=== PATIENT | female | born 1950 | race Caucasian/White ===

== ENCOUNTER → 2016-05-18 | Outpatient (CLI) | payer OTHER ==
--- NOTE | 2016-05-18 19:24 | MR ---
EXAMINATION TYPE: MR lumbar spine wo con DATE OF EXAM: 05/18/2016 6:53 PM COMPARISON: NONE HISTORY: Patient states having lower back "go out on her". Sciatica pain past four months TECHNIQUE: Multiplanar, multisequence images of the lumbar spine were acquired. L1-L2: Normal disc appearance without desiccation. No herniation, protrusion or disc bulging. No ca nal stenosis is present. Foramina are patent bilaterally. L2-L3: There is evidence of mild disc desiccation. Mild posterior disc bulge. No evidence for disc he rniation or protrusion. No evidence for central stenosis or foraminal encroachment. L3-L4: Mild disc desiccation noted. Far lateral and to the left disc bulge with annular tear. Mild ef facement of the ventral thecal sac. Mild left foraminal encroachment. No evidence for central stenosi s. L4-L5: Moderate disc desiccation noted. Broad-based posterior disc bulge noted. Herniation difficult to exclude. Effacement of the ventral thecal sac with constriction of the thecal sac however no defin ite central stenosis at this time. Bilateral foraminal encroachment. Facet joint arthropathy seen. L5-S1: There is evidence of mild disc desiccation. Mild posterior disc bulge. No evidence for disc he rniation or protrusion. No evidence for central stenosis or foraminal encroachment. Lumbar segments are intact. No paraspinal masses are identified. Conus medullaris has a normal appe arance. IMPRESSION: 1. Multilevel degenerative disc disease. 2. Far lateral and to the left disc bulge with annular tear at L3-4. 3. Moderate broad-based disc bulge with herniation difficult to exclude at L4-5.
== END | disposition home or self-care (01) ==
LOC: RADMRIMAIN 18:10
PROVIDERS: ATTEND Physical Medicine & Rehabilitation
DX: M51.26 Other intervertebral disc displacement, lumbar region (principal); M51.36 Other intervertebral disc degeneration, lumbar region
CPT/HCPCS: 72148

== ENCOUNTER → 2019-08-22 | Outpatient (CLI) | payer MEDICARE, OTHER ==
[~2019-08-22] MED LIST: IODINE/POTASS IOD (LUGOLS) BOTTLE TOPICAL ONE
--- NOTE | 2019-08-22 16:16 | NM ---
EXAMINATION TYPE: NM DatScan Brain SPECT DATE OF EXAM: 08/22/2019 COMPARISON: NONE HISTORY: Essential tremor TECHNIQUE: 10 drops of Lugol's solution was administered 1 hour prior to injection as a thyroid bloc miley agent. After the administration of 4.34 mCi I-123 Ioflupane DaTscan. Images obtained 3 hours p ost injection. SPECT images of the brain were acquired with axial and coronal reconstructions. FINDINGS: There is lack of the normal expected uptake along the striata bilaterally. Normal comma shaped uptake is not present. IMPRESSION: Abnormal REHANA scan
== END | disposition home or self-care (01) ==
LOC: RADNMMAIN 11:00
PROVIDERS: ATTEND Physician Assistant
DX: R93.0 Abnormal findings on diagnostic imaging of skull and head, not elsewhere classified (principal)
CPT/HCPCS: 78803; A9584

== ENCOUNTER → 2020-02-07 | Outpatient (CLI) | payer MEDICARE, OTHER ==
[2020-02-07 08:26] VITALS: BP 143/81; PULSE 77; RESP 18; TEMP 97.6
--- NOTE | 2020-02-07 09:00 | P.PAINCN ---
History of Present Illness - Reason for Consult Consult date: 02/07/20 - History of Present Illness This is 69 years old female with a chronic history of severe low back pain, and left knee pain, vision diagnosed with lumbar degenerative disc disease, lumbar spondylosis with lumbar facet arthropathy , lumbar spinal stenosis, and she had chronic left knee pain persistent after left knee arthroplasty, she was treated at orthopedic [facility], pain clinic by Dr. Osborne, and he did RFA of the medial branch lumbar area, and he did RFA of the left genicular nerves , the last RFA of the medial branch was done more than 6 months ago, currently she is complaining of severe low back pain which is increased with any activity, interfere with her quality of life she denies any fever or night sweats, denies any motor or sensory deficit, no change in the bowel movement or urination Past Medical History Past Medical History: CVA/TIA, Diabetes Mellitus, Memory Impairment, Osteoarthritis (OA), Thyroid Disorder Additional Past Medical History / Comment(s): ?TIA (OVER 10 YRS AGO), USP MEMORY LOSS, BENIGN FAMILIAL TREMORS/PARKINSONS, SEASONAL ALLERGIES, OSTEOPENIA, INTERSTITIAL CYSTITIS, DRY EYES, BEGINNING OF MACULAR DEGENERATION. History of Any Multi-Drug Resistant Organisms: None Reported Past Surgical History: Adenoidectomy, Bladder Surgery, Cholecystectomy, Heart Ca theterization, Hysterectomy, Orthopedic Surgery, Tonsillectomy, Tubal Ligation Additional Past Surgical History / Comment(s): LEFT ROTATOR CUFF, RIGHT FROZEN SHOULDER, JEFF KNEES-TOTAL AND PARTIAL, OOPHERECTOMY, CYSTOSCOPIES, BLADDER SUSPENSION, INTERSTITIAL CYSTITIS, JEFF CARPAL TUNNEL, PAIN CLINIC PROCEDURES , EYE SURGER (CHILD), EYELID RESECTION & EYEBROW LIFT. Past Anesthesia/Blood Transfusion Reactions: Previous Problems w/ Anesthesia Additional Past Anesthesia/Blood Transfusion Reaction / Comm: STATES MEDICATION "CURRARRE" USED OVER 25 YEARS AGO, SHE FELT PARALYZED AND COULD NOT MOVE OR BREATHE. Past Psychological History: No Psychological Hx Reported Smoking Status: Never smoker Past Alcohol Use History: Occasional Past Drug Use History: None Reported - Past Family History Mother Family Medical History: Cancer Additional Family Medical History / Comment(s): BASAL CELL Medications and Allergies Home Medications Medication Instructions Recorded Confirmed Type Aspirin [Adult Low Dose Aspirin EC] 81 mg PO HS 02/05/20 02/05/20 History Vamouvr313/Vit D 1800 1 cap PO DAILY 02/05/20 History Cetirizine HCl [Zyrtec] 10 mg PO DAILY 02/05/20 02/05/20 History Fenofibrate [Lofibra] 160 mg PO DAILY 02/05/20 02/05/20 History Hylands Leg Cramp Supplement 4 tab SL DIRECTED PRN 02/05/20 History Krill/[place]-3/Dha/Epa/Lipids 1 each PO DAILY 02/05/20 02/05/20 History [Krill Oil 350 mg Softgel] Levothyroxine Sodium [Synthroid] 50 mcg PO DAILY 02/05/20 02/05/20 History Lisinopril-Hctz 20-25 mg 1 tab PO DAILY 02/05/20 02/05/20 History [Zestoretic -25] Loratadine [Claritin] 10 mg PO DAILY 02/05/20 02/05/20 History Magnesium 400 mg PO BID 02/05/20 02/05/20 History Melatonin 10 mg PO HS PRN 02/05/20 02/05/20 History Menthol [Biofreeze] 1 applic TOPICAL DIRECTED PRN 02/05/20 02/05/20 History [place] 3 Supplement For Eyes 1 dose PO DAILY 02/05/20 History Pioglitazone [Actos] 15 mg PO HS 02/05/20 02/05/20 History Retinavites Supplement Dry Eye 1 dose PO DAILY 02/05/20 History Rosuvastatin [Crestor] 20 mg PO HS 02/05/20 02/05/20 History Thera Works Cream 1 applicate TOPICAL DIRECTED PRN 02/05/20 History metFORMIN HCL [Glucophage] 1,000 mg PO BID 02/05/20 02/05/20 History rOPINIRole HCL [Requip XL] 8 mg PO HS 02/05/20 02/05/20 History rOPINIRole HCL [Requip] 2 - 4 mg PO BID PRN 02/05/20 02/05/20 History Allergies Allergy/AdvReac Type Severity Reaction Status Date / Time acetaminophen [From Vicodin] Allergy Unknown Itching, Verified 02/05/20 14:33 rash, head like basketball, lips swollen, tingling codeine Allergy Unknown Rash, Verified 02/05/20 14:34 [From Tylenol-Codeine #3] itching,tingling,lips swollen,head like basketball erythromycin base Allergy Unknown Rash, Verified 02/05/20 14:34 itching, lips swollen, tingling, head like basketball hydrocodone [From Vicodin] Allergy Unknown rash , Verified 02/05/20 13:59 itching, head feels like basketball, lips swelling, oxycodone Allergy Unknown vomit bile Verified 02/05/20 13:59 Penicillins Allergy Unknown Rash, Verified 02/05/20 14:35 itching, lips swollen,tingling, head like basketball sulfamethoxazole Allergy Unknown rash, Verified 02/05/20 13:59 [From Bactrim] itching tolterodine [From Detrol] Allergy Unknown itching/nelly Verified 02/05/20 13:59 h tramadol [From Ultram] Allergy Unknown Rash, Verified 02/05/20 14:35 itching, lips swollen, tingling, head like basketball trimethoprim [From Bactrim] Allergy Unknown rash, Verified 02/05/20 13:59 itching hydromorphone [From Dilaudid] AdvReac Unknown reaction Verified 02/05/20 14:37 in higher doses gel adhesive pad Allergy Unknown ekg pads Uncoded 02/05/20 13:59 and adhesive- chemical burn, itching rash Physical Exam Vitals: Vital Signs Temp Pulse Resp BP Pulse Ox 02/07/20 08:20 97.6 F 77 18 143/81 97 Physical Examinations : -Constitutiona : Cooperative , not in acute distress . -HEENT : nech : supple , no Lymphadenopathy , normal thyroid size . : eyes : no ptosis , no icterus, no photophobia . - neurologic : Cranial nerve II to XII intact , no focal neurological deffecit . -psychatric : alert , oriented X 3 , appropriate affect , intact judgment and insight . -Lymphatic : no Lymphadenopathy . - musculoskeltal : Lumber spine moter stegnth lower extremities ,thigh and legs 5/5 Right side , 5/5 Left side deep tendon reflexes : normal Knee Jerk , normal ankle Jerk lumber facet Loading Test =positive Right , positive Left Range of motion of the lumbar spine Flexion 30 degrees, extension 10 degrees strait leg raising test = positive at 30 degree Fabere test= positive Right , and positive LT . Sever tenderness over the Sacroiliac joint on the Left sides Results Comments: MRI of the lumbar spine done December 2018= L2-3 facet disease and disc bulging, L3 4 facet disc disease and disc bulging at L4 5 disc herniation and foraminal stenosis and spinal stenosis L5-S1 disc bulging Assessment and Plan Plan: Assessment and plan=1-lumbar spondylosis with lumbar facet arthropathy without myelopathy. 2-lumbar degenerative disc disease. 3-lumbar spinal stenosis. 4-left knee arthralgia. Currently most of the pain is coming from the facet-related component, patient could benefit from repeat RFA medial branch Patient will be good candidate to have RFA of the medial branch bilateral L3, L4, L5 to target the facet joint at L4 5 and L5- S1 Time with Patient: Greater than 30 PQRS Measure Charge Sheet Measure #130: Documentation of Current Meds in Medical Chart: Patient's medications documented in chart Measure #226: Tobacco Use: Screen & Cessation Intervention: Pt not a tobacco user Measure #111: Pneumonia Vaccination: Pneumococcal vaccine administered or previously received Measure #47: Advance Care Plan: Advance care planning discussed & documented, pt chose/unable to give Measure #412: Opioid Treatment Agreement: No documentation of signed opioid treatment agreement Measure #408: Opioid Therapy Follow-up Evaluation: Patient had NO f/u eval minimum every 3 months during opioid therapy Measure #317: Preventitive Care & Scrn High Bld Press & F/U: Pre-hypertensive or hypertensive BP documented, pt will f/u with PCP Measure #128: Body Mass Index (BMI) Screening & Follow-up: BMI documented ABOVE normal parameters - f/u documented Measure #131: Pain Assessment & Follow-up: Pain positive & plan documented, Follow-up scheduled Measure #431: Unhealthy Alcohol Use Preventative Care & Scrn: Patient not identified as an unhealthy alcohol user PQRS Narrative: Blood Pressure 143/81 Pain Intensity [Left Knee] 10 Pain Intensity [Lower Back] 3 Scale Used Numeric (1 - 10) Hx Alcohol Use (MH) Yes: Social Home Medications: Ambulatory Orders Aspirin [Adult Low Dose Aspirin EC] 81 mg PO HS 02/05/20 Sxtovhm488/Vit D 1800 1 cap PO DAILY 02/05/20 Cetirizine HCl [Zyrtec] 10 mg PO DAILY 02/05/20 Fenofibrate [Lofibra] 160 mg PO DAILY 02/05/20 Hylands Leg Cramp Supplement 4 tab SL DIRECTED PRN 02/05/20 Krill/[place]-3/Dha/Epa/Lipids [Krill Oil 350 mg Softgel] 1 each PO DAILY 02/05/20 Levothyroxine Sodium [Synthroid] 50 mcg PO DAILY 02/05/20 Lisinopril-Hctz 20-25 mg [Zestoretic 20-25] 1 tab PO DAILY 02/05/20 Loratadine [Claritin] 10 mg PO DAILY 02/05/20 Magnesium 400 mg PO BID 02/05/20 Melatonin 10 mg PO HS PRN 02/05/20 Menthol [Biofreeze] 1 applic TOPICAL DIRECTED PRN 02/05/20 [place] 3 Supplement For Eyes 1 dose PO DAILY 02/05/20 Pioglitazone [Actos] 15 mg PO HS 02/05/20 Retinavites Supplement Dry Eye 1 dose PO DAILY 02/05/20 Rosuvastatin [Crestor] 20 mg PO HS 02/05/20 Thera Works Cream 1 applicate TOPICAL DIRECTED PRN 02/05/20 metFORMIN HCL [Glucophage] 1,000 mg PO BID 02/05/20 rOPINIRole HCL [Requip XL] 8 mg PO HS 02/05/20 rOPINIRole HCL [Requip] 2 - 4 mg PO BID PRN 02/05/20
== END | disposition home or self-care (01) ==
LOC: PNWHC3 08:07
PROVIDERS: ATTEND Specialist
DX: M48.061 Spinal stenosis, lumbar region without neurogenic claudication (principal); M51.36 Other intervertebral disc degeneration, lumbar region; M25.562 Pain in left knee; M47.816 Spondylosis without myelopathy or radiculopathy, lumbar region; E11.9 Type 2 diabetes mellitus without complications; E07.9 Disorder of thyroid, unspecified; H04.129 Dry eye syndrome of unspecified lacrimal gland; H35.30 Unspecified macular degeneration; Z79.82 Long term (current) use of aspirin; Z79.899 Other long term (current) drug therapy; Z79.84 Long term (current) use of oral hypoglycemic drugs; Z79.890 Hormone replacement therapy; Z88.0 Allergy status to penicillin; Z88.5 Allergy status to narcotic agent
CPT/HCPCS: 99211

== ENCOUNTER 2020-04-02 07:02 | Day surgery (SDC) | payer MEDICARE, OTHER ==
[2020-03-29 10:22] VITALS: BMI 33.3
[2020-04-02] MEDS ORDERED: LACTATED RINGERS 1,000 ML IV ONE (07:25)
[2020-04-02 07:46] LABS: Glucose,Whole Blood 103 mg/dL (75-99)
[2020-04-02 07:49] VITALS: RESP 16; TEMP 96.8
[2020-04-02] MEDS ORDERED: ONDANSETRON 4 MG/2 ML VIAL ONE (07:50)
[2020-04-02] MEDS ORDERED: ONDANSETRON 4 MG/2 ML VIAL IVP ONE (07:52)
[2020-04-02] MEDS ORDERED: MIDAZOLAM 2 MG/2 ML VIAL ONE (07:54)
[2020-04-02] MEDS ORDERED: LIDOCAINE 1% INJ 10MG/ML (20 ML MDV) ONE (07:54)
[2020-04-02] MEDS ORDERED: ROPIVACAINE 5MG/ML 20ML VIAL ONE (07:54)
[2020-04-02] MEDS ORDERED: fentaNYL (PF) 50 MCG/ML 2 ML AMP ONE (07:54)
--- NOTE | 2020-04-02 08:34 | P.PCN ---
Date of Procedure: 04/02/20 Description of Procedure: PREOPERATIVE DIAGNOSIS: Lumbar Spondylosis POSTOPERATIVE DIAGNOSIS: Same PROCEDURES: Radiofrequency ablation of the L3, L4, L5 medial branches with fluoroscopic guidance bilaterally SURGEON: Jaison Hughes MD. ANESTHESIA: Lidocaine 1% 5 mL, Moderate sedation with intravenous Versed and fentanyl, sedation time 35 min EBL: Minimal Fluoroscopy was used for the procedure and images were saved in the radiology portion of the chart. PROCEDURE INDICATION: The patient with low back pain secondary to lumbar facet arthropathy who had more than 50% relief of pain with previous diagnostic lumbar medial branch block X2. PROCEDURE DESCRIPTION / TECHNIQUE: The patient was seen and identified in the preoperative area. Risks, benefits, complications, including but not limited to risk of infection ,bleeding , allergic reactions to the medications and incomplete pain relief , and alternatives were discussed with the patient, the patient agreed to proceed with the procedure and signed the consent. IV was started. The operative site was marked. Patient was taken to the OR and time out was completed. The patient was placed in the prone position on the procedure table. The lumbar area was prepped and draped in the usual sterile fashion. . Vital signs were closely monitored during the procedure .IV sedation was used during the procedure to decrease patients anxiety. Using AP and then oblique fluoroscopy, the "eye of the Hunter dog" corresponding to the connection between the superior and transverse articular processes of the L4 and L5 as well as the sacral ala were identified, marked, and localized with 1% lidocaine. Subsequently, an 18 guage[100/150-mm] radiofrequency cannula with a 10-mm active tip was advanced guided by fluoroscopy to the identified target at each site. Needle positioning was confirmed on AP, oblique and late ral fluoroscopy. Motor testing at 2.5 Hz was done with paraspinal muscle stimulation only, and no radicular symptoms down the legs. Then 1 mL of 0.5% bupivacaine was injected in each site. Radiofrequency thermocoagulation at 80 degrees celsius for 90 seconds was then performed. [place] were removed. Sterile dressings were applied. COMPLICATIONS: No acute complications. DISPOSITION / PLANS: The patient was placed in a supine position and transferred to the recovery area in a stable condition for observation and was discharged from the recovery room after meeting discharge criteria. Home discharge instructions given to the patient by the staff. The patient will follow up in clinic in 8 weeks.
[2020-04-02 08:58] VITALS: BP 155/67; PULSE 60
[2020-04-02] MEDS ORDERED: IV FLUID CONTINUATION 1,000 ML IV ONE (08:59)
--- NOTE | 2020-04-02 09:06 | FL ---
EXAMINATION TYPE: FL guided pain mgmt statistic DATE OF EXAM: 04/02/2020 HISTORY: Fluoroscopy time 20 seconds of fluoroscopy provided. IMPRESSION: 1. Fluoroscopy time.
== END 2020-04-02 09:13 | disposition home or self-care (01) ==
LOC: ORPAIN 07:02
PROVIDERS: ATTEND Anesthesiology
DX: M47.816 Spondylosis without myelopathy or radiculopathy, lumbar region (principal); E11.9 Type 2 diabetes mellitus without complications; Z98.890 Other specified postprocedural states; Z79.82 Long term (current) use of aspirin
CPT/HCPCS: 64635; 64636; J2250; J2405; J2001; J3010; J2795; 99152; 99153

== ENCOUNTER → 2020-05-27 | Outpatient (CLI) | payer MEDICARE, OTHER ==
[2020-05-27 12:36] VITALS: BP 139/73; PULSE 88; RESP 18; TEMP 97.7
--- NOTE | 2020-05-27 12:48 | P.PAINPG ---
Subjective Progress Note Date: 05/27/20 Principal diagnosis: Lumbar back pain, hip pain, and knee pain Mrs. Gonzalez is a 70-year-old pleasant female came to the [facility] pain management clinic for follow-up visit after bilateral lumbar radiofrequency ablation. Patient had complete pain relief after the intervention procedure area but she is complaining her pain in her left hip area secondary to her bursitis. And she had bilateral knee genicular nerve radiofrequency ablation done with the previous pain clinic. Lately she is getting more worse pain in her left hip area secondary to bursitis. She has a difficult time sleeping, and walking on her left side secondary to pain. She rated her pain is 8 out of 10 in severity. Activities making her pain worse. She described her pain is aching, throbbing, constant irritating pain. Interventional procedures, and medications helping to some extent in relieving her pain. Activities are improved after the lumbar radiofrequency ablation but lately secondary to hip pain and, and knee pain making her activities sometimes difficulty. She denied any red flag symptoms related to pain. 13 point review of systems negative except as mentioned in history of present illness. Objective - Vital Signs Vital signs: Vital Signs Temp 97.7 F 05/27/20 12:35 Pulse 88 05/27/20 12:35 Resp 18 05/27/20 12:35 BP 139/73 05/27/20 12:35 Pulse Ox 98 05/27/20 12:35 - Exam General: well-developed, well-nourished, no acute distress. HEENT: Normocephalic, atraumatic. Neck: supple, trachea midline CVS: Regular rate and rhythm Pulmonary : Not in labored breathing. Neurologic: No noticeable focal neurological deficits. Psychiatric: Appropriate mood and affect. Musculoskeletal: Upper extremity : Normal strength and range of motion, and sensation grossly intact.. Lower extremity: Normal strength and decreased range of motion secondary to pain. Sensation grossly intact Lumbar spine range of motion: Decreased in flexion, extension, and lateral bending secondary to pain Lumbar paraspinal muscle tenderness: Positive Lumbar facet loading test: Positive Sacroiliac joint tenderness: Positive for left-sided Sacroiliac joint compression test: Positive for left-sided Thigh thrust test: Positive on left side Fabere's test/Rojas test: Positive on left side Left hip tenderness over greater trochanteric bursae area. Lumbar spine trigger points : Positive. Assessment and Plan Assessment: #1 lumbar spondylosis without myelopathy #2 myofascial pain syndrome #3 sacroiliac joint dysfunction #4 left hip greater trochanteric bursitis #5 chronic knee pain status post knee arthroplasty Plan: 1. Diagnoses, prognoses, and multiple treatment options including but not limited to physical therapy, interventional therapies, adjunct medical therapies, and surgical options were discussed with the patient and all questions were answered to the patients satisfaction. 2. Treatment plan agreement: Patient was discussed regarding the medication side effects, and complications associated medications. 3. The patient was counseled on importance of regular exercise in controlling chronic pain as well as in terms of overall well-being. Patient counseled regarding the importance of regular exercise, and minimizing the intake of carbohydrates, and process foods which may help in decreasing the inflammation, and helps overall well-being. 4. Consultations: Continue physical therapy exercises at home 5. Investigations: MAPS- appropriate , and urine drug test- not done. 6. Diagnostic studies: None. 7. Interventional procedures: Left hip greater trochanteric bursae injection #1 8. Medications: None from the pain clinic 9. Morphine milligram equivalent (MME) doses: 0 from the pain clinic. 10. Disposition: Scheduled for follow-up in 4 weeks duration. I have spent 20 minutes with this patient. Including but not limited to: [id number] time, on physical examination, electronic medical record review, counseling, and documentation Time with Patient: Less than 30 PQRS Measure Charge Sheet PQRS Narrative: Blood Pressure 139/73 Pain Intensity [Left Knee] 0 Pain Intensity [Lower Back] 2 Scale Used Numeric (1 - 10) Hx Alcohol Use (MH) Yes: Social Home Medications: Ambulatory Orders Aspirin [Adult Low Dose Aspirin EC] 81 mg PO HS 02/05/20 Oaitbfu211/Vit D 1800 1 cap PO BID 02/05/20 Cetirizine HCl [Zyrtec] 10 mg PO DAILY PRN 02/05/20 Fenofibrate [Lofibra] 160 mg PO DAILY 02/05/20 Hylands Leg Cramp Supplement 4 tab SL DIRECTED PRN 02/05/20 Krill/[place]-3/Dha/Epa/Lipids [Krill Oil 350 mg Softgel] 1 each PO DAILY 02/05/20 Levothyroxine Sodium [Synthroid] 50 mcg PO DAILY 02/05/20 Lisinopril-Hctz 20-25 mg [Zestoretic 20-25] 1 tab PO DAILY 02/05/20 Loratadine [Claritin] 10 mg PO DAILY PRN 02/05/20 Magnesium 400 mg PO BID 02/05/20 Melatonin 10 mg PO HS PRN 02/05/20 Menthol [Biofreeze] 1 applic TOPICAL DIRECTED PRN 02/05/20 [place] 3 Supplement For Eyes 1 dose PO BID 02/05/20 Pioglitazone [Actos] 15 mg PO HS 02/05/20 Retinavites Supplement Dry Eye 2 dose PO DAILY 02/05/20 Rosuvastatin [Crestor] 20 mg PO HS 02/05/20 Thera Works Cream 1 applicate TOPICAL DIRECTED PRN 02/05/20 metFORMIN HCL [Glucophage] 1,000 mg PO BID 02/05/20 Controlled Substance Measures - Controlled Substance Measures Is patient prescribed a controlled substance at discharge?: No
== END ==
LOC: PNWHC3 12:23
DX: M47.816 Spondylosis without myelopathy or radiculopathy, lumbar region (principal); M79.18 Myalgia, other site; M70.62 Trochanteric bursitis, left hip; M53.3 Sacrococcygeal disorders, not elsewhere classified; M25.569 Pain in unspecified knee; G89.29 Other chronic pain; Z96.659 Presence of unspecified artificial knee joint
CPT/HCPCS: 99211

== ENCOUNTER 2020-06-04 10:05 | Day surgery (SDC) | payer MEDICARE, OTHER ==
[2020-06-04 10:37] LABS: Glucose,Whole Blood 97 mg/dL (75-99)
[2020-06-04] MEDS ORDERED: ROPIVACAINE 5MG/ML 20ML VIAL ONE (10:38)
[2020-06-04] MEDS ORDERED: methylPREDNISolone ACETATE 40 MG/ML 1 ML VIAL ONE (10:38)
[2020-06-04 10:41] VITALS: RESP 16; TEMP 97
--- NOTE | 2020-06-04 10:50 | P.PCN ---
Date of Procedure: 06/04/20 Procedure(s) Performed: Pre OP diagnoses= Left trochanteric bursitis . Postoperative diagnosis= Left trochanteric bursitis. Operation= Left trochanteric bursa steroid injection under fluoroscopy guidance.(The fluoroscopy images on file in Radiology department ) Anesthesia= local infiltration with Ropivacaine 1% 2 mL only . Complications= none . Description of the procedure= patient had history of severe low back pain and hip pain secondary to left trochanteric bursitis for this reason patient was a good candidate to have Left trochanteric bursa steroid injection which hopefully it will help his pain, risks and benefits of the procedure including but not limited to risk of infection and bleeding and not complete pain relief and ALLERGIC reaction to medication discussed with the patient and the alternative also discussed with the patient and he agreed with the preceding ,patients taken to the operating room placed in prone position or standard monitors applied patient ,the back and the hip area prepped with chlorhexidine 3 times, and under sterile technique using 25-gauge needle for skin and subcutaneous tissue infiltration was first admitted the right trochanteric bursa injection at 25-gauge Quincke-type spinal needle advanced slowly under fluoroscopy and placed in the Left trochanteric bursa needle placement confirmed with AP and lateral view and after appropriate needle placement confirmed under fluoroscopy 5 ML of Ropivacaine 0.5% mixed with 40 mg of Kenalog injected after negative aspiration for heme and there was no CSF and there was no paresthesia during the injection and needle removed and a dressing applied
--- NOTE | 2020-06-04 10:53 | P.PN ---
Progress Note - Text Progress Note Date: 06/04/20 This is an addendum to the dictated earlier= the procedure today I used 40 mg of Depo-Medrol,( I did not use Kenalog ),
[2020-06-04 10:56] VITALS: BP 156/80; PULSE 68
--- NOTE | 2020-06-04 12:55 | FL ---
EXAMINATION TYPE: FL guided pain mgmt statistic DATE OF EXAM: 06/04/2020 HISTORY: Fluoroscopy time 1 seconds of fluoroscopy provided. IMPRESSION: 1. Fluoroscopy time.
== END 2020-06-04 11:09 | disposition home or self-care (01) ==
LOC: ORPAIN 10:05
PROVIDERS: ATTEND Specialist
DX: M70.62 Trochanteric bursitis, left hip (principal); M47.896 Other spondylosis, lumbar region; E11.9 Type 2 diabetes mellitus without complications; Z79.82 Long term (current) use of aspirin; Y93.9 Activity, unspecified
CPT/HCPCS: 77002; 20610; J1030; J2795

== ENCOUNTER 2020-07-20 10:17 | Inpatient (IN) | payer MEDICARE, OTHER ==
[2020-07-20] MEDS ORDERED: MORPHINE SULFATE 4 MG/ML SYRINGE IVP STA ×2 (10:52→11:46)
[2020-07-20] MEDS ORDERED: ONDANSETRON 4 MG/2 ML VIAL IVP STA (10:52)
[2020-07-20] MEDS ORDERED: KETOROLAC 15 MG/ML 1 ML VIAL IVP STA (10:52)
--- NOTE | 2020-07-20 11:55 | XR ---
EXAMINATION TYPE: XR lumbar spine 2 or 3V DATE OF EXAM: 07/20/2020 COMPARISON: None HISTORY: Pain low back TECHNIQUE: Three-view lumbar spine FINDINGS: There are 5 lumbar-type vertebral bodies. Pedicles are intact. Rotoscoliosis is present. De generative disc changes present L4-5. Vertebral body heights are preserved. T12 ribs appear rudimenta ry. IMPRESSION: 1. Scoliosis. 2. Degenerative disc change L4-5.
--- NOTE | 2020-07-20 12:12 | ED ---
Back Pain HPI - General Chief Complaint: Back Pain/Injury Stated Complaint: Lower Back Injury Time Seen by Provider: 07/20/20 10:44 Source: patient, RN notes reviewed Limitations: no limitations - History of Present Illness Initial Comments: 70-year-old female presents emergency Department with chief complaint of low back pain. Patient has chronic low back issues states that she used to see Dr. Osborne. Patient states that she is now seen Dr. Collins and which she has received some injections. Patient states that she had a recent procedure 2 months ago in which she normally states it lasts for 5 months but states that she's had excruciating pain. She did follow-up with neurology who ordered further imaging including x-rays, EMG, MRI. Patient denies any bowel bladder incontinence or retention. Patient states that she doesn't want to her chiropractor which helped for a couple hours but states that she sits severe pain low back radiates into her legs. She states that she has to stay bent over because of the pain. She states she cannot stand straight up. - Related Data Home Medications Medication Instructions Recorded Confirmed Aspirin [Adult Low Dose Aspirin EC] 81 mg PO HS 02/05/20 06/27/20 [id number]/Vit D 1800 1 cap PO BID 02/05/20 06/27/20 Cetirizine HCl [Zyrtec] 10 mg PO DAILY PRN 02/05/20 06/27/20 Fenofibrate [Lofibra] 160 mg PO DAILY 02/05/20 06/27/20 Hylands Leg Cramp Supplement 4 tab SL DIRECTED PRN 02/05/20 06/27/20 Krill/[place]-3/Dha/Epa/Lipids 1 each PO DAILY 02/05/20 06/27/20 [Krill Oil 350 mg Softgel] Levothyroxine Sodium [Synthroid] 50 mcg PO DAILY 02/05/20 06/27/20 Lisinopril-Hctz 20-25 mg 1 tab PO DAILY 02/05/20 06/27/20 [Zestoretic 20-25] Loratadine [Claritin] 10 mg PO DAILY PRN 02/05/20 06/27/20 Magnesium 400 mg PO BID 02/05/20 06/27/20 Melatonin 10 mg PO HS PRN 02/05/20 06/27/20 Menthol [Biofreeze] 1 applic TOPICAL DIRECTED PRN 02/05/20 06/27/20 [place] 3 Supplement For Eyes 1 dose PO BID 02/05/20 06/27/20 Pioglitazone [Actos] 15 mg PO HS 02/05/20 06/27/20 Retinavites Supplement Dry Eye 2 dose PO DAILY 02/05/20 06/27/20 Rosuvastatin [Crestor] 20 mg PO HS 02/05/20 06/27/20 Thera Works Cream 1 applicate TOPICAL DIRECTED PRN 02/05/20 06/27/20 metFORMIN HCL [Glucophage] 1,000 mg PO BID 02/05/20 06/27/20 Allergies Allergy/AdvReac Type Severity Reaction Status Date / Time erythromycin base Allergy Unknown Rash, Verified 06/27/20 09:48 itching, lips swollen, tingling, head like basketball hydrocodone [From Vicodin] Allergy Unknown rash , Verified 06/27/20 09:48 itching, head feels like basketball, lips swelling, oxycodone Allergy Unknown vomit bile Verified 06/27/20 09:48 Penicillins Allergy Unknown Rash, Verified 06/27/20 09:48 itching, sulfamethoxazole Allergy Unknown rash, Verified 06/27/20 09:48 [From Bactrim] itching tolterodine [From Detrol] Allergy Unknown itching/nelly Verified 06/27/20 09:48 h tramadol [From Ultram] Allergy Unknown Rash, Verified 06/27/20 09:48 itching, lips swollen, tingling, head like basketball trimethoprim [From Bactrim] Allergy Unknown rash, Verified 06/27/20 09:48 itching nickel Allergy Rash/Hives Verified 06/27/20 09:48 hydromorphone [From Dilaudid] AdvReac Unknown reaction Verified 06/27/20 09:48 in higher doses gel adhesive pad Allergy Unknown ekg pads Uncoded 06/27/20 09:48 and adhesive- chemical burn, itching rash Review of Systems ROS Statement: Those systems with pertinent positive or pertinent negative responses have been documented in the HPI. ROS Other: All systems not noted in ROS Statement are negative. Past Medical History Past Medical History: CVA/TIA, Diabetes Mellitus, Memory Impairment, Osteoarthritis (OA), Thyroid Disorder Additional Past Medical History / Comment(s): ?TIA (OVER 10 YRS AGO), RETIREMENT MEMORY LOSS, BENIGN FAMILIAL TREMORS/PARKINSONS, SEASONAL ALLERGIES, OSTEOPENIA, INTERSTITIAL CYSTITIS, DRY EYES, BEGINNING OF MACULAR DEGENERATION. History of Any Multi-Drug Resistant Organisms: None Reported Past Surgical History: Adenoidectomy, Bladder Surgery, Cholecystectomy, Heart Catheterization, Hysterectomy, Orthopedic Surgery, Tonsillectomy, Tubal Ligation Additional Past Surgical History / Comment(s): LEFT ROTATOR CUFF, RIGHT FROZEN SHOULDER, JEFF KNEES-TOTAL AND PARTIAL, OOPHERECTOMY, CYSTOSCOPIES, BLADDER SUSPENSION, INTERSTITIAL CYSTITIS, JEFF CARPAL TUNNEL, PAIN CLINIC PROCEDURES , EYE SURGER (CHILD), EYELID RESECTION & EYEBROW LIFT. Past Anesthesia/Blood Transfusion Reactions: Previous Problems w/ Anesthesia Additional Past Anesthesia/Blood Transfusion Reaction / Comment(s): STATES MEDICATION "CURRARRE" USED OVER 25 YEARS AGO, SHE FELT PARALYZED AND COULD NOT MOVE OR BREATHE. Past Psychological History: No Psychological Hx Reported Smoking Status: Never smoker - Past Family History Mother Family Medical History: Cancer Additional Family Medical History / Comment(s): BASAL CELL General Exam Limitations: no limitations General appearance: alert, in no apparent distress Head exam: Present: atraumatic, normocephalic, normal inspection Eye exam: Present: normal appearance, PERRL, EOMI. Absent: scleral icterus, conjunctival injection, periorbital swelling ENT exam: Present: normal exam, normal oropharynx, mucous membranes moist Neck exam: Present: normal inspection, full ROM. Absent: tenderness, meningismus, lymphadenopathy Respiratory exam: Present: normal lung sounds bilaterally. Absent: respiratory distress, wheezes, rales, rhonchi, stridor Cardiovascular Exam: Present: regular rate, normal rhythm, normal heart sounds. Absent: systolic murmur, diastolic murmur, rubs, gallop, clicks Extremities exam: Present: other (Lower extremity pulses equal bilaterally neurovascular intact, equal color equal warmth) Back exam: Present: tenderness, paraspinal tenderness, vertebral tenderness. Absent: full ROM, CVA tenderness (R), CVA tenderness (L) Neurological exam: Present: alert, oriented X3, CN II-XII intact, reflexes normal. Absent: motor sensory deficit Skin exam: Present: warm, dry, intact, normal color. Absent: rash Course Vital Signs 07/20/20 10:18 Temperature 97.6 F Pulse Rate 80 Respiratory 18 Rate Blood Pressure 158/70 O2 Sat by Pulse 99 Oximetry Medical Decision Making - Medical Decision Making 8-year-old presented for back pain. Patient had intractable back pain. Patient has prior MRI showing severe changes. She has no red flag symptoms but multiple rounds of pain medication, muscle relaxers and anti-inflammatory she's had minimal improvement. Case discussed with Dr. Mccormick who accepts admission with consult to pain management and orthospine Disposition Clinical Impression: Lumbar radiculopathy, Lumbar disc herniation, Intractable low back pain Disposition: ADMITTED IP TO THIS HOSP Condition: Fair Referrals: Cami Oreilly MD [Primary Care Provider] - 1-2 days
[2020-07-20] MEDS ORDERED: DIAZEPAM 5 MG/ML 2 ML INJ IVP STA (12:25)
[2020-07-20] MEDS ORDERED: NALOXONE 0.4 MG/ML 1 ML VIAL IV PRN (13:16)
[2020-07-20] MEDS ORDERED: methylPREDNISolone SOD SUCCI 125 MG/2 ML VIAL IV STA (13:17)
[2020-07-20] MEDS: MORPHINE SULFATE 4 MG/ML SYRINGE IVP PRN ×3 (15:16→21:35)
[2020-07-20 17:07] LABS: Glucose,Whole Blood 117 mg/dL (75-99)
[2020-07-20 17:21] LABS: Basophils % (A) 0 %; Eosinophils # (A) 0.1 k/uL (0-0.7); Eosinophils % (A) 1 %; HCT 37.1 % (34.0-46.0); HGB 12.2 gm/dL (11.4-16.0); Lymphocytes # (A) 0.9 k/uL (1.0-4.8); Lymphocytes % (A) 8 %; MCH 26.9 pg (25.0-35.0); MCHC 32.9 g/dL (31.0-37.0); MCV 81.7 fL (80.0-100.0); Mean Platelet Volume 7.4; Monocytes # (A) 0.2 k/uL (0-1.0); Monocytes % (A) 2 %; Neutrophils # (A) 9.9 k/uL (1.3-7.7); Neutrophils % (A) 90 %; Platelet Count 328 k/uL (150-450); RBC 4.54 m/uL (3.80-5.40); RDW 14.1 % (11.5-15.5); WBC 11.1 k/uL (3.8-10.6)
[2020-07-20 17:41] LABS: ALT 12 U/L (4-34); AST 23 U/L (14-36); African American GFR (CKD) 64 (>60 ml/min/1.73 sqM); Albumin 4.5 g/dL (3.5-5.0); Albumin/Globulin Ratio 1.8; Alkaline Phosphatase 67 U/L (38-126); Anion Gap 8 mmol/L; Blood Urea Nitrogen 36 mg/dL (7-17); Calcium 10.1 mg/dL (8.4-10.2); Carbon Dioxide 26 mmol/L (22-30); Chloride 103 mmol/L (98-107); Globulin 2.5 g/dL; Glucose 125 mg/dL (74-99); Non-African American GFR(CKD) 56 (>60 ml/min/1.73 sqM); Potassium 4.8 mmol/L (3.5-5.1); Sodium 137 mmol/L (137-145); Total Bilirubin 0.4 mg/dL (0.2-1.3)
[2020-07-20 20:09] LABS: Glucose,Whole Blood 241 mg/dL (75-99)
[2020-07-20] MEDS: CALCIUM CARB-VIT D 500 MG-5 MCG TAB PO SCH (21:40)
[2020-07-20] MEDS: ATORVASTATIN 40 MG TAB PO SCH (21:40)
[2020-07-20] MEDS: metFORMIN 500 MG TAB PO SCH (21:42)
[2020-07-20] MEDS: PIOGLITAZONE 15 MG TAB PO SCH (21:53)
[2020-07-20] MEDS: CYCLOBENZAPRINE 10 MG TAB PO SCH (22:08)
--- NOTE | 2020-07-20 22:28 | P.HPIM ---
History of Present Illness H&P Date: 07/20/20 Chief Complaint: Back pain Patient is a 70-year-old female with a known history of hypertension, diabetes type 2, hyperlipidemia, memory impairment, osteoarthritis, hypothyroidism and history of L3-L5 disc herniation and spinal stenosis presents to ER due to intractable lower back pain. Patient usually follows with Dr. Osborne for her back pain management and is currently on follow-up with Dr. Collins. Patient also has history of epidural injections and radiofrequency ablations last time on April 02. Patient states that last about 2 months. Patient had last MRI done in 2018. She has been having shooting down pain from the lower back to the legs. Denied any bowel or bladder incontinence. Patient states that since last pain has been getting worse and sh slumped onto walker. Patient states that she made an appointment with the [facility] [place] and is scheduled for MRI of the lumbar spine, EEG and nerve conduction studies on next . Patient was seen by her chiropractic coverage back and also taking pain medications and also started on Flexeril at bedtime 10 mg. Since the pain is not improving and patient is unable to get up from sitting position and having difficulty ambulation. Patient came to ER for evaluation. Denies any complaints of chest pain or shortness of the. No nausea vomiting abdominal pain or diarrhea. No dysuria or hematuria. No fever no chills. X-ray of the lumbar spine showed scoliosis. Degenerative disc disease L4-L5 Laboratory data showed WBC 11.1 hemoglobin 12.2 platelets 328 Sodium 137 potassium 4.8 chloride 103 BUN 36 and creatinine 1.04 calcium 10.1 liver enzymes are not elevated and coronavirus PCR not detected Review of Systems Constitutional: Patient denies any fever or chills . No generalized weakness or weight loss. Abdomen: Patient denied nausea vomiting and diarrhea and abdominal pain. Cardiovascular: Patient denies any chest pain or short of breath no palpitations. Respiratory: patient denied any cough or sputum production. No shortness of breath Neurologic: Patient denied any numbness or tingling headache. Musculoskeletal: Patient denies any complaints of joint swelling or deformity.back pain Skin: Negative Psychiatric: Negative Endocrine: No heat or cold intolerance. No recent weight gain. Genitourinary: No dysuria or hematuria. All other 14 point ROS negative except the above Past Medical History Past Medical History: CVA/TIA, Diabetes Mellitus, Memory Impairment, Osteoarth ritis (OA), Thyroid Disorder Additional Past Medical History / Comment(s): ?TIA (OVER 10 YRS AGO), FPC MEMORY LOSS, BENIGN FAMILIAL TREMORS/PARKINSONS, SEASONAL ALLERGIES, OSTEOPENIA, INTERSTITIAL CYSTITIS, DRY EYES, BEGINNING OF MACULAR DEGENERATION. History of Any Multi-Drug Resistant Organisms: None Reported Past Surgical History: Adenoidectomy, Bladder Surgery, Cholecystectomy, Heart Catheterization, Hysterectomy, Orthopedic Surgery, Tonsillectomy, Tubal Ligation Additional Past Surgical History / Comment(s): LEFT ROTATOR CUFF, RIGHT FROZEN SHOULDER, JEFF KNEES-TOTAL AND PARTIAL, OOPHERECTOMY, CYSTOSCOPIES, BLADDER SUSPENSION, INTERSTITIAL CYSTITIS, JEFF CARPAL TUNNEL, PAIN CLINIC PROCEDURES , EYE SURGER (CHILD), EYELID RESECTION & EYEBROW LIFT. Past Anesthesia/Blood Transfusion Reactions: Previous Problems w/ Anesthesia Additional Past Anesthesia/Blood Transfusion Reaction / Comment(s): STATES MEDICATION "CURRARRE" USED OVER 25 YEARS AGO, SHE FELT PARALYZED AND COULD NOT MOVE OR BREATHE. Past Psychological History: No Psychological Hx Reported Smoking Status: Never smoker Past Alcohol Use History: Occasional Past Drug Use History: None Reported - Past Family History Mother Family Medical History: Cancer Additional Family Medical History / Comment(s): BASAL CELL Medications and Allergies Home Medications Medication Instructions Recorded Confirmed Type Aspirin [Adult Low Dose Aspirin EC] 81 mg PO HS 02/05/20 07/20/20 History Fenofibrate [Lofibra] 160 mg PO DAILY 02/05/20 07/20/20 History Levothyroxine Sodium [Synthroid] 50 mcg PO DAILY 02/05/20 07/20/20 History Lisinopril-Hctz 20-25 mg 1 tab PO DAILY 02/05/20 07/20/20 History [Zestoretic 20-25] Loratadine [Claritin] 10 mg PO DAILY PRN 02/05/20 07/20/20 History Pioglitazone [Actos] 15 mg PO HS 02/05/20 07/20/20 History Rosuvastatin [Crestor] 20 mg PO HS 02/05/20 07/20/20 History metFORMIN HCL [Glucophage] 1,000 mg PO BID 02/05/20 07/20/20 History Calcium Carbonate/Vitamin D3 1 tab PO BID 07/20/20 07/20/20 History [Calcium 600-D3 20 mcg (800 Unit)] Cyclobenzaprine [Flexeril] 10 mg PO DAILY 07/20/20 07/20/20 History Krill/Om-3/Dha/Epa/Phospho/Ast 1 cap PO DAILY 07/20/20 07/20/20 History [[place]-3 Krill Oil 300 mg Sfgl] Magnesium Oxide 800 mg PO BID 07/20/20 07/20/20 History Vits A,C,E/Lutein/Minerals 1 tab PO BID 07/20/20 07/20/20 History [Ocuvite with Lutein Tablet] Allergies Allergy/AdvReac Type Severity Reaction Status Date / Time erythromycin base Allergy Unknown Rash, Verified 07/20/20 13:50 itching, lips swollen, tingling, head like basketball hydrocodone [From Vicodin] Allergy Unknown rash , Verified 07/20/20 13:50 itching, head feels like basketball, lips swelling, oxycodone Allergy Unknown vomit bile Verified 07/20/20 13:50 Penicillins Allergy Unknown Rash, Verified 07/20/20 13:50 itching, sulfamethoxazole Allergy Unknown rash, Verified 07/20/20 13:50 [From Bactrim] itching tolterodine [From Detrol] Allergy Unknown itching/nelly Verified 07/20/20 13:50 h tramadol [From Ultram] Allergy Unknown Rash, Verified 07/20/20 13:50 itching, lips swollen, tingling, head like basketball trimethoprim [From Bactrim] Allergy Unknown rash, Verified 07/20/20 13:50 itching nickel Allergy Rash/Hives Verified 07/20/20 13:50 hydromorphone [From Dilaudid] AdvReac Unknown reaction Verified 07/20/20 13:50 in higher doses gel adhesive pad Allergy Unknown ekg pads Uncoded 06/27/20 09:48 and adhesive- chemical burn, itching rash Physical Exam Vitals: Vital Signs Temp Pulse Pulse Resp BP BP Pulse Ox 07/20/20 16:01 66 16 07/20/20 15:06 97.8 F 66 16 132/78 99 07/20/20 13:27 86 16 146/79 99 07/20/20 10:18 97.6 F 80 18 158/70 99 Intake and Output 07/20/20 07/20/2021 06:59 14:59 22:59 Other: Weight 90.718 kg PHYSICAL EXAMINATION: Patient is lying in the bed comfortably, no acute distress, awake alert and oriented.. HEENT: Normocephalic. Neck is supple. Pupils reactive. Nostrils clear. Oral cavi ty is moist. Ears reveal no drainage. Neck reveals no JVD, carotid bruits, or thyromegaly. CHEST EXAMINATION: Trachea is central. Symmetrical expansion. Lung rangel clear to auscultation and percussion. CARDIAC: Normal S1, S2 with no gallops. No murmurs ABDOMEN: Soft. Bowel sounds normal. No organomegaly. No abdominal bruits. Extremities: reveal no edema. No clubbing or cyanosis Neurologically awake, alert, oriented x3 with well-coordinated movements.Memory impairment. No focal deficits noted Skin: No rash or skin lesions. Psychiatric: Coperative. Nonsuicidal Musculoskeletal: No joint swelling or deformity. Results CBC & Chem 7: 07/20/20 16:51 07/20/20 16:51 Thrombosis Risk Factor Assmnt - DVT/VTE Prophylaxis DVT/VTE Prophylaxis: Pharmacologic Prophylaxis ordered - Choose All That Apply Each Risk Factor Represents 2 Points: Age 61-74 years Thrombosis Risk Factor Assessment Total Risk Factor Score: 2 Thrombosis Risk Factor Assessment Level: Low Risk Assessment and Plan Assessment: Intractable lower back pain History of L3-L5 disc herniation and spinal stenosis Chronic pain and follow-up with pain clinic, epidural injections and history of radiofrequency ablation x2 Diabetes type 2 [id number] History of CVA/TIA Long-term memory loss Osteoarthritis Hypothyroidism Obesity with BMI 35.4 DVT prophylaxis with heparin subcu Plan: Patient will be continued pain management. She was given Toradol, methylprednisolone and morphine IV in the ER. Currently able to sit in a safe but still complaining of pain. Continue with Flexeril and morphine IV and Toradol as needed. Orthopedic surgery was consulted. Continue with blood pressure medications and diabetic medications and along with insulin sliding scale. Monitor closely. PT OT will be consulted and further recommendations based on the clinical course. Time with Patient: Greater than 30
[2020-07-21] MEDS: MORPHINE SULFATE 4 MG/ML SYRINGE IVP PRN ×6 (00:46→18:09)
[2020-07-21] MEDS: HEPARIN SODIUM,PORCINE/PF 5,000 UNIT/0.5 ML SYRINGE SQ SCH ×3 (00:47→15:07)
[2020-07-21] MEDS: LEVOTHYROXINE 50 MCG TAB PO SCH (06:04)
[2020-07-21 07:26] LABS: Glucose,Whole Blood 115 mg/dL (75-99)
[2020-07-21] MEDS ORDERED: CYCLOBENZAPRINE 10 MG TAB PO SCH (09:00)
[2020-07-21] MEDS: FENOFIBRATE 160 MG TAB PO SCH (09:43)
[2020-07-21] MEDS: CALCIUM CARB-VIT D 500 MG-5 MCG TAB PO SCH ×2 (09:43→20:32)
[2020-07-21] MEDS: LISINOPRIL-HCTZ 20-25 MG 1 EACH TAB PO SCH (09:43)
[2020-07-21] MEDS: metFORMIN 500 MG TAB PO SCH ×2 (09:44→20:32)
[2020-07-21] MEDS: IBUPROFEN 400 MG TAB PO PRN (10:04)
[2020-07-21 11:29] LABS: Glucose,Whole Blood 153 mg/dL (75-99)
--- NOTE | 2020-07-21 13:50 | P.CNOR ---
<Fernie Bruce - Last Filed: 07/21/20 13:49> History of Present Illness - [facility] Consult date: 07/21/20 Requesting physician: Devonte Cullen Consult reason: other (lumbar disc herniation) History of present illness: 70-year-old patient presented yesterday, 07/20/2020 to the emergency department with low back pain. Today, patient says she has had ongoing low back pain for a long time. patient denies any trauma to the area. She says she [facility] to [facility] left last fall. Since then, she says she has been seeing Dr. Collins where she had been given multiple injections into her lumbar spine. Usually she said they would last 5-6 months. But the last one she received only lasted a couple months. she says last week she also went to the chiropractor multiple times with relief for only several hours before getting back pain again in the lower back. she says the worst pain is in her left lower back region. She says this pain does radiate down her left leg. She says she is only able to get around with a walker and is bent over. When she tries to stand up straight she said her pain gets much much worse and she is not able to this.she says she is not able to receive many pain medications because she has reactions to several different pain medications. patient denies any fever, chest pain, shortness of breath, vision changes, falls. patient denies any loss of bladder or bowel control. patient does have a history of bilateral knee replacements and bilateral carpal tunnel. Patient denies any previous spine surgery. 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 History of Any Multi-Drug Resistant Organisms: None Reported Past Surgical History: Adenoidectomy, Bladder Surgery, Cholecystectomy, Heart Catheterization, Hysterectomy, Orthopedic Surgery, Tonsillectomy, Tubal Ligation Additional Past Surgical History / Comment(s): LEFT ROTATOR CUFF, RIGHT FROZEN SHOULDER, JEFF KNEES-TOTAL AND PARTIAL, OOPHERECTOMY, CYSTOSCOPIES, BLADDER SUSPENSION, INTERSTITIAL CYSTITIS, JEFF CARPAL TUNNEL, PAIN CLINIC PROCEDURES , EYE SURGER (CHILD), EYELID RESECTION & EYEBROW LIFT. Past Anesthesia/Blood Transfusion Reactions: Previous Problems w/ Anesthesia Additional Past Anesthesia/Blood Transfusion Reaction / Comm: STATES MEDICATION "CURRARRE" USED OVER 25 YEARS AGO, SHE FELT PARALYZED AND COULD NOT MOVE OR BREATHE. Past Psychological History: No Psychological Hx Reported Smoking Status: Never smoker Past Alcohol Use History: Occasional Past Drug Use History: None Reported - Past Family History Mother Family Medical History: Cancer Additional Family Medical History / Comment(s): BASAL CELL Medications and Allergies Home Medications Medication Instructions Recorded Confirmed Type Aspirin [Adult Low Dose Aspirin EC] 81 mg PO HS 02/05/20 07/20/20 History Fenofibrate [Lofibra] 160 mg PO DAILY 02/05/20 07/20/20 History Levothyroxine Sodium [Synthroid] 50 mcg PO DAILY 02/05/20 07/20/20 History Lisinopril-Hctz 20-25 mg 1 tab PO DAILY 02/05/20 07/20/20 History [Zestoretic 20-25] Loratadine [Claritin] 10 mg PO DAILY PRN 02/05/20 07/20/20 History Pioglitazone [Actos] 15 mg PO HS 02/05/20 07/20/20 History Rosuvastatin [Crestor] 20 mg PO HS 02/05/20 07/20/20 History metFORMIN HCL [Glucophage] 1,000 mg PO BID-W/MEALS 02/05/20 07/22/20 History Calcium Carbonate/Vitamin D3 1 tab PO BID 07/20/20 07/20/20 History [Calcium 600-D3 20 mcg (800 Unit)] Cyclobenzaprine [Flexeril] 10 mg PO DAILY 07/20/20 07/20/20 History Krill/Om-3/Dha/Epa/Phospho/Ast 1 cap PO DAILY 07/20/20 07/20/20 History [[place]-3 Krill Oil 300 mg Sfgl] Magnesium Oxide 800 mg PO BID 07/20/20 07/20/20 History Vits A,C,E/Lutein/Minerals 1 tab PO BID 07/20/20 07/20/20 History [Ocuvite with Lutein Tablet] Allergies Allergy/AdvReac Type Severity Reaction Status Date / Time erythromycin base Allergy Unknown Rash, Verified 07/20/20 13:50 itching, lips swollen, tingling, head like basketball hydrocodone [From Vicodin] Allergy Unknown rash , Verified 07/20/20 13:50 itching, head feels like basketball, lips swelling, oxycodone Allergy Unknown vomit bile Verified 07/20/20 13:50 Penicillins Allergy Unknown Rash, Verified 07/20/20 13:50 itching, sulfamethoxazole Allergy Unknown rash, Verified 07/20/20 13:50 [From Bactrim] itching tolterodine [From Detrol] Allergy Unknown itching/nelly Verified 07/20/20 13:50 h tramadol [From Ultram] Allergy Unknown Rash, Verified 07/20/20 13:50 itching, lips swollen, tingling, head like basketball trimethoprim [From Bactrim] Allergy Unknown rash, Verified 07/20/20 13:50 itching nickel Allergy Rash/Hives Verified 07/20/20 13:50 hydromorphone [From Dilaudid] AdvReac Unknown reaction Verified 07/20/20 13:50 in higher doses gel adhesive pad Allergy Unknown ekg pads Uncoded 06/27/20 09:48 and adhesive- chemical burn, itching rash Physical Examination skin inspection: Positive for incision site scars bilaterally and knees. Positive for incisions on wrists bilaterally. negative for any erythema, ecchymosis, ulcers, lesions along spine. palpation: lumbar spine tender to palpation. left SI joint tender to pa lpation. cervical and thoracic spines are nontender to palpation. negative Homans bilaterally; radial pulses present bilaterally 2+. Dorsalis pedis pulse present 2+ bilaterally Reflexes: negative Richard's bilaterally; negative clonus upon dorsiflexing feet bilaterally; patellar reflexes normal. sensation: Sensation intact throughout upper and lower extremities. sensation intact throughout spine motor: during exam patient sitting in chair. upon passive range of motion of right leg patient is able to forward elevate leg without pain. I am able to actively elevate leg further. upon passive range of motion of left leg patient is not able to elevate leg very far. She says she gets severe pain along her left glute during this motion. strength: 5/5 right lower extremity. 3/5 left lower extremity. 5/5 bilateral upper extremities Results - Labs Labs: Abnormal Lab Results - Last 24 Hours (Table) 07/20/20 07/20/20 07/20/20 Range/Units 16:51 16:51 17:01 WBC 11.1 H (3.8-10.6) k/uL Neutrophils # 9.9 H (1.3-7.7) k/uL Lymphocytes # 0.9 L (1.0-4.8) k/uL BUN 36 H (7-17) mg/dL Glucose 125 H (74-99) mg/dL POC Glucose (mg/dL) 117 H (75-99) mg/dL 07/20/20 07/21/20 07/21/20 Range/Units 20:07 07:15 11:12 WBC (3.8-10.6) k/uL Neutrophils # (1.3-7.7) k/uL Lymphocytes # (1.0-4.8) k/uL BUN (7-17) mg/dL Glucose (74-99) mg/dL POC Glucose (mg/dL) 241 H 115 H 153 H (75-99) mg/dL H & H 07/20/20 Range/Units 16:51 Hgb 12.2 (11.4-16.0) gm/dL Hct 37.1 (34.0-46.0) % Result Diagrams: 07/20/20 16:51 07/20/20 16:51 Assessment and Plan Assessment: 1. low back pain 2. herniated disc L4 to L5; degenerative disc disease 3. scoliosis Plan: 1. low back pain; L4-L5 herniated disc; scoliosis - MRI without contrast of lumbar spine ordered to evaluate for changes in the lumbar spine. we will continue to follow 2. appreciate medical management 3. pain management - stable at this time Time with Patient: Greater than 30 <Matthew Pittman - Last Filed: 07/22/20 08:51> Physical Examination Osteopathic Statement: *. No significant issues noted on an osteopathic structural exam other than those noted in the History and Physical/Consult. Results - Labs Labs: Abnormal Lab Results - Last 24 Hours (Table) 07/21/20 07/21/20 07/21/20 Range/Units 11:12 17:23 21:14 POC Glucose (mg/dL) 153 H 108 H 173 H (75-99) mg/dL H & H 07/20/20 Range/Units 16:51 Hgb 12.2 (11.4-16.0) gm/dL Hct 37.1 (34.0-46.0) % Result Diagrams: 07/20/20 16:51 07/20/20 16:51
[2020-07-21] MEDS: ACETAMINOPHEN TAB 325 MG TAB PO PRN (15:42)
[2020-07-21 17:27] LABS: Glucose,Whole Blood 108 mg/dL (75-99)
[2020-07-21] MEDS: PIOGLITAZONE 15 MG TAB PO SCH (20:32)
[2020-07-21] MEDS: CYCLOBENZAPRINE 10 MG TAB PO SCH (20:33)
[2020-07-21] MEDS: ATORVASTATIN 40 MG TAB PO SCH (20:33)
[2020-07-21 21:15] LABS: Glucose,Whole Blood 173 mg/dL (75-99)
[2020-07-22] MEDS: HEPARIN SODIUM,PORCINE/PF 5,000 UNIT/0.5 ML SYRINGE SQ SCH ×5 (00:04→23:07)
--- NOTE | 2020-07-22 00:16 | P.PN ---
Subjective Progress Note Date: 07/21/20 Principal diagnosis: Intractable lower back pain disc herniation Patient is a 70-year-old female with a known history of hypertension, diabetes type 2, hyperlipidemia, memory impairment, osteoarthritis, hypothyroidism and history of L3-L5 disc herniation and spinal stenosis presents to ER due to intractable lower back pain. Patient usually follows with Dr. Osborne for her back pain management and is currently on follow-up with Dr. Collins. Patient also has history of epidural injections and radiofrequency ablations last time on April 02. Patient states that last about 2 months. Patient had last MRI done in 2018. She has been having shooting down pain from the lower back to the legs. Denied any bowel or bladder incontinence. Patient states that since last pain has been getting worse and sh slumped onto walker. Patient states that she made an appointment with the [facility] [place] and is scheduled for MRI of the lumbar spine, EEG and nerve conduction studies on next . Patient was seen by her chiropractic coverage back and also taking pain medications and also started on Flexeril at bedtime 10 mg. Since the pain is not improving and patient is unable to get up from sitting position and having difficulty ambulation. Patient came to ER for evaluation. Denies any complaints of chest pain or shortness of the. No nausea vomiting abdominal pain or diarrhea. No dysuria or hematuria. No fever no chills. X-ray of the lumbar spine showed scoliosis. Degenerative disc disease L4-L5 Laboratory data showed WBC 11.1 hemoglobin 12.2 platelets 328 Sodium 137 potassium 4.8 chloride 103 BUN 36 and creatinine 1.04 calcium 10.1 liver enzymes are not elevated and coronavirus PCR not detected 07/21/2020 Patient is currently in the recliner. No complaints of chest pain or shortness breath. Back pain is better but patient is unable to walk by herself. Otherwise patient is being continued on pain management with morphine, Tylenol and Motrin. Denied any complaints of nausea vomiting or abdominal pain or diarrhea. No fever no chills. No cough or sputum production..Patient was seen by orthopedic surgery. ordered. MRI without contrast of lumbar spine ordered to evaluate for changes in the lumbar spine. Current medications reviewed. Objective - Vital Signs Vital signs: Vital Signs Temp 98.3 F 07/21/20 19:09 Pulse 76 07/21/20 19:09 Resp 14 07/21/20 19:09 BP 103/52 07/21/20 19:09 Pulse Ox 94 L 07/21/20 19:09 Intake & Output 07/21/20 07/21/20 07/22/20 06:59 18:59 06:59 Intake Total 1080 Balance 1080 Intake: Oral 1080 Other: # Voids 1 - Exam PHYSICAL EXAMINATION: Patient is lying in the bed comfortably, no acute distress, awake alert and oriented.. HEENT: Normocephalic. Neck is supple. Pupils reactive. Nostrils clear. Oral cavity is moist. Ears reveal no drainage. Neck reveals no JVD, carotid bruits, or thyromegaly. CHEST EXAMINATION: Trachea is central. Symmetrical expansion. Lung rangel clear to auscultation and percussion. CARDIAC: Normal S1, S2 with no gallops. No murmurs ABDOMEN: Soft. Bowel sounds normal. No organomegaly. No abdominal bruits. Extremities: reveal no edema. No clubbing or cyanosis Neurologically awake, alert, oriented x3 with well-coordinated movements.Memory impairment. No focal deficits noted Skin: No rash or skin lesions. Psychiatric: Coperative. Nonsuicidal Musculoskeletal: No joint swelling or deformity. - Labs CBC & Chem 7: 07/20/20 16:51 07/20/20 16:51 Labs: Abnormal Lab Results - Last 24 Hours (Table) 07/21/20 07/21/20 07/21/20 Range/Units 07:15 11:12 17:23 POC Glucose (mg/dL) 115 H 153 H 108 H (75-99) mg/dL 07/21/20 Range/Units 21:14 POC Glucose (mg/dL) 173 H (75-99) mg/dL Assessment and Plan Assessment: Intractable lower back pain History of L3-L5 disc herniation and spinal stenosis Chronic pain and follow-up with pain clinic, epidural injections and history of radiofrequency ablation x2 Diabetes type 2 [id number] History of CVA/TIA Long-term memory loss Osteoarthritis Hypothyroidism Obesity with BMI 35.4 DVT prophylaxis with heparin subcu Plan: Patient will be continued pain management. She was given Toradol, methylprednisolone and morphine IV in the ER. Currently able to sit in a safe but still complaining of pain. Continue with Flexeril and morphine IV and Toradol as needed. Orthopedic surgeryis following. Continue with blood pressure medications and diabetic medications and along with insulin sliding scale. Monitor closely. PT OT will be consulted and further recommendations based on the clinical course. Time with Patient: Greater than 30
[2020-07-22] MEDS: MORPHINE SULFATE 4 MG/ML SYRINGE IVP PRN ×5 (02:49→23:46)
[2020-07-22] MEDS: LEVOTHYROXINE 50 MCG TAB PO SCH ×2 (05:29→23:07)
[2020-07-22 07:13] LABS: Glucose,Whole Blood 81 mg/dL (75-99)
[2020-07-22] MEDS: FENOFIBRATE 160 MG TAB PO SCH (07:22)
[2020-07-22] MEDS: metFORMIN 500 MG TAB PO SCH ×2 (07:22→20:26)
[2020-07-22] MEDS: CALCIUM CARB-VIT D 500 MG-5 MCG TAB PO SCH ×2 (07:22→20:26)
[2020-07-22] MEDS: LISINOPRIL-HCTZ 20-25 MG 1 EACH TAB PO SCH (07:22)
[2020-07-22] MEDS: ONDANSETRON 4 MG/2 ML VIAL IVP PRN (07:37)
[2020-07-22] MEDS: PREGABALIN 75 MG CAP PO SCH ×2 (10:22→20:26)
[2020-07-22] MEDS: CYCLOBENZAPRINE 10 MG TAB PO PRN ×2 (10:22→20:26)
--- NOTE | 2020-07-22 11:17 | MR ---
EXAMINATION TYPE: MR lumbar spine wo con DATE OF EXAM: 07/22/2020 COMPARISON: HISTORY: JEFF low back pain TECHNIQUE: Multiplanar, multisequence images of the lumbar spine were acquired. L1-L2: Normal disc appearance without desiccation. No herniation, protrusion or disc bulging. No ca nal stenosis is present. Foramina are patent bilaterally. L2-L3: Normal disc appearance without desiccation. No herniation, protrusion or disc bulging. No ca nal stenosis is present. Foramina are patent bilaterally. L3-L4: There is facet arthropathy change present. No significant spinal stenosis. Posterior broad-bas ed disc bulge causes mild anterior mass effect on the thecal sac. L4-L5: Disc herniation is present causing moderate spinal stenosis centrally, there is a trefoil appe arance of the thecal sac. Facet arthropathy change with hypertrophy of the ligamentum flavum causes s ome posterior lateral mass effect on the thecal sac. Circumferential extension of endplate disc compl ex results in foraminal encroachment greater on the right than on the left. This may be contributed b y the scoliosis. L5-S1: There are facet arthropathy changes. No evident disc herniation or significant spinal stenosis . No evident foraminal encroachment.1 Lumbar segments are intact. No paraspinal masses are identified. Conus medullaris has a normal appe arance. There is a spinal curvature. There is loss of disc height signal present at L4-5, vacuum phen omenon is present. There is mild multilevel endplate discogenic marrow signal change, spondylosis is present. IMPRESSION: Progression of the disc herniation at L4-5 as described. Facet arthropathy changes.
[2020-07-22 11:47] LABS: Glucose,Whole Blood 59 mg/dL (75-99)
[2020-07-22 12:21] LABS: Glucose,Whole Blood 93 mg/dL (75-99)
--- NOTE | 2020-07-22 12:31 | P.PAINCN ---
History of Present Illness - Reason for Consult Consult date: 07/22/20 - History of Present Illness Asha is a 70 y/o female who presented to the hospital with acute onset back pain along with radicular symptoms. She has a history of lumbar spondylosis without myelopathy and is done pretty well with radiofrequency ablation of the lumbar spine. She reports that that normally helps her pain significantly. The symptoms she had was brought into the hospital recently are different. She reports pain and numbness and tingling radiating down the legs. Both legs were having muscle cramps as well. She reports the pain is severe in nature. She has increase in urinary urgency but no incontinence in her bowels. She has a history of known lumbar spinal stenosis but she has never had symptoms as severe. In the past she's had radiofrequency ablation lumbar spine here in [place] as well as in the pain clinic in [facility]. The MRI of the lumbar spine performed today shows a significant stenosis at L4/5 along with moderate facet joint arthropathy. Past Medical History Past Medical History: CVA/TIA, Diabetes Mellitus, Memory Impairment, Osteoarthritis (OA), Thyroid Disorder Additional Past Medical History / Comment(s): ?TIA (OVER 10 YRS AGO), INTERMEDIATE MEMORY LOSS, BENIGN FAMILIAL TREMORS/PARKINSONS, SEASONAL ALLERGIES, OSTEOPENIA, INTERSTITIAL CYSTITIS, DRY EYES, BEGINNING OF MACULAR DEGENERATION. History of Any Multi-Drug Resistant Organisms: None Reported Past Surgical History: Adenoidectomy, Bladder Surgery, Cholecystectomy, Heart Catheterization, Hysterectomy, Orthopedic Surgery, Tonsillectomy, Tubal Ligation Additional Past Surgical History / Comment(s): LEFT ROTATOR CUFF, RIGHT FROZEN SHOULDER, JEFF KNEES-TOTAL AND PARTIAL, OOPHERECTOMY, CYSTOSCOPIES, BLADDER SUSPENSION, INTERSTITIAL CYSTITIS, JEFF CARPAL TUNNEL, PAIN CLINIC PROCEDURES , EYE SURGER (CHILD), EYELID RESECTION & EYEBROW LIFT. Past Anesthesia/Blood Transfusion Reactions: Previous Problems w/ Anesthesia Additional Past Anesthesia/Blood Transfusion Reaction / Comm: STATES MEDICATION "CURRARRE" USED OVER 25 YEARS AGO, SHE FELT PARALYZED AND COULD NOT MOVE OR BREATHE. Past Psychological History: No Psychological Hx Reported Smoking Status: Never smoker Past Alcohol Use History: Occasional Past Drug Use History: None Reported - Past Family History Mother Family Medical History: Cancer Additional Family Medical History / Comment(s): BASAL CELL Medications and Allergies Home Medications Medication Instructions Recorded Confirmed Type Aspirin [Adult Low Dose Aspirin EC] 81 mg PO HS 02/05/20 07/20/20 History Fenofibrate [Lofibra] 160 mg PO DAILY 02/05/20 07/20/20 History Levothyroxine Sodium [Synthroid] 50 mcg PO DAILY 02/05/20 07/20/20 History Lisinopril-Hctz 20-25 mg 1 tab PO DAILY 02/05/20 07/20/20 History [Zestoretic 20-25] Loratadine [Claritin] 10 mg PO DAILY PRN 02/05/20 07/20/20 History Pioglitazone [Actos] 15 mg PO HS 02/05/20 07/20/20 History Rosuvastatin [Crestor] 20 mg PO HS 02/05/20 07/20/20 History metFORMIN HCL [Glucophage] 1,000 mg PO BID-W/MEALS 02/05/20 07/22/20 History Calcium Carbonate/Vitamin D3 1 tab PO BID 07/20/20 07/20/20 History [Calcium 600-D3 20 mcg (800 Unit)] Cyclobenzaprine [Flexeril] 10 mg PO DAILY 07/20/20 07/20/20 History Krill/Om-3/Dha/Epa/Phospho/Ast 1 cap PO DAILY 07/20/20 07/20/20 History [Dugway-3 Krill Oil 300 mg Sfgl] Magnesium Oxide 800 mg PO BID 07/20/20 07/20/20 History Vits A,C,E/Lutein/Minerals 1 tab PO BID 07/20/20 07/20/20 History [Ocuvite with Lutein Tablet] Allergies Allergy/AdvReac Type Severity Reaction Status Date / Time erythromycin base Allergy Unknown Rash, Verified 07/20/20 13:50 itching, lips swollen, tingling, head like basketball hydrocodone [From Vicodin] Allergy Unknown rash , Verified 07/20/20 13:50 itching, head feels like basketball, lips swelling, oxycodone Allergy Unknown vomit bile Verified 07/20/20 13:50 Penicillins Allergy Unknown Rash, Verified 07/20/20 13:50 itching, sulfamethoxazole Allergy Unknown rash, Verified 07/20/20 13:50 [From Bactrim] itching tolterodine [From Detrol] Allergy Unknown itching/nelly Verified 07/20/20 13:50 h tramadol [From Ultram] Allergy Unknown Rash, Verified 07/20/20 13:50 itching, lips swollen, tingling, head like basketball trimethoprim [From Bactrim] Allergy Unknown rash, Verified 07/20/20 13:50 itching nickel Allergy Rash/Hives Verified 07/20/20 13:50 hydromorphone [From Dilaudid] AdvReac Unknown reaction Verified 07/20/20 13:50 in higher doses gel adhesive pad Allergy Unknown ekg pads Uncoded 06/27/20 09:48 and adhesive- chemical burn, itching rash Physical Exam Vitals: Vital Signs Temp Pulse Resp BP Pulse Ox 07/22/20 12:24 97.4 F L 72 17 110/70 98 07/22/20 08:00 65 14 07/22/20 05:00 65 108/70 99 07/21/20 19:09 98.3 F 76 14 103/52 94 L Intake and Output 07/21/20 07/22/20 07/22/20 22:59 06:59 14:59 Intake Total 830 360 Balance 830 360 Intake: Oral 830 360 Other: # Voids 1 2 General: Awake and alert oriented 3 no distress Respiratory exam: No audible wheezing no accessory muscle usage Cardiovascular exam: regular rate, palpable bilateral pulses, no lower extremity edema Abdominal exam: No distention nontender to palpation Lumbar spine: Loss of lumbar lordosis, normal alignment, tender to palpation over bilateral paraspinal muscles, facet loading is positive bilaterally. St raight leg raise is positive on the left, there is evidence of left lower extremity weakness compared to the right at the quadriceps as well as the hamstrings as well as the tibialis anterior muscle. Range of motion is limited bilaterally. Internal and external rotation are limited Neuro exam: Normal sensation in bilateral upper extremities, deep tendon reflexes are 2+ bilateral upper extremities. It is decreased sensation bilateral lower extremities bilaterally, deep tendon reflexes are diminished at the patella likely due to surgical intervention. Achilles reflexes are 1+ bilateral unable to fully assess gait due to instability Psych exam: Cooperative, appropriate mood Results CBC & Chem 7: 07/20/20 16:51 07/20/20 16:51 Labs: Abnormal Lab Results - Last 24 Hours (Table) 07/21/20 07/21/20 07/22/20 Range/Units 17:23 21:14 11:44 POC Glucose (mg/dL) 108 H 173 H 59 L (75-99) mg/dL Assessment and Plan Assessment: #1 lumbar spinal stenosis with neurogenic claudication #2 lumbar spondylosis without myelopathy Plan: I believe the patient would benefit from an epidural steroid injection at the L4-L5 level. I believe she should probably have this done in his inpatient prior to going home as she feels her pain is severe and she sees unstable on her legs. If she is able stand hospital we can perform the lumbar epidural steroid injection tomorrow prior to discharge. If she is to be in the hospital overnight, please hold any heparin injections after 12 PM midnight tonight. She should be nothing by mouth after midnight for foods and MPO for clear liquids 2 hours prior to the procedure. I have spent 36 minutes on patient care today. The time was used to review the medical records including relevant urine studies and Prescription history (MAPs), review of the available imaging, evaluation and examination of the patient, coordination of care with the medical staff and if applicable referring physicians, as well as creation of the medical record. Maps were checked and appropriate, opioid start talking form is on file and updated, urine drug screens of been appropriate and have been reviewed. PQRS Measure Charge Sheet PQRS Narrative: Do You Want the Pneumonia No Vaccine AT THIS TIME? Blood Pressure [Right Arm] 110/70 Blood Pressure 146/79 Pain Intensity [Back] 0 Pain Intensity 0 Pain Scale Used Numeric (1 - 10) Scale Used Numeric (1 - 10) Hx Alcohol Use (MH) Yes: Social Home Medications: Ambulatory Orders Aspirin [Adult Low Dose Aspirin EC] 81 mg PO HS 02/05/20 Fenofibrate [Lofibra] 160 mg PO DAILY 02/05/20 Levothyroxine Sodium [Synthroid] 50 mcg PO DAILY 02/05/20 Lisinopril-Hctz 20-25 mg [Zestoretic 20-25] 1 tab PO DAILY 02/05/20 Loratadine [Claritin] 10 mg PO DAILY PRN 02/05/20 Pioglitazone [Actos] 15 mg PO HS 02/05/20 Rosuvastatin [Crestor] 20 mg PO HS 02/05/20 metFORMIN HCL [Glucophage] 1,000 mg PO BID-W/MEALS 02/05/20 Calcium Carbonate/Vitamin D3 [Calcium 600-D3 20 mcg (800 Unit)] 1 tab PO BID 07/20/20 Cyclobenzaprine [Flexeril] 10 mg PO DAILY 07/20/20 Krill/Om-3/Dha/Epa/Phospho/Ast [Dugway-3 Krill Oil 300 mg Sfgl] 1 cap PO DAILY 07/20/20 Magnesium Oxide 800 mg PO BID 07/20/20 Vits A,C,E/Lutein/Minerals [Ocuvite with Lutein Tablet] 1 tab PO BID 07/20/20
[2020-07-22 17:04] LABS: Glucose,Whole Blood 118 mg/dL (75-99)
[2020-07-22] MEDS: SENNOSIDES 8.6 MG TAB PO PRN (20:26)
[2020-07-22] MEDS: PIOGLITAZONE 15 MG TAB PO SCH (20:26)
[2020-07-22] MEDS: ATORVASTATIN 40 MG TAB PO SCH (20:26)
[2020-07-22] MEDS: DEXAMETHASONE SOD PHOSPHATE 4 MG/ML 1 ML VIAL IV PRN (20:27)
[2020-07-22 20:36] LABS: Glucose,Whole Blood 129 mg/dL (75-99)
[2020-07-22] MEDS: IBUPROFEN 400 MG TAB PO PRN (22:00)
[2020-07-23] MEDS: MORPHINE SULFATE 4 MG/ML SYRINGE IVP PRN ×2 (04:25→08:42)
[2020-07-23] MEDS: DEXAMETHASONE SOD PHOSPHATE 4 MG/ML 1 ML VIAL IV PRN ×2 (04:26→20:28)
[2020-07-23 07:21] LABS: Glucose,Whole Blood 145 mg/dL (75-99)
[2020-07-23] MEDS: CALCIUM CARB-VIT D 500 MG-5 MCG TAB PO SCH ×3 (07:38→20:26)
[2020-07-23] MEDS: FENOFIBRATE 160 MG TAB PO SCH ×2 (07:38→13:25)
[2020-07-23] MEDS: metFORMIN 500 MG TAB PO SCH ×3 (07:38→20:26)
[2020-07-23] MEDS: PREGABALIN 75 MG CAP PO SCH ×3 (07:39→20:26)
--- NOTE | 2020-07-23 07:57 | P.PN ---
Subjective Progress Note Date: 07/23/20 Principal diagnosis: L4/L5 spondylosis with stenosis and radiculopathy Lower extremity radiculopathy with neurogenic claudication Patient was evaluated yesterday at bedside, at that time we were waiting on the MRI of the lumbar spine for further evaluation. We were able to review the MRI with Dr. Pittman in the office later in the afternoon, and again demonstrates the disc herniation at the L4-L5 level which is likely the cause of her lower extremity symptoms. We did consult the pain management group [facility] for a possible epidural steroid injection. We have also adjusted the patient's medications. Patient's symptoms seem to be a little bit better today bedside after the oral medication adjustment. She is scheduled for an epidural steroid injection with pain management group today. We discussed follow-up in the outpatient setting with Dr. Pittman to discuss further treatment options. Depending on results of the injection today, hopeful discharge tomorrow Objective - Vital Signs Vital signs: Vital Signs Temp 98.1 F 07/23/20 05:00 Pulse 70 07/23/20 05:00 Resp 20 07/23/20 05:00 BP 107/81 07/23/20 05:00 Pulse Ox 98 07/23/20 05:00 Intake & Output 07/22/20 07/23/20 07/23/20 18:59 06:59 18:59 Intake Total 720 240 Balance 720 240 Intake: Oral 720 240 Other: # Voids 4 3 - Exam Gen: AOx3, NAD VSS stable at this time Integument: No obvious open lesions or sores visualized throughout the low back Palpation: No significant tenderness with palpation throughout the midline and paraspinal region of the lumbar spine ROM: Range of motion all major muscle groups of the bilateral upper and lower extremities are intact Sensory Exam: Senory exam to light touch is intact C5-T1 Senosry exam to light touch is intact L2-S1 Motor: 5 out of 5 strength noted with all major muscle groups of bilateral upper extremities 4-5 strength is appreciated with left-sided hip flexion, knee extension, knee flexion, dorsiflexion, plantarflexion 5 out of 5 strength appreciated in all major muscle groups right lower extremity Reflexes: 2/4 in all UE and LE Negative Richard's bilaterally, negative Babinski bilaterally, negative clonus bilaterally - Labs CBC & Chem 7: 07/20/20 16:51 07/20/20 16:51 Labs: Abnormal Lab Results - Last 24 Hours (Table) 07/22/20 07/22/20 07/22/20 Range/Units 11:44 16:58 20:33 POC Glucose (mg/dL) 59 L 118 H 129 H (75-99) mg/dL 07/23/20 Range/Units 07:19 POC Glucose (mg/dL) 145 H (75-99) mg/dL Assessment and Plan Assessment: L4-L5 spondylosis with radiculopathy Lower extremity weakness Plan: Patient is scheduled for LIOR with pain management today, we'll reassess tomorrow Continue with the current medications both oral and IV Continue weight-bear as tolerated with walker GI and DVT prophylaxis per primary medical service Hopeful discharge home tomorrow with plan for follow-up with Dr. Pittman in the outpatient setting in the coming weeks Time with Patient: Less than 30
[2020-07-23] MEDS: LISINOPRIL-HCTZ 20-25 MG 1 EACH TAB PO SCH (09:09)
[2020-07-23 11:17] LABS: Glucose,Whole Blood 131 mg/dL (75-99)
[2020-07-23] MEDS ORDERED: LACTATED RINGERS 1,000 ML IV ONE (12:23)
[2020-07-23] MEDS ORDERED: IOPAMIDOL M200 10 ML VIAL ONE (12:24)
[2020-07-23] MEDS ORDERED: MIDAZOLAM 2 MG/2 ML VIAL ONE (12:24)
[2020-07-23] MEDS ORDERED: fentaNYL (PF) 50 MCG/ML 2 ML AMP ONE (12:24)
[2020-07-23] MEDS ORDERED: methylPREDNISolone ACETATE 40 MG/ML 1 ML VIAL ONE (12:24)
[2020-07-23 12:26] LABS: Glucose,Whole Blood 135 mg/dL (75-99)
--- NOTE | 2020-07-23 12:42 | P.PCN ---
Date of Procedure: 07/23/20 Description of Procedure: Procedure: 1. L4-L5 Epidural steroid injection under fluoroscopic guidance, 2. Lumbar epidurogram PREOPERATIVE DIAGNOSIS: Lumbar degenerative disc disease, and Lumbar radiculopathy. POSTOPERATIVE DIAGNOSIS: Lumbar degenerative disc disease, and Lumbar radicu lopathy. SURGEON: Bayron Patel ANESTHESIA: Local with 1% lidocaine, and IV sedation as per anesthesia record EBL: None. Specimen removed: None Fluoroscopic image: saved to electronic medical records PROCEDURE INDICATION: The patient had history of Lumbar degenerative disc disease and Lumbar radiculopathy. Failed to conservative therapy. Presented for epidural steroid injection. PROCEDURE DESCRIPTION: The patient was seen and identified in the preoperative area. Risks, benefits, complications, and alternatives were discussed with the patient. The patient agreed to proceed with the procedure and signed the consent. IV was started, and vital signs were stable. Patient was taken to the procedure area, and time out was completed. The patient was placed in the prone position on procedure table and a pillow was placed under the abdomen to reduce lumbar lordosis. The lumbosacral area was prepped and draped in the usual sterile fashion. Critical pause was taken. Vital signs were closely monitored during the procedure. Using anterior-posterior fluoroscopy, the L4-L5 interlaminar space was identified, and skin and deeper tissues were localized with 1% lidocaine. Using anterior-posterior fluoroscopy, lateral fluoroscopy, and abub-[id number] technique, a 20 gauge 3.5 Tuohy epidural needle entered the epidural space. After negative aspiration of CSF and blood with no paresthesias, 2 ml of [id number] contrast dye was injected and an excellent epidurogram was seen. Again after negative aspiration of CSF and blood with no paresthesias, 10 mL of block solution was injected into the epidural space. Block solution contained 40 mg of Depo-Medrol, 3 mL of 1% preservative-free lidocaine, and 6 mL of preservative- free normal saline. Needle was withdrawn intact, skin was cleansed, and bandages were applied. COMPLICATIONS: None. DISPOSITION / PLANS: The patient was placed in a supine position and transferred to the recovery area in a stable condition for observation. Patient was discharged from the recovery room after meeting discharge criteria. Home discharge instructions given to the patient by the staff. The patient was reexamined prior to discharge. The patient will schedule a follow up in the clinic in 4 weeks.
[2020-07-23] MEDS: IBUPROFEN 400 MG TAB PO PRN (13:18)
[2020-07-23] MEDS: CYCLOBENZAPRINE 10 MG TAB PO PRN (13:18)
[2020-07-23] MEDS: LEVOTHYROXINE 50 MCG TAB PO SCH (13:25)
[2020-07-23] MEDS: LACTATED RINGERS 1,000 ML IV SCH (13:26)
--- NOTE | 2020-07-23 13:46 | FL ---
Fluoroscopy HISTORY: Pain 4 seconds fluoroscopy time supplied to the referring clinician. 2 intraoperative C-arm images docume nt the procedure. See dictated report from anesthesia.
[2020-07-23 16:55] LABS: Glucose,Whole Blood 244 mg/dL (75-99)
[2020-07-23] MEDS: HEPARIN SODIUM,PORCINE/PF 5,000 UNIT/0.5 ML SYRINGE SQ SCH (17:10)
[2020-07-23 20:24] LABS: Glucose,Whole Blood 169 mg/dL (75-99)
[2020-07-23] MEDS: ATORVASTATIN 40 MG TAB PO SCH (20:25)
[2020-07-23] MEDS: PIOGLITAZONE 15 MG TAB PO SCH (20:26)
[2020-07-24] MEDS: HEPARIN SODIUM,PORCINE/PF 5,000 UNIT/0.5 ML SYRINGE SQ SCH ×3 (00:33→14:54)
--- NOTE | 2020-07-24 00:37 | P.PN ---
Subjective Progress Note Date: 07/22/20 Principal diagnosis: Intractable lower back pain disc herniation Patient is a 70-year-old female with a known history of hypertension, diabetes type 2, hyperlipidemia, memory impairment, osteoarthritis, hypothyroidism and history of L3-L5 disc herniation and spinal stenosis presents to ER due to intractable lower back pain. Patient usually follows with Dr. Osborne for her back pain management and is currently on follow-up with Dr. Collins. Patient also has history of epidural injections and radiofrequency ablations last time on April 02. Patient states that last about 2 months. Patient had last MRI done in 2018. She has been having shooting down pain from the lower back to the legs. Denied any bowel or bladder incontinence. Patient states that since last pain has been getting worse and sh slumped onto walker. Patient states that she made an appointment with the spine and neurology central of [place] and is scheduled for MRI of the lumbar spine, EEG and nerve conduction studies on next . Patient was seen by her chiropractic coverage back and also taking pain medications and also started on Flexeril at bedtime 10 mg. Since the pain is not improving and patient is unable to get up from sitting position and having difficulty ambulation. Patient came to ER for evaluation. Denies any complaints of chest pain or shortness of the. No nausea vomiting abdominal pain or diarrhea. No dysuria or hematuria. No fever no chills. X-ray of the lumbar spine showed scoliosis. Degenerative disc disease L4-L5 Laboratory data showed WBC 11.1 hemoglobin 12.2 platelets 328 Sodium 137 potassium 4.8 chloride 103 BUN 36 and creatinine 1.04 calcium 10.1 liver enzymes are not elevated and coronavirus PCR not detected 07/21/2020 Patient is currently in the recliner. No complaints of chest pain or shortness breath. Back pain is better but patient is unable to walk by herself. Otherwise patient is being continued on pain management with morphine, Tylenol and Motrin. Denied any complaints of nausea vomiting or abdominal pain or diarrhea. No fever no chills. No cough or sputum production..Patient was seen by orthopedic surgery. ordered. MRI without contrast of lumbar spine ordered to evaluate for changes in the lumbar spine. 07/22/2020 Patient is currently sitting on the bed. Still complains of back pain. MRI of the lumbar spine was done showed progression of the disc at the is not L4-L5.. Arthropathy changes. Patient has been afebrile. Pain management service was consulted. Orthopedic surgery is on board. Patient is being continued on Flexeril, Motrin as needed and Lyrica. Continue stool softeners. No nausea vomiting or abdominal pain. No dysuria or hematuria. PT OT will be consulted. Current medications reviewed. Objective - Vital Signs Vital signs: Vital Signs Temp 98.4 F 07/22/20 19:40 Pulse 77 07/22/20 19:40 Resp 20 07/22/20 19:40 BP 96/62 07/22/20 19:40 Pulse Ox 97 07/22/20 19:40 Intake & Output 07/22/20 07/22/20 07/23/20 06:59 18:59 06:59 Intake Total 1190 720 Balance 1190 720 Intake: Oral 1190 720 Other: # Voids 2 4 - Exam PHYSICAL EXAMINATION: Patient is lying in the bed comfortably, no acute distress, awake alert and oriented.. HEENT: Normocephalic. Neck is supple. Pupils reactive. Nostrils clear. Oral cavity is moist. Ears reveal no drainage. Neck reveals no JVD, carotid bruits, or thyromegaly. CHEST EXAMINATION: Trachea is central. Symmetrical expansion. Lung rangel clear to auscultation and percussion. CARDIAC: Normal S1, S2 with no gallops. No murmurs ABDOMEN: Soft. Bowel sounds normal. No organomegaly. No abdominal bruits. Extremities: reveal no edema. No clubbing or cyanosis Neurologically awake, alert, oriented x3 with well-coordinated movements.Memory impairment. No focal deficits noted Skin: No rash or skin lesions. Psychiatric: Coperative. Nonsuicidal Musculoskeletal: No joint swelling or deformity. - Labs CBC & Chem 7: 07/20/20 16:51 07/20/20 16:51 Labs: Abnormal Lab Results - Last 24 Hours (Table) 07/22/20 07/22/20 07/22/20 Range/Units 11:44 16:58 20:33 POC Glucose (mg/dL) 59 L 118 H 129 H (75-99) mg/dL Assessment and Plan Assessment: Intractable lower back pain History of L3-L5 disc herniation and spinal stenosis Chronic pain and follow-up with pain clinic, epidural injections and history of radiofrequency ablation x2 Diabetes type 2 [id number] History of CVA/TIA Long-term memory loss Osteoarthritis Hypothyroidism Obesity with BMI 35.4 DVT prophylaxis with heparin subcu Plan: Patient will be continued pain management. She was given Toradol, methylprednisolone and morphine IV in the ER. Currently able to sit in a safe but still complaining of pain. Continue with Flexeril and morphine IV and Toradol as needed. Orthopedic surgeryis following. Continue with blood pressure medications and diabetic medications and along with insulin sliding scale. Monitor closely. PT OT will be consulted and further recommendations based on the clinical course. Time with Patient: Greater than 30
[2020-07-24] MEDS: MORPHINE SULFATE 4 MG/ML SYRINGE IVP PRN ×3 (00:41→19:38)
--- NOTE | 2020-07-24 00:43 | P.PN ---
Subjective Progress Note Date: 07/23/20 Principal diagnosis: Intractable lower back pain disc herniation Patient is a 70-year-old female with a known history of hypertension, diabetes type 2, hyperlipidemia, memory impairment, osteoarthritis, hypothyroidism and history of L3-L5 disc herniation and spinal stenosis presents to ER due to intractable lower back pain. Patient usually follows with Dr. Osborne for her back pain management and is currently on follow-up with Dr. Collins. Patient also has history of epidural injections and radiofrequency ablations last time on April 02. Patient states that last about 2 months. Patient had last MRI done in 2018. She has been having shooting down pain from the lower back to the legs. Denied any bowel or bladder incontinence. Patient states that since last pain has been getting worse and sh slumped onto walker. Patient states that she made an appointment with the spine and neurology central of [place] and is scheduled for MRI of the lumbar spine, EEG and nerve conduction studies on next . Patient was seen by her chiropractic coverage back and also taking pain medications and also started on Flexeril at bedtime 10 mg. Since the pain is not improving and patient is unable to get up from sitting position and having difficulty ambulation. Patient came to ER for evaluation. Denies any complaints of chest pain or shortness of the. No nausea vomiting abdominal pain or diarrhea. No dysuria or hematuria. No fever no chills. X-ray of the lumbar spine showed scoliosis. Degenerative disc disease L4-L5 Laboratory data showed WBC 11.1 hemoglobin 12.2 platelets 328 Sodium 137 potassium 4.8 chloride 103 BUN 36 and creatinine 1.04 calcium 10.1 liver enzymes are not elevated and coronavirus PCR not detected 07/21/2020 Patient is currently in the recliner. No complaints of chest pain or shortness breath. Back pain is better but patient is unable to walk by herself. Otherwise patient is being continued on pain management with morphine, Tylenol and Motrin. Denied any complaints of nausea vomiting or abdominal pain or diarrhea. No fever no chills. No cough or sputum production..Patient was seen by orthopedic surgery. ordered. MRI without contrast of lumbar spine ordered to evaluate for changes in the lumbar spine. 07/22/2020 Patient is currently sitting on the bed. Still complains of back pain. MRI of the lumbar spine was done showed progression of the disc at the is not L4-L5.. Arthropathy changes. Patient has been afebrile. Pain management service was consulted. Orthopedic surgery is on board. Patient is being continued on Flexeril, Motrin as needed and Lyrica. Continue stool softeners. No nausea vomiting or abdominal pain. No dysuria or hematuria. PT OT will be consulted. 07/23/2020 Patient is status post 1. L4-L5 Epidural steroid injection under fluoroscopic guidance, 2. Lumbar epidurogram Able to sit on the side of the bed. Back pain is better. Continue PT OT and follow-up discharge. Patient has been afebrile. No nausea vomiting abdominal pain or diarrhea. No other acute overnight issues. Current medications reviewed. Objective - Vital Signs Vital signs: Vital Signs Temp 97.9 F 07/23/20 12:53 Pulse 92 07/23/20 13:23 Resp 16 07/23/20 13:23 BP 146/83 07/23/20 13:23 Pulse Ox 96 07/23/20 13:23 Intake & Output 07/23/20 07/23/20 07/24/20 06:59 18:59 06:59 Intake Total 240 590 Balance 240 590 Intake: IV 50 Oral 240 540 Other: # Voids 3 2 - Exam PHYSICAL EXAMINATION: Patient is lying in the bed comfortably, no acute distress, awake alert and oriented.. HEENT: Normocephalic. Neck is supple. Pupils reactive. Nostrils clear. Oral cavity is moist. Ears reveal no drainage. Neck reveals no JVD, carotid bruits, or thyromegaly. CHEST EXAMINATION: Trachea is central. Symmetrical expansion. Lung rangel clear to auscultation and percussion. CARDIAC: Normal S1, S2 with no gallops. No murmurs ABDOMEN: Soft. Bowel sounds normal. No organomegaly. No abdominal bruits. Extremities: reveal no edema. No clubbing or cyanosis Neurologically awake, alert, oriented x3 with well-coordinated movements.Memory impairment. No focal deficits noted Skin: No rash or skin lesions. Psychiatric: Coperative. Nonsuicidal Musculoskeletal: No joint swelling or deformity. - Labs CBC & Chem 7: 07/20/20 16:51 07/20/20 16:51 Labs: Abnormal Lab Results - Last 24 Hours (Table) 07/23/20 07/23/20 07/23/20 Range/Units 07:19 11:14 12:25 POC Glucose (mg/dL) 145 H 131 H 135 H (75-99) mg/dL 07/23/20 07/23/20 Range/Units 16:53 20:22 POC Glucose (mg/dL) 244 H 169 H (75-99) mg/dL Assessment and Plan Assessment: Intractable lower back pain Progressing L4-L5 disc herniation spinal stenosis Chronic pain and follow-up with pain clinic, epidural injections and history of radiofrequency ablation x2 Diabetes type 2 [id number] History of CVA/TIA Long-term memory loss Osteoarthritis Hypothyroidism Obesity with BMI 35.4 DVT prophylaxis with heparin subcu Plan: Patient will be continued pain management. She was given Toradol, methylprednisolone and morphine IV in the ER. Currently able to sit in a safe but still complaining of pain. Continue with Flexeril and morphine IV and Toradol as needed. Orthopedic surgeryis following. Patient underwent epidural injection today. Continue with blood pressure medications and diabetic medications and along with insulin sliding scale. Monitor closely. PT OT will be consulted and further recommendations based on the clinical course. Time with Patient: Greater than 30
[2020-07-24] MEDS: ONDANSETRON 4 MG/2 ML VIAL IVP PRN ×2 (01:04→17:44)
[2020-07-24] MEDS: LEVOTHYROXINE 50 MCG TAB PO SCH (05:47)
[2020-07-24 06:13] LABS: Basophils % (A) 0 %; Eosinophils % (A) 0 %; HGB 11.3 gm/dL (11.4-16.0); Lymphocytes # (A) 0.7 k/uL (1.0-4.8); Lymphocytes % (A) 9 %; MCH 27.1 pg (25.0-35.0); MCHC 32.3 g/dL (31.0-37.0); MCV 83.8 fL (80.0-100.0); Mean Platelet Volume 7.4; Monocytes # (A) 0.2 k/uL (0-1.0); Monocytes % (A) 3 %; Neutrophils # (A) 7.7 k/uL (1.3-7.7); Neutrophils % (A) 88 %; Platelet Count 316 k/uL (150-450); RBC 4.17 m/uL (3.80-5.40); RDW 14.3 % (11.5-15.5); WBC 8.7 k/uL (3.8-10.6)
[2020-07-24 07:03] LABS: Glucose,Whole Blood 138 mg/dL (75-99)
[2020-07-24] MEDS: CYCLOBENZAPRINE 10 MG TAB PO PRN (07:20)
[2020-07-24] MEDS: PREGABALIN 75 MG CAP PO SCH ×3 (07:23→21:01)
[2020-07-24] MEDS: IBUPROFEN 400 MG TAB PO PRN (07:24)
[2020-07-24 08:06] LABS: African American GFR (CKD) 60 (>60 ml/min/1.73 sqM); Anion Gap 9 mmol/L; Blood Urea Nitrogen 49 mg/dL (7-17); Calcium 9.9 mg/dL (8.4-10.2); Carbon Dioxide 25 mmol/L (22-30); Chloride 102 mmol/L (98-107); Glucose 154 mg/dL (74-99); Non-African American GFR(CKD) 52 (>60 ml/min/1.73 sqM); Potassium 4.9 mmol/L (3.5-5.1); Sodium 136 mmol/L (137-145)
--- NOTE | 2020-07-24 08:56 | P.PN ---
Subjective Progress Note Date: 07/24/20 Principal diagnosis: L4-5 spondylosis with stenosis Pt s/e this AM. She underwent LIOR yesterday. She states today that her pain is worse and that she is having more pain down her legs and in her back than before. It is OK at rest but seems to be worse when she is up and about. She denies any bowel or bladder issues. Denies any perineal numbness/tingling. States no f/c/sob/cp at this time. Objective - Vital Signs Vital signs: Vital Signs Temp 97.7 F 07/24/20 05:00 Pulse 74 07/24/20 05:00 Resp 20 07/24/20 05:00 BP 125/54 07/24/20 05:00 Pulse Ox 96 07/24/20 08:02 Intake & Output 07/23/20 07/24/20 07/24/20 18:59 06:59 18:59 Intake Total 590 300 Balance 590 300 Intake: IV 50 Oral 540 300 Other: Voiding Method Toilet # Voids 2 2 - Exam Patient is alert and oriented 3 appears well-nourished well-hydrated is in no acute distress. They does not appear septic. On exam the patient has no tenderness to palpation of her thoracic or lumbar spine. There is no edema or ballottement sign. Lower extremities with 5 out of 5 strength in all major muscle groups Upper extremities show 5/5 strength in all major muscle groups. There is FROM that is painless of the b/l UE and LE in all major joints. They are intact to light touch sensation in L2 to S1 nerve distribution. Patient has palpable dorsalis pedis was posterior tibial pulses. Compartments are soft and compressible. Patient shows a negative Homans, Duran's, negative Babinski's negative clonus bilaterally. negative straight leg raise bilaterally. No tensioning signs. Cranial nerves II through XII are grossly intact. Overall alignment is well-maintained in the sagittal coronal planes. [] - Labs CBC & Chem 7: 07/24/20 05:28 07/24/20 05:28 Labs: Abnormal Lab Results - Last 24 Hours (Table) 07/23/20 07/23/20 07/23/20 Range/Units 11:14 12:25 16:53 Hgb (11.4-16.0) gm/dL Lymphocytes # (1.0-4.8) k/uL Sodium (137-145) mmol/L BUN (7-17) mg/dL Creatinine (0.52-1.04) mg/dL Glucose (74-99) mg/dL POC Glucose (mg/dL) 131 H 135 H 244 H (75-99) mg/dL 07/23/20 07/24/20 07/24/20 Range/Units 20:22 05:28 05:28 Hgb 11.3 L (11.4-16.0) gm/dL Lymphocytes # 0.7 L (1.0-4.8) k/uL Sodium 136 L (137-145) mmol/L BUN 49 H (7-17) mg/dL Creatinine 1.10 H (0.52-1.04) mg/dL Glucose 154 H (74-99) mg/dL POC Glucose (mg/dL) 169 H (75-99) mg/dL 07/24/20 Range/Units 07:01 Hgb (11.4-16.0) gm/dL Lymphocytes # (1.0-4.8) k/uL Sodium (137-145) mmol/L BUN (7-17) mg/dL Creatinine (0.52-1.04) mg/dL Glucose (74-99) mg/dL POC Glucose (mg/dL) 138 H (75-99) mg/dL Assessment and Plan Assessment: 70 yo female low back pain 1. 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 L4-5 spondylosis with radiculopathy 3. Low back pain 4. Medical comorbidities Plan: -Cont with PT/OT -Pain control, add norco if pt tolerates. She states she thinks she has tolerated in the past and would like to try again -Lyrica 150 TID -Cont Decadron -Motrin 600 TID -Toradol 15 mg -Discussed surgical options with the patient. She would like to postpone if possible as she has a graduation on wednesday that she wants to be at. We will attempt to optimize her for this. If she cannot tolerate this she will need a decompression and possible fusion at L4-5. We discussed this at length and she is on board. We will attempt to get her feeling better so that she can make it to her grandsons graduation. If this is not possible then we need to explore surgical options. She understood and was onboard with plan.
[2020-07-24] MEDS: IBUPROFEN 600 MG TAB PO SCH ×3 (09:04→17:41)
[2020-07-24] MEDS: DEXAMETHASONE SOD PHOSPHATE 4 MG/ML 1 ML VIAL IV SCH ×3 (09:10→19:53)
[2020-07-24] MEDS: CALCIUM CARB-VIT D 500 MG-5 MCG TAB PO SCH ×2 (09:11→19:52)
[2020-07-24] MEDS: LISINOPRIL-HCTZ 20-25 MG 1 EACH TAB PO SCH (09:11)
[2020-07-24] MEDS: metFORMIN 500 MG TAB PO SCH ×2 (09:11→19:53)
[2020-07-24] MEDS: FENOFIBRATE 160 MG TAB PO SCH (09:11)
--- NOTE | 2020-07-24 09:36 | XR ---
EXAM TYPE: LUMBAR SPINE X RAY SERIES COMPARISON: 07/20/2020 HISTORY: Back pain TECHNIQUE: 4 views are submitted. FINDINGS: Alignment is anatomic. The pedicles are intact. The transverse processes are intact. There is diff use osteopenia. Surgical clips in the right upper quadrant. There is a grade 1 anterolisthesis of L4 on L5. Degenerative disc disease L4-5 and L5-S1 with facet arthropathy and grade 1 anterolisthesis im proves on flexion and extension views. IMPRESSION: 1. Degenerative disc disease L4-5 and L5-S1 with facet arthropathy. Grade 1 anterolisthesis L4 on L5.
[2020-07-24 12:00] LABS: Glucose,Whole Blood 212 mg/dL (75-99)
--- NOTE | 2020-07-24 14:22 | CDI ---
Documentation Clarification Form Date: 07/24/2020 02:15:21 PM From: Veronica ArriazaHodgsonANGEL olmstead, CCDS Admit Date: 07/22/2020 09:55:00 AM Patient Name: Asha Gonzalez Visit Number: [id number] Discharge Date: ATTENTION: The Clinical Documentation Specialists (CDI) and [facility] Coding Staff appreciate your assistance in clarifying documentation. Please respond to the clarification below the line at the bottom and electronically sign. The CDI & [facility] Coding staff will review the response and follow-up if needed. Please note: Queries are made part of the Legal Health Record. If you have any questions, please contact the author of this message via ITS. Dr. Mary Ornelas: Diabetes is documented 07/20 H/P and subsequent Progress Notes as Diabetes Type 2 Non-Insulin Dependent. Per the patient's daily labs the Glucose levels are elevated. History/Risk Factors per the 07/20 H/P: Hypertension, Hyperlipidemia, NIDDM II, Memory impairment, Osteoarthritis, Hypothyroidism, TIA, Benign familial tremors/Parkinson's, Osteopenia, Macular Degeneration. Clinical Indicators: Presented to the ED on 07/20 with Intractable Back pain, taking Flexeril. LAB: 07/20 Glucose: 117 - 241 07/21: 115 - 153 - 108 - 173 07/22: 81 - 59 - 93 - 118 - 129 07/23: 131 - 135 - 244 - 169 07/24: 138 - 212 Treatment: IV Toradol, IV Morphine,e IV Zofran, IV Valium, po Tylenol, Motrin, IV Solumedrol, po Glucophage 1,000 mg BID, po Actos 15 mg [place], Heparin sq. Please clarify the following Diabetes associated conditions: [ ] Hyperglycemia [ ] Other, please specify [ ] Unable to Determine (Template Last Revised: May 2020) Hyperglycemia MTDD
[2020-07-24] MEDS: LACTATED RINGERS 1,000 ML IV SCH (14:45)
[2020-07-24 16:37] LABS: Glucose,Whole Blood 170 mg/dL (75-99)
[2020-07-24] MEDS: SENNOSIDES 8.6 MG TAB PO PRN (19:52)
[2020-07-24] MEDS: ATORVASTATIN 40 MG TAB PO SCH (19:52)
[2020-07-24] MEDS: PIOGLITAZONE 15 MG TAB PO SCH (19:53)
[2020-07-24 20:42] LABS: Glucose,Whole Blood 271 mg/dL (75-99)
[2020-07-24] MEDS: INSULIN ASPART (NovoLOG) 100 UNIT/ML VIAL SQ SCH (21:01)
[2020-07-25] MEDS: HYDROcodone/APAP 5-325MG 1 EACH TAB PO PRN ×4 (00:29→21:43)
[2020-07-25] MEDS: CYCLOBENZAPRINE 10 MG TAB PO PRN ×3 (00:30→21:43)
[2020-07-25] MEDS: DEXAMETHASONE SOD PHOSPHATE 4 MG/ML 1 ML VIAL IV SCH ×4 (00:38→21:43)
[2020-07-25] MEDS: HEPARIN SODIUM,PORCINE/PF 5,000 UNIT/0.5 ML SYRINGE SQ SCH ×3 (00:38→17:14)
[2020-07-25] MEDS ORDERED: VANCOMYCIN 1,250 MG in SODIUM CHLORIDE 0.9% 250 ML IVPB PRN (05:00)
[2020-07-25] MEDS: LEVOTHYROXINE 50 MCG TAB PO SCH (05:30)
[2020-07-25] MEDS ORDERED: VANCOMYCIN IV PER PHARMACY 1 EACH MISC MISCELLANE PRN (06:00)
[2020-07-25 07:56] LABS: Glucose,Whole Blood 166 mg/dL (75-99)
[2020-07-25] MEDS: INSULIN ASPART (NovoLOG) 100 UNIT/ML VIAL SQ SCH ×4 (07:56→21:45)
[2020-07-25] MEDS: PREGABALIN 75 MG CAP PO SCH ×3 (07:59→21:43)
[2020-07-25] MEDS: FENOFIBRATE 160 MG TAB PO SCH (07:59)
[2020-07-25] MEDS: LISINOPRIL-HCTZ 20-25 MG 1 EACH TAB PO SCH (07:59)
[2020-07-25] MEDS: metFORMIN 500 MG TAB PO SCH ×2 (07:59→21:42)
[2020-07-25] MEDS: CALCIUM CARB-VIT D 500 MG-5 MCG TAB PO SCH ×2 (07:59→21:43)
[2020-07-25] MEDS: IBUPROFEN 600 MG TAB PO SCH ×3 (07:59→17:15)
[2020-07-25] MEDS: SENNOSIDES 8.6 MG TAB PO PRN (09:23)
[2020-07-25] MEDS: ONDANSETRON 4 MG/2 ML VIAL IVP PRN (09:24)
--- NOTE | 2020-07-25 09:53 | P.PN ---
Subjective Progress Note Date: 07/25/20 Principal diagnosis: L4-5 spondylosis with stenosis Pt s/e this AM. She states she is no better and seems to be getting worse. She noted a bout of urinary incontinence yesterday when she tried to get up. It was a small amount but it startled her. She was able to control it after that and since then. No bowel issues. No perineal numbness/tingling. Still with b/l LE pain that has worsened since the injection. Still with numbness/tinglnig in the legs to the feet. States no changes with medications and that nothing seems to be helping her. If she sits for too long her legs get worse and if she stands in one position for 10 min she gets more sx. Walking is hard due to the pain and the heaviness she feels in her lower legs. She denies any other sx at this time no f/c/sob/cp/green/n/v/change in vision. Objective - Vital Signs Vital signs: Vital Signs Temp 97.6 F 07/25/20 04:47 Pulse 65 07/25/20 04:47 Resp 16 07/25/20 04:47 BP 141/76 07/25/20 04:47 Pulse Ox 97 07/25/20 04:47 Intake & Output 07/24/20 07/25/20 07/25/20 18:59 06:59 18:59 Intake Total 472 1000 Balance 472 1000 Intake: Oral 472 1000 Other: Voiding Method Toilet # Voids 3 3 - Exam Patient is alert and oriented 3 appears well-nourished well-hydrated is in no acute distress. They does not appear septic. On exam the patient has no tenderness to palpation of her thoracic or lumbar spine. There is no edema or ballottement sign. Lower extremities with 5 out of 5 strength in all major muscle groups. She has some weakness in DF and PF, but this is somewhat cooperation issues and her unwillingness. Upper extremities show 5/5 strength in all major muscle groups. There is FROM that is painless of the b/l UE and LE in all major joints. They are intact to light touch sensation in L2 to S1 nerve distribution. Patient has palpable dorsalis pedis was posterior tibial pulses. Compartments are soft and compressible. Patient shows a negative Homans, Duran's, negative Babinski's negative clonus bilaterally. negative straight leg raise bilaterally. No tensioning signs. Cranial nerves II through XII are grossly intact. Overall alignment is well-maintained in the sagittal coronal planes. Her b/l SLR is positive today which causes her more tension in her back as well as pain - Labs CBC & Chem 7: 07/24/20 05:28 07/24/20 05:28 Labs: Abnormal Lab Results - Last 24 Hours (Table) 07/24/20 07/24/20 07/24/20 Range/Units 11:57 16:35 20:38 POC Glucose (mg/dL) 212 H 170 H 271 H (75-99) mg/dL 07/25/20 Range/Units 07:53 POC Glucose (mg/dL) 166 H (75-99) mg/dL Assessment and Plan Assessment: 70 yo female low back pain 1. 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 L4-5 spondylosis with radiculopathy 3. Low back pain 4. Medical comorbidities Plan: -Cont with PT/OT -Pain control, add norco if pt tolerates. She states she thinks she has tolerated in the past and would like to try again -Lyrica 150 TID -Cont Decadron -Motrin 600 TID -Toradol 15 mg -I again discussed surgical vs non surgical options with the patient. At this time she is not progressing and seems to be getting worse despite medication changes, PT/OT, pain control, antiinflammatories, steroids and LIOR which actually aggravated her sx. I discussed with her a decompressive laminectomy with coflex placement of her L4-5 region. She states she has spoken with her family and at this time she would like to proceed with this procedure as she is not getting better otherwise. We discussed risks and benefits of the procedure including but not limited to risk of bleeding, infection, damage to surrounding tissues, nerve damage, more weakness, more numbness/tingling, risk of further surgery risk of implant failure, risk of anesthesia up to and including . She was willing to accept these risks and pursue surgery due to her debilitating and progressive symptoms despite conservative management. We will place her on the schedule for tomorrow 07/26/20 for decompression and coflex placement L4-5. She agreed. Medical clearance for OR Check PT/INR NPO at mn Pre op abx TXA intraop Dispo: expect home w/HH 1-3 days after procedure Time with Patient: Greater than 30
[2020-07-25 10:54] LABS: Basophils % (A) 0 %; Eosinophils % (A) 0 %; HCT 36.4 % (34.0-46.0); Lymphocytes # (A) 0.9 k/uL (1.0-4.8); Lymphocytes % (A) 10 %; MCH 26.8 pg (25.0-35.0); MCHC 32.8 g/dL (31.0-37.0); MCV 81.6 fL (80.0-100.0); Mean Platelet Volume 7.5; Monocytes # (A) 0.3 k/uL (0-1.0); Monocytes % (A) 3 %; Neutrophils # (A) 7.7 k/uL (1.3-7.7); Neutrophils % (A) 86 %; Platelet Count 349 k/uL (150-450); RBC 4.46 m/uL (3.80-5.40); RDW 14.3 % (11.5-15.5); WBC 8.9 k/uL (3.8-10.6)
[2020-07-25 11:07] LABS: African American GFR (CKD) 58 (>60 ml/min/1.73 sqM); Anion Gap 8 mmol/L; Blood Urea Nitrogen 48 mg/dL (7-17); Calcium 10.4 mg/dL (8.4-10.2); Carbon Dioxide 29 mmol/L (22-30); Chloride 99 mmol/L (98-107); Glucose 157 mg/dL (74-99); Non-African American GFR(CKD) 51 (>60 ml/min/1.73 sqM); Potassium 5.2 mmol/L (3.5-5.1); Sodium 136 mmol/L (137-145)
[2020-07-25] MEDS ORDERED: DEXAMETHASONE SOD PHOSPHATE 4 MG/ML 1 ML VIAL IV ONE (11:18)
[2020-07-25] MEDS ORDERED: MIDAZOLAM 2 MG/2 ML VIAL IV PRN (11:18)
[2020-07-25] MEDS ORDERED: ONDANSETRON 4 MG/2 ML VIAL IVP ONE (11:18)
[2020-07-25] MEDS ORDERED: LIDOCAINE 1% (10MG/ML) FOR IV START INTRADERMA PRN (11:18)
[2020-07-25] MEDS: LACTATED RINGERS 1,000 ML IV SCH ×2 (11:33→13:16)
[2020-07-25 12:07] LABS: INR 1.1 (<1.2); Prothrombin Time 11.2 sec (9.0-12.0)
[2020-07-25 12:40] LABS: Glucose,Whole Blood 182 mg/dL (75-99)
[2020-07-25] MEDS ORDERED: polyethylene glycoL 3350 17 GM POWD.PACK PO SCH (14:45)
[2020-07-25 17:12] LABS: Glucose,Whole Blood 164 mg/dL (75-99)
[2020-07-25] MEDS: polyethylene glycoL 3350 17 GM POWD.PACK PO PRN (17:14)
[2020-07-25 21:27] LABS: Glucose,Whole Blood 311 mg/dL (75-99)
[2020-07-25] MEDS ORDERED: LACTULOSE 20 GM/30 ML CUP PO ONE (21:29)
[2020-07-25] MEDS: PIOGLITAZONE 15 MG TAB PO SCH (21:43)
[2020-07-25] MEDS: ATORVASTATIN 40 MG TAB PO SCH (21:43)
--- NOTE | 2020-07-25 23:03 | P.PN ---
Subjective Progress Note Date: 07/24/20 Principal diagnosis: Intractable lower back pain disc herniation Patient is a 70-year-old female with a known history of hypertension, diabetes type 2, hyperlipidemia, memory impairment, osteoarthritis, hypothyroidism and history of L3-L5 disc herniation and spinal stenosis presents to ER due to intractable lower back pain. Patient usually follows with Dr. Osborne for her back pain management and is currently on follow-up with Dr. Collins. Patient also has history of epidural injections and radiofrequency ablations last time on April 02. Patient states that last about 2 months. Patient had last MRI done in 2018. She has been having shooting down pain from the lower back to the legs. Denied any bowel or bladder incontinence. Patient states that since last pain has been getting worse and sh slumped onto walker. Patient states that she made an appointment with the [facility] of [place] and is scheduled for MRI of the lumbar spine, EEG and nerve conduction studies on next . Patient was seen by her chiropractic coverage back and also taking pain medications and also started on Flexeril at bedtime 10 mg. Since the pain is not improving and patient is unable to get up from sitting position and having difficulty ambulation. Patient came to ER for evaluation. Denies any complaints of chest pain or shortness of the. No nausea vomiting abdominal pain or diarrhea. No dysuria or hematuria. No fever no chills. X-ray of the lumbar spine showed scoliosis. Degenerative disc disease L4-L5 Laboratory data showed WBC 11.1 hemoglobin 12.2 platelets 328 Sodium 137 potassium 4.8 chloride 103 BUN 36 and creatinine 1.04 calcium 10.1 liver enzymes are not elevated and coronavirus PCR not detected 07/21/2020 Patient is currently in the recliner. No complaints of chest pain or shortness breath. Back pain is better but patient is unable to walk by herself. Otherwise patient is being continued on pain management with morphine, Tylenol and Motrin. Denied any complaints of nausea vomiting or abdominal pain or diarrhea. No fever no chills. No cough or sputum production..Patient was seen by orthopedic surgery. ordered. MRI without contrast of lumbar spine ordered to evaluate for changes in the lumbar spine. 07/22/2020 Patient is currently sitting on the bed. Still complains of back pain. MRI of the lumbar spine was done showed progression of the disc at the is not L4-L5.. Arthropathy changes. Patient has been afebrile. Pain management service was consulted. Orthopedic surgery is on board. Patient is being continued on Flexeril, Motrin as needed and Lyrica. Continue stool softeners. No nausea vomiting or abdominal pain. No dysuria or hematuria. PT OT will be consulted. 07/23/2020 Patient is status post 1. L4-L5 Epidural steroid injection under fluoroscopic guidance, 2. Lumbar epidurogram Able to sit on the side of the bed. Back pain is better. Continue PT OT and follow-up discharge. Patient has been afebrile. No nausea vomiting abdominal pain or diarrhea. No other acute overnight issues. 07/24/2020 Patient is complaining of lower back pain and shooting down pain up to the feet. Started dexamethasone 4 mg IV every 6 hours. Orthopedic surgery is on board. Otherwise patient has been going stool softeners and bowel regimen. Patient has been afebrile. No nausea vomiting abdominal pain or diarrhea. No dysuria or hematuria. Hemodynamically stable. Laboratory showed WBC 8.7 hem oglobin 11.3 and platelets 316 BUN 49 and creatinine 1.1 and blood sugar is controlled. Current medications reviewed. Objective - Vital Signs Vital signs: Vital Signs Temp 98.0 F 07/24/20 20:10 Pulse 70 07/24/20 20:10 Resp 16 07/24/20 20:10 BP 108/64 07/24/20 20:10 Pulse Ox 94 L 07/24/20 20:10 Intake & Output 07/24/20 07/24/20 07/25/20 06:59 18:59 06:59 Intake Total 300 472 Balance 300 472 Intake: Oral 300 472 Other: Voiding Method Toilet # Voids 2 3 - Exam PHYSICAL EXAMINATION: Patient is lying in the bed comfortably, no acute distress, awake alert and oriented.. HEENT: Normocephalic. Neck is supple. Pupils reactive. Nostrils clear. Oral cavity is moist. Ears reveal no drainage. Neck reveals no JVD, carotid bruits, or thyromegaly. CHEST EXAMINATION: Trachea is central. Symmetrical expansion. Lung rangel clear to auscultation and percussion. CARDIAC: Normal S1, S2 with no gallops. No murmurs ABDOMEN: Soft. Bowel sounds normal. No organomegaly. No abdominal bruits. Extremities: reveal no edema. No clubbing or cyanosis Neurologically awake, alert, oriented x3 with well-coordinated movements.Memory impairment. No focal deficits noted Skin: No rash or skin lesions. Psychiatric: Coperative. Nonsuicidal Musculoskeletal: No joint swelling or deformity. - Labs CBC & Chem 7: 07/25/20 10:26 07/25/20 10:26 Labs: Abnormal Lab Results - Last 24 Hours (Table) 07/24/20 07/24/20 07/24/20 Range/Units 05:28 05:28 07:01 Hgb 11.3 L (11.4-16.0) gm/dL Lymphocytes # 0.7 L (1.0-4.8) k/uL Sodium 136 L (137-145) mmol/L BUN 49 H (7-17) mg/dL Creatinine 1.10 H (0.52-1.04) mg/dL Glucose 154 H (74-99) mg/dL POC Glucose (mg/dL) 138 H (75-99) mg/dL 07/24/20 07/24/20 07/24/20 Range/Units 11:57 16:35 20:38 Hgb (11.4-16.0) gm/dL Lymphocytes # (1.0-4.8) k/uL Sodium (137-145) mmol/L BUN (7-17) mg/dL Creatinine (0.52-1.04) mg/dL Glucose (74-99) mg/dL POC Glucose (mg/dL) 212 H 170 H 271 H (75-99) mg/dL Assessment and Plan Assessment: Intractable lower back pain Progressing L4-L5 disc herniation spinal stenosis Chronic pain and follow-up with pain clinic, epidural injections and history of radiofrequency ablation x2 Diabetes type 2 [id number] History of CVA/TIA Long-term memory loss Osteoarthritis Hypothyroidism Obesity with BMI 35.4 DVT prophylaxis with heparin subcu Plan: Patient will be continued pain management. She was given Toradol, methylprednis olone and morphine IV in the ER. Continue with Flexeril and morphine IV and Toradol as needed. Orthopedic surgeryis following. Patient underwent epidural injection on 07/23. Patient is still complaining of back pain shooting down the legs. Patient was started dexamethasone IV every 6 hourly for 4 mg. Continue with blood pressure medications and diabetic medications and along with insulin sliding scale. Monitor closely. PT OT will be consulted and further recommendations based on the clinical course. Time with Patient: Greater than 30
--- NOTE | 2020-07-25 23:16 | P.PN ---
Subjective Progress Note Date: 07/25/20 Principal diagnosis: Intractable lower back pain disc herniation Patient is a 70-year-old female with a known history of hypertension, diabetes type 2, hyperlipidemia, memory impairment, osteoarthritis, hypothyroidism and history of L3-L5 disc herniation and spinal stenosis presents to ER due to intractable lower back pain. Patient usually follows with Dr. Osborne for her back pain management and is currently on follow-up with Dr. Collins. Patient also has history of epidural injections and radiofrequency ablations last time on April 02. Patient states that last about 2 months. Patient had last MRI done in 2018. She has been having shooting down pain from the lower back to the legs. Denied any bowel or bladder incontinence. Patient states that since last pain has been getting worse and sh slumped onto walker. Patient states that she made an appointment with the [facility] of [place] and is scheduled for MRI of the lumbar spine, EEG and nerve conduction studies on next . Patient was seen by her chiropractic coverage back and also taking pain medications and also started on Flexeril at bedtime 10 mg. Since the pain is not improving and patient is unable to get up from sitting position and having difficulty ambulation. Patient came to ER for evaluation. Denies any complaints of chest pain or shortness of the. No nausea vomiting abdominal pain or diarrhea. No dysuria or hematuria. No fever no chills. X-ray of the lumbar spine showed scoliosis. Degenerative disc disease L4-L5 Laboratory data showed WBC 11.1 hemoglobin 12.2 platelets 328 Sodium 137 potassium 4.8 chloride 103 BUN 36 and creatinine 1.04 calcium 10.1 liver enzymes are not elevated and coronavirus PCR not detected 07/21/2020 Patient is currently in the recliner. No complaints of chest pain or shortness breath. Back pain is better but patient is unable to walk by herself. Otherwise patient is being continued on pain management with morphine, Tylenol and Motrin. Denied any complaints of nausea vomiting or abdominal pain or diarrhea. No fever no chills. No cough or sputum production..Patient was seen by orthopedic surgery. ordered. MRI without contrast of lumbar spine ordered to evaluate for changes in the lumbar spine. 07/22/2020 Patient is currently sitting on the bed. Still complains of back pain. MRI of the lumbar spine was done showed progression of the disc at the is not L4-L5.. Arthropathy changes. Patient has been afebrile. Pain management service was consulted. Orthopedic surgery is on board. Patient is being continued on Flexeril, Motrin as needed and Lyrica. Continue stool softeners. No nausea vomiting or abdominal pain. No dysuria or hematuria. PT OT will be consulted. 07/23/2020 Patient is status post 1. L4-L5 Epidural steroid injection under fluoroscopic guidance, 2. Lumbar epidurogram Able to sit on the side of the bed. Back pain is better. Continue PT OT and follow-up discharge. Patient has been afebrile. No nausea vomiting abdominal pain or diarrhea. No other acute overnight issues. 07/24/2020 Patient is complaining of lower back pain and shooting down pain up to the feet. Started dexamethasone 4 mg IV every 6 hours. Orthopedic surgery is on board. Otherwise patient has been going stool softeners and bowel regimen. Patient has been afebrile. No nausea vomiting abdominal pain or diarrhea. No dysuria or hematuria. Hemodynamically stable. Laboratory showed WBC 8.7 hem oglobin 11.3 and platelets 316 BUN 49 and creatinine 1.1 and blood sugar is controlled. 07/25/2020 Patient is currently lying in the bed. Still complains of back pain and shooting down pain below the legs. Also complains of tingling sensation. Patient is on IV dexamethasone. Orthopedic surgery is planning for decompression surgery with failed conservative measures. Patient does not have any complaints of chest pain or shortness of breath. No history of prior coronary artery disease or kidney injury. History of CVA/TIA with no residual weakness. Blood sugar is fairly controlled. Patient will be started on IV hydration and follow-up potassium level tomorrow. Currently at 5.2. BUN 48 and creatinine 1.12. Patient is also complaining of constipation. Was given a dose of MiraLAX today. Continued on senna Colace. Patient is on Toradol, Motrin, Lyrica and IV dexamethasone for pain management. Patient is at low risk for intermediate risk spinal surgery. Current medications reviewed. Objective - Vital Signs Vital signs: Vital Signs Temp 98.0 F 07/25/20 12:50 Pulse 76 07/25/20 12:50 Resp 18 07/25/20 12:50 BP 119/62 07/25/20 12:50 Pulse Ox 95 07/25/20 12:50 Intake & Output 07/25/20 07/25/20 07/26/20 06:59 18:59 06:59 Intake Total 1000 Balance 1000 Intake: Oral 1000 Other: Voiding Method Toilet # Voids 3 4 - Exam PHYSICAL EXAMINATION: Patient is lying in the bed comfortably, no acute distress, awake alert and oriented.. HEENT: Normocephalic. Neck is supple. Pupils reactive. Nostrils clear. Oral cavity is moist. Ears reveal no drainage. Neck reveals no JVD, carotid bruits, or thyromegaly. CHEST EXAMINATION: Trachea is central. Symmetrical expansion. Lung rangel clear to auscultation and percussion. CARDIAC: Normal S1, S2 with no gallops. No murmurs ABDOMEN: Soft. Bowel sounds normal. No organomegaly. No abdominal bruits. Extremities: reveal no edema. No clubbing or cyanosis Neurologically awake, alert, oriented x3 with well-coordinated movements.Memory impairment. No focal deficits noted Skin: No rash or skin lesions. Psychiatric: Coperative. Nonsuicidal Musculoskeletal: No joint swelling or deformity. - Labs CBC & Chem 7: 07/25/20 10:26 07/25/20 10:26 Labs: Abnormal Lab Results - Last 24 Hours (Table) 07/25/20 07/25/20 07/25/20 Range/Units 07:53 10:26 10:26 Lymphocytes # 0.9 L (1.0-4.8) k/uL Sodium 136 L (137-145) mmol/L Potassium 5.2 H (3.5-5.1) mmol/L BUN 48 H (7-17) mg/dL Creatinine 1.12 H (0.52-1.04) mg/dL Glucose 157 H (74-99) mg/dL POC Glucose (mg/dL) 166 H (75-99) mg/dL Calcium 10.4 H (8.4-10.2) mg/dL 07/25/20 07/25/20 Range/Units 12:27 17:10 Lymphocytes # (1.0-4.8) k/uL Sodium (137-145) mmol/L Potassium (3.5-5.1) mmol/L BUN (7-17) mg/dL Creatinine (0.52-1.04) mg/dL Glucose (74-99) mg/dL POC Glucose (mg/dL) 182 H 164 H (75-99) mg/dL Calcium (8.4-10.2) mg/dL Assessment and Plan Assessment: Intractable lower back pain Progressing L4-L5 disc herniation spinal stenosis Chronic pain and follow-up with pain clinic, epidural injections and history of radiofrequency ablation x2 Diabetes type 2 [id number] History of CVA/TIA Long-term memory loss Osteoarthritis Hypothyroidism Obesity with BMI 35.4 DVT prophylaxis with heparin subcu Plan: Patient will be continued pain management. She was given Toradol, methylprednisolone and morphine IV in the ER. Continue with Flexeril and morphine IV and Toradol as needed. Orthopedic surgeryis following. Patient underwent epidural injection on 07/23. Patient is still complaining of back pain shooting down the legs. Patient was started dexamethasone IV every 6 hourly for 4 mg. Continue with blood pressure medications and diabetic medications and along with insulin sliding scale. Monitor closely. further recommendations based on the clinical course. Time with Patient: Greater than 30
[2020-07-26] MEDS: HEPARIN SODIUM,PORCINE/PF 5,000 UNIT/0.5 ML SYRINGE SQ SCH ×4 (00:49→23:34)
[2020-07-26] MEDS: DEXAMETHASONE SOD PHOSPHATE 4 MG/ML 1 ML VIAL IV SCH ×4 (00:49→19:53)
[2020-07-26] MEDS: SODIUM CHLORIDE 0.9% 1,000 ML IV SCH ×2 (00:50→15:19)
[2020-07-26] MEDS ORDERED: VANCOMYCIN 1,250 MG in SODIUM CHLORIDE 0.9% 250 ML IVPB PRN (05:00)
[2020-07-26] MEDS: CYCLOBENZAPRINE 10 MG TAB PO PRN (05:24)
[2020-07-26] MEDS: LEVOTHYROXINE 50 MCG TAB PO SCH (05:25)
[2020-07-26 05:33] LABS: Basophils # (A) 0.1 k/uL (0-0.2); Basophils % (A) 0 %; Eosinophils # (A) 0.1 k/uL (0-0.7); Eosinophils % (A) 0 %; HCT 39.8 % (34.0-46.0); HGB 13.1 gm/dL (11.4-16.0); Lymphocytes # (A) 0.8 k/uL (1.0-4.8); Lymphocytes % (A) 3 %; MCH 26.9 pg (25.0-35.0); MCV 81.4 fL (80.0-100.0); Mean Platelet Volume 7.9; Monocytes # (A) 1.6 k/uL (0-1.0); Monocytes % (A) 6 %; Neutrophils # (A) 24.1 k/uL (1.3-7.7); Neutrophils % (A) 90 %; Platelet Count 452 k/uL (150-450); RBC 4.89 m/uL (3.80-5.40); RDW 14.3 % (11.5-15.5); WBC 26.9 k/uL (3.8-10.6)
[2020-07-26 07:04] LABS: Glucose,Whole Blood 130 mg/dL (75-99)
[2020-07-26] MEDS: IBUPROFEN 600 MG TAB PO SCH ×3 (07:22→18:27)
[2020-07-26] MEDS: INSULIN ASPART (NovoLOG) 100 UNIT/ML VIAL SQ SCH ×4 (07:22→21:24)
[2020-07-26] MEDS: FENOFIBRATE 160 MG TAB PO SCH (07:23)
[2020-07-26] MEDS: CALCIUM CARB-VIT D 500 MG-5 MCG TAB PO SCH (07:23)
[2020-07-26] MEDS: metFORMIN 500 MG TAB PO SCH ×2 (07:24→21:24)
[2020-07-26] MEDS: lisinopriL 20 MG TAB PO SCH (07:24)
[2020-07-26] MEDS: PREGABALIN 75 MG CAP PO SCH ×3 (07:24→21:24)
[2020-07-26] MEDS: ONDANSETRON 4 MG/2 ML VIAL IVP PRN (08:33)
[2020-07-26] MEDS: MORPHINE SULFATE 4 MG/ML SYRINGE IVP PRN ×2 (08:33→19:53)
--- NOTE | 2020-07-26 08:44 | P.PN ---
Subjective Progress Note Date: 07/26/20 Principal diagnosis: L4-5 spondylosis with stenosis Pt s/e. She is still having pain, radiculopathy as well as numbness/tingling in both of her legs. It is difficult to ambulate secondary to this. She states she has not been out of bed. Stillin pain. Denies any other bowel or bladder issues at this time. Objective - Vital Signs Vital signs: Vital Signs Temp 98.4 F 07/26/20 05:00 Pulse 85 07/26/20 05:00 Resp 20 07/26/20 05:00 BP 119/70 07/26/20 05:00 Pulse Ox 97 07/26/20 05:00 Intake & Output 07/25/20 07/26/20 07/26/20 18:59 06:59 18:59 Intake Total 500 Balance 500 Intake: Intake, IV Titration 400 Amount Sodium Chloride 0.9% 1, 400 000 ml @ 75 mls/hr IV . [id number] [facility] Rx#:[id number] Oral 100 Other: Voiding Method Toilet # Voids 4 4 - Exam Exam is stable to day. Patient is alert and oriented 3 appears well-nourished well-hydrated is in no acute distress. They does not appear septic. On exam the patient has no tenderness to palpation of her thoracic or lumbar spine. There is no edema or ballottement sign. Lower extremities with 5 out of 5 strength in all major muscle groups. She has some weakness in DF and PF, but this is somewhat cooperation issues and her unwillingness. Upper extremities show 5/5 strength in all major muscle groups. There is FROM that is painless of the b/l UE and LE in all major joints. They are intact to light touch sensation in L2 to S1 nerve distribution. Patient has palpable dorsalis pedis was posterior tibial pulses. Compartments are soft and compressible. Patient shows a negative Homans, Duran's, negative Babinski's negative clonus bilaterally. negative straight leg raise bilaterally. No tensioning signs. Cranial nerves II through XII are grossly intact. Overall alignment is well-maintained in the sagittal coronal planes. Her b/l SLR is positive today which causes her more tension in her back as well as pain - Labs CBC & Chem 7: 07/26/20 04:43 07/25/20 10:26 Labs: Abnormal Lab Results - Last 24 Hours (Table) 07/25/20 07/25/20 07/25/20 Range/Units 10:26 10:26 12:27 WBC (3.8-10.6) k/uL Plt Count (150-450) k/uL Neutrophils # (1.3-7.7) k/uL Lymphocytes # 0.9 L (1.0-4.8) k/uL Monocytes # (0-1.0) k/uL Sodium 136 L (137-145) mmol/L Potassium 5.2 H (3.5-5.1) mmol/L BUN 48 H (7-17) mg/dL Creatinine 1.12 H (0.52-1.04) mg/dL Glucose 157 H (74-99) mg/dL POC Glucose (mg/dL) 182 H (75-99) mg/dL Calcium 10.4 H (8.4-10.2) mg/dL 07/25/20 07/25/20 07/26/20 Range/Units 17:10 21:25 04:43 WBC 26.9 H (3.8-10.6) k/uL Plt Count 452 H (150-450) k/uL Neutrophils # 24.1 H (1.3-7.7) k/uL Lymphocytes # 0.8 L (1.0-4.8) k/uL Monocytes # 1.6 H (0-1.0) k/uL Sodium (137-145) mmol/L Potassium (3.5-5.1) mmol/L BUN (7-17) mg/dL Creatinine (0.52-1.04) mg/dL Glucose (74-99) mg/dL POC Glucose (mg/dL) 164 H 311 H (75-99) mg/dL Calcium (8.4-10.2) mg/dL 07/26/20 Range/Units 06:57 WBC (3.8-10.6) k/uL Plt Count (150-450) k/uL Neutrophils # (1.3-7.7) k/uL Lymphocytes # (1.0-4.8) k/uL Monocytes # (0-1.0) k/uL Sodium (137-145) mmol/L Potassium (3.5-5.1) mmol/L BUN (7-17) mg/dL Creatinine (0.52-1.04) mg/dL Glucose (74-99) mg/dL POC Glucose (mg/dL) 130 H (75-99) mg/dL Calcium (8.4-10.2) mg/dL Assessment and Plan Assessment: 70 yo female low back pain 1. 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 L4-5 spondylosis with radiculopathy 3. Low back pain 4. Medical comorbidities Plan: Spine Surgery Risk Review Asha Gonzalez is a 70-year-old female presenting for evaluation of back pain and lower extremity pain weakness difficulty with ambulation numbness and tingling. It was my pleasure to have seen and examined Asha Gonzalez. In our visit today we have had a chance to go over subjective complaints, physical examination findings and treatments including the natural course history without intervention and various interventional options. The patients imaging demonstrates stenosis with disc herniation L4 5 with spondylosis grade 1 anterior listhesis stable. On physical exam, Asha Gonzalez demonstrates bilateral lower extremity tensioning signs pain with ambulation difficulty with ambulation weakness and radiculopathy. I have explained to the patient that as their condition progresses it will cause further neurological deficits and eventual paralysis. Based on the patients imaging, physical exam, and the rapid progression and disabling nature of their symptoms, at this time I recommend surgery in the form or a: L4 5 decompression with possible Coflex placement. I discussed the risk and benefits of this procedure at length with Asha Gonzalez. The patient and her family agreed to considered pursuing the procedure abovementioned. Prior to surgery, she should follow up with her PCP (Cardio, ID, IM etc) for clearance. Questions were invited and answered, and the patient wishes to proceed as outlined below. Currently, I am recommendin. L4 5 decompressive laminectomy with flex placement 2. Follow up with PCP for surgical clearance 3. Review of surgical risks and benefits as well as an educational packet on the proposed surgical procedure. Risks: All surgical procedures come with inherent risks, including those related to positioning, anesthesia, intraoperative findings, and postoperative complications. It is important to understand that surgery does not come with any guarantee of a successful outcome as complications and adverse events are always possible. The patient was given a handout in office today discussing the surgical procedure and risks associated with the intervention, both of which were discussed with the patient. These risks include but are not limited to the following: * Experiencing same, different or even worse symptoms in back, neck, arms, or legs compared to before surgery. * Requiring further surgery or other forms of treatment presently or at some time in the future at same or other levels of the intended spine surgery. * On an extreme but fortunately relatively rare basis severe complication such as blindness, stroke, heart attack, temporary and/or permanent nerve injury, paralysis, coma, or may occur, sometimes without known explanation. * Surgical complications may include but are not limited to risk of infect ion, fluid accumulation in the surgical dissection site, including a seroma or hematoma, that requires additional surgery, wound drainage, bleeding, new numbness or weakness, vision changes/loss, spinal fluid leakage, non-healing and/or infected incision, headaches, difficulty or inability to swallow, hoarseness, hemopneumothorax, pneumothorax, impotence, retrograde ejaculation, vaginal dryness; injury to nerves, spinal cord, blood vessels, lymphatics or other vital organs (i.e., bowel injury, injury to the great vessels); heterotopic bone formation; complications related to the hardware such as screws, rods, cages including misplaced hardware, device failure, instrumentation at the wrong spine level, hardware fracture/breakage, or hardware loosening; vertebral failure of the spinal column above or below the newly placed hardware; retained surgical instrumentations or devices and the need for further surgery. * Medical risks of the planned spine surgery include but are not limited to generalized Infections to the whole body or local areas outside of the surgical site (sepsis), heart attack, bleeding, anaphylaxis, meningitis, seizure, epilepsy, hearing loss, burn [place], laceration of the head or other areas of the body, bruising, hypersensitivity of the skin, bladder over distension; allergic reaction; shoulder injury related to positioning; fat, blood and air clots to other areas of the body like heart, lungs, brain; failure of internal organs such as lungs, kidneys, liver and excessive bleeding. If blood transfusions are necessary, note that transfusions may cause intolerance reactions such as anaphylaxis or other complex reactions. * Despite best efforts, the results of spine surgery might not heal in terms of bone, soft tissues such as skin, fascia, ligaments, and joints. Additionally, in order to achieve best possible results, spine surgery may be carried out beyond the initially planned levels and involve decompression, fusion including insertion of hardware at levels other than the original intended area of surgical interest change some portions of the procedure in order to ensure the best possible outcomes. * With spine surgery and spinal fusion, there are different off label uses of instrumentation (devices, implants and hardware) as well as biological substances (bone morphogenic proteins, demineralized bone matrix) as well as using extra bone from allograft sources (i.e. cadaver bone) or autograft (iliac crest bone, ribs, or the spine itself). The patient has been given information about these practices and their inherent risks and benefits. * [facility] is an educational center that serves as a training facility for neurosurgical and orthopedic spine residents and fellows. Residents are physicians who are completing their surgical intensive training following medical school. They assist in the operating room with direct supervision of the attending surgeons. [place] are surgeons who have completed their training and eligible for board certification. They have opted for an elective year of more specialized training in their field. They assist in the operating room under the supervision of the attending surgeons. Physician assistants are medically trained surgical providers who function in the outpatient, inpatient, and operating room setting under the direct supervision of the attending surgeon. * [facility] has multiple operating rooms with single and overlapping rooms running daily. They currently function under the required guidelines as produced by the [facility] [employer] [facility] with regards to the overlapping rooms and will continue to comply with changes to this policy as they occur. The requirements include and are complied with as follows: (1) the critical portions of the overlapping rooms will not occur at the same time, (2) the attending physician will be physically present during the critical portions of the procedure and immediately available during the entire case, and (3) a back-up attending is designated should the primary attending not be immediately available. The patient has had a chance to review all the listed information, has been given print outs detailing this information, and has had all his/her questions answered to their satisfaction. It was my pleasure to have seen and examined Asha Gonzalez. In our visit today we have had a chance to go over my understanding of our patient's current condition, the natural course history without intervention and various interventional options. Questions were invited and answered, and the patient wishes to proceed as outlined above. I have seen and examined the patient for 25 minutes and we have spent more than 50% of the time in repeat and detailed counseling about the patient's condition, its natural course history with out and as much as can be predicted with surgery and re-review of various surgical treatment options. In conclusion, Asha Gonzalez and family requested we proceed with the above suggested surgery and are willing to accept risks and limitations of the suggested surgery as nature of the disease process and our best attempts at treatment for the condition. Thank you again for allowing us to be part of your patient's care. Please don't hesitate to contact me if you have any further questions. Signed and authenticated by: Matthew Campa [facility] [address] [facility], [place] [address] [place] [id number]
[2020-07-26 09:34] LABS: INR 0.95 (0.90-1.11); Prothrombin Time 10.4 sec (9.9-11.9)
[2020-07-26 10:43] LABS: African American GFR (CKD) 44.6 (60.0-200.0); Anion Gap 17.3 mmol/L (4.00-12.00); BUN/Creat Ratio 36.43 Ratio (12.00-20.00); Calcium 11.3 mg/dL (8.7-10.3); Carbon Dioxide 21.7 mmol/L (21.6-31.8); Non-African American GFR(CKD) 38.5 (60.0-200.0); Potassium 4.8 mmol/L (3.5-5.5)
[2020-07-26] MEDS: LACTATED RINGERS 1,000 ML IV SCH ×3 (11:40→16:03)
[2020-07-26 11:50] LABS: Glucose,Whole Blood 131 mg/dL (75-99)
[2020-07-26] MEDS ORDERED: ONDANSETRON 4 MG/2 ML VIAL IVP ONE (11:58)
[2020-07-26] MEDS ORDERED: TRANEXAMIC ACID 1,000 MG in SODIUM CHLORIDE 0.9% 100 ML IVPB ONE ×2 (12:03→12:04)
[2020-07-26] MEDS ORDERED: GLYCOPYRROLATE 0.2 MG/ML 2 ML VIAL ONE (12:12)
[2020-07-26] MEDS ORDERED: PROPOFOL 10 MG/ML 20 ML VIAL IV ONE (12:12)
[2020-07-26] MEDS ORDERED: LIDOCAINE 1% INJ 10MG/ML (20 ML MDV) ONE (12:12)
[2020-07-26] MEDS ORDERED: fentaNYL (PF) 50 MCG/ML 2 ML AMP ONE (12:12)
[2020-07-26] MEDS ORDERED: SODIUM CHLORIDE 0.9% 100 ML BAG ONE (12:12)
[2020-07-26] MEDS ORDERED: NEOSTIGMINE 1 MG/ML 10 ML VIAL ONE (12:12)
[2020-07-26] MEDS ORDERED: TRANEXAMIC ACID 1,000 MG/10 ML VIAL ONE (12:12)
[2020-07-26] MEDS ORDERED: ROCURONIUM 10 MG/ML (5 ML VIAL) IV ONE (12:12)
[2020-07-26] MEDS ORDERED: SUCCINYLCHOLINE CHLORIDE 100 MG/5 ML SYR IV ONE (12:12)
[2020-07-26] MEDS ORDERED: MIDAZOLAM 2 MG/2 ML VIAL ONE (12:12)
[2020-07-26] MEDS ORDERED: PHENYLEPHRINE-0.9% NACL SYG 1,000 MCG/10 ML SYRINGE ONE (12:12)
[2020-07-26] MEDS ORDERED: ePHEDrine SULFATE/0.9% NACL/PF 50 MG/5 ML SYRINGE IV ONE (12:12)
[2020-07-26] MEDS ORDERED: BUPIVACAINE (PF) 0.25% 30 ML VIAL SQ ONE (12:50)
[2020-07-26] MEDS ORDERED: GELATIN SPONGE,ABSORB (LARGE) 1 EACH SPONGE TOPICAL ONE (12:50)
[2020-07-26] MEDS ORDERED: THROMBIN (BOVINE) 5,000 UNIT VIAL TOPICAL ONE (13:20)
[2020-07-26] MEDS ORDERED: LACTATED RINGERS 1,000 ML IV ONE (14:44)
--- NOTE | 2020-07-26 15:34 | P.OP ---
Date of Procedure: 07/26/20 Preoperative Diagnosis: 1. L4-5 Grade I spondylolisthesis stable 2. L4-5 stenosis severe 3. Low back pain 4. Neurogenic claudication 5. LE radiculopathy Postoperative Diagnosis: 1. L4-5 Grade I spondylolisthesis stable 2. L4-5 stenosis severe 3. Low back pain 4. Neurogenic claudication 5. LE radiculopathy Procedure(s) Performed: 1. L4-5 bilateral laminotomy, foraminotomy partial medial facetectomy and decompression 2. L4-5 microdiscectomy 3. Placement of interspinous device coflex L4-5 Implants: 16 mm coflex Anesthesia: GETA Surgeon: Matthew Pittman Estimated Blood Loss (ml): 50 IV fluids (ml): 1,500 Urine output (ml): 500 Pathology: none sent Condition: stable Disposition: PACU Indications for Procedure: 70 yo female who presented with a/c onset of back pain, b/l LE pain, weakness, and neurogenic claudication. She has a long history of back issues and has been treated for these for many years with steroid injections, PT, medications and other conservative measures. She presented with an acute onset of this with a drastic increase in her LE symptoms as well as weakness. She did also complain of a bout of urinary incontinence when she stood, likey related to stress and pain. She has undergone conservative measures here in the hospital as well with LIOR, pain medications, PT/OT with no improvement of her symptoms and actual worsening of her sx after LIOR. We discussed continued conservative measures vs surgery and she would like to pursue surgical intervention at this time as she is not getting better. Operative Findings: Severe stenosis with facet hypertrophy of L4-5. Marginal stability GI spondylolisthesis L4-5. Description of Procedure: The patient was seen and examined in the preoperative area. All preoperative protocols were followed. Informed consent was obtained risks and benefits of the procedure were discussed at length. Risks including bleeding infection damage to the surrounding tissue and risk of reoperation were discussed with the patient. Risk of anesthesia up to and including was a discussed with the patient. These are outlined in the risk review. They were willing to accept these risks and all of the risks of surgery. The patient was given a weight- based dose of antibiotics in the form of vancomycin weight-based dose IVPB 1 preoperative. The patient was seen and evaluated by the anesthesia team who deemed them fit for surgery. The site was marked, the patient was willing to proceed with the procedure. The patient was transferred to the operative suite by the Department of anesthesia. They were then drifted off to sleep by the department anesthesia [anesthesia type]. The patient tolerated this well. [Arellano catheter was placed by nursing staff, atraumatically]. Once confirmation of lines and ventilation the patient was transferred to a prone José Miguel table with a Alec top were carefully. All bony prominences including wrists, elbows, axilla, chest, hips, and thighs, and feet were padded very well. Special attention was paid to the genitalia and these were padded accordingly. SCDs were placed on bilateral lower extremities and were connected. Arms were well padded and placed [on arm boards up and out in the 90/90 position]. Once in position, again we confirmed good ventilation capabilities and that lines were running appropriately. The p atient's lumbar spine was then exposed. 1010s were placed outlining the incision site. Standard alcohol was used to clean the incision site and allowed to dry. C-arm was used to biomark the patient and confirm level for incision which was marked with a skin marker. Operative briefing was performed with all teams and everyone in agreement to proceed. The patient was then prepped and draped in a normal sterile fashion. Timeout was then performed and all parties were in agreement with the procedure to be performed. Surgical field was then infiltrated with quarter percent Marcaine without ep inephrine 30 mL. Once this was accomplished a skin knife was used to make incision midline over the previously by marked area. Dissection was taken down with electrocautery until the lumbar fascia was encountered. This was then cleaned with a Maurer and visualized entirely. Bilateral midline sparing fasciotomy was then performed and subperiosteal dissection was performed over the L4 and L5 lamina. A [place] was placed at the L4 pars and lateral x-ray taken confirming the L4 5 interspace and correct levels. After dissection we placed the Versatrac retractor system (for good visualization. Irrigation was used to clean the bone. Then performed bilateral laminotomy decompression at L4 5 using high-speed bur area inverted U cuts were made in the L4 lamina and medial facetectomy was performed partially in this area at L4 and L5. A J cut was then performed inferiorly and the L5 S AP and lamina. This allowed for complete decompression of the nerve roots. Special attention was paid to the tip of the SAP of L5 to ensure foraminal decompression bilaterally. This was done both on the right and left-hand sides. Once there was complete decompression of the dura in this area turned our attention to the disc space further was a disc herniation a 15 blade was used to make an annulotomy and the disc herniation was removed using a micro-pituitary. We are able to performed meticulous hemostasis with electrocautery FloSeal as well as bone wax in the open bone edges. We then irrigated the wound. Prepared the spinous processes to accept the Coflex device by cleaning any excess soft tissue and burring osteophytes. Then under lateral fluoroscopy we trialed and placed a Coflex device we settle on a 16 mm device which had the best fit. This was impacted into place under lateral fluoroscopy and confirmed to be within 1-2 mm of the dura. We then clamped the wings to allow for good stability. We then tested the stability with the [place] and the device was in good position and stable. AP and lateral fluoroscopy were taken which confirmed good placement of the device and good decompression. We then copiously irrigated the wound with normal sterile saline 3 L meticulous hemostasis was again performed surgical was placed over the dura. We then placed 2 g of vancomycin deep within the wound retractors were removed. We then closed the fascia with #1 Vicryl in [id number] fashion followed by a running unidirectional strata fix. We then closed the subcu tissue with 2-0 Vicryl followed by the skin with 2-0 nylon. The wound was then cleaned and sterilely dressed with Cellerate gel. Of note Cellerate powder was placed within the subcu region. We then dressed the wound with Telfa 4 x 4 and Tegaderms. The patient was transferred back to her hospital bed atraumatically. Patient was then awakened and extubated by the department of anesthesia having tolerated the procedure very well with no complications. She was transferred to the postoperative care unit in stable condition.
--- NOTE | 2020-07-26 16:44 | FL ---
Fluoroscopy HISTORY: L4-5 laminectomy 21 seconds fluoroscopy time supplied to the referring clinician. 4 intraoperative C-arm images docum ent the procedure. See dictated report from orthopedic surgery.
[2020-07-26 17:49] LABS: Glucose,Whole Blood 126 mg/dL (75-99)
[2020-07-26] MEDS: bisacodyL 10 MG SUPP RECTAL PRN (19:53)
[2020-07-26 20:10] LABS: Glucose,Whole Blood 201 mg/dL (75-99)
[2020-07-26] MEDS: ATORVASTATIN 40 MG TAB PO SCH (21:24)
[2020-07-26] MEDS: PIOGLITAZONE 15 MG TAB PO SCH (21:24)
--- NOTE | 2020-07-26 21:55 | PN ---
PROGRESS NOTE DATE OF SERVICE: 07/26/2020 This 70-year-old woman was admitted with intractable back pain and disc herniation, underwent L4-5 bilateral laminectomy, foraminotomy and partial medial facetectomy and decompression and placement of interspinous device L4-5 for L4-5 grade 1 spondylolisthesis and L4-5 severe lumbar stenosis. The patient significantly constipated as well. The patient being closely monitored. PAST MEDICAL HISTORY: Reviewed. REVIEW OF SYSTEMS: CARDIOVASCULAR SYSTEM: No angina or palpitations. RESPIRATION: As mentioned earlier. GI as mentioned earlier. : No dysuria. NERVOUS SYSTEM: No numbness, weakness. MUSCULOSKELETAL: As mentioned earlier. CURRENT MEDICATIONS: Tylenol, Lipitor, Dulcolax, Proscar, Flexeril, Decadron, Motrin, NovoLog. Doses are reviewed. PHYSICAL EXAMINATION: Alert and oriented times three. Pulse 67, blood pressure 120/80, respirations 16, temperature 97.8, pulse ox 97% on room air. HEENT: Conjunctivae normal. NECK: No JVD. CARDIOVASCULAR: S1, S2 muffled. RESPIRATION: Breath sounds diminished in the bases. Scattered rhonchi and crackles. ABDOMEN: Soft, nontender. LEGS are no edema. No swelling. NERVOUS SYSTEM: No focal deficits. LAB STUDIES: WBC 26.8, hemoglobin 13.1 glucose 130, calcium is 11.3. ASSESSMENT: 1. L4-5 grade 1 spondylolisthesis and as well as L4-5 severe lumbar spinal stenosis, status post L4-5 bilateral laminectomy as well as microdiskectomy and placement of interspinous device. 2. Gait dysfunction, severe pain. 3. Degenerative joint disease and chronic back pain and chronic pain syndrome. 4. Diabetes mellitus type 2. 5. History of cerebrovascular accident, transient ischemic attack. 6. Long-term memory loss. 7. Degenerative joint disease. 8. Hypothyroidism. 9. Obesity with body mass index 35.4. 10.Hypercalcemia. 11.Hyponatremia. 12.Hypokalemia. 13.Increased creatinine with mild acute renal failure, improved. 14.Increased WBC possibly secondary to steroids. 15.Increased platelets. 16.Obesity. 17.History of cardiac catheterization. 18.History of transient ischemic attack. 19.FULL CODE. RECOMMENDATION: This 70-year-old woman who presented with multiple complex medical issues, we will monitor the patient closely, continue the current medications, management and symptomatic treatment. Otherwise at this time I would recommend continue the rest of medications. The patient also complaining of constipation, suppository p.r.n. Otherwise, repeat labs. The patient has got some mild hypercalcemia. I recommend discontinue the calcium tablets and continue to monitor. Guarded prognosis. Further recommendations to follow. PT/OT evaluation, possible ECF rehab. Monitor blood sugars closely. MMODL / IJN: [id number] / MTDD
[2020-07-27] MEDS: MORPHINE SULFATE 4 MG/ML SYRINGE IVP PRN (01:44)
[2020-07-27] MEDS: SODIUM CHLORIDE 0.9% 1,000 ML IV SCH ×2 (01:45→16:26)
[2020-07-27] MEDS: DEXAMETHASONE SOD PHOSPHATE 4 MG/ML 1 ML VIAL IV SCH ×4 (01:45→19:26)
[2020-07-27] MEDS: LEVOTHYROXINE 50 MCG TAB PO SCH (05:39)
[2020-07-27] MEDS: HYDROcodone/APAP 5-325MG 1 EACH TAB PO PRN ×3 (05:40→20:14)
[2020-07-27] MEDS: CYCLOBENZAPRINE 10 MG TAB PO PRN ×2 (05:40→20:14)
[2020-07-27 06:30] LABS: Basophils % (A) 0 %; Eosinophils % (A) 0 %; HCT 34.8 % (34.0-46.0); HGB 11.7 gm/dL (11.4-16.0); Lymphocytes # (A) 0.5 k/uL (1.0-4.8); Lymphocytes % (A) 4 %; MCH 27.3 pg (25.0-35.0); MCHC 33.7 g/dL (31.0-37.0); MCV 81.1 fL (80.0-100.0); Mean Platelet Volume 7.5; Monocytes # (A) 0.8 k/uL (0-1.0); Monocytes % (A) 6 %; Neutrophils # (A) 13.4 k/uL (1.3-7.7); Neutrophils % (A) 90 %; Platelet Count 324 k/uL (150-450); RBC 4.29 m/uL (3.80-5.40); RDW 14.6 % (11.5-15.5); WBC 14.8 k/uL (3.8-10.6)
[2020-07-27 07:11] LABS: Glucose,Whole Blood 159 mg/dL (75-99)
[2020-07-27] MEDS: IBUPROFEN 600 MG TAB PO SCH ×3 (08:18→18:06)
[2020-07-27] MEDS: PREGABALIN 75 MG CAP PO SCH ×3 (08:18→21:49)
[2020-07-27] MEDS: FENOFIBRATE 160 MG TAB PO SCH (08:18)
[2020-07-27] MEDS: metFORMIN 500 MG TAB PO SCH ×2 (08:18→20:15)
[2020-07-27] MEDS: lisinopriL 20 MG TAB PO SCH (08:18)
[2020-07-27] MEDS: HEPARIN SODIUM,PORCINE/PF 5,000 UNIT/0.5 ML SYRINGE SQ SCH ×3 (08:19→23:25)
[2020-07-27] MEDS: INSULIN ASPART (NovoLOG) 100 UNIT/ML VIAL SQ SCH ×4 (08:19→20:19)
[2020-07-27] MEDS: ONDANSETRON 4 MG/2 ML VIAL IVP PRN ×2 (08:25→18:09)
[2020-07-27] MEDS: SENNOSIDES 8.6 MG TAB PO PRN (08:29)
[2020-07-27 09:32] LABS: African American GFR (CKD) 53.8 (60.0-200.0); Anion Gap 10.4 mmol/L (4.00-12.00); BUN/Creat Ratio 35.83 Ratio (12.00-20.00); Calcium 9.5 mg/dL (8.7-10.3); Carbon Dioxide 25.6 mmol/L (21.6-31.8); Non-African American GFR(CKD) 46.4 (60.0-200.0); Potassium 4.9 mmol/L (3.5-5.5)
--- NOTE | 2020-07-27 11:21 | P.PN ---
Subjective Progress Note Date: 07/27/20 Principal diagnosis: L4-5 spondylosis with stenosis Patient seen and examined she is doing fairly well she is seated up in her chair. She states she has been up although minimally today. She denies any fevers chills shortness breath or chest pain she states some back pain. He states that her legs feel better but they are not a Alexi percent recovered yet we discussed that this is fairly normal and that it will take some time for her nerves to recover. She denies any other symptoms or issues today. Objective - Vital Signs Vital signs: Vital Signs Temp 98.3 F 07/27/20 05:00 Pulse 73 07/27/20 05:00 Resp 18 07/27/20 05:00 BP 135/76 07/27/20 05:00 Pulse Ox 95 07/27/20 05:00 Intake & Output 07/26/20 07/27/20 07/27/20 18:59 06:59 18:59 Intake Total 2590 900 Balance 2590 900 Weight 90.718 kg Intake: IV 1750 Intake, IV Titration 600 900 Amount Sodium Chloride 0.9% 1, 600 900 000 ml @ 75 mls/hr IV . [id number] [facility] Rx#:[id number] Oral 240 Other: Voiding Method Toilet # Voids 4 5 # Bowel Movements 2 - Exam Incisions are clean dry and intact. Dressing in place. Patient is alert and oriented 3 appears well-nourished well-hydrated is in no acute distress. They does not appear septic. On exam the patient has no tenderness to palpation of her thoracic or lumbar spine. There is no edema or ballottement sign. Lower extremities with 5 out of 5 strength in all major muscle groups. She has some weakness in DF and PF, but this is somewhat cooperation issues and her unwillingness. Upper extremities show 5/5 strength in all major muscle groups. There is FROM that is painless of the b/l UE and LE in all major joints. They are intact to light touch sensation in L2 to S1 nerve distribution. Patient has palpable dorsalis pedis was posterior tibial pulses. Compartments are soft and compressible. Patient shows a negative Homans, Duran's, negative Babinski's negative clonus bilaterally. negative straight leg raise bilaterally. No tensioning signs. Cranial nerves II through XII are grossly intact. Overall alignment is well-maintained in the sagittal coronal planes. Her b/l SLR is positive today which causes her more tension in her back as well as pain - Labs CBC & Chem 7: 07/27/20 05:55 07/27/20 05:55 Labs: Abnormal Lab Results - Last 24 Hours (Table) 07/26/20 07/26/20 07/26/20 Range/Units 11:49 17:47 20:09 WBC (3.8-10.6) k/uL Neutrophils # (1.3-7.7) k/uL Lymphocytes # (1.0-4.8) k/uL BUN (9.0-27.0) mg/dL Est GFR (CKD-EPI)AfAm (60.0-200.0) Est GFR (CKD-EPI)NonAf (60.0-200.0) BUN/Creatinine Ratio (12.00-20.00) Ratio Glucose (70-110) mg/dL POC Glucose (mg/dL) 131 H 126 H 201 H (75-99) mg/dL 07/27/20 07/27/20 07/27/20 Range/Units 05:55 05:55 07:09 WBC 14.8 H (3.8-10.6) k/uL Neutrophils # 13.4 H (1.3-7.7) k/uL Lymphocytes # 0.5 L (1.0-4.8) k/uL BUN 43.0 H (9.0-27.0) mg/dL Est GFR (CKD-EPI)AfAm 53.8 L (60.0-200.0) Est GFR (CKD-EPI)NonAf 46.4 L (60.0-200.0) BUN/Creatinine Ratio 35.83 H (12.00-20.00) Ratio Glucose 164 H (70-110) mg/dL POC Glucose (mg/dL) 159 H (75-99) mg/dL Assessment and Plan Assessment: 70 yo female low back pain postop day 1 from L4 5 laminectomy decompression and Coflex placement 1. 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 L4-5 spondylosis with radiculopathy 3. Low back pain 4. Medical comorbidities Plan: -Appreciate medicine [] management. Symptom Control: -Pain control: [Adequate at this time] . Activity: -Aggressive ambulation protocol. OOB with all meals. OOB or in chair 4-5x daily. -PT/OT LSO brace to be ordered to help with ambulation. It is not needed for PT Prophylaxis: -TEDs, SCDs, mechanical ppx. OK for heparin today. Early ambulation is best. -GI ppx. Imaging/labs: No further imaging needed [-Trend labs as appropriate] Intervention: Encourage incentive spirometer 10 times per hour Encourage ambulation All meals out of bed Dispo: Home likely Wednesday versus Wednesday with home health care
[2020-07-27 11:42] LABS: Glucose,Whole Blood 164 mg/dL (75-99)
[2020-07-27] MEDS: LACTATED RINGERS 1,000 ML IV SCH ×2 (13:44→14:57)
[2020-07-27] MEDS: polyethylene glycoL 3350 17 GM POWD.PACK PO PRN (13:58)
[2020-07-27 17:21] LABS: Glucose,Whole Blood 201 mg/dL (75-99)
[2020-07-27] MEDS: PIOGLITAZONE 15 MG TAB PO SCH (20:14)
[2020-07-27] MEDS: DOCUSATE 100 MG CAP PO SCH (20:14)
[2020-07-27] MEDS: ATORVASTATIN 40 MG TAB PO SCH (20:14)
[2020-07-27 20:17] LABS: Glucose,Whole Blood 214 mg/dL (75-99)
--- NOTE | 2020-07-27 20:54 | PN ---
PROGRESS NOTE DATE OF SERVICE: 07/27/2020 This 70-year-old woman who was admitted with L4-5 grade 1 spondylolisthesis, had surgery. No chest pain. No palpitations. No fever. The patient is able to ambulate with support. PHYSICAL EXAMINATION: Alert and oriented x3. Blood pressure 117/74, respiration 16, temperature 98.2, pulse ox 98% on room air. HEENT: Conjunctivae normal. NECK: No JVD. CARDIOVASCULAR: S1, S2 muffled. RESPIRATORY SYSTEM: Breath sounds diminished at the bases. No rhonchi. No crackles. ABDOMEN: Soft. Nervous system: No focal deficits. Examination of the back status post surgery. LAB STUDIES: WBC 14.8. Other labs are noted. ASSESSMENT: 1. L4-5 grade 1 spondylolisthesis as well as L4-5 severe lumbar spinal stenosis, status post L4-5 bilateral laminectomy as well as microdiskectomy and placement of interspinous device. 2. Gait dysfunction with severe pain. 3. Degenerative joint disease and chronic back pain as well as chronic pain syndrome. 4. Constipation. 5. Diabetes mellitus type 2. 6. Increased WBC. 7. History of cerebrovascular accident/ transient ischemic attack. 8. Long-term memory loss. 9. Degenerative joint disease. 10.Hypothyroidism. 11.Obesity with body mass index 35.4. 12.Hypocalcemia. 13.Hyponatremia. 14.Hypokalemia. 15.Increased creatinine with mild acute renal failure, improved. 16.Gastroesophageal reflux disease. 17.Increased platelets. 18.Obesity. 19.History of cardiac catheterization. 20.History of transient ischemic attack. 21.FULL CODE. RECOMMENDATIONS AND DISCUSSION: Recommend to continue current medications, management and symptomatic treatment. Otherwise, at this time repeat labs. Closely follow with Orthopedic surgery. Otherwise PT, OT evaluation. Increase ambulation. Guarded prognosis. Further recommendations to follow. MMODL / IJN: [id number] /
[2020-07-27 23:43] LABS: Appearance,Urine Clear (Clear); Bilirubin,Urine Negative (Negative); Blood,Urine Negative (Negative); Color,Urine Yellow; Glucose,Urine (UA) Negative (Negative); Ketones,Urine Negative (Negative); Leukocyte Esterase,Urine Trace (Negative); Nitrite,Urine Negative (Negative); PH, Urine 5.5 (5.0-8.0); Protein,Urine Negative (Negative); RBC,Urine <1 /hpf (0-5); Specific Gravity,Urine 1.017 (1.001-1.035); Squamous Epithelial Cell,Urine <1 /hpf (0-4); Urobilinogen,Urine <2.0 mg/dL (<2.0); WBC,Urine 2 /hpf (0-5)
[2020-07-28] MEDS: DEXAMETHASONE SOD PHOSPHATE 4 MG/ML 1 ML VIAL IV SCH ×4 (02:15→19:21)
[2020-07-28] MEDS: SODIUM CHLORIDE 0.9% 1,000 ML IV SCH ×2 (03:59→17:54)
[2020-07-28 04:18] VITALS: RESP 16
[2020-07-28] MEDS: HYDROcodone/APAP 5-325MG 1 EACH TAB PO PRN (04:26)
[2020-07-28] MEDS: bisacodyL 10 MG SUPP RECTAL PRN (04:27)
[2020-07-28] MEDS: LEVOTHYROXINE 50 MCG TAB PO SCH (05:26)
[2020-07-28 06:02] LABS: Basophils % (A) 0 %; Eosinophils % (A) 0 %; HCT 35.7 % (34.0-46.0); HGB 11.2 gm/dL (11.4-16.0); Lymphocytes # (A) 0.7 k/uL (1.0-4.8); Lymphocytes % (A) 5 %; MCH 26.2 pg (25.0-35.0); MCHC 31.5 g/dL (31.0-37.0); MCV 83.3 fL (80.0-100.0); Monocytes # (A) 0.7 k/uL (0-1.0); Monocytes % (A) 5 %; Neutrophils # (A) 12.4 k/uL (1.3-7.7); Neutrophils % (A) 89 %; Platelet Count 327 k/uL (150-450); RBC 4.28 m/uL (3.80-5.40); RDW 14.7 % (11.5-15.5)
--- NOTE | 2020-07-28 07:18 | XR ---
EXAMINATION TYPE: XR chest 1V portable DATE OF EXAM: 07/28/2020 COMPARISON: 10/24/2009 HISTORY: Cough TECHNIQUE: Single frontal view of the chest is obtained. FINDINGS: There is no focal air space opacity, pleural effusion, or pneumothorax seen. The cardiac silhouette size is within normal limits. The osseous structures are intact. Heart size stable. Limi malaika inspiration. Suspect calcified granuloma right upper lobe stable. IMPRESSION: No acute process.
[2020-07-28 07:33] LABS: Glucose,Whole Blood 203 mg/dL (75-99)
[2020-07-28] MEDS: DOCUSATE 100 MG CAP PO SCH ×2 (08:12→21:05)
[2020-07-28] MEDS: PREGABALIN 75 MG CAP PO SCH ×3 (08:12→21:44)
[2020-07-28] MEDS: FENOFIBRATE 160 MG TAB PO SCH (08:12)
[2020-07-28] MEDS: lisinopriL 20 MG TAB PO SCH (08:12)
[2020-07-28] MEDS: HEPARIN SODIUM,PORCINE/PF 5,000 UNIT/0.5 ML SYRINGE SQ SCH ×2 (08:12→16:04)
[2020-07-28] MEDS: INSULIN ASPART (NovoLOG) 100 UNIT/ML VIAL SQ SCH ×4 (08:12→21:44)
[2020-07-28] MEDS: metFORMIN 500 MG TAB PO SCH ×2 (08:12→21:44)
[2020-07-28] MEDS: polyethylene glycoL 3350 17 GM POWD.PACK PO PRN (08:13)
[2020-07-28] MEDS: IBUPROFEN 600 MG TAB PO SCH ×3 (08:13→17:56)
--- NOTE | 2020-07-28 09:49 | P.PN ---
Subjective Progress Note Date: 07/28/20 Principal diagnosis: L4-5 spondylosis with stenosis Patient seen and examined today she doing fairly well her back feels better in her legs feel better however she still having difficulty with bowel movements and states she feels very constipated and would like to explore more options for loosening her stools which is reasonable. She is otherwise voiding okay she states no fevers chills shortness of breath or chest pain no peroneal numbness or tingling other weaknesses or changes Objective - Vital Signs Vital signs: Vital Signs Temp 97.9 F 07/28/20 04:16 Pulse 72 07/28/20 04:16 Resp 16 07/28/20 04:16 BP 117/74 07/28/20 04:16 Pulse Ox 95 07/28/20 04:16 Intake & Output 07/27/20 07/28/20 07/28/20 18:59 06:59 18:59 Intake Total 1000 Output Total 10 2 Balance -10 998 Intake: Oral 1000 Output: Urine 10 Stool 2 Other: Voiding Method Toilet # Voids 1 - Exam Her exam is stable today dressing is in place clean and dry and change tomorrow Patient is alert and oriented 3 appears well-nourished well-hydrated is in no acute distress. They does not appear septic. On exam the patient has no tenderness to palpation of her thoracic or lumbar spine. There is no edema or ballottement sign. Lower extremities with 5 out of 5 strength in all major muscle groups. She has some weakness in DF and PF, but this is somewhat cooperation issues and her unwillingness. Upper extremities show 5/5 strength in all major muscle groups. There is FROM that is painless of the b/l UE and LE in all major joints. They are intact to light touch sensation in L2 to S1 nerve distribution. Patient has palpable dorsalis pedis was posterior tibial pulses. Compartments are soft and compressible. Patient shows a negative Homans, Duran's, negative Babinski's negative clonus bilaterally. negative straight leg raise bilaterally. No tensioning signs. Cranial nerves II through XII are grossly intact. Overall alignment is well-maintained in the sagittal coronal planes. Her b/l SLR is positive today which causes her more tension in her back as well as pain - Labs CBC & Chem 7: 07/28/20 05:11 07/27/20 05:55 Labs: Abnormal Lab Results - Last 24 Hours (Table) 07/27/20 07/27/20 07/27/20 Range/Units 11:41 17:19 20:16 WBC (3.8-10.6) k/uL Hgb (11.4-16.0) gm/dL Neutrophils # (1.3-7.7) k/uL Lymphocytes # (1.0-4.8) k/uL POC Glucose (mg/dL) 164 H 201 H 214 H (75-99) mg/dL Ur Leukocyte Esterase (Negative) 07/27/20 07/28/20 07/28/20 Range/Units 23:15 05:11 07:31 WBC 14.0 H (3.8-10.6) k/uL Hgb 11.2 L (11.4-16.0) gm/dL Neutrophils # 12.4 H (1.3-7.7) k/uL Lymphocytes # 0.7 L (1.0-4.8) k/uL POC Glucose (mg/dL) 203 H (75-99) mg/dL Ur Leukocyte Esterase Trace H (Negative) Assessment and Plan Assessment: 70 yo female low back pain postop day 2 from L4 5 laminectomy decompression and Coflex placement 1. 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 L4-5 spondylosis with radiculopathy 3. Low back pain 4. Medical comorbidities Plan: -Appreciate medicine management. Symptom Control: -Pain control: Adequate at this time . Activity: -Aggressive ambulation protocol. OOB with all meals. OOB or in chair 4-5x daily. -PT/OT LSO brace to be ordered to help with ambulation. It is not needed for PT Prophylaxis: -TEDs, SCDs, mechanical ppx. OK for heparin today. Early ambulation is best. -GI ppx. Imaging/labs: No further imaging needed -Trend labs as appropriate Intervention: Encourage incentive spirometer 10 times per hour Encourage ambulation All meals out of bed Dispo: Patient is orthopedically stable for [facility] or home with home health care She passes physical therapy milestones and is able to have a bowel movement
[2020-07-28 10:00] LABS: African American GFR (CKD) 53.8 (60.0-200.0); Anion Gap 6.6 mmol/L (4.00-12.00); BUN/Creat Ratio 35.83 Ratio (12.00-20.00); Calcium 9.1 mg/dL (8.7-10.3); Carbon Dioxide 27.4 mmol/L (21.6-31.8); Non-African American GFR(CKD) 46.4 (60.0-200.0); Potassium 5.1 mmol/L (3.5-5.5)
[2020-07-28] MEDS ORDERED: MAGNESIUM CITRATE 296 ML BOTTLE PO ONE (10:00)
[2020-07-28 12:05] LABS: Glucose,Whole Blood 173 mg/dL (75-99)
[2020-07-28] MEDS: LACTATED RINGERS 1,000 ML IV SCH ×2 (12:47)
[2020-07-28] MEDS: LACTULOSE 20 GM/30 ML CUP PO SCH ×3 (16:03→21:43)
[2020-07-28 17:45] LABS: Glucose,Whole Blood 157 mg/dL (75-99)
--- NOTE | 2020-07-28 17:51 | PN ---
PROGRESS NOTE DATE OF SERVICE: 07/28/2020 This 70-year-old woman was admitted after L4-5 grade 1 spondylosis and surgical repair; is being closely monitored. Patient is complaining of significant constipation. A chest x-ray done yesterday showed no significant abnormality. No chest pain. No palpitations. No fever. PHYSICAL EXAMINATION: Alert and oriented x3. The pulse is 72, blood pressure 117/74, respirations 16, temperature 97.9, pulse ox 94% on room air. HEENT: Conjunctivae normal. Oral mucosa moist. NECK: No jugular venous distention. No lymph node enlargement. CARDIOVASCULAR: S1, S2, muffled. No S3, no S4, RESPIRATORY: Diminished breath sounds at the bases. No rhonchi, no crackles. ABDOMEN: Soft, nontender. LEGS: No edema, no swelling. NERVOUS SYSTEM: No focal deficits. LABS: WBC 14, and glucose 244 and 203. UA noted. ASSESSMENT: 1. L4-5 grade 1 spondylolisthesis, status post L4-5 severe lumbar canal stenosis, spinal stenosis, status post L4-5 bilateral laminectomy as well as microdiskectomy and placement of interspinous device. 2. Gait dysfunction and severe pain. 3. Degenerative joint disease, chronic back pain as well as chronic pain syndrome. 4. Constipation. 5. Diabetes mellitus type 2. 6. Increased WBC. 7. History of CVA/TIA. 8. Long-term memory loss. 9. Degenerative joint disease. 10.Hypothyroidism. 11.Obesity with body mass index of 35.4. 12.Hypocalcemia. 13.Hyponatremia. 14.Hypokalemia. 15.Increased creatinine with mild acute renal failure, improved. 16.Gastroesophageal reflux disease. 17.Increased platelets. 18.Obesity. 19.History of cardiac catheterization. 20.FULL CODE. RECOMMENDATIONS AND DISCUSSION: Recommend to continue current management and symptomatic treatment. Otherwise, at this time I recommend monitor the blood sugars closely. Repeat labs. Lactulose for constipation. Guarded prognosis. Further recommendations to follow. MMODL / IJN: [id number] /
[2020-07-28] MEDS: CYCLOBENZAPRINE 10 MG TAB PO PRN (19:22)
[2020-07-28 21:08] LABS: Glucose,Whole Blood 201 mg/dL (75-99)
[2020-07-28] MEDS: ATORVASTATIN 40 MG TAB PO SCH (21:44)
[2020-07-28] MEDS: PIOGLITAZONE 15 MG TAB PO SCH (21:44)
[2020-07-29] MEDS: HEPARIN SODIUM,PORCINE/PF 5,000 UNIT/0.5 ML SYRINGE SQ SCH ×2 (00:58→09:00)
[2020-07-29] MEDS: DEXAMETHASONE SOD PHOSPHATE 4 MG/ML 1 ML VIAL IV SCH ×2 (00:59→09:00)
[2020-07-29] MEDS: LACTULOSE 20 GM/30 ML CUP PO SCH ×2 (01:32→08:49)
[2020-07-29] MEDS: ACETAMINOPHEN TAB 325 MG TAB PO PRN (02:45)
[2020-07-29] MEDS: LEVOTHYROXINE 50 MCG TAB PO SCH (05:28)
[2020-07-29 07:13] LABS: Glucose,Whole Blood 170 mg/dL (75-99)
--- NOTE | 2020-07-29 08:20 | P.PN ---
Subjective Progress Note Date: 07/29/20 Principal diagnosis: L4-5 spondylosis with stenosis Patient seen and examined this morning she is doing well. She will large bowel movement last night and feels much better. She denies a peroneal numbness or tingling states she still getting some pains down her legs but is doing better than it was she has been up and about and walking the halls and she would like to go home today. Objective - Vital Signs Vital signs: Vital Signs Temp 97.7 F 07/29/20 05:00 Pulse 66 07/29/20 05:00 Resp 16 07/29/20 05:00 BP 116/75 07/29/20 05:00 Pulse Ox 97 07/29/20 05:00 Intake & Output 07/28/20 07/29/20 07/29/20 18:59 06:59 18:59 Intake Total 1200 Balance 1200 Intake: Oral 1200 Other: Voiding Method Toilet # Voids 4 4 # Bowel Movements 2 - Exam Orthopedic exam remained stable today. Dressing is clean dry and intact no erythema, ecchymosis or edema. Patient is alert and oriented 3 appears well-nourished well-hydrated is in no acute distress. They does not appear septic. On exam the patient has no tenderness to palpation of her thoracic or lumbar spine. There is no edema or ballottement sign. Lower extremities with 5 out of 5 strength in all major muscle groups. She has some weakness in DF and PF, but this is somewhat cooperation issues and her unwillingness. Upper extremities show 5/5 strength in all major muscle groups. There is FROM that is painless of the b/l UE and LE in all major joints. They are intact to light touch sensation in L2 to S1 nerve distribution. Patient has palpable dorsalis pedis was posterior tibial pulses. Compartments are soft and compressible. Patient shows a negative Homans, Duran's, negative Babinski's negative clonus bilaterally. negative straight leg raise bilaterally. No tensioning signs. Cranial nerves II through XII are grossly intact. Overall alignment is well-maintained in the sagittal coronal planes. Her b/l SLR is positive today which causes her more tension in her back as well as pain - Labs CBC & Chem 7: 07/28/20 05:11 07/28/20 05:11 Labs: Abnormal Lab Results - Last 24 Hours (Table) 07/28/20 07/28/20 07/28/20 Range/Units 05:11 12:03 17:44 BUN 43.0 H (9.0-27.0) mg/dL Est GFR (CKD-EPI)AfAm 53.8 L (60.0-200.0) Est GFR (CKD-EPI)NonAf 46.4 L (60.0-200.0) BUN/Creatinine Ratio 35.83 H (12.00-20.00) Ratio Glucose 244 H (70-110) mg/dL POC Glucose (mg/dL) 173 H 157 H (75-99) mg/dL 07/28/20 07/29/20 Range/Units 21:07 07:11 BUN (9.0-27.0) mg/dL Est GFR (CKD-EPI)AfAm (60.0-200.0) Est GFR (CKD-EPI)NonAf (60.0-200.0) BUN/Creatinine Ratio (12.00-20.00) Ratio Glucose (70-110) mg/dL POC Glucose (mg/dL) 201 H 170 H (75-99) mg/dL Assessment and Plan Assessment: 70 yo female low back pain postop day 3 from L4 5 laminectomy decompression and Coflex placement 1. 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 L4-5 spondylosis with radiculopathy 3. Low back pain 4. Medical comorbidities Plan: -Appreciate medicine management. Symptom Control: -Pain control: Adequate at this time . Activity: -Aggressive ambulation protocol. OOB with all meals. OOB or in chair 4-5x daily. -PT/OT LSO brace to be ordered to help with ambulation. It is not needed for PT Prophylaxis: -TEDs, SCDs, mechanical ppx. OK for heparin today. Early ambulation is best. -GI ppx. Imaging/labs: No further imaging needed -Trend labs as appropriate Intervention: Encourage incentive spirometer 10 times per hour Encourage ambulation All meals out of bed Dispo: Patient is orthopedically stable for discharge home today Follow-up in 2 weeks
[2020-07-29] MEDS: SODIUM CHLORIDE 0.9% 1,000 ML IV SCH (08:59)
[2020-07-29] MEDS: INSULIN ASPART (NovoLOG) 100 UNIT/ML VIAL SQ SCH ×2 (09:00→13:04)
[2020-07-29] MEDS: FENOFIBRATE 160 MG TAB PO SCH (09:00)
[2020-07-29] MEDS: metFORMIN 500 MG TAB PO SCH (09:00)
[2020-07-29] MEDS: lisinopriL 20 MG TAB PO SCH (09:01)
[2020-07-29] MEDS: PREGABALIN 75 MG CAP PO SCH (09:01)
[2020-07-29] MEDS: IBUPROFEN 600 MG TAB PO SCH ×2 (09:01→13:04)
[2020-07-29] MEDS: DOCUSATE 100 MG CAP PO SCH (09:03)
[2020-07-29] MEDS ORDERED: LACTULOSE 20 GM/30 ML CUP PO PRN (11:13)
[2020-07-29 11:49] LABS: Glucose,Whole Blood 159 mg/dL (75-99)
[2020-07-29 11:52] VITALS: BP 99/64; PULSE 76; TEMP 98.2
[2020-07-29] MEDS: LACTATED RINGERS 1,000 ML IV SCH ×2 (12:20→13:05)
[2020-07-29 12:49] VITALS: BMI 35.4
--- NOTE | 2020-07-29 16:26 | P.DS ---
Providers Date of admission: 07/22/20 09:55 Expected date of discharge: 07/29/20 Attending physician: June Mccormick Consults: 07/20/20 13:16 Consult Physician Urgent Consulting Provider: Matthew Pittman Consult Reason/Comments: Lumbar disc herniation Do you want consulting provider notified?: Yes 07/22/20 12:18 Consult Physician Routine Consulting Provider: Kahlil Collins Consult Reason/Comments: low back pain with L4-L5 radiculopathy, possible epidural spine injection Do you want consulting provider notified?: Yes Primary care physician: Cami Oreilly Hospital Course: Final diagnosis L4-5 grade 1 spondylolisthesis status post L4-5 severe lumbar canal stenosis, spinal stenosis, status post bilateral laminectomy as well as microdiscectomy and placement of interspinous device Gait dysfunction and severe pain Degenerative joint disease, chronic back pain as well as chronic pain syndrome Constipation Diabetes mellitus type 2 Increased white blood count History of CVA, TIA Long-term memory loss degenerative joint disease Hypothyroidism Obesity with a body mass index of 35.4 Hypocalcemia hyponatremia Hypokalemia Increased creatinine with mild acute renal failure, improved Gastroesophageal reflux disease Increased platelets obesity History of cardiac catheterization Full code Discharge disposition Patient is being discharged in a stable condition with guarded prognosis to home. Patient will continue with [facility] in the outpatient setting. Patient will follow-up with Dr. Oreilly in the outpatient setting upon discharge. Patient is to follow-up with orthopedic surgery Dr. Pittman in 2 weeks. Prescriptions also provided for repeat labs to monitor white blood count along with kidney functions closely. Total time taken is greater than 35 minutes. Hospital course This is a 70-year-old female who was recently admitted status post L4-5 grade 1 spondylosis and surgical repair and was being closely monitored. Orthopedic surgery following closely and will be following in the outpatient setting in 2 weeks as scheduled. Patient was continued on pain medication and also having significant abdominal discomfort with significant constipation and was maintained on bowel regimen. Per the Patient and nursing staff patient had a large bowel movement yesterday. Patient will be continued on stool softeners and MiraLAX and instructed to hold stool softeners and laxatives with loose stools. Patient also noted to have some rectal discomfort secondary to hemorrhoid and will continue with Anusol cream in the outpatient setting. Patient was seen and evaluated by physical therapy showing improvements in strength and mobility and will continue with home care in the outpatient setting. Currently no reports of chest pain, shortness of breath, or palpitations. Patient is afebrile. No reports of nausea or vomiting and patient is tolerating diet. Patient will be discharged home with home care today. Guarded prognosis. On exam vital signs are stable. Cardio S1, S2 are muffled. Respiratory system shows diminished breath sounds at the bases with no wheezing or rhonchi noted. Abdomen is soft and and nontender. Nervous system shows no focal deficits. Please refer to medication reconciliation sheet for a list of medications. Patient Condition at Discharge: Good Plan - Discharge Summary Discharge Rx Participant: No New Discharge Prescriptions: New Cyclobenzaprine [Flexeril] 10 mg PO HS PRN #40 tab PRN Reason: Spasms Pregabalin [Lyrica] 150 mg PO TID #90 cap HYDROcodone/APAP 5-325MG [[place] 5-325] 1 - 2 tab PO Q4HR PRN #56 tab PRN Reason: Pain Sennosides/Docusate Sodium [Senna Plus 8.6-50 mg Softgel] 1 each PO BID PRN #30 capsule PRN Reason: Constipation Ibuprofen [Motrin] 600 mg PO TID-W/MEALS #30 tab lisinopriL [Zestril] 20 mg PO DAILY 30 Days #30 tab Docusate [Colace] 100 mg PO BID 30 Days #60 cap Dexamethasone [Decadron] 4 mg PO TID #18 tablet polyethylene glycoL 3350 [Miralax] 17 gm PO DAILY PRN #30 powd.pack PRN Reason: Constipation Acetaminophen Tab [Tylenol] 650 mg PO Q6HR PRN tab PRN Reason: Mild Pain Or Fever > 100.5 Hydrocortisone [Anusol-Hc] 30 gm TP BID #1 crm.pe.faith Famotidine [Pepcid] 20 mg PO BID 30 Days #60 tablet Continue Levothyroxine Sodium [Synthroid] 50 mcg PO DAILY metFORMIN HCL [Glucophage] 1,000 mg PO BID-W/MEALS Fenofibrate [Lofibra] 160 mg PO DAILY Rosuvastatin [Crestor] 20 mg PO HS Pioglitazone [Actos] 15 mg PO HS Loratadine [Claritin] 10 mg PO DAILY PRN PRN Reason: allergies Calcium Carbonate/Vitamin D3 [Calcium 600-D3 20 mcg (800 Unit)] 1 tab PO BID Krill/Om-3/Dha/Epa/Phospho/Ast [[place]-3 Krill Oil 300 mg Sfgl] 1 cap PO DAILY Vits A,C,E/Lutein/Minerals [Ocuvite with Lutein Tablet] 1 tab PO BID Cyclobenzaprine [Flexeril] 10 mg PO DAILY Magnesium Oxide 800 mg PO BID Discontinued Lisinopril-Hctz 20-25 mg [Zestoretic 20-25] 1 tab PO DAILY Aspirin [Adult Low Dose Aspirin EC] 81 mg PO HS Discharge Medication List Fenofibrate [Lofibra] 160 mg PO DAILY 02/05/20 [History] Levothyroxine Sodium [Synthroid] 50 mcg PO DAILY 02/05/20 [History] Loratadine [Claritin] 10 mg PO DAILY PRN 02/05/20 [History] Pioglitazone [Actos] 15 mg PO HS 02/05/20 [History] Rosuvastatin [Crestor] 20 mg PO HS 02/05/20 [History] metFORMIN HCL [Glucophage] 1,000 mg PO BID-W/MEALS 02/05/20 [History] Calcium Carbonate/Vitamin D3 [Calcium 600-D3 20 mcg (800 Unit)] 1 tab PO BID 07/20/20 [History] Cyclobenzaprine [Flexeril] 10 mg PO DAILY 07/20/20 [History] Krill/Om-3/Dha/Epa/Phospho/Ast [[place]-3 Krill Oil 300 mg Sfgl] 1 cap PO DAILY 07/20/20 [History] Magnesium Oxide 800 mg PO BID 07/20/20 [History] Vits A,C,E/Lutein/Minerals [Ocuvite with Lutein Tablet] 1 tab PO BID 07/20/20 [History] Acetaminophen Tab [Tylenol] 650 mg PO Q6HR PRN tab 07/29/20 [Rx] Cyclobenzaprine [Flexeril] 10 mg PO HS PRN #40 tab 07/29/20 [Rx] Dexamethasone [Decadron] 4 mg PO TID #18 tablet 07/29/20 [Rx] Docusate [Colace] 100 mg PO BID 30 Days #60 cap 07/29/20 [Rx] Famotidine [Pepcid] 20 mg PO BID 30 Days #60 tablet 07/29/20 [Rx] HYDROcodone/APAP 5-325MG [[place] 5-325] 1 - 2 tab PO Q4HR PRN #56 tab 07/29/20 [Rx] Hydrocortisone [Anusol-Hc] 30 gm TP BID #1 crm.pe.faith 07/29/20 [Rx] Ibuprofen [Motrin] 600 mg PO TID-W/MEALS #30 tab 07/29/20 [Rx] Pregabalin [Lyrica] 150 mg PO TID #90 cap 07/29/20 [Rx] Sennosides/Docusate Sodium [Senna Plus 8.6-50 mg Softgel] 1 each PO BID PRN #30 capsule 07/29/20 [Rx] lisinopriL [Zestril] 20 mg PO DAILY 30 Days #30 tab 07/29/20 [Rx] polyethylene glycoL 3350 [Miralax] 17 gm PO DAILY PRN #30 powd.pack 07/29/20 [Rx] Follow up Appointment(s)/Referral(s): [facility], [NON-STAFF] - 1 Week Matthew Pittman DO [Doctor of Osteopathic Medicine] - 08/14/20 10:40 am Cami Oreilly MD [Primary Care Provider] - 07/30/20 11:40 am Alex Thornton [NON-STAFF] - 1 Week Ambulatory/Diagnostic Orders: Complete Blood Count w/diff [LAB.AMB] Time Frame: 3 Days, Location: None Selected Patient Instructions/Handouts: Laminectomy (DC), Laminectomy (GEN) Activity/Diet/Wound Care/Special Instructions: Spine Discharge and Recovery Instructions Date of Surgery: 07/26/2020 Diagnosis: L4-L5 severe stenosis with neurogenic claudication Procedure: Compressive laminectomy L4-L5 with Coflex placement Medications: See The list All medication refills should be obtained through your primary care doctor or your clinic spine surgeon. Please discuss prescription refills at your follow up appointment. Do not call the hospital for medication refills. Dressing: Leave your dressing in place for a total of 3 days post operatively. Then you may remove your dressing and leave open to air. Keep the area clean and if not able to keep area clean, then cover with sterile gauze and tape. Showering: You may shower 3 days after your procedure allowing soap and water to run over incision. Do not scrub. Do not soak. Blot dry. Follow up: Please confirm a follow up appointment with your surgeon 2 weeks post operatively. Please make an appointment to follow up with your PCP in 1-2 weeks after surgery for evaluation 3 phase, 3-week plan POST OP WEEKS 1-3 1. Lifting/carrying/pushing/pulling limited to less than 5 pounds. 2. Do not sit for longer than 15 minutes at one time. Get up and walk around. Prolonged sitting is NOT advised. If you lay down, see if you can tolerate laying down on you front (belly side) 3. Walk for periods of 15 minutes = 1 mile but no longer; do it multiple times times each day. 4.Ice your low back after activity. POST OP WEEKS 3-6 1. Lifting limited to less than 20 pounds. 2. Do not sit for longer than 30 minutes at a time. Frequently change positions. Use a sit-to stand workstation or take frequent breaks from sitting if you have returned to work. 3. Walk for 30 minutes each day. If possible, do these three or more times a day POST OP WEEKS 6+ At your 6-week appointment we will give you a physical therapy referral to focus on a core stabilization and strengthening program. You should also work on leg & buttock strengthening, hamstring & quadriceps stretching, and continue a low impact aerobic activity program such as swimming, walking, or riding a stationary bicycle. During the initial 6 weeks after your surgery, you are at the highest risk of re-injuring your spine. You should generally avoid BLTs (bending, lifting and twisting combination motions) and follow the above guidelines to reduce the chance of reinjury. You can anticipate post op appointments in our office at approximately 3 weeks and 6 weeks after your surgery. INCISION CARE: If your incision is not draining you do NOT need to cover it with a dressing. Keep your incision clean, dry and intact. In most cases, we apply skin glue, erickson or sutures to the incision at the time of surgery. This will be like a crust or have the appearance of a scab and will fall off in time on its own. The stitches or erickson need to be removed at 3 weeks post op appointment. You may begin to shower 3 days after surgery (this allows the glue to ayala well). However, please avoid scrubbing the incision site or peeling off any of the skin glue. This will ensure optimal healing of your incision. Also, during this time avoid soaking the incision area in water - this includes swimming pools, hot tubs or baths. No ointments, lotions or oils on the incision until your surgeon allows. Leave erickson, sutur es or glue in place. Neurological dysfunction that comes on suddenly can also be a sign of a stroke. Below some common symptoms of a stroke are listed: B - balance difficulty such as sudden onset walking or leaning to one side - NEW E - eye problem such as sudden double vision or trouble seeing on one side - NEW F - Facial weakness or numbness on one side - NEW A - Arm or leg weakness or numbness on one side - NEW S - Slurred speech or difficulty with word finding - NEW T - Time is BRAIN! Call 911 as soon as you recognize these symptoms Diet: Consume a regular diet rich in vegetables and lean protein such as chicken or fish. You should consume in a ratio of approximately 20% fats|40% ca rbohydrates|40%protein. Vegetables, sweet potatoes, brown rice or quinoa are examples of good carbohydrates. Chips, white bread, cookies and sweets/sugar are examples of bad carbohydrates. Limit your bad carbs, go wild with good carbs. "Life's Simple 7" Guidelines as per [place] [employer] These will help you reclaim your life after surgery and spray painter helper in your recovery, keeping in mind your restrictions. (1) Get Active. Physical activity can help people lose weight, control high blood pressure and cholesterol, feel emotionally better, and sleep better. (2) Control Cholesterol. Avoid a diet high in saturated fat, trans fat, & cholesterol. Limit whole milk & cream, ice cream, butter, egg yolks, processed meats (like sausage and hot dogs), and fatty meats. Choose healthy foods that are low in saturated fat, trans fat and cholesterol which include: Fruits and vegetables, fiber rich grain products (like whole grain pasta and brown rice), lean meat such as chicken, fish, nuts, seeds, and legumes. (3) Eat Better. Eat small portions. Shop at the grocery with a list and do not stray from it. Tips for a healthy diet include: Limit sodium intake to less than 1500mg daily, avoid prepackaged, processed, and fast foods, choose a diet rich in fruits, vegetables, and whole grain, high fiber foods, and limit saturated & cholesterol in your diet. (4) Manage Blood Pressure. If you have high blood pressure, you should have a cuff at home so that you can check your blood pressure regularly. Be sure you have a good cuff. An arm one is generally better than a wrist one. Bring the cuff to a doctor's appointment to validate that the measurements that your cuff are taking are accurate. Take your blood pressure twice daily when you are sitting down and relaxing. Record the numbers in a log and bring this log with you to your doctors' appointments. (5) Lose Weight if your BMI is above 25. A healthy BMI is between 19-25. To calculate Your BMI, you may use a Standard BMI Calculator on the NIH BMI website: <www.nhlbi.nih.gov/guidelines/obesity/BMI/bmicalc.htm>. Weigh oneself daily. If you are overweight, set a goal to lose weight. A pound a week loss if needed is a good target. (6) Reduce Blood Sugar. Limit foods and liquids with "added sugars." (Added sugars include sucrose, fructose, glucose, maltose, dextrose, high fructose corn syrup, corn syrup, concentrated fruit juice and honey). (7) Stop Smoking. If you smoke, quitting smoking is one of the best things that you can do for your health. Smoking increases your risk of heart attack, stroke, and peripheral vascular disease, which is a build-up of plaque in your arteries. Please discard all the cigarettes and lighters in your house. Have a plan for what you will do when you have the urge to smoke. Direct and second- hand smoke shortens your life as well as the lives of your family, friends and others around you. For your health and the health of those around you, please consider quitting! Proper Bending Body Mechanics: Maintain a wide stance with one foot slightly in front of the other. Keep your back straight. Bend utilizing the strength in your hips and knees. Do not bend at the waist. Maintain the lifted object at your waist-level close to your body. Avoid lifting weight that causes immediately pain or pain anywhere in the body afterwards. Smoking/Nicotine If there was ever one thing that you could do to increase your overall health, decrease your risk of cardiovascular problems by about 39% the second you make the choice, it is to STOP SMOKING. Your body's most instant gratification is the second you stop smoking. We have all heard the studies, read the articles but it is true, smoking is extremely bad for your overall health, and moreover it is detrimental to your bone health. Nicotine, IN ANY FORM, kills bone cells, prevents your body from healing fractures, and significantly prolongs healing after surgery. In spine surgery specifically, it increases your risk of not healing your bones to create a fusion and increases your risk of having a revision surgery due to this up to 60%. I know it is hard. I know it feels impossible. But there are ways. Take contro l of your life. We are here to help you through it. And when you are ready, ask us and we can direct you to help if you desire. Use the START Plan to Quit Smoking (please visit the Helpguide.org website listed below for more information): S = Set a quit date. Choose a date within the next 2 weeks, so you have enough time to prepare without losing your motivation to quit. If you mainly smoke at work, quit on the weekend, so you have a few days to adjust to the change. T = Tell family, friends, and co-workers that you plan to quit. Let your friends and family in on your plan to quit smoking and tell them you need their support and encouragement to stop. Look for a quit irma who wants to stop smoking as well. You can help each other get through the rough times. A = Anticipate and plan for the challenges you'll face while quitting. Most people who begin smoking again do so within the first 3 months. You can help yourself make it through by preparing ahead for common challenges, such as nicotine withdrawal and cigarette cravings. R = Remove cigarettes and other tobacco products from your home, car, and work. Throw away all your cigarettes (no emergency pack!), lighters, ashtrays, and matches. Wash your clothes and freshen up anything that smells like smoke. Shampoo your car, clean your drapes and carpet, and steam your furniture. T = Talk to your doctor about getting help to quit. Your doctor can prescribe medication to help with withdrawal and suggest other alternatives. If you can't see a doctor, you can get many products over the counter at your local pharmacy or grocery store, including the nicotine patch, nicotine lozenges, and nicotine gum. Resources for Quitting Smoking: <https://www.[place].gov/documents/[facility]/Quit_Tobacco_Resources_for_patients_313 480_7.pdf> Supplementation: Take recommended dosages of Vitamin D and Calcium to help fortify your bones and help them to heal. See your health maintenance packet for dosages and recommended levels. DVT/VTE prophylaxis: You will be given compression stockings from the hospital. Wear these daily for the first two weeks after surgery. You may take them off at night. You may be prescribed a medication to help thin your blood. Take this as directed. If you are not prescribed this medication, early and frequent ambulation has been shown to be the best prophylaxis to deep vein thrombosis and sequelae related to this event. Discharge/Stand Alone Forms: [facility] Instructions Discharge Disposition: HOME WITH HOME HEALTH SERVICES
== END 2020-07-29 14:15 | disposition home health service (06) | DRG 519 ==
LOC: EC 10:17 → 5NMEDONC 13:22 → OBSVTOIN 07-22 09:55
PROVIDERS: ADMIT Internal Medicine; ATTEND Internal Medicine
PROC: 3E0R33Z Introduction of Anti-inflammatory into Spinal Canal, Percutaneous Approach (ICD-10-PCS; 2020-07-23)
PROC: B01B1ZZ Fluoroscopy of Spinal Cord using Low Osmolar Contrast (ICD-10-PCS; 2020-07-23)
PROC: 3E0R3BZ Introduction of Anesthetic Agent into Spinal Canal, Percutaneous Approach (ICD-10-PCS; 2020-07-23)
PROC: 0QH004Z Insertion of Internal Fixation Device into Lumbar Vertebra, Open Approach (ICD-10-PCS; principal; 2020-07-26 12:00)
PROC: 0SB20ZZ Excision of Lumbar Vertebral Disc, Open Approach (ICD-10-PCS; principal; 2020-07-26 12:00)
PROC: 01NB0ZZ Release Lumbar Nerve, Open Approach (ICD-10-PCS; principal; 2020-07-26 12:00)
PROC: 00NY0ZZ Release Lumbar Spinal Cord, Open Approach (ICD-10-PCS; principal; 2020-07-26 12:00)
DX: M48.062 Spinal stenosis, lumbar region with neurogenic claudication (principal); N17.9 Acute kidney failure, unspecified; E87.1 Hypo-osmolality and hyponatremia; M51.16 Intervertebral disc disorders with radiculopathy, lumbar region; M43.16 Spondylolisthesis, lumbar region; M41.9 Scoliosis, unspecified; M47.26 Other spondylosis with radiculopathy, lumbar region; M85.80 Other specified disorders of bone density and structure, unspecified site; E03.9 Hypothyroidism, unspecified; E66.9 Obesity, unspecified; E78.5 Hyperlipidemia, unspecified; E83.51 Hypocalcemia; E83.52 Hypercalcemia; R26.9 Unspecified abnormalities of gait and mobility; E87.6 Hypokalemia; G20 Parkinson's disease; G89.4 Chronic pain syndrome; I10 Essential (primary) hypertension; K21.9 Gastro-esophageal reflux disease without esophagitis; K59.00 Constipation, unspecified; K64.9 Unspecified hemorrhoids; H04.129 Dry eye syndrome of unspecified lacrimal gland; H35.30 Unspecified macular degeneration; Z20.822 Contact with and (suspected) exposure to COVID-19; D72.829 Elevated white blood cell count, unspecified; T38.0X5A Adverse effect of glucocorticoids and synthetic analogues, initial encounter; E11.65 Type 2 diabetes mellitus with hyperglycemia; M19.90 Unspecified osteoarthritis, unspecified site; R41.3 Other amnesia; Z68.35 Body mass index [BMI] 35.0-35.9, adult; Z79.82 Long term (current) use of aspirin; Z79.84 Long term (current) use of oral hypoglycemic drugs; Z79.890 Hormone replacement therapy; Z79.899 Other long term (current) drug therapy; Z86.73 Personal history of transient ischemic attack (TIA), and cerebral infarction without residual deficits; Z90.710 Acquired absence of both cervix and uterus; Z96.653 Presence of artificial knee joint, bilateral; Z98.51 Tubal ligation status; Z90.49 Acquired absence of other specified parts of digestive tract; Z98.890 Other specified postprocedural states; Z90.721 Acquired absence of ovaries, unilateral; Z90.89 Acquired absence of other organs; Z88.1 Allergy status to other antibiotic agents; Z88.5 Allergy status to narcotic agent; Z88.0 Allergy status to penicillin; Z80.8 Family history of malignant neoplasm of other organs or systems
CPT/HCPCS: 62323; 71045; 72100; 72114; 72148; 80048; 80053; 81001; 85025; 85610; 87635; 94760; 96374; 96375; 96376; 99284

== ENCOUNTER → 2020-08-19 | Outpatient (CLI) | payer MEDICARE, OTHER ==
--- NOTE | 2020-08-19 13:14 | P.PN ---
Subjective Progress Note Date: 08/19/20 This is a follow visit for this 70 years old female with a chronic history of severe low back pain, she is diagnosed with lumbar spinal stenosis lumbar spondylosis with lumbar facet arthropathy, recently patient had lumbar laminectomy surgery done beginning of July 2020 , she reported that her pain improved significantly after the surgery and she is doing very well she had minimal pain , she is able to ambulate without difficulty she continue to wear a lumbar support brace, she denies any motor or sensory deficit she denies any fever or night sweats. She continue to use Lyrica 150 mg twice a day and Flexeril 10 mg daily at bedtime she denies any side effects of the medication Objective - Exam Physical Examinations : -Constitutiona : Cooperative , not in acute distress . -HEENT : nech : supple , no Lymphadenopathy , normal thyroid size . : eyes : no ptosis , no icterus, no photophobia . - neurologic : Cranial nerve II to XII intact , no focal n eurological deffecit . -psychatric : alert , oriented X 3 , appropriate affect , intact judgment and insight . -Lymphatic : no Lymphadenopathy . - musculoskeltal : Lumber spine moter stegnth lower extremities ,thigh and legs 5/5 Right side , 5/5 Left side Assessment and Plan Plan: Assessment and plan= lumbar spinal stenosis. Lumbar spondylosis with lumbar facet arthropathy. Patient doing well after lumbar laminectomy surgery, she will follow up with Dr. Pittman Patient will follow up in the clinic when necessary. - PQRS measures = - Patient's medications are documented in the chart. -Tobacco use is negative and counseling.Given. -Patient's has not received pneumococcal vaccine. -Advanced care planning discussed, patient not eligible. -Opiate contract not signed. -Pain positive and follow-up visit/procedure is scheduled. -Patient's blood pressure measured [ 122/77 ] , and documented in the record ,and patient will follow up with the primary care. -Patient's weight was measured and body mass index [34.5 ] above the normal limits and counseling was done. and patient instructed to follow-up with the primary care physician. -Patient was not identified as an unhealthy alcohol user Time with Patient: Less than 30
[2020-08-19 13:18] VITALS: BP 122/77; PULSE 82; RESP 20; TEMP 98.2
== END ==
LOC: PNWHC3 12:49
PROVIDERS: ATTEND Specialist
DX: M48.061 Spinal stenosis, lumbar region without neurogenic claudication (principal); M47.816 Spondylosis without myelopathy or radiculopathy, lumbar region; Z98.890 Other specified postprocedural states; Z88.1 Allergy status to other antibiotic agents; Z88.0 Allergy status to penicillin; Z88.2 Allergy status to sulfonamides; Z88.6 Allergy status to analgesic agent; Z91.048 Other nonmedicinal substance allergy status; Z88.8 Allergy status to other drugs, medicaments and biological substances
CPT/HCPCS: 99211

== ENCOUNTER → 2020-09-18 | Outpatient (CLI) | payer MEDICARE, OTHER ==
--- NOTE | 2020-09-18 07:55 | CT ---
EXAMINATION TYPE: CT lumbar spine wo con DATE OF EXAM: 09/18/2020 7:22 AM COMPARISON: None HISTORY: low back pain with radiation bilaterally to the legs, numbness and tingling in legs CT DLP: 1562.9 mGycm Automated exposure control for dose reduction was used. Unenhanced CT of the lumbar spine was performed. Bone and soft tissue window settings are submitted as well as coronal and sagittal reconstructions. L1-L2: Normal disc space height. No disc herniation protrusion or central stenosis. No facet joint arthropathy. No evidence for foraminal encroachment. L2-L3: Normal disc space height. No disc herniation protrusion or central stenosis. No facet joint arthropathy. No evidence for foraminal encroachment. L3-L4: Mild degenerative disc space narrowing. Posterior disc bulge. Effacement ventral thecal sac wi th bilateral lateral recess stenosis. No evidence for central stenosis. Left foraminal encroachment. L4-L5: Vacuum disc noted. Lumbar laminectomy changes with posterior metallic stabilizer are noted. Gr crystal 1 anterolisthesis L4 and L5 measuring 3.8 mm. No definite recurrent or residual disease although the lack of contrast limits evaluation. L5-S1: Mild degenerative disc space narrowing. Posterocentral disc bulge slightly greater towards the right. Borderline right lateral recess stenosis. No evidence for disc herniation or central stenosis at this time. IMPRESSION: 1. Degenerative disc disease as discussed. 2. Bilateral lateral recess stenosis at L3-4 and right lateral recess stenosis at L5-S1. 3. Postoperative changes at L4-5 as discussed with grade 1 anterolisthesis.
== END ==
LOC: RADCTMAIN 07:01
PROVIDERS: ATTEND Orthopaedic Surgery
DX: M51.16 Intervertebral disc disorders with radiculopathy, lumbar region (principal); M48.061 Spinal stenosis, lumbar region without neurogenic claudication
CPT/HCPCS: 72131

== ENCOUNTER → 2020-10-18 | Outpatient (CLI) | payer MEDICARE, OTHER ==
[2020-10-18 15:53] LABS: Hemoglobin A1C 6.2 % (4.0-6.0)
[2020-10-18 19:26] LABS: Chol/HDL Ratio 3.97; LDL Cholesterol,Calculated 69.4 mg/dL (0.0-131.0); VLDL Calculation 46.6 mg/dL (5.00-40.00)
[2020-10-18 19:34] LABS: T4, Free (Free Thyroxine) 1.4 ng/dL (0.80-1.80)
== END | disposition home or self-care (01) ==
LOC: LABWHC1 10:21
PROVIDERS: ATTEND Internal Medicine
DX: E03.9 Hypothyroidism, unspecified (principal); E78.00 Pure hypercholesterolemia, unspecified; E11.9 Type 2 diabetes mellitus without complications; I10 Essential (primary) hypertension
CPT/HCPCS: 36415; 80061; 83036; 84439; 84443

== ENCOUNTER → 2020-10-18 | Outpatient (CLI) | payer MEDICARE, OTHER ==
--- NOTE | 2020-10-18 10:35 | XR ---
EXAMINATION TYPE: XR chest 2V DATE OF EXAM: 10/18/2020 COMPARISON: 07/28/2020 TECHNIQUE: PA and lateral views submitted. HISTORY: Presurgical FINDINGS: The lungs are clear and there is no pneumothorax, pleural effusion, or focal pneumonia. Calcified granuloma right upper lobe stable. IMPRESSION: 1. No acute process.
[2020-10-18 11:41] LABS: Basophils % (A) 0 %; Eosinophils # (A) 0.2 k/uL (0-0.7); Eosinophils % (A) 2 %; HCT 39.1 % (34.0-46.0); HGB 12.6 gm/dL (11.4-16.0); Lymphocytes # (A) 1.3 k/uL (1.0-4.8); Lymphocytes % (A) 19 %; MCH 27.4 pg (25.0-35.0); MCHC 32.3 g/dL (31.0-37.0); MCV 84.9 fL (80.0-100.0); Mean Platelet Volume 8.2; Monocytes # (A) 0.3 k/uL (0-1.0); Monocytes % (A) 4 %; Neutrophils # (A) 4.9 k/uL (1.3-7.7); Neutrophils % (A) 73 %; Platelet Count 312 k/uL (150-450); RDW 14.9 % (11.5-15.5); WBC 6.8 k/uL (3.8-10.6)
[2020-10-18 11:46] LABS: INR 1.1 (<1.2); Prothrombin Time 11.5 sec (9.0-12.0)
[2020-10-18 11:54] LABS: ALT 12 U/L (4-34); AST 25 U/L (14-36); African American GFR (CKD) >90 (>60 ml/min/1.73 sqM); Albumin 4.7 g/dL (3.5-5.0); Alkaline Phosphatase 63 U/L (38-126); Anion Gap 10 mmol/L; Blood Urea Nitrogen 18 mg/dL (7-17); Calcium 10.9 mg/dL (8.4-10.2); Carbon Dioxide 28 mmol/L (22-30); Chloride 100 mmol/L (98-107); Glucose 130 mg/dL (74-99); Non-African American GFR(CKD) 88 (>60 ml/min/1.73 sqM); Potassium 4.6 mmol/L (3.5-5.1); Sodium 138 mmol/L (137-145); Total Bilirubin 0.5 mg/dL (0.2-1.3); Total Protein 6.9 g/dL (6.3-8.2)
== END | disposition home or self-care (01) ==
LOC: LABPAT 10:15
PROVIDERS: ATTEND Orthopaedic Surgery
DX: Z01.818 Encounter for other preprocedural examination (principal); M43.16 Spondylolisthesis, lumbar region; Z22.322 Carrier or suspected carrier of Methicillin resistant Staphylococcus aureus; Z79.01 Long term (current) use of anticoagulants
CPT/HCPCS: 71046; 80053; 85025; 85610; 87070

== ENCOUNTER 2020-10-29 06:27 | Observation (INO) | payer MEDICARE, OTHER ==
[2020-10-24 12:17] VITALS: BMI 33.6
[~2020-10-29 06:27] MED LIST changes: +ACETAMINOPHEN TAB 500 MG TAB PO PRN; +GABAPENTIN 300 MG CAP PO PRN; -IODINE/POTASS IOD (LUGOLS) BOTTLE TOPICAL ONE; +ONDANSETRON 4 MG/2 ML VIAL IVP PRN; +TRANEXAMIC ACID 1,000 MG in SODIUM CHLORIDE 0.9% 100 ML IVPB PRN
--- NOTE | 2020-10-29 06:31 | P.HPOR ---
History of Present Illness H&P Date: 10/29/20 Chief Complaint: Low back pain X-Rays: brought xrays from outside facility which were reviewed Trauma or injury: yes Sustained a fall postoperatively Work-related: No Location: posterior diffuse Hand dominance: right CHIEF COMPLAINT: Low back pain HISTORY: Physical Therapy: No Injections: No Activity Modifications: Unable to ambulate well or complete many of her daily activities. Brace: Yes How long was brace worn? * Did it help? No DOS:(07/26/2020)L4-5 decompressive laminectomy and coflex placement HPI: Patient presents today for a follow up appointment regarding her mid back pain. The patient notes that her pain has not improved since her last visit. The patient does have a history of L4-5 decompressive laminectomy and coflex plac ement which she notes did not improve her pain due to a fall (7 weeks ago) and notes increased low back pain since. This fall occurred after she tripped over a foot rest. The pain increases with ambulation and standing for any length of time. Her pain is described as severe and she is unable to complete many of her daily activities due to this. The pain does radiate down her legs bilaterally, denying any numbness however. Of note the patient does present to the office today wearing a low back brace for stability and pain management with little effect. Additionally, at her last visit (09/30/2020) the patient was given a script for Otis 5/325 and denies any improvement to her pain with this. Her reports that she has been using a walker at home to aide with ambulation but ambulates independently while in public. She is otherwise doing well. Subjective: I discussed over the phone (09/30/2020) with the patient her clinical status and symptoms as well as her CAT scan of her lumbar spine. I do feel that there is a fracture through the pars area of the right hand side of L4. This is causing listhesis in this area. When compared to her flexion-extension films a CAT scan is a supine film it shows reduction of this L4 5 spondylolisthesis which originally was a stable grade 1 and after surgery has now become unstable since her fall and likely fracture in this area. I discussed with her that this is likely in need of surgical revision with rods and screws as well as the cage. We will see her back in the office [facility] for evaluation (10/09/2020) and likely boarding for surgical intervention. She understood this was comfortable with that she continues to wear her LSO brace which is appropriate and I encouraged her to do so she is taking pain medications as needed and she is provided a prescription for Otis 5/325 pills one by mouth every 4 hours when necessary pain. Review of Systems 14 points review of systems completed and as stated in HPI, all other systems reviewed are negative. Past Medical History Past Medical History: CVA/TIA, Diabetes Mellitus, Eye Disorder, GERD/Reflux, Hyperlipidemia, Hypertension, Memory Impairment, Musculoskeletal Disorder, Osteoarthritis (OA), Thyroid Disorder Additional Past Medical History / Comment(s): ?TIA 2011 est, halfway memory loss, early onset Parkinson's, seasonal allergies, osteopenia, Interstitial cystitis, Dry eyes, early macular degeneration - left eye retinal prob. Lumbar surg 07/26/20, had fall w/ fx between L5-S1. History of Any Multi-Drug Resistant Organisms: None Reported Past Surgical History: Adenoidectomy, Back Surgery, Bladder Surgery, Cholecystectomy, Heart Catheterization, Hysterectomy, Orthopedic Surgery, Tonsillectomy, Tubal Ligation Additional Past Surgical History / Comment(s): Lt Rotator cuff,, Rt frozen shoulder, Bilat knees - total Lt w/ titanium, Rt partial knee. Bilat cataracts. Oophorectomy, Cystoscopies, Bladder suspension, Bilat CTR, Pain clinic proc, Eue surg (child), Eyelid resection, lift. laminectomy on 07-26-20 w/ coflex Past Anesthesia/Blood Transfusion Reactions: Previous Problems w/ Anesthesia Additional Past Anesthesia/Blood Transfusion Reaction / Comment(s): STATES MEDICATION "CURRARRE" USED OVER 25 YEARS AGO, SHE FELT PARALYZED AND COULD NOT MOVE OR BREATHE. Smoking Status: Never smoker - Past Family History Mother Family Medical History: Cancer Additional Family Medical History / Comment(s): BASAL CELL Medications and Allergies Home Medications Medication Instructions Recorded Confirmed Type Fenofibrate [Lofibra] 160 mg PO DAILY 02/05/20 10/24/20 History Levothyroxine Sodium [Synthroid] 50 mcg PO DAILY 02/05/20 10/24/20 History Loratadine [Claritin] 10 mg PO DAILY PRN 02/05/20 10/24/20 History Pioglitazone [Actos] 15 mg PO HS 02/05/20 10/24/20 History Rosuvastatin [Crestor] 20 mg PO HS 02/05/20 10/24/20 History metFORMIN HCL [Glucophage] 1,000 mg PO BID-W/MEALS 02/05/20 10/24/20 History Calcium Carbonate/Vitamin D3 1 tab PO BID 07/20/20 10/24/20 History [Calcium 600-D3 20 mcg (800 Unit)] Krill/Om-3/Dha/Epa/Phospho/Ast 1 cap PO DAILY 07/20/20 10/24/20 History [Jellico-3 Krill Oil 300 mg Sfgl] Magnesium Oxide 800 mg PO BID 07/20/20 10/24/20 History Vits A,C,E/Lutein/Minerals 1 tab PO BID 07/20/20 10/24/20 History [Ocuvite with Lutein Tablet] Acetaminophen Tab [Tylenol] 650 mg PO Q6HR PRN tab 07/29/20 10/24/20 Rx Cyclobenzaprine [Flexeril] 10 mg PO HS 08/15/20 10/24/20 History Docusate [Colace] 100 mg PO BID PRN 08/15/20 10/24/20 History Lisinopril-Hctz 20-25 mg 1 tab PO DAILY 08/15/20 10/24/20 History [Zestoretic 20-25] Aspirin [Adult Low Dose Aspirin EC] 81 mg PO DAILY 10/24/20 10/24/20 History Carbidopa-Levodopa 25-100 mg 1 each PO Q8H 10/24/20 10/24/20 History [Sinemet 25-100] Famotidine [Pepcid] 20 mg PO BID PRN 10/24/20 10/24/20 History HYDROcodone/APAP 5-325MG [Otis 1 tab PO Q6HR PRN 10/24/20 10/24/20 History 5-325] prednisoLONE ACETATE 1% OPHTH 1 drops LEFT EYE DIRECTED PRN 10/24/20 10/24/20 History [Pred Forte 1%] Allergies Allergy/AdvReac Type Severity Reaction Status Date / Time erythromycin base Allergy Unknown Rash, Verified 10/24/20 11:26 itching, lips swollen, tingling, head like basketball oxycodone Allergy Unknown vomit bile Verified 10/24/20 11:26 Penicillins Allergy Unknown Rash, Verified 10/24/20 11:26 itching, sulfamethoxazole Allergy Unknown rash, Verified 10/24/20 11:26 [From Bactrim] itching tolterodine [From Detrol] Allergy Unknown itching/nelly Verified 10/24/20 11:26 h tramadol [From Ultram] Allergy Unknown Rash, Verified 10/24/20 11:26 itching, lips swollen, tingling, head like basketball trimethoprim [From Bactrim] Allergy Unknown rash, Verified 10/24/20 11:26 itching nickel Allergy Rash/Hives Verified 10/24/20 11:26 hydromorphone [From Dilaudid] AdvReac Unknown reaction Verified 10/24/20 11:26 in higher doses gel adhesive pad Allergy Unknown ekg pads Uncoded 10/24/20 11:26 and adhesive- chemical burn, itching rash Physical Examination Osteopathic Statement: *. No significant issues noted on an osteopathic structural exam other than those noted in the History and Physical/Consult. General: Awake, alert, appropriate for age, in no acute distress. HEENT: No unusual neck masses around region of lateral neck triangle, thyroid, supraclavicular groove Heart: Regular rate and rhythm, normal S1, S2 and no murmur/gallop. Lungs: Clear to auscultation bilaterally with no use of accessory muscles. Extremities: Skin warm and dry without acute lesions, coloration, temperature, skin intact, no tenderness or erythema Integument: Hairy patches: Absent Dorsal skin dimples: Absent Cafe au lait spots: Absent Surgical incisions: Without signs of infection Palpation: Please see Pain drawing on Intake sheet for further detail. TTP of the lower lumbar spine as well as paralumbar region. Incisional tenderness noted, however no fluid collections or overt scarring. No midline tenderness. POSTURAL and MUSCULO-SKELETAL EVALUATION: Coronal Balance: NEUTRAL Recumbent testing: Patient is able to lay flat on back Sagittal Balance: NEUTRAL Shoulder Profile: LEVEL Pelvic Girdle: LEVEL Neck ROM: UNRESTRICTED Lumbar ROM: UNRESTRICTED Shoulder ROM: Symmetrical Hip ROM: Symmetrical Knee ROM: Symmetrical Hands: Normal appearance, symmetrical Feet: Normal appearance, Symmetrical VASCULAR STATUS : LEFT RIGHT Wrist Pulses INTACT INTACT Pedal Pulses (Dors. pedis & post.tibialis) INTACT INTACT Color NORMAL NORMAL Edema Absent Absent NEUROLOGIC EXAMINATION: Mental Status:Awake and alert, fully oriented, with normal attention, concentration and memory, and fluent, appropriate speech. Cranial Nerves: I: Olfactory not tested. II: Visual acuity normal, no visual field deficit noted with confrontation. III,IV: Normal pupillary reflexes & intact extraocular movements without nystagmus. V,: Intact symmetrical facial sensation. VII: Intact symmetrical facial motor movement VIII: Hearing intact. IX,X: Intact gag, swallow, & normal voice. XI: Sternocleidomastoid, trapezius function intact. XII: Tongue midline with normal movements. L'hermitte's Sign: Negative / absent Spurling'Sign: Absent bilaterally. Cubital percussion test: Absent bilaterally. Teo-Tinel sign - Carpal region: Absent bilaterally. Straight Leg Raising: Absent bilaterally. Crossed straight leg raise: negative O8 MOTOR EXAM (0-5/5, N/T) STRENGTH RIGHT LEFT Shoulder Abd (not part of the JAIRO score) 5 5 Elbow Flexors 5 5 Elbow Extensor 5 5 Wrist Dorsiflexors 5 5 Finger Abductor 5 5 Care Partner 5 5 Hip Flexor (Not part of JAIRO Motor score) 4+ 4 Knee Flexor 4+ 4 Knee Extensor 4 4 Ankle dorsiflexor 4 4+ Ankle plantarflexion 4 4 Extensor hallucis 4 4 Pt has generalized weakenss and a resting tremor that resembles parkinsons pill rolling tremor. She has good strength however, with no focal deficits noted. She ambulates under he own power without assistance. REFLEXES(0-4/2, NT) RIGHT LEFT Upper Extremities 2 2 Lower Extremities 2 2 Pathological Reflexes RIGHT LEFT Duran's Absent Absent Clonus Absent Absent Babinski Absent Absent # Indicates mechanical impairment Muscle appearance: Symmetrical Rectal Tone:Deferred Normal, strong with volition control Sensory system (0-4, N/T) Test type RU CRISTHIAN RL LL Joint-Position 2 2 2 2 Vibration 2 2 2 2 Pain & LT sense 2 2 2 2 Dermatomal Deficit: None None None None Gait and Functional Evaluation: Ambulatory aids: Independent with LSO Brace Romberg's test: Intact bilaterally Toe heel walk / heel-toe walk intact while maintaining satisfactory balance? yes Squatting/straightening w/o assistance to a min of 60 degree knee flexion? yes Single leg stance: intact Trendelenburg sign negative bilaterally Hand and finger dexterity intact bilaterally? yes Disdiadochokinesis examination negative bilaterally? yes Results XRay taken on 10/09/20 of Lumbar was reviewed by Dr. Landeros and indicates: Continued listhesis that is stable compared to previous films. Post operative hardware, coflex, inplace without interval changes at this time. She has continued L4-5 Grade II-II listhesis with anterior tilt when upright. This reduces on extension and laying flat which is evident in CT scan showing mobility. This show PO hardware in good position, there is air in the disc space noted. There is no overt fracture howevere there may be a pars deficit on the RHS causing some of the listhes secondary to her fall. The Coflex is in good position with no migration. She continues to have listhesis, which reduces on laying flat as evidence by her upright films vs these static laying films. I do feel that there is a fracture through the pars area of the right hand side of L4. This is causing listhesis in this area. When compared to her flexion- extension films a CAT scan is a supine film it shows reduction of this L4 5 spondylolisthesis which originally was a stable grade 1 and after surgery has now become unstable since her fall and likely fracture in this area. I discussed with her that this is likely in need of surgical revision with rods and screws as well as the cage. We will see her back in the office [facility] for evaluation and likely boarding for surgical intervention. New xrays today show interval slippage of her L4-5 region with what appears to be disc dessication and collapse with further translation of her L4-5 spondylolisthesis. This is a marked change from previous films pre op and immediate post op and is concerning for possible fracture. This also lends to a history of trauma and recent fall of which we will investigate. The coflex is still in good position and holding and has not moved, however there is more translation of L4-5. Assessment and Plan Assessment: 1. s/p L4-5 decompression and coflex placement 2. Subsequent falls with fracture L4 pars and L4-5 spondylolisthesis 3. Continued mechanical back pain 4. Worsening LLE radiculopathy 5. Parkinsons 6. Complex medical patient Plan: All options were reviewed today, we decided the best course of action would be: - We will plan on L4-L5 hardware removal and revision, ROLT, with L4-L5 TLIF - Plan on following up postoperatively for further evaluation. No lifting, bending, twisting no lifting greater than 10 lbs. Wear back brace as needed. Take pain medications as directed Ice and rest for pain and swelling control. Surgical Procedure Risk Review Asha Gonzalez is a 70 year old female presenting for evaluation of sudden onset of low back pain and leg pain after a fall from standing. She was s/p L4-5 decompression and coflex placement when she states she tripped over her footrest in the living room and sustained a fall. She felt a pop and has had pain ever since. She is wearing a brace and has done conservative measures but continues to have severe back pain and is now getting more leg pain with numbness. It was my pleasure to have seen and examined Ms. Gonzalez. In our visit today we have had a chance to go over subjective complaints, physical examination findings and treatments, including the natural course history without intervention and various interventional options. The imaging demonstrates accentuated Grade I-II L4-5 spondylolisthesis with likely pars insufficiency, coflex in place and holding currently . On physical exam, Ms. Gonzalez demonstrates severe back pain, and recurrent leg pain and radiculopathy as well as generalized weakness and resting parkinsonian like tremor . I explained to the patient that as her condition progresses it could cause progressive symptoms, continued and worsening pain, non healing, worsening leg pain and dysfunction . At this time, based on the patients imaging and physical exam, I recommend surgery in the form or a: revision with coflex removal and L4- 5 TLIF . I discussed the risk and benefits of this procedure at length with Ms. Gonzalez. The patient and her spouse/partneragreed to consider pursuing the procedure mentioned above. Plan: 1. Removal of hardware L4-5 and revision with L4-5 transforaminal lumbar interbody and posteriolateral fusion. 2. Follow up with PCP for surgical clearance 3. Review of surgical risks and benefits as well as an educational packet on the proposed surgical procedure. Risks: All surgical procedures come with inherent risks, including those related to positioning, anesthesia, intraoperative findings, and postoperative complications. It is important to understand that surgery does not come with any guarantee of a successful outcome as complications and adverse events are always possible. The patient was given a handout in office today discussing the surgical procedure and risks associated with the intervention, both of which were discussed with the patient. These risks include but are not limited to the following: ? Experiencing same, different or even worse symptoms in back, neck, arms, or legs compared to before surgery. ? Requiring further surgery or other forms of treatment presently or at some time in the future at same or other levels of the intended spine surgery. ? On an extreme but fortunately relatively rare basis severe complication such as blindness, stroke, heart attack, temporary and/or permanent nerve injury, paralysis, coma, or may occur, sometimes without known explanation. ? Surgical complications may include but are not limited to risk of infection, fluid accumulation in the surgical dissection site, including a seroma or hematoma, that requires additional surgery, wound drainage, bleeding, new numbness or weakness, vision changes/loss, spinal fluid leakage, non-healing and/or infected incision, headaches, difficulty or inability to swallow, hoarseness, hemopneumothorax, pneumothorax, impotence, retrograde ejaculation, vaginal dryness; injury to nerves, spinal cord, blood vessels, lymphatics or other vital organs (i.e., bowel injury, injury to the great vessels); heterotopic bone formation; complications related to the hardware such as screws, rods, cages including misplaced hardware, device failure, instrumentation at the wrong spine level, hardware fracture/breakage, or hardware loosening; vertebral failure of the spinal column above or below the newly placed hardware; retained surgical instrumentations or devices and the need for further surgery. ? Medical risks of the planned spine surgery include but are not limited to generalized Infections to the whole body or local areas outside of the surgical site (sepsis), heart attack, bleeding, anaphylaxis, meningitis, seizure, epilepsy, hearing loss, burn [place], laceration of the head or other areas of the body, bruising, hypersensitivity of the skin, bladder over distension; allergic reaction; shoulder injury related to positioning; fat, blood and air clots to other areas of the body like heart, lungs, brain; failure of internal organs such as lungs, kidneys, liver and excessive bleeding. If blood transfusions are necessary, note that transfusions may cause intolerance reactions such as anaphylaxis or other complex reactions. Despite best efforts, the results of spine surgery might not heal in terms of bone, soft tissues such as skin, fascia, ligaments, and joints. Additionally, in order to achieve best possible results, spine surgery may be carried out beyond the initially planned levels and involve decompression, fusion including insertion of hardware at levels other than the original intended area of surgical interest change some portions of the procedure in order to ensure the best possible outcomes. With spine surgery and spinal fusion, there are different off label uses of instrumentation (devices, implants and hardware) as well as biological substances (bone morphogenic proteins, demineralized bone matrix) as well as using extra bone from allograft sources (i.e. cadaver bone) or autograft (iliac crest bone, ribs, or the spine itself). The patient has been given information about these practices and their inherent risks and benefits. Wilmer Santoyo Physician Assistants are medically trained surgical providers who function in the outpatient, inpatient, and operating room setting under the direct supervision of the attending surgeon.They assist in the operating room with direct supervision of the attending surgeons. The patient has had a chance to review all the listed information, has been given print outs detailing this information, and has had all his/her questions answered to their satisfaction. It was my pleasure to have seen and examined Ms. Gonzalez. In our visit today we have had a chance to go over my understanding of our patient's current condition, the natural course history without intervention and various interventional options. Questions were invited and answered, and the patient wishes to proceed as outlined above. I have seen and examined the patient for 25 minutes and we have spent more than 50% of the time in repeat and detailed counseling about the patient's condition, its natural course history with out and as much as can be predicted with surgery and re-review of various surgical treatment options. In conclusion,Ms. Gonzalez and her spouse/partner requested we proceed with the above suggested surgery and are willing to accept risks and limitations of the suggested surgery as nature of the disease process and our best attempts at treatment for the condition. Thank you again for allowing us to be part of your patient's care. Please don't hesitate to contact me if you have any further questions. Signed and authenticated by: Matthew Campa [facility] [address] [place] [address] [place] [address] [address]
[2020-10-29] MEDS ORDERED: METOCLOPRAMIDE 5 MG/ML 2 ML VIAL ONE (07:01)
[2020-10-29 07:18] LABS: Glucose,Whole Blood 121 mg/dL (75-99)
[2020-10-29] MEDS ORDERED: DEXAMETHASONE SOD PHOSPHATE 4 MG/ML 1 ML VIAL IV ONE (07:18)
[2020-10-29] MEDS: LACTATED RINGERS 1,000 ML IV SCH (07:27)
[2020-10-29] MEDS ORDERED: ePHEDrine SULFATE/0.9% NACL/PF 50 MG/5 ML SYRINGE IV ONE (07:44)
[2020-10-29] MEDS ORDERED: TRANEXAMIC ACID 1,000 MG/10 ML VIAL ONE (07:44)
[2020-10-29] MEDS ORDERED: NEOSTIGMINE 1 MG/ML 10 ML VIAL ONE (07:44)
[2020-10-29] MEDS ORDERED: MIDAZOLAM 2 MG/2 ML VIAL ONE (07:44)
[2020-10-29] MEDS ORDERED: KETAMINE 10 MG/ML 20 ML VIAL ONE (07:44)
[2020-10-29] MEDS ORDERED: SUCCINYLCHOLINE CHLORIDE 100 MG/5 ML SYR IV ONE (07:44)
[2020-10-29] MEDS ORDERED: GLYCOPYRROLATE 0.2 MG/ML 2 ML VIAL ONE (07:44)
[2020-10-29] MEDS ORDERED: SODIUM CHLORIDE 0.9% 100 ML BAG ONE (07:44)
[2020-10-29] MEDS ORDERED: PHENYLEPHRINE-0.9% NACL SYG 1,000 MCG/10 ML SYRINGE ONE (07:44)
[2020-10-29] MEDS ORDERED: LIDOCAINE 1% INJ 10MG/ML (20 ML MDV) ONE (07:44)
[2020-10-29] MEDS ORDERED: PROPOFOL 10 MG/ML 20 ML VIAL IV ONE (07:44)
[2020-10-29] MEDS ORDERED: fentaNYL (PF) 50 MCG/ML 2 ML AMP ONE (07:44)
[2020-10-29] MEDS ORDERED: ROCURONIUM 10 MG/ML (5 ML VIAL) IV ONE (07:44)
[2020-10-29] MEDS ORDERED: GELATIN SPONGE,ABSORB (LARGE) 1 EACH SPONGE TOPICAL ONE (08:31)
[2020-10-29] MEDS ORDERED: THROMBIN (BOVINE) 5,000 UNIT VIAL TOPICAL ONE (08:31)
[2020-10-29] MEDS ORDERED: BUPIVACAINE (PF) 0.25% 30 ML VIAL SQ ONE (08:31)
[2020-10-29] MEDS ORDERED: LACTATED RINGERS 1,000 ML IV ONE ×2 (09:30→13:03)
[2020-10-29] MEDS ORDERED: ceFAZolin 3,000 MG in SODIUM CHLORIDE 0.9% IRRIGATIO 3,000 ML IRRIGATION ONE (10:22)
[2020-10-29] MEDS ORDERED: VANCOMYCIN 1,000 MG VIAL MISCELLANE ONE (11:11)
[2020-10-29] MEDS ORDERED: IV FLUID CONTINUATION 1,000 ML IV ONE ×2 (11:25)
--- NOTE | 2020-10-29 11:34 | FL ---
EXAMINATION TYPE: FL guidance operating room, XR lumbar spine 2 or 3V DATE OF EXAM: 10/29/2020 CLINICAL HISTORY: L4 fracture. TECHNIQUE: Fluoroscopy. Intraoperative 2 views lumbar spine. COMPARISON: CT lumbar spine September 18, 2020 and outside lumbar spine x-ray October 09, 2020. FINDINGS: Fluoroscopic guidance was provided during L4 fracture surgical treatment procedure perform ed by Dr. Pittman. A total of 2 minutes 13 seconds of fluoroscopic time was utilized during the p rocedure and 14 spot intraoperative images are acquired. Intraoperative images obtained show placement of posterior interpedicular rods and screws bilaterally at L4-L5 level along with metallic disc space material after removal of posterior metallic fusion de vice. Stable slight grade 1 anterolisthesis L4 on L5 noted. IMPRESSION: As Above.
[2020-10-29] MEDS ORDERED: MAGNESIUM HYDROXIDE 2,400 MG/10 ML CUP PO PRN (12:06)
[2020-10-29] MEDS ORDERED: HYDROcodone/APAP 5-325MG 1 EACH TAB PO PRN (12:06)
[2020-10-29] MEDS ORDERED: MAG HYDROX/AL HYDROX/SIMETH 30 ML CUP PO PRN (12:06)
[2020-10-29] MEDS ORDERED: SENNOSIDES-DOCUSATE SODIUM 1 EACH TAB PO PRN (12:06)
[2020-10-29] MEDS ORDERED: ONDANSETRON 4 MG/2 ML VIAL IVP PRN (12:06)
[2020-10-29] MEDS: fentaNYL (PF) 50 MCG/ML 2 ML AMP IV PRN ×4 (12:28→13:25)
[2020-10-29] MEDS ORDERED: HYDROcodone/APAP 7.5-325MG 1 EACH TAB PO PRN (12:55)
--- NOTE | 2020-10-29 12:58 | P.PN ---
Progress Note - Text Progress Note Date: 10/29/20 Brief Post Op: Surgeon: Toya Pre op dx; L4-L5 grade 2 anterolisthesis Post op dx: Same Procedure: Removal hardware L4-L5 with revision decompression and fusion L4-L5 Anesthesia: GETA EBL: 200 Fluids: 1300 UO: 500 Dispo: Stable to PACU Post op Plan: Post operative noncontrasted CT scan Encourage ambulation IS 10x/hr Teds/SCDs Pain control No brace needed for ambulation Record Drain output
[2020-10-29] MEDS: MIDAZOLAM 2 MG/2 ML VIAL IV PRN ×2 (13:06→13:32)
[2020-10-29] MEDS ORDERED: BACITRACIN OINT 1 EACH PACKET TOPICAL ONE (13:43)
[2020-10-29] MEDS: HYDROmorphone 0.5 MG/0.5 ML SYRINGE IVP PRN (15:09)
[2020-10-29] MEDS: CYCLOBENZAPRINE 10 MG TAB PO PRN ×2 (15:10→23:37)
[2020-10-29] MEDS ORDERED: IPRATROPIUM-ALBUTEROL 3 ML NEB INHALATION PRN (16:26)
[2020-10-29] MEDS ORDERED: LORATADINE 10 MG TAB PO PRN (16:27)
[2020-10-29] MEDS ORDERED: prednisoLONE ACETATE 1% OPHTH DROPS 5 ML BTL LEFT EYE PRN (16:27)
[2020-10-29] MEDS ORDERED: FAMOTIDINE 20 MG TAB PO PRN (16:27)
[2020-10-29] MEDS: HYDROcodone/APAP 10-325MG 1 EACH TAB PO PRN ×2 (17:08→23:37)
[2020-10-29] MEDS: CARBIDOPA-LEVODOPA 25-100 MG 1 EACH TAB PO SCH ×2 (17:09→23:37)
[2020-10-29] MEDS: metFORMIN 500 MG TAB PO SCH (17:09)
[2020-10-29] MEDS: ACETAMINOPHEN TAB 325 MG TAB PO SCH ×2 (17:09→23:38)
--- NOTE | 2020-10-29 17:19 | XR ---
EXAMINATION TYPE: XR chest 1V portable DATE OF EXAM: 10/29/2020 COMPARISON: 10/18/2020 HISTORY: Preop TECHNIQUE: Single view FINDINGS: There is no heart failure nor confluent pneumonic infiltrate. Costophrenic angles are clear . Heart size is normal. Bony thorax is intact. IMPRESSION: No active cardiopulmonary disease. No change.
[2020-10-29] MEDS: IPRATROPIUM-ALBUTEROL 3 ML NEB INHALATION SCH (19:27)
--- NOTE | 2020-10-29 20:37 | CONS ---
CONSULTATION REASON FOR CONSULTATION: Advice regarding diabetes mellitus, hypertension, hyperlipidemia and multiple medical issues, requested by Dr. Pittman. HISTORY: This is 70-year-old woman with a past history of CVA, diabetes, GERD, hypertension, hyperlipidemia, being followed by [facility] in the outpatient setting, underwent removal of hardware at L4-5 with revision decompression and fusion L4-5 grade [address] Pittman. The patient tolerated the procedure well, possibly. Postop complains of in the chest. Otherwise there is no history of fever, rigors. No chest pain, palpitations, headache, headache loss of consciousness, seizures at this time. PAST MEDICAL HISTORY: History of diabetes and CVA, TIA, GERD, hypertension, hyperlipidemia, multiple medical issues and DJD. MEDICATIONS ARE: Prednisone, Glucophage, Crestor, Actos, magnesium oxide, Claritin, Zestoretic, Synthroid, omega-3, Krill oil, [place], Pepcid, Colace, Flexeril, Sinemet, calcium with vitamin D, aspirin and Tylenol. ALLERGIES: Erythromycin, oxycodone, penicillin, Bactrim, Detrol, Ultram, nickel, Dilaudid, . FAMILY HISTORY: History of basal cell cancer. SOCIAL HISTORY: History of occasional alcohol intake. REVIEW OF SYSTEMS: ENT: No diminished hearing. CARDIOVASCULAR: As mentioned. GI: No nausea or vomiting. : No dysuria. NERVOUS SYSTEM: No numbness, weakness. ALLERGY: As mentioned. HEMATOLOGY: As mentioned. ENDOCRINE: As mentioned earlier. CONSTITUTIONAL: As mentioned. DERMATOLOGY: As mentioned. PHYSICAL EXAMINATION: Alert, oriented, pulse 88, blood pressure 129/72, respirations 17, temperature 98.2 pulse ox 100 percent on 2 L. HEENT conjunctiva normal. Cardiac S1 and S2 normal. Lungs breath sounds diminished at the bases. Few scattered rhonchi and crackles. Expiratory wheezing also present. Abdomen soft, nontender. No mass. Legs no edema no swelling. Nervous system higher functions as mentioned earlier. Moves all limbs. No focal deficits. Lymphatics as mentioned. Skin no nausea joints. No active joint arthropathy. Status post back surgery. LABS: Accu-Cheks 127. Preop labs noted. Calcium is 10.9, otherwise within normal limits. ASSESSMENT: 1. Status post removal of the hardware L4-5 with revision decompression and fusion of L4-5. 2. Mild shortness of breath, possibly aspiration versus asthmatic bronchitis. 3. Diabetes mellitus type 2. 4. GERD. 5. Hypertension. 6. Hyperlipidemia. 7. History of memory impairment. 8. History of DJD. 9. History of hypothyroidism. 10.History of cerebrovascular accident, transient ischemic attack. 11.History of Parkinson's. 12.History of adenoidectomy. 13.History of back surgery. 14.History of degenerative joint disease. 15.Obesity with body mass of 34.8. 16.FULL CODE. RECOMMENDATIONS AND DISCUSSION: In this 70-year old who presented after surgery, at this time I recommend to continue to resume the home medications. DVT prophylaxis. Proton pump inhibitors. I would also recommend a course of bronchodilators and portable chest x-ray to rule out the possibility of any fluid overload or any other pulmonary issues. Otherwise ensure oxygenation. Supplemental oxygen. Pain management. We will follow the patient closely with you and patient may be asked to follow with Dr. Oreilly closely after discharge. Thank you Dr. Pittman for letting us participate in the care of the patient. MMAGAPITOL / IJN: [id number] / MAGGIE
[2020-10-29] MEDS: ATORVASTATIN 40 MG TAB PO SCH (20:43)
[2020-10-29] MEDS: PIOGLITAZONE 15 MG TAB PO SCH (20:43)
[2020-10-29] MEDS: MAGNESIUM OXIDE 400 MG TAB PO SCH (20:43)
[2020-10-29] MEDS: CALCIUM CARB-VIT D 500 MG-5 MCG TAB PO SCH (20:43)
[2020-10-29] MEDS: PREGABALIN 75 MG CAP PO SCH (20:43)
[2020-10-29] MEDS: BACITRACIN OINT 1 EACH PACKET TOPICAL SCH (20:44)
[2020-10-30] MEDS: HYDROmorphone 0.5 MG/0.5 ML SYRINGE IVP PRN ×3 (03:06→17:46)
[2020-10-30] MEDS: ACETAMINOPHEN TAB 325 MG TAB PO SCH ×4 (05:33→23:48)
[2020-10-30] MEDS: LEVOTHYROXINE 50 MCG TAB PO SCH (05:34)
[2020-10-30] MEDS: IPRATROPIUM-ALBUTEROL 3 ML NEB INHALATION SCH ×3 (07:11→19:25)
[2020-10-30 07:52] LABS: Basophils % (A) 0 %; Eosinophils % (A) 0 %; HCT 27.9 % (34.0-46.0); Hypochromasia Slight; Lymphocytes # (A) 1.4 k/uL (1.0-4.8); Lymphocytes % (A) 16 %; MCH 28.3 pg (25.0-35.0); MCHC 32.9 g/dL (31.0-37.0); MCV 85.9 fL (80.0-100.0); Mean Platelet Volume 7.4; Monocytes # (A) 0.5 k/uL (0-1.0); Monocytes % (A) 5 %; Neutrophils # (A) 7.2 k/uL (1.3-7.7); Neutrophils % (A) 78 %; Platelet Count 279 k/uL (150-450); RBC 3.25 m/uL (3.80-5.40); RDW 15.3 % (11.5-15.5); WBC 9.2 k/uL (3.8-10.6)
[2020-10-30 07:54] LABS: HGB 9.2 gm/dL (11.4-16.0)
[2020-10-30] MEDS: ASPIRIN 81 MG PO SCH (08:05)
[2020-10-30] MEDS: MAGNESIUM OXIDE 400 MG TAB PO SCH ×2 (08:05→21:20)
[2020-10-30] MEDS: FENOFIBRATE 160 MG TAB PO SCH (08:05)
[2020-10-30] MEDS: PREGABALIN 75 MG CAP PO SCH ×2 (08:05→21:20)
[2020-10-30] MEDS: CALCIUM CARB-VIT D 500 MG-5 MCG TAB PO SCH ×2 (08:05→21:20)
[2020-10-30] MEDS: metFORMIN 500 MG TAB PO SCH ×2 (08:05→17:48)
[2020-10-30] MEDS: CARBIDOPA-LEVODOPA 25-100 MG 1 EACH TAB PO SCH ×3 (08:05→23:49)
[2020-10-30] MEDS: BACITRACIN OINT 1 EACH PACKET TOPICAL SCH ×2 (08:06→21:23)
[2020-10-30] MEDS: HYDROcodone/APAP 10-325MG 1 EACH TAB PO PRN ×2 (08:13→21:20)
--- NOTE | 2020-10-30 08:14 | P.PN ---
Subjective Progress Note Date: 10/30/20 Pt s/e. She is doing fairly well this AM. She has already been up and walking yesterday. She was up in chair this morning eating breakfast. States she has some soreness in back but overall is doing well. States no new numbness/tingling. States good strength in LE. Denies any other issues. Bowel and bladder are functional and normal as of today. She states some buttock pain that is referred. No f/c/sob/cp at this time. Objective - Vital Signs Vital signs: Vital Signs Temp 97.9 F 10/30/20 05:38 Pulse 84 10/30/20 05:38 Resp 16 10/30/20 05:38 BP 103/63 10/30/20 05:38 Pulse Ox 98 10/30/20 05:38 Intake & Output 10/29/20 10/30/20 10/30/20 18:59 06:59 18:59 Intake Total 3651 Output Total 1010 400 Balance 2641 -400 Intake: IV 3601 Intake, IV Titration 50 Amount ceFAZolin 2 gm In Sodium 50 Chloride 0.9% 50 ml @ 100 mls/hr IVPB Q8HR [facility] Rx# :[id number] Output: Drainage 60 Back 60 Urine 800 400 Estimated Blood Loss 150 Other: Voiding Method Indwelling Catheter Indwelling Catheter Indwelling Catheter - Exam Patient is alert and oriented 3 appears well-nourished well-hydrated is in no acute distress. They does not appear septic. On exam the patient has no tenderness to palpation of her thoracic or lumbar spine. There is no edema or ballottement sign. Lower extremities with 4+ out of 5 strength in all major muscle groups, no focal deficits, secondary to her current recovery condition. Upper extremities show 5/5 strength in all major muscle groups. No focal deficits There is FROM that is painless of the b/l UE and LE in all major joints. They are intact to light touch sensation in L2 to S1 nerve distribution. Patient has palpable dorsalis pedis was posterior tibial pulses. Compartments are soft and compressible. Patient shows a negative Homans, Duran's, negative Babinski's negative clonus bilaterally. negative straight leg raise bilaterally. No tensioning signs. Cranial nerves II through XII are grossly intact. Overall alignment is well-maintained in the sagittal coronal planes. Dressing CDI at this time no EEE, no TTP Drain in place, 60 cc since surgery - Labs CBC & Chem 7: 10/30/20 05:54 Labs: Abnormal Lab Results - Last 24 Hours (Table) 10/30/20 Range/Units 05:54 RBC 3.25 L (3.80-5.40) m/uL Hgb 9.2 L D (11.4-16.0) gm/dL Hct 27.9 L (34.0-46.0) % Assessment and Plan Assessment: POD1 LIZBET with L4-5 revision decompression and fusion 1. s/p L4-5 decompression and coflex placement 2. Subsequent falls with fracture L4 pars and L4-5 spondylolisthesis 3. Continued mechanical back pain 4. Worsening LLE radiculopathy 5. Parkinsons 6. Complex medical patient Plan: -Appreciate portfolio consultant and team management. -Activity: Ambulate QID, OOB all meals, up and about, limit lifting bending twisting to less than 5 lbs. Use walker or cane if needed for stability. -Daily PT/OT, increase ambulation strength and balance. -[Brace when up and about, not needed in bed or chair] -Pain control: [Adequate at this time] -Meds: [reviewed] -GI ppx: senna, Miralax -DC ramirez when up and about, bedside commode if needed -DVT PPX: [OK to restart Heparin tonight] -Hygiene: Shower today. Maintain dressing clean and dry. Meticulous cleaning after BMs away from incision site -Drains: [Maintain for now. Record output] -Encourage IS 10x/hr -Dispo: Home 1-2 days with home care Computed tomography scan is reviewed of the lumbar spine shows postsurgical changes with hardware in good position reasonable reduction. Good decompression.
--- NOTE | 2020-10-30 08:49 | CT ---
EXAMINATION TYPE: CT lumbar spine wo con DATE OF EXAM: 10/30/2020 7:27 AM COMPARISON: CT lumbar spine September 18, 2020. Lumbar spine x-ray yesterday. HISTORY: Spondylolisthesis, with fracture, s/p lumbar fusion yesterday. CT DLP: 1015 mGycm Automated exposure control for dose reduction was used. Unenhanced CT of the lumbar spine was performed. Bone and soft tissue window settings are submitted as well as coronal and sagittal reconstructions. 5 lumbar-type vertebra are redemonstrated with sacralized left L5 segment redemonstrated. Interval re moval of posterior spinous processes metallic hardware at L4-L5 level. New posterior interpedicular r ods and screws transfixing L4-L5 levels bilaterally. New metallic disc material satisfactory in posit ion. Stable alignment with slight anterolisthesis L4 on L5 along the anterior vertebral body margin. Vertebral body heights and disc space heights above the L4 level remain stable and satisfactory. Ther e is new percutaneous drainage catheter terminating near posterior mid L5 level axial image 71. Strea k artifact from surgical hardware makes evaluation suboptimal. Spinal canal is grossly preserved. Posterior ill-defined fluid and fat stranding is nonspecific but p resumed postsurgical. Axial images show interpedicular screws satisfactory in position. Cholecystecto my clips are redemonstrated. IMPRESSION: New surgical change L4-L5 level with stable alignment. Further details as discussed abov e
[2020-10-30] MEDS ORDERED: LISINOPRIL-HCTZ 20-25 MG 1 EACH TAB PO SCH (09:00)
[2020-10-30 09:46] LABS: African American GFR (CKD) 87.8 (60.0-200.0); BUN/Creat Ratio 27.5 Ratio (12.00-20.00); Calcium 8.4 mg/dL (8.7-10.3); Non-African American GFR(CKD) 75.8 (60.0-200.0)
[2020-10-30] MEDS: prednisoLONE ACETATE 1% OPHTH DROPS 5 ML BTL LEFT EYE SCH ×4 (10:18→23:50)
[2020-10-30] MEDS: PRIMIDONE 50 MG TAB PO SCH ×2 (10:19→23:45)
[2020-10-30] MEDS: CYCLOBENZAPRINE 10 MG TAB PO PRN ×2 (10:34→21:21)
[2020-10-30] MEDS ORDERED: SODIUM CHLORIDE 0.9% 500 ML 500 ML IV ONE (19:23)
--- NOTE | 2020-10-30 19:32 | PN ---
PROGRESS NOTE DATE OF SERVICE: 10/30/2020 This 70-year-old woman who was admitted with back pain and surgery is improving significantly. No chest pain. No palpitations. No fever. PHYSICAL EXAMINATION: Alert and oriented x3. Pulse is 93, blood pressure 94/58, respirations 17, temperature 98.2, pulse ox 99% on room air. HEENT: Conjunctivae normal. NECK: No jugular venous distention. CARDIOVASCULAR: S1, S2 muffled. RESPIRATION: Breath sounds diminished at the bases. ABDOMEN: Soft, nontender. LEGS: No edema. No swelling. NERVOUS SYSTEM: No focal deficit. EXAMINATION OF THE BACK: Status post surgery. LABS: Hemoglobin 9.2. Other labs are noted. ASSESSMENT: 1. Status post removal of the hardware at L4-5 with revision of the decompression and fusion of L4-5. 2. Mild shortness of breath, possibly aspiration versus asthmatic bronchitis. 3. Diabetes mellitus, type 2. 4. Gastroesophageal reflux disease. 5. Hypertension. 6. Hyperlipidemia. 7. History of memory impairment. 8. History of degenerative joint disease. 9. History of hypothyroidism. 10.History of cerebrovascular accident, transient ischemic attack. 11.History of Parkinson's. 12.History of adenoidectomy. 13.History of back surgery. 14.Obesity with body mass index of 34.9. 15.FULL CODE. RECOMMENDATIONS AND DISCUSSION: I recommend to continue current medications, continue with symptomatic treatment. Chest x-ray did not show any acute abnormality. I would recommend continuing with the bronchodilators, incentive spirometry. Closely follow with Orthopedic Surgery. Further recommendations to follow. MMODL / IJN: [id number] /
[2020-10-30 20:12] VITALS: RESP 16
[2020-10-30 20:30] LABS: HCT 27.9 % (34.0-46.0); HGB 9.1 gm/dL (11.4-16.0); MCH 27.9 pg (25.0-35.0); MCHC 32.4 g/dL (31.0-37.0); MCV 86.2 fL (80.0-100.0); Platelet Count 300 k/uL (150-450); RBC 3.24 m/uL (3.80-5.40); RDW 15.6 % (11.5-15.5); WBC 8.5 k/uL (3.8-10.6)
[2020-10-30 20:36] LABS: ALT 6 U/L (4-34); AST 22 U/L (14-36); African American GFR (CKD) 77 (>60 ml/min/1.73 sqM); Albumin 3.2 g/dL (3.5-5.0); Albumin/Globulin Ratio 1.6; Alkaline Phosphatase 61 U/L (38-126); Anion Gap 8 mmol/L; Blood Urea Nitrogen 20 mg/dL (7-17); Calcium 8.9 mg/dL (8.4-10.2); Carbon Dioxide 26 mmol/L (22-30); Chloride 100 mmol/L (98-107); Glucose 151 mg/dL (74-99); Non-African American GFR(CKD) 67 (>60 ml/min/1.73 sqM); Potassium 3.8 mmol/L (3.5-5.1); Sodium 134 mmol/L (137-145); Total Bilirubin <0.1 mg/dL (0.2-1.3); Total Protein 5.2 g/dL (6.3-8.2)
[2020-10-30] MEDS: ATORVASTATIN 40 MG TAB PO SCH (21:20)
--- NOTE | 2020-10-30 21:46 | OP ---
OPERATIVE REPORT DATE OF SERVICE: 10/30/2020. PREOPERATIVE DIAGNOSES: 1. Status post L4-5 decompression CoFlex placement. 2. Subsequent falls with fracture L4 pars with L4-5 spondylolisthesis, grade 2. 3. Continued mechanical back pain. 4. Worsening left lower extremity radiculopathy and weakness. 5. Parkinson's. 6. Complex medical patient. POSTOPERATIVE DIAGNOSES: 1. Status post L4-5 decompression CoFlex placement. 2. Subsequent falls with fracture L4 pars with L4-5 spondylolisthesis, grade 2. 3. Continued mechanical back pain. 4. Worsening left lower extremity radiculopathy and weakness. 5. Parkinson's. 6. Complex medical patient. PROCEDURES PERFORMED: 1. Removal of hardware at L4, L5. 2. Revision decompression, L4, L5 with complete facetectomy, foraminotomy, and laminectomy, bilateral. 3. Posterior lateral interbody fusion L4-L5. IMPLANTS: Jem Wanette screws with globus sable cage 8-13, 20 degree lordotic with [place] bone graft, autograft, allograft and DBM. ANESTHESIA: General endotracheal. SURGEON: Dr. Matthew Pittman. JUNIOR PROGRAMMER: Edgar Blanco who was present for the entire case and necessary due to the complexity of the case. BLOOD LOSS: Was 200. FLUIDS: 1300. URINE OUTPUT: 500. PATHOLOGY: CoFlex explant, sent to pathology for review. CONDITION: Stable. DISPOSITION: To the postoperative care unit. INDICATIONS FOR PROCEDURE: This is a 70-year-old female who previously had a decompression at L4-L5 with CoFlex placement back previously about 9 weeks ago. The patient initially did well after surgery. However, about 2 weeks after surgery, she sustained a fall at home over her ottoman. She after this, felt a pop and had increased pain in her low back, difficulty with ambulation and daily activities. The patient had an increase in bilateral radiculopathy as well as left lower extremity radiculopathy and weakness. The patient continued to wear her LSO and she returned to the office after this and obtained x- rays. These x-rays showed at this postoperative visit that she had increasing listhesis of L4 and L5 and what appeared to be instability and a pars fracture. She subsequently underwent advanced imaging with CT scans, which confirmed this. We discussed different treatment options for her. We attempted to treat her conservatively at first with a continued brace and subsequent activity enhancements. However, she was unable to tolerate this. She continued to have pain, pain in her back and her legs and ultimately she has decided that she would like to have surgery to amend this. We discussed at length the surgical procedure that we would perform. Due to her instability, we would need to stabilize her spine using rods and screws as well as an interbody cage. We discussed this at length including the risks and benefits of the procedure, which are outlined in the risk review. She agreed this was comfortable with this. She would like to proceed with a decompression and fusion with removal of CoFlex device. The patient was seen and evaluated preoperatively. All preoperative protocols followed. The patient was seen by the department of anesthesia and deemed fit for surgery. The site was marked. She was given a weight based dose of antibiotics as well as tranexamic acid. The consent was confirmed and all parties in agreement. The patient's questions were answered. We discussed risks and benefits again including risk of bleeding, infection, damage to surrounding tissue, risk of reoperation, risk of anesthesia up to including . She was willing to assume these risks and all the risks of surgery, we discussed at length. She was willing to proceed. OPERATIVE COURSE: Patient was transferred to the operative suite, and she was evaluated and drifted off to sleep by Department of Anesthesia. General endotracheal intubation was performed by the Department of Anesthesia. Once adequate anesthesia had been obtained, intraoperative neuro monitoring leads were placed. Arellano was placed atraumatically by the nursing staff. The patient was then transferred very carefully to the prone José Miguel spine table. We paid close attention to her face and eyes to relieve pressure from her eyes in this area. We also paid close attention to her arms, wrists, shoulders, elbows, hips, thighs, knees, ankles, and feet, which were all well padded. Her arms were placed in the up and out position 90/90 and were well padded. There was good pad within the axilla as well. Once in good position, the bed was positioned and we performed bio marking of the patient using C arm in AP and lateral position to bio evelia our incision posteriorly on the patient's back midline. Once bio marking was complete, the area was outlined with 10/10 drapes and cleaned with alcohol. We once again confirmed with anesthesia her ventilation as well as lines and they were comfortable to proceed. Preoperative briefing was performed and everybody ready to proceed. The patient's lumbar spine was then prepped and draped in normal sterile fashion. Time-out was performed. All parties in agreement with the procedure to be performed. We then made incision over the previously above marked area in the skin. Skin was anesthetized with 0.25% Marcaine without epinephrine. We then took electrocautery dissection down to the lumbosacral fascia which was identified and cleaned with a Maurer. We then performed a midline fasciotomy. The previous scar had built up in the area around the CoFlex as well as the area of the lumbar spine and there was exuberant scarring here making it difficult for dissection, however, with the use of electrocautery as well as Maurer dissection, we did perform subperiosteal dissection from the inferior lamina of L3 to the superior portion of S1 to allow for excursion as well as visualization. This was taken out over the facet joints as well as to the TPs which were exposed of L4 and L5. These were cleaned with bipolar electrocautery and then decorticated with high-speed bur. We did this bilaterally. Once we were able to do this and visualize the CoFlex in this area, we removed exuberant scar from the bone in the facet tissues and from the area where the previous decompression been performed. The CoFlex was then removed and sent to pathology. We then under AP and lateral fluoroscopy, placed L4 screws followed by L5 screws bilaterally. This was done in a fashion as described. The 1st under lateral fluoroscopy, a high-speed bur was used to make an opening hole on the pedicle followed by a pedicle finder which was then confirmed to be in good position under AP and lateral fluoroscopy. We then used a Feeler to ensure within the pedicle. We then placed a screw using fluoroscopic imaging within the pedicle of L4 bilaterally. We then repeated this down at L5 bilaterally. AP and lateral fluoroscopic images were then taken and confirmed good positioning of the screws. Once this was accomplished, the screws were tested and all tested above 12 milliamps. We then turned our attention to the decompression. A revision decompression from L4-L5 was completed. We did a complete laminectomy and facetectomy of L4 bilaterally as well as removal of the SAP of L5 to allow for visualization of the disk space. There was exuberant scar in this area and we carefully removed this from the dura using 2-0 up-biting curette as well as a [place] 4. We then accessed the disk space on the left-hand side, protecting the exiting nerve root as well as the dura with nerve root retractors. The space was then accessed using an osteotome. We then under lateral fluoroscopy performed shaving using sequential nick starting from a 7 up to 11. This was done under lateral fluoroscopy. We then switched AP fluoroscopy to confirm that we were across midline and we were. We were then able to remove the disk in this area and performed a diskectomy of the entire L4-L5 disk. Once shaving had been completed, a curette was used to implode the remaining of the disk into the disk space and a pituitary used to remove it. We then irrigated the disk space out and scraped the endplates using bear claws as well as ring curettes to clear of any cartilage in this area. Once this was completed, we did size the implant under lateral fluoroscopy. We then chose the proper implant Sable cage. While protecting the nerve roots, the sable cage was then impacted into place and confirmed to be in good position. Prior to this we did place 2 TheraCal bullets anterior in the disk space. Impacted them into place under lateral fluoroscopy. Once the cage was in place, we then expanded the cage until expansion was complete and torqued out. The endplates remained stable. We then backfilled the cage with Bio-4 as well as DBM. Once this was in place, the telecommunications operator was removed. The nerves and the dura were completely intact with no injury. We copiously irrigated out the wound with 3 L of saline with antibiotic solution followed by a L with plain sterile saline. We then turned our attention to the placement of the rods. Rods were placed bilaterally and locked into L5 and final tightened. We then reduced the L4 screws to the rods to allow for reduction of the spondylolisthesis in this area. This was done under lateral fluoroscopy and sequentially bilaterally. Once this was completed, we placed set screws and final tightened all set screws. We again copiously irrigated the area with 3 L normal sterile saline. We then placed a crosslink in the area and final tightened this. A bone graft was then placed in the posterior lateral gutters and impacted into place. We then confirmed under AP and lateral fluoroscopy with final pictures our construct to be in good position. Good reduction of listhesis as well as good height maintenance. We then placed 2 g of vancomycin powder deep within the wound. A deep drain was placed as well. We then proceeded with closure using #1 Vicryl in the lumbosacral fascia, followed by a running unidirectional strata fix. We then placed 0 PDS in the deep subcu tissue followed by 2-0 Vicryl in the superficial subcu tissue. 2- 0 nylon was used in a horizontal mattress fashion for skin closure, which allowed for eversion of the skin and the wound edges approximated very well. The wound was then cleaned with alcohol and dressed sterilely with an Optifoam dressing. The drain was sewn in with 2-0 PDS and was covered with a drain sponge as well as a Tegaderm. The patient was then carefully transferred back to her hospital bed. Neuro monitoring remained stable throughout the entire case. Arellano will remain until she gets to her room and is ambulatory. The patient was then extubated, having tolerated the procedure very well with no complications. She was transferred to the postoperative care unit in stable condition. This case took 100% longer than planned for secondary to the patient's high BMI 35.8, her multiple different comorbidities including Parkinson disease, as well as her previous surgery and exuberant scarring. MMODL / IJN: [id number] /
[2020-10-30] MEDS: PIOGLITAZONE 15 MG TAB PO SCH (23:44)
[2020-10-31 05:07] VITALS: BP 101/69; TEMP 98.1
[2020-10-31] MEDS: LEVOTHYROXINE 50 MCG TAB PO SCH (06:08)
[2020-10-31] MEDS: ACETAMINOPHEN TAB 325 MG TAB PO SCH ×2 (06:08→12:49)
[2020-10-31] MEDS: IPRATROPIUM-ALBUTEROL 3 ML NEB INHALATION SCH ×2 (07:29→11:44)
[2020-10-31] MEDS: PREGABALIN 75 MG CAP PO SCH (09:03)
[2020-10-31] MEDS: ASPIRIN 81 MG PO SCH (09:03)
[2020-10-31] MEDS: PRIMIDONE 50 MG TAB PO SCH (09:03)
[2020-10-31] MEDS: CALCIUM CARB-VIT D 500 MG-5 MCG TAB PO SCH (09:03)
[2020-10-31] MEDS: CARBIDOPA-LEVODOPA 25-100 MG 1 EACH TAB PO SCH (09:03)
[2020-10-31] MEDS: FENOFIBRATE 160 MG TAB PO SCH (09:03)
[2020-10-31] MEDS: MAGNESIUM OXIDE 400 MG TAB PO SCH (09:04)
[2020-10-31] MEDS: metFORMIN 500 MG TAB PO SCH (09:04)
[2020-10-31] MEDS: prednisoLONE ACETATE 1% OPHTH DROPS 5 ML BTL LEFT EYE SCH ×2 (09:05→12:49)
[2020-10-31] MEDS: HYDROcodone/APAP 10-325MG 1 EACH TAB PO PRN (09:21)
--- NOTE | 2020-10-31 10:14 | P.PN ---
Subjective Progress Note Date: 10/31/20 Principal diagnosis: Status post revision decompression L4L5, posterior lateral with interbody fusion L4-L5, hardware removal L4-L5, Patient has a sensitive x-ray, she is resting comfortably in her hospital chair. Nursing staff was present, they were removing urinary catheter. Patient is doing rather well and ambulating with the walker with minimal difficulty. Dr. Pittman was present earlier this morning, the drain was removed and bandages changed. She's having no acute symptoms at this time. Objective - Vital Signs Vital signs: Vital Signs Temp 98.1 F 10/31/20 05:00 Pulse 94 10/31/20 07:38 Resp 16 10/31/20 05:00 BP 101/69 10/31/20 05:00 Pulse Ox 93 L 10/31/20 05:00 Intake & Output 10/30/20 10/31/20 10/31/20 18:59 06:59 18:59 Intake Total 100 590 Output Total 75 Balance 25 590 Intake: Intake, IV Titration 100 Amount ceFAZolin 2 gm In Sodium 100 Chloride 0.9% 50 ml @ 100 mls/hr IVPB Q8HR [facility] Rx# :[id number] Oral 590 Output: Drainage 75 Back 75 Other: Voiding Method Indwelling Catheter Toilet Indwelling Catheter Indwelling Catheter # Voids 2 - Exam Gen: AOx3, NAD VSS stable at this time Integument: Incision is well healing at this time, sutures are all in good position and condition. No significant areas of erythema or soft tissue swelling Palpation: No tenderness with palpation of the midline and paraspinal region of the cervical or thoracic spine, minimal discomfort in the lumbar spine region ROM: Full range of motion in all major muscle groups of the upper and lower extremities Sensory Exam: Senory exam to light touch is intact C5-T1 Senosry exam to light touch is intact L2-S1 Motor: 45 strength appreciated in the mid bilateral lower extremities with hip flexion, knee extension, knee flexion, plantar flexion, dorsiflexion, EHL, FHL Reflexes: 2/4 in all UE and LE Negative Richard's, clonus, Babinski bilaterally - Labs CBC & Chem 7: 10/30/20 20:00 10/30/20 20:00 Labs: Abnormal Lab Results - Last 24 Hours (Table) 08/18/21 08/18/21 Range/Units 20:00 20:00 RBC 3.24 L (3.80-5.40) m/uL Hgb 9.1 L (11.4-16.0) gm/dL Hct 27.9 L (34.0-46.0) % RDW 15.6 H (11.5-15.5) % Sodium 134 L (137-145) mmol/L BUN 20 H (7-17) mg/dL Glucose 151 H (74-99) mg/dL Total Bilirubin <0.1 L (0.2-1.3) mg/dL Total Protein 5.2 L (6.3-8.2) g/dL Albumin 3.2 L (3.5-5.0) g/dL Assessment and Plan Assessment: Postoperative day #2 status post hardware removal L4-L5, revision decompression L4-L5, posterior lateral interbody fusion L4-L5 Plan: Pain control, plan for discharge on oral medication Wound care instructions were discussed patient at bedside Activity level instructions are discussed the patient, this to include the lifting, bending and twisting restrictions Recommend use of walker with ambulation Other medical specialty recommendations Discharge planning: Patient stable for discharge on orthopedics standpoint, follow-up with Dr. Pittman in outpatient setting in 2 weeks Time with Patient: Less than 30
--- NOTE | 2020-10-31 10:25 | P.DS ---
Providers Date of admission: 10/30/20 12:57 Expected date of discharge: 10/31/20 Attending physician: Matthew Pittman DO Consults: 10/29/20 12:57 Consult Physician Routine Consulting Provider: Ning Little Consult Reason/Comments: medical management Do you want consulting provider notified?: Yes Primary care physician: Cami Oreilly Hospital Course: Date of admission: 10/29/2020 Date of discharge: 10/31/2020 Admission diagnosis: Status post hardware removal L4-L5, revision decompression L4-L5, posterior lateral interbody fusion L4-L5 Discharge diagnosis: Same Attending physician: Dr. Pittman Surgical procedures: Hardware removal L4-L5, revision decompression L4-L5, posterior lateral interbody fusion L4-L5 Brief history: Patient is a 70-year-old female who had originally underwent surgery by Dr. Pittman about 9 weeks ago. Initially during the postoperative period she was doing very well. She did have a fall, she was evaluated by Dr. Pittman with further imaging. It was determined that the patient had developed a fracture of the L4 pars with subsequent L4-L5 spondylolisthesis grade 2. Treatment options were discussed, patient was then scheduled for a revision surgery on 10/29/2020. Hospital course: Details of patient's surgery can be found in operative report. Patient tolerated the procedure well and was subsequently transported to orthopedic floor. Patient's orthopeidc and medical care was provided daily. Patient had daily laboratory tests performed for evaluation of overall blood counts. Patient had daily physical therapy to include strengthening range of motion as well as education with walker ambulation. Patient was noted to have a relatively uneventful postoperative course. Patient reported satisfactory pain control with oral pain medications by postoperative day 0. Patient showed satisfactory progress with physical therapy. Patient moved steadily through the program and had no difficulty meeting the goals by postoperative day 2. Given patient's otherwise satisfactory course and having met physical therapy goals, plan is to discharge patient home on postoperative day 2. Discharge condition/disposition: Patient will be discharged home in stable condition. Discharge medications: Instructions are given on resumption of patient's normal daily medications per primary care recommendation, in addition patient will be prescribed []. Spine Discharge and Recovery Instructions Date of Surgery: 01/30/2020 Medications: See medication list All medication refills should be obtained through your primary care doctor or your clinic spine surgeon. Please discuss prescription refills at your follow up appointment. Do not call the hospital for medication refills. Dressing: Leave your dressing in place for a total of 5 days post operatively. Then you may remove your dressing and leave open to air. Keep the area clean and if not able to keep area clean, then cover with sterile gauze and tape. Showering: You may shower 3 days after your procedure allowing soap and water to run over incision. Do not scrub. Do not soak. Blot dry. Follow up: Please confirm a follow up appointment with your surgeon 3 weeks post operatively. Please make an appointment to follow up with your PCP in 1-2 weeks after surgery for evaluation 3 phase, 3-week plan POST OP WEEKS 1-3 1. Lifting/carrying/pushing/pulling limited to less than 5 pounds. 2. Do not sit for longer than 15 minutes at one time. Get up and walk around. Prolonged sitting is NOT advised. If you lay down, see if you can tolerate laying down on you front (belly side) 3. Walk for periods of 15 minutes = 1 mile but no longer; do it multiple times times each day. 4. Ice your low back after activity. POST OP WEEKS 3-6 1. Lifting limited to less than 20 pounds. 2. Do not sit for longer than 30 minutes at a time. Frequently change positions. Use a sit-to stand workstation or take frequent breaks from sitting if you have returned to work. 3. Walk for 30 minutes each day. If possible, do these three or more times a day POST OP WEEKS 6+ At your 6-week appointment we will give you a physical therapy referral to focus on a core stabilization and strengthening program. You should also work on leg & buttock strengthening, hamstring & quadriceps stretching, and continue a low impact aerobic activity program such as swimming, walking, or riding a stationary bicycle. During the initial 6 weeks after your surgery, you are at the highest risk of re-injuring your spine. You should generally avoid BLTs (bending, lifting and twisting combination motions) and follow the above guidelines to reduce the chance of reinjury. You can anticipate post op appointments in our office at approximately 3 weeks and 6 weeks after your surgery. INCISION CARE: If your incision is not draining you do NOT need to cover it with a dressing. Keep your incision clean, dry and intact. In most cases, we apply skin glue, erickson or sutures to the incision at the time of surgery. This will be like a crust or have the appearance of a scab and will fall off in time on its own. The stitches or erickson need to be removed at 3 weeks post op appointment. You may begin to shower 3 days after surgery (this allows the glue to ayala well). However, please avoid scrubbing the incision site or peeling off any of the skin glue. This will ensure optimal healing of your incision. Also, during this time avoid soaking the incision area in water - this includes swimming pools, hot tubs or baths. No ointments, lotions or oils on the incision until your surgeon allows. Leave erickson, sutures or glue in place. Neurological dysfunction that comes on suddenly can also be a sign of a stroke. Below some common symptoms of a stroke are listed: B - balance difficulty such as sudden onset walking or leaning to one side - NEW E - eye problem such as sudden double vision or trouble seeing on one side - NEW F - Facial weakness or numbness on one side - NEW A - Arm or leg weakness or numbness on one side - NEW S - Slurred speech or difficulty with word finding - NEW T - Time is BRAIN! Call 911 as soon as you recognize these symptoms Diet: Consume a regular diet rich in vegetables and lean protein such as chicken or fish. You should consume in a ratio of approximately 20% fats|40% carbohydrates|40%protein. Vegetables, sweet potatoes, brown rice or quinoa are examples of good carbohydrates. Chips, white bread, cookies and sweets/sugar are examples of bad carbohydrates. Limit your bad carbs, go wild with good carbs. "Life's Simple 7" Guidelines as per [employer] These will help you reclaim your life after surgery and lead burner helper in your recovery, keeping in mind your restrictions. (1) Get Active. Physical activity can help people lose weight, control high blood pressure and cholesterol, feel emotionally better, and sleep better. (2) Control Cholesterol. Avoid a diet high in saturated fat, trans fat, & cholesterol. Limit whole milk & cream, ice cream, butter, egg yolks, processed meats (like sausage and hot dogs), and fatty meats. Choose healthy foods that are low in saturated fat, trans fat and cholesterol which include: Fruits and vegetables, fiber rich grain products (like whole grain pasta and brown rice), lean meat such as chicken, fish, nuts, seeds, and legumes. (3) Eat Better. Eat small portions. Shop at the grocery with a list and do not stray from it. Tips for a healthy diet include: Limit sodium intake to less than 1500mg daily, avoid prepackaged, processed, and fast foods, choose a diet rich in fruits, vegetables, and whole grain, high fiber foods, and limit saturated & cholesterol in your diet. (4) Manage Blood Pressure. If you have high blood pressure, you should have a cuff at home so that you can check your blood pressure regularly. Be sure you have a good cuff. An arm one is generally better than a wrist one. Bring the cuff to a doctor's appointment to validate that the measurements that your cuff are taking are accurate. Take your blood pressure twice daily when you are sitting down and relaxing. Record the numbers in a log and bring this log with you to your doctors' appointments. (5) Lose Weight if your BMI is above 25. A healthy BMI is between 19-25. To calculate Your BMI, you may use a Standard BMI Calculator on the NIH BMI website: <www.nhlbi.nih.gov/guidelines/obesity/BMI/bmicalc.htm>. Weigh oneself daily. If you are overweight, set a goal to lose weight. A pound a week loss if needed is a good target. (6) Reduce Blood Sugar. Limit foods and liquids with "added sugars." (Added sugars include sucrose, fructose, glucose, maltose, dextrose, high fructose corn syrup, corn syrup, concentrated fruit juice and honey). (7) Stop Smoking. If you smoke, quitting smoking is one of the best things that you can do for your health. Smoking increases your risk of heart attack, stroke, and peripheral vascular disease, which is a build-up of plaque in your arteries. Please discard all the cigarettes and lighters in your house. Have a plan for what you will do when you have the urge to smoke. Direct and second- hand smoke shortens your life as well as the lives of your family, friends and others around you. For your health and the health of those around you, please consider quitting! Proper Bending Body Mechanics: Maintain a wide stance with one foot slightly in front of the other. Keep your back straight. Bend utilizing the strength in your hips and knees. Do not bend at the waist. Maintain the lifted object at your waist-level close to your body. Avoid lifting weight that causes immediately pain or pain anywhere in the body afterwards. Smoking/Nicotine If there was ever one thing that you could do to increase your overall health, decrease your risk of cardiovascular problems by about 39% the second you make the choice, it is to STOP SMOKING. Your body's most instant gratification is the second you stop smoking. We have all heard the studies, read the articles but it is true, smoking is extremely bad for your overall health, and moreover it is detrimental to your bone health. Nicotine, IN ANY FORM, kills bone cells, prevents your body from healing fractures, and significantly prolongs healing after surgery. In spine surgery specifically, it increases your risk of not healing your bones to create a fusion and increases your risk of having a revision surgery due to this up to 60%. I know it is hard. I know it feels impossible. But there are ways. Take control of your life. We are here to help you through it. And when you are ready, ask us and we can direct you to help if you desire. Use the START Plan to Quit Smoking (please visit the [employer] website listed below for more information): S = Set a quit date. Choose a date within the next 2 weeks, so you have enough time to prepare without losing your motivation to quit. If you mainly smoke at work, quit on the weekend, so you have a few days to adjust to the change. T = Tell family, friends, and co-workers that you plan to quit. Let your friends and family in on your plan to quit smoking and tell them you need their support and encouragement to stop. Look for a quit irma who wants to stop smoking as well. You can help each other get through the rough times. A = Anticipate and plan for the challenges you'll face while quitting. Most people who begin smoking again do so within the first 3 months. You can help yourself make it through by preparing ahead for common challenges, such as nicotine withdrawal and cigarette cravings. R = Remove cigarettes and other tobacco products from your home, car, and work. Throw away all your cigarettes (no emergency pack!), lighters, ashtrays, and matches. Wash your clothes and freshen up anything that smells like smoke. Shampoo your car, clean your drapes and carpet, and steam your furniture. T = Talk to your doctor about getting help to quit. Your doctor can prescribe medication to help with withdrawal and suggest other alternatives. If you can't see a doctor, you can get many products over the counter at your local pharmacy or grocery store, including the nicotine patch, nicotine lozenges, and nicotine gum. Resources for Quitting Smoking: < tps://www.[place].gov/documents/[facility]/Quit_Tobacco_Resources_for_patients_313480 _7.pdf> Supplementation: Take recommended dosages of Vitamin D and Calcium to help fortify your bones and help them to heal. See your health maintenance packet for dosages and recommended levels. DVT/VTE prophylaxis: You will be given compression stockings from the hospital. Wear these daily for the first two weeks after surgery. You may take them off at night. You may be prescribed a medication to help thin your blood. Take this as directed. If you are not prescribed this medication, early and frequent ambulation has been shown to be the best prophylaxis to deep vein thrombosis and sequelae related to this event. Procedures: Hardware removal L4-L5, revision decompression L4-L5, posterior lateral interbody fusion of L4-L5 Patient Condition at Discharge: Good Plan - Discharge Summary Discharge Rx Participant: No New Discharge Prescriptions: New Cyclobenzaprine [Flexeril] 10 mg PO HS PRN #30 tab PRN Reason: Muscle Spasm Pregabalin [Lyrica] 150 mg PO BID #30 cap HYDROcodone/APAP 7.5-325MG [[place] 7.5] 1 each PO Q6HR PRN #28 tab PRN Reason: Pain Discontinued HYDROcodone/APAP 5-325MG [[place] 5-325] 1 tab PO Q6HR PRN PRN Reason: Pain Cyclobenzaprine [Flexeril] 10 mg PO HS No Action Levothyroxine Sodium [Synthroid] 50 mcg PO DAILY metFORMIN HCL [Glucophage] 1,000 mg PO BID-W/MEALS Fenofibrate [Lofibra] 160 mg PO DAILY Rosuvastatin [Crestor] 20 mg PO HS Pioglitazone [Actos] 15 mg PO HS Loratadine [Claritin] 10 mg PO DAILY PRN PRN Reason: allergies Calcium Carbonate/Vitamin D3 [Calcium 600-D3 20 mcg (800 Unit)] 1 tab PO BID Krill/Om-3/Dha/Epa/Phospho/Ast [[place]-3 Krill Oil 300 mg Sfgl] 1 cap PO DAILY Vits A,C,E/Lutein/Minerals [Ocuvite with Lutein Tablet] 1 tab PO BID Lisinopril-Hctz 20-25 mg [Zestoretic 20-25] 1 tab PO DAILY Famotidine [Pepcid] 20 mg PO BID PRN PRN Reason: GERD prednisoLONE ACETATE 1% OPHTH [Pred Forte 1%] 1 drops LEFT EYE DIRECTED PRN PRN Reason: retinal problem Magnesium Oxide 800 mg PO BID Acetaminophen Tab [Tylenol] 650 mg PO Q6HR PRN tab PRN Reason: Mild Pain Or Fever > 100.5 Docusate [Colace] 100 mg PO BID PRN PRN Reason: Constipation Aspirin [Adult Low Dose Aspirin EC] 81 mg PO DAILY Carbidopa-Levodopa 25-100 mg [Sinemet 25-100] 1 each PO Q8H Primidone [Mysoline] 50 mg PO BID Discharge Medication List Fenofibrate [Lofibra] 160 mg PO DAILY 02/05/20 [History] Levothyroxine Sodium [Synthroid] 50 mcg PO DAILY 02/05/20 [History] Loratadine [Claritin] 10 mg PO DAILY PRN 02/05/20 [History] Pioglitazone [Actos] 15 mg PO HS 02/05/20 [History] Rosuvastatin [Crestor] 20 mg PO HS 02/05/20 [History] metFORMIN HCL [Glucophage] 1,000 mg PO BID-W/MEALS 02/05/20 [History] Calcium Carbonate/Vitamin D3 [Calcium 600-D3 20 mcg (800 Unit)] 1 tab PO BID 07/20/20 [History] Krill/Om-3/Dha/Epa/Phospho/Ast [[place]-3 Krill Oil 300 mg Sfgl] 1 cap PO DAILY 07/20/20 [History] Magnesium Oxide 800 mg PO BID 07/20/20 [History] Vits A,C,E/Lutein/Minerals [Ocuvite with Lutein Tablet] 1 tab PO BID 07/20/20 [History] Acetaminophen Tab [Tylenol] 650 mg PO Q6HR PRN tab 07/29/20 [Rx] Docusate [Colace] 100 mg PO BID PRN 08/15/20 [History] Lisinopril-Hctz 20-25 mg [Zestoretic 20-25] 1 tab PO DAILY 08/15/20 [History] Aspirin [Adult Low Dose Aspirin EC] 81 mg PO DAILY 10/24/20 [History] Carbidopa-Levodopa 25-100 mg [Sinemet 25-100] 1 each PO Q8H 10/24/20 [History] Famotidine [Pepcid] 20 mg PO BID PRN 10/24/20 [History] prednisoLONE ACETATE 1% OPHTH [Pred Forte 1%] 1 drops LEFT EYE DIRECTED PRN 10/24/20 [History] Primidone [Mysoline] 50 mg PO BID 10/29/20 [History] Cyclobenzaprine [Flexeril] 10 mg PO HS PRN #30 tab 10/31/20 [Rx] HYDROcodone/APAP 7.5-325MG [[place] 7.5] 1 each PO Q6HR PRN #28 tab 10/31/20 [Rx] Pregabalin [Lyrica] 150 mg PO BID #30 cap 10/31/20 [Rx] Follow up Appointment(s)/Referral(s): [facility] Nurse, [NON-STAFF] - 1 Week Matthew Pittman DO [Doctor of Osteopathic Medicine] - 2 Weeks Activity/Diet/Wound Care/Special Instructions: Spine Discharge and Recovery Instructions Medications: See medication list All medication refills should be obtained through your primary care doctor or your clinic spine surgeon. Please discuss prescription refills at your follow up appointment. Do not call the hospital for medication refills. Dressing: Leave your dressing in place for a total of 5 days post operatively. Then you may remove your dressing and leave open to air. Keep the area clean and if not able to keep area clean, then cover with sterile gauze and tape. Showering: You may shower 3 days after your procedure allowing soap and water to run over incision. Do not scrub. Do not soak. Blot dry. Follow up: Please confirm a follow up appointment with your surgeon 3 weeks post operatively. Please make an appointment to follow up with your PCP in 1-2 weeks after surgery for evaluation 3 phase, 3-week plan POST OP WEEKS 1-3 1. Lifting/carrying/pushing/pulling limited to less than 5 pounds. 2. Do not sit for longer than 15 minutes at one time. Get up and walk around. Prolonged sitting is NOT advised. If you lay down, see if you can tolerate laying down on you front (belly side) 3. Walk for periods of 15 minutes = 1 mile but no longer; do it multiple times times each day. 4. Ice your low back after activity. POST OP WEEKS 3-6 1. Lifting limited to less than 20 pounds. 2. Do not sit for longer than 30 minutes at a time. Frequently change positions. Use a sit-to stand workstation or take frequent breaks from sitting if you have returned to work. 3. Walk for 30 minutes each day. If possible, do these three or more times a day POST OP WEEKS 6+ At your 6-week appointment we will give you a physical therapy referral to focus on a core stabilization and strengthening program. You should also work on leg & buttock strengthening, hamstring & quadriceps stretching, and continue a low impact aerobic activity program such as swimming, walking, or riding a stationary bicycle. During the initial 6 weeks after your surgery, you are at the highest risk of re-injuring your spine. You should generally avoid BLTs (bending, lifting and twisting combination motions) and follow the above guidelines to reduce the chance of reinjury. You can anticipate post op appointments in our office at approximately 3 weeks and 6 weeks after your surgery. INCISION CARE: If your incision is not draining you do NOT need to cover it with a dressing. Keep your incision clean, dry and intact. In most cases, we apply skin glue, erickson or sutures to the incision at the time of surgery. This will be like a crust or have the appearance of a scab and will fall off in time on its own. The stitches or erickson need to be removed at 3 weeks post op appointment. You may begin to shower 3 days after surgery (this allows the glue to ayala well). However, please avoid scrubbing the incision site or peeling off any of the skin glue. This will ensure optimal healing of your incision. Also, during this time avoid soaking the incision area in water - this includes swimming pools, hot tubs or baths. No ointments, lotions or oils on the incision until your surgeon allows. Leave erickson, sutures or glue in place. Neurological dysfunction that comes on suddenly can also be a sign of a stroke. Below some common symptoms of a stroke are listed: B - balance difficulty such as sudden onset walking or leaning to one side - NEW E - eye problem such as sudden double vision or trouble seeing on one side - NEW F - Facial weakness or numbness on one side - NEW A - Arm or leg weakness or numbness on one side - NEW S - Slurred speech or difficulty with word finding - NEW T - Time is BRAIN! Call 911 as soon as you recognize these symptoms Diet: Consume a regular diet rich in vegetables and lean protein such as chicken or fish. You should consume in a ratio of approximately 20% fats|40% carbohydrates|40%protein. Vegetables, sweet potatoes, brown rice or quinoa are examples of good carbohydrates. Chips, white bread, cookies and sweets/sugar are examples of bad carbohydrates. Limit your bad carbs, go wild with good carbs. "Life's Simple 7" Guidelines as per [employer] These will help you reclaim your life after surgery and lead burner helper in your recovery, keeping in mind your restrictions. (1) Get Active. Physical activity can help people lose weight, control high blood pressure and cholesterol, feel emotionally better, and sleep better. (2) Control Cholesterol. Avoid a diet high in saturated fat, trans fat, & cholesterol. Limit whole milk & cream, ice cream, butter, egg yolks, processed meats (like sausage and hot dogs), and fatty meats. Choose healthy foods that are low in saturated fat, trans fat and cholesterol which include: Fruits and vegetables, fiber rich grain products (like whole grain pasta and brown rice), lean meat such as chicken, fish, nuts, seeds, and legumes. (3) Eat Better. Eat small portions. Shop at the grocery with a list and do not stray from it. Tips for a healthy diet include: Limit sodium intake to less than 1500mg daily, avoid prepackaged, processed, and fast foods, choose a diet rich in fruits, vegetables, and whole grain, high fiber foods, and limit saturated & cholesterol in your diet. (4) Manage Blood Pressure. If you have high blood pressure, you should have a cuff at home so that you can check your blood pressure regularly. Be sure you have a good cuff. An arm one is generally better than a wrist one. Bring the cuff to a doctor's appointment to validate that the measurements that your cuff are taking are accurate. Take your blood pressure twice daily when you are sitting down and relaxing. Record the numbers in a log and bring this log with you to your doctors' appointments. (5) Lose Weight if your BMI is above 25. A healthy BMI is between 19-25. To calculate Your BMI, you may use a Standard BMI Calculator on the NIH BMI website: <www.nhlbi.nih.gov/guidelines/obesity/BMI/bmicalc.htm>. Weigh oneself daily. If you are overweight, set a goal to lose weight. A pound a week loss if needed is a good target. (6) Reduce Blood Sugar. Limit foods and liquids with "added sugars." (Added sugars include sucrose, fructose, glucose, maltose, dextrose, high fructose corn syrup, corn syrup, concentrated fruit juice and honey). (7) Stop Smoking. If you smoke, quitting smoking is one of the best things that you can do for your health. Smoking increases your risk of heart attack, stroke, and peripheral vascular disease, which is a build-up of plaque in your arteries. Please discard all the cigarettes and lighters in your house. Have a plan for what you will do when you have the urge to smoke. Direct and second- hand smoke shortens your life as well as the lives of your family, friends and others around you. For your health and the health of those around you, please consider quitting! Proper Bending Body Mechanics: Maintain a wide stance with one foot slightly in front of the other. Keep your back straight. Bend utilizing the strength in your hips and knees. Do not bend at the waist. Maintain the lifted object at your waist-level close to your body. Avoid lifting weight that causes immediately pain or pain anywhere in the body afterwards. Smoking/Nicotine If there was ever one thing that you could do to increase your overall health, decrease your risk of cardiovascular problems by about 39% the second you make the choice, it is to STOP SMOKING. Your body's most instant gratification is the second you stop smoking. We have all heard the studies, read the articles but it is true, smoking is extremely bad for your overall health, and moreover it is detrimental to your bone health. Nicotine, IN ANY FORM, kills bone cells, prevents your body from healing fractures, and significantly prolongs healing after surgery. In spine surgery specifically, it increases your risk of not healing your bones to create a fusion and increases your risk of having a revision surgery due to this up to 60%. I know it is hard. I know it feels impossible. But there are ways. Take control of your life. We are here to help you through it. And when you are ready, ask us and we can direct you to help if you desire. Use the START Plan to Quit Smoking (please visit the Helpguide.org website listed below for more information): S = Set a quit date. Choose a date within the next 2 weeks, so you have enough time to prepare without losing your motivation to quit. If you mainly smoke at work, quit on the weekend, so you have a few days to adjust to the change. T = Tell family, friends, and co-workers that you plan to quit. Let your friends and family in on your plan to quit smoking and tell them you need their support and encouragement to stop. Look for a quit irma who wants to stop smoking as well. You can help each other get through the rough times. A = Anticipate and plan for the challenges you'll face while quitting. Most people who begin smoking again do so within the first 3 months. You can help yourself make it through by preparing ahead for common challenges, such as nicotine withdrawal and cigarette cravings. R = Remove cigarettes and other tobacco products from your home, car, and work. Throw away all your cigarettes (no emergency pack!), lighters, ashtrays, and matches. Wash your clothes and freshen up anything that smells like smoke. Shampoo your car, clean your drapes and carpet, and steam your furniture. T = Talk to your doctor about getting help to quit. Your doctor can prescribe medication to help with withdrawal and suggest other alternatives. If you can't see a doctor, you can get many products over the counter at your local pharmacy or grocery store, including the nicotine patch, nicotine lozenges, and nicotine gum. Resources for Quitting Smoking: <https://www.[place].gov/documents/[facility]/Quit_Tobacco_Resources_for_patients_313 480_7.pdf> Supplementation: Take recommended dosages of Vitamin D and Calcium to help fortify your bones and help them to heal. See your health maintenance packet for dosages and recommended levels. DVT/VTE prophylaxis: You will be given compression stockings from the hospital. Wear these daily for the first two weeks after surgery. You may take them off at night. You may be prescribed a medication to help thin your blood. Take this as directed. If you are not prescribed this medication, early and frequent ambulation has been shown to be the best prophylaxis to deep vein thrombosis and sequelae related to this event. Discharge Disposition: HOME SELF-CARE
[2020-10-31 11:47] VITALS: PULSE 90
[2020-10-31] MEDS: BACITRACIN OINT 1 EACH PACKET TOPICAL SCH (12:48)
[2020-10-31] MEDS: HYDROmorphone 0.5 MG/0.5 ML SYRINGE IVP PRN (12:49)
--- NOTE | 2020-10-31 17:34 | PN ---
PROGRESS NOTE DATE OF SERVICE: 10/31/2020 This 70-year-old woman who was admitted after back surgery is improving significantly. No chest pain. No palpitations. Patient is receiving bronchodilators for asthmatic bronchitis. PHYSICAL EXAMINATION: On exam, alert and oriented x3. Pulse is 90, blood pressure is 101/69, respirations 16, temperature 98.1, pulse ox 93% on room air. HEENT: Conjunctivae normal. NECK: No jugular venous distention. CARDIOVASCULAR: S1, S2 muffled. RESPIRATION: Breath sounds diminished at the bases. Scattered rhonchi and crackles. ABDOMEN: Soft, nontender. BACK: Status post surgery. LEGS: No edema. No swelling. LABS: WBC 8.2, hemoglobin 9.1 sodium 134. ASSESSMENT: 1. Status post removal of the hardware at L4-5 with revision and decompression of the fusion of L4-5. 2. Mild shortness of breath, possibly asthmatic bronchitis. 3. Asthmatic bronchitis; possibly chronic obstructive pulmonary disease. 44.9. 4. Diabetes mellitus, type 2. 5. Gastroesophageal reflux disease. 6. Hypertension. 7. History of hyperlipidemia. 8. History of memory impairment. 9. History of degenerative joint disease. 10.History of hypothyroidism. 11.History of cerebrovascular accident, transient ischemic attack. 12.History of Parkinson's. 13.History of adenoidectomy. 14.History of back surgery. 15.Obesity with body mass index of 34.6. 16.FULL CODE. RECOMMENDATIONS AND DISCUSSION: In this 70-year-old woman who presented with multiple medical issues, we will monitor the patient closely. I recommend a course of bronchodilators and to closely follow with Dr. Oreilly. Recommend DuoNeb q.i.d. and p.r.n., incentive spirometry as well as the rest of medications recommended per Surgery. Further recommendations to follow. MMODL / IJN: [id number] / [facility] CENTERBalta
== END 2020-10-31 14:57 | disposition home health service (06) ==
LOC: OR 06:27 → EDSTATUS 07:30 → 5NMEDONC 11:49 → OR 10-30 12:57
PROVIDERS: ADMIT Orthopaedic Surgery; ATTEND Orthopaedic Surgery
DX: S32.049A Unspecified fracture of fourth lumbar vertebra, initial encounter for closed fracture (principal); M43.16 Spondylolisthesis, lumbar region; M54.10 Radiculopathy, site unspecified; G20 Parkinson's disease; I10 Essential (primary) hypertension; E78.5 Hyperlipidemia, unspecified; H35.30 Unspecified macular degeneration; J45.909 Unspecified asthma, uncomplicated; M19.90 Unspecified osteoarthritis, unspecified site; M75.01 Adhesive capsulitis of right shoulder; R53.1 Weakness; E03.9 Hypothyroidism, unspecified; E11.9 Type 2 diabetes mellitus without complications; E66.9 Obesity, unspecified; Z68.34 Body mass index [BMI] 34.0-34.9, adult; N30.10 Interstitial cystitis (chronic) without hematuria; M85.80 Other specified disorders of bone density and structure, unspecified site; K21.9 Gastro-esophageal reflux disease without esophagitis; Z79.82 Long term (current) use of aspirin; Z79.84 Long term (current) use of oral hypoglycemic drugs; Z79.890 Hormone replacement therapy; Z79.899 Other long term (current) drug therapy; Z88.5 Allergy status to narcotic agent; Z88.0 Allergy status to penicillin; Z88.2 Allergy status to sulfonamides; Z88.1 Allergy status to other antibiotic agents; Z98.41 Cataract extraction status, right eye; Z98.42 Cataract extraction status, left eye; Z90.49 Acquired absence of other specified parts of digestive tract; Z90.710 Acquired absence of both cervix and uterus; Z86.73 Personal history of transient ischemic attack (TIA), and cerebral infarction without residual deficits; Z80.8 Family history of malignant neoplasm of other organs or systems
CPT/HCPCS: 22612; 63047; 22853; 20930; 20936; 94640 ×5; 93005; 97162; 80053; 80048; 84484; 85025; 85027; 88300; 72100; 71045; 72131; G0378 ×2; C1713 ×3; C1762 ×2; J2250; J3370; J1100; J2710; J2765; J0690 ×4; J2405; J2001; J3010; J2370; J0330; J2704; J1170 ×3; 86850; 86900; 86901

== ENCOUNTER → 2022-01-07 | Outpatient (CLI) | payer MEDICARE, OTHER ==
[2022-01-07 16:03] LABS: Basophils # (A) 0.03 X 10*3/uL (0.00-0.10); Basophils % (A) 0.5 %; Eosinophils % (A) 5.2 %; HCT 37.1 % (37.2-46.3); HGB 11.2 g/dL (12.0-15.0); Immature Grans, Automated 0.7 %; Lymphocytes # (A) 1.84 X 10*3/uL (0.90-5.00); Lymphocytes % (A) 32.1 %; MCH 27.1 pg (27.0-32.0); MCHC 30.2 g/dL (32.0-37.0); MCV 89.6 fL (80.0-97.0); Mean Platelet Volume 11.1 fL (9.5-12.2); Monocytes # (A) 0.33 X 10*3/uL (0.20-1.00); Monocytes % (A) 5.8 %; NRBC Per 100 WBC 0 /100 WBCS (0.0-0.0); Neutrophils # (A) 3.19 X 10*3/uL (1.80-7.70); Neutrophils % (A) 55.7 %; Platelet Count 285 X 10*3/uL (140-440); RBC 4.14 X 10*6/uL (4.10-5.20); RDW 17.1 % (11.5-14.5); WBC 5.73 X 10*3/uL (4.50-10.00)
[2022-01-07 16:59] LABS: Anion Gap 9.7 mmol/L (10.00-18.00); BUN/Creat Ratio 18.07 Ratio (12.00-20.00); Blood Urea Nitrogen 19.7 mg/dL (9.0-27.0); Calcium 9.3 mg/dL (8.7-10.3); Carbon Dioxide 25.7 mmol/L (20.0-27.5); Non-African American GFR(CKD) 51.8 (60.0-200.0); Potassium 4.3 mmol/L (3.5-5.5)
== END | disposition home or self-care (01) ==
LOC: LABPAT 09:57
PROVIDERS: ATTEND Orthopaedic Surgery
DX: Z01.812 Encounter for preprocedural laboratory examination (principal); S32.010A Wedge compression fracture of first lumbar vertebra, initial encounter for closed fracture; X58.XXXA Exposure to other specified factors, initial encounter
CPT/HCPCS: 36415; 80048; 85025; 85730; 86850; 86900; 86901; 87070

== ENCOUNTER → 2022-01-09 | Outpatient (CLI) | payer MEDICARE, OTHER ==
--- NOTE | 2022-01-09 09:36 | CT ---
EXAMINATION TYPE: CT lumbar spine wo con CT DLP: 829 mGycm, Automated exposure control for dose reduction was used. DATE OF EXAM: 01/09/2022 8:35 AM COMPARISON: CT lumbar spine 10/30/2020.. CLINICAL INDICATION:Female, 71 years old with history of M48.56XA LUMBAR COMPRESSION FX, Lumbar compr ession fracture from fall x 3 weeks. TECHNIQUE: Multiple axial images were obtained from the midportion of T11 through the sacroiliac calvin nts. Soft tissue and bone windows in coronal and sagittal planes were obtained and reviewed. Contrast used: none. Oral contrast used: none. FINDINGS: Alignment: There are 5 lumbar type vertebral bodies. There is grade 1 anterolisthesis of L4 and L5. F ixation hardware at L4-L5 is present with hardware in place. Discectomy changes at L4-L5. Bone: Progression of compression deformity of the L1 vertebral body when comparing to prior in 2020. There is approximately 25-50% height loss anteriorly. No retropulsion. The remainder of the osseous s tructures appear intact. Hardware appears intact at L4 and L5. Discs: T12-L1: No spinal canal or neural foraminal stenosis is identified. L1-L2: Disc bulge and facet joint arthropathy result in mild spinal canal and mild neural foraminal s tenosis. L2-L3: Disc bulge and facet joint arthropathy result in mild spinal canal and mild neural foraminal s tenosis. L3-L4: Disc bulge and facet joint arthropathy result in moderate spinal canal and mild neural foramin al stenosis. L4-L5: Streak artifact limits evaluation at this level. Mild neural foraminal stenosis secondary to facet joint arthropathy. Spinal canal appears patent. There is disc uncovering at this level. L5-S1: No significant spinal canal or neural foraminal stenosis. Other: The gallbladder surgically absent. Atherosclerosis of the arterial vasculature. IMPRESSION: 1. Compression fracture of the L1 vertebral body which is new from 2020 with 25-50% height loss ante riorly. 2. Disc bulging and facet joint arthropathy with moderate spinal canal stenosis at L3-L4.
== END | disposition home or self-care (01) ==
LOC: RADCTMAIN 08:07
PROVIDERS: ATTEND Orthopaedic Surgery
DX: M48.56XA Collapsed vertebra, not elsewhere classified, lumbar region, initial encounter for fracture (principal); M51.26 Other intervertebral disc displacement, lumbar region; M48.061 Spinal stenosis, lumbar region without neurogenic claudication
CPT/HCPCS: 72131

== ENCOUNTER 2022-01-12 06:18 | Day surgery (SDC) | payer MEDICARE, OTHER ==
[2022-01-09 14:46] VITALS: BMI 32.5
[~2022-01-12 06:18] MED LIST changes: -TRANEXAMIC ACID 1,000 MG in SODIUM CHLORIDE 0.9% 100 ML IVPB PRN; +TRANEXAMIC ACID IN NACL,ISO-OS 1,000 MG in SALINE 1 100ML.BAG IVPB PRN
--- NOTE | 2022-01-12 06:19 | P.HPOR ---
History of Present Illness H&P Date: 01/06/22 .D:Date: 01/07/22 : 08:31am .T:Title: [facility] History and Physical Date of :[birth year] Age: 71 year Height: 5'3" Weight: 190 lbs BP:118/72 BMI: 33.66 kg/m2 Occupation: Retired VAS: 4 CHIEF COMPLAINT: recheck ofincreased lumbar pain related to fall, status post L4 to L5 revision decompression and TLIF DOI: approximately 06/16/2021 DOS: 10/30/2020 Duration of current treatment regiment: 3 months HISTORY : Xrays New xrays taken in office Trauma or injury yes fell against countertop approximately 3 months ago Work-Related No Pain description aching, burning, increasing . Location posterior Activity Modification No Hand Dominance right TREATMENTS COMPLETED: 6 weeks of PT completed? Month and Year of last PT date? 08/2021 Yes How many sessions? 12 Did it help? yes Physician directed home exercise completed? yes Patient has trialed the physician directed home exercise program for ( with) relief of their symptoms. Medications yes List: Aleve, Gabapentin 300mg, Flexeril all with relief of her symptoms Alternative interventions Chiropractic: No Massage therapy: No R.I.C.E: yes Brace: No Injections No RFA: No SUBJECTIVE: Ms. Gonzalez returns to the office for a recheck of their low back. Since the time of the last appointment the patient reports that she did fall from standing at home 3 weeks ago, denying any syncope but did have an episode of dizziness. Following her fall she was seen by her PCP due to her severe symptoms where she was directed to follow up here for subsequent evaluation. Since this incident the patient reports significantly increased low back pain into the buttocks. Due to her increase in pain she has had significant debility and cannot complete most daily activities. Her symptoms are exacerbated with standing, ambulation, and flexion/extension of the back. Overall the patient has seen a progressive in crease in symptoms since their onset. Patient is having severe sleep disturbances as well due to their ongoing pain and associated symptoms. Regarding treatments, the patient has previously trialed medications, rest, heat all without lasting relief of her symptoms. Patient denies trialing any other modalities at this time. For their symptoms, the patient has been taking Aleve and Tylenol. Otherwise the patient denies any f/c/sob/cp, no incision concerns, no bladder or bowel retention/incontinence, no perineal numbness/tingling, and ambulates independently. HPI: Ms. Gonzalez last presented to the office on 10/22/2021 for a recheck of their low back. Patient reports mild improvements since the time of the last appointment. The patient continues to complain of mild lumbar pain extending into the bilateral hips. Overall the patient has seen a progressive decreased in lumbar symptoms but notes that her hips are the same as they were at the time of the last appointment. Ms. Gonzalez symptoms are exacerbated with prolonged standing and ambulation, due to this they notes that it is increasingly difficult for Ms. Gonzalez to complete many of their daily tasks. Patient is having no sleep disturbances as well due to their ongoing pain and associated symptoms. Regarding treatments, the patient has previously trialed all abovementioned treatment modalities with improvements to her symptoms. Patient denies trialing any other modalities at this time. For their symptoms, the patient has been taking Motrin and Gabapentin with relief of her symptoms. Otherwise the patient denies any f/c/sob/cp, no incision concerns, no bladder or bowel retention/incontinence, no perineal numbness/tingling, and ambulates independently. Ms. Gonzalez was last seen on 10/08/2021 regarding her lower back following an injury that occurred on 06/16/2021. Patient states overall good improvement, no issues at this time for her lower back. Patient reports she was to follow up with Dr. Pittman regarding her bilateral lower extremity MRI. Patient states she has bilateral hip pain and bilateral lower extremity cramping. Patient states she has had this pain before and diagnosed with GTB and provided injections. Patient would like to plan follow up with Dr. Pittman for injections and review of MRI results at the same time. Currently patient denies any BLE numbness or tingling. She denies any f/c/sob/cp, no incision concerns, no bladder or bowel retention/incontinence no perineal numbness/tingling, and ambulates independently. Ms. Gonzalez was last seen on 07/16/2021 regarding a follow-up visit from her procedure of a L4-L5 revision decompression and TLIF. patient states that approximately one month ago she had fallen back into a countertop in which the corner of the countertop hit at the level of her lower back. She states she has had pain since this event with increased stiffness, and numbness/tingling to bilateral lower extremities. patient states the pain is increased with climbing stairs, carrying groceries, prolonged standing, and from sit to stand. Patient states she is currently taking Aleve as needed with no relief. Her PCP Dr. Oreilly had provided patient a steroid pack which she completed one week ago with some relief. Patient presented 02/13/2021 to the office for a follow up visit following her L4-L5 revision decompression and TLIF. Since the time of the last appointment the patient notes continued improvements to her strength and ROM. Patient denies any concerns at the time and is very happy with the progress that she has made. She denies any incision concerns, no fevers or chills. Additionally she is not t aking any pain medications aside from Tylenol PRN and Aspirin and is ambulating without the use of any aides. Patient last presented to the office on 12/20/2020. At that time the patient states that she is doing well. She notes that since the time of the last appointment she has improved well regarding her pain. Today the patient does not note any concerns about pain. She does however report generalized weakness about the bilateral upper and lower extremities but this coincides with her previous Parkinson's diagnosis. Overall she is happy with the progress she has made, denying any concerns about the surgical sites at this time. Additionally she state she has finished in home PT without any issues. Otherwise the patent does present to the office with the use of her TLSO brace and a cane for ambulation. Patient is happy with the current treatment course. She is not currently taking any pain medications. Of note, the patient does report intermittent right hip pain that is very tender to palpation about the bursa. She notes that this pain does wax and wane with activity. At the time of the patients last appointment on 11/20/2020 she was doing well, overall very happy with the progress she had made following her surgery on 10/28/2020. She noted some occasional pain that waxes and wanes with ambulation and standing. She denied any incision concerns at this time and overall feels that she is improving greatly. Patient did report some right lower extremity pain for the previous 5 days but this was not limiting her ambulation at this time. The patient was using a cane and wearing her TLSO brace for support with good effect. Additionally, she noted that her post-operative pain has been managed well with Montchanin and Aleve PM. She was otherwise well and happy with her outcome thus far. At the time of the patients last appointment their stiches were removed, given refills for Flexeril and Montchanin, and directed to continue the use of her cane and TLSO brace when ambulating. The patient was previously seen on 10/28/2020 for surgical revision, hardware removal, and decompression at L4-L5. The patient does have a history of L4-5 decompressive laminectomy and coflex placement (DOS:07/26/2020) which she noted did not improve her pain due to a fall and had increased low back pain since. This fall occurred after she tripped over a foot rest. At her previous visit on 10/09/[address] scan of the lumbar spine was reviewed and it was evident that there is a fracture through the pars area of the right hand side of L4. This was causing listhesis in this area. When compared to her flexion-extension films a CAT scan is a supine film it shows reduction of this L4 5 spondylolisthesis which originally was a stable grade 1 and after surgery has now become unstable since her fall and likely fracture in this area. I discussed with her that this was in need of surgical revision with rods and screws as well as the cage. The patients' past social, medical, family, surgical history, as well as review of systems, have been reviewed. Please refer to the Neurosurgery History and Physical form that has been scanned in to our electronic medical record system. 16 points review of systems completed and as stated in HPI, all other systems reviewed are negative. Social History: Reviewed, see appropriate section of the chart for details. P3 Social History: Smoking: never a smoker P3 Alcohol: socially drinks alcohol P3 Family History: Reviewed, see appropriate section of the chart for details. P2 Past Medical History: Reviewed, see appropriate section of the chart for details. [id number] Medications: Rx: famotidine 20 mg tablet Ref: 0 Rx: hydrocortisone 2.5 % topical cream Ref: 0 Rx: ibuprofen 600 mg tablet Ref: 0 Rx: carbidopa 25 mg-levodopa 100 mg tablet Ref: 0 Rx: Lexapro 10 mg tablet Ref: 0 Rx: gabapentin 300 mg capsule Ref: 0 Rx: ibuprofen 600 mg tablet Ref: 0 Rx: aspirin 81 mg tablet,delayed release Ref: 0 PHYSICAL EXAMINATION: General: Awake, alert, appropriate for age, in no acute distress. HEENT: No unusual neck masses around region of lateral neck triangle, thyroid, supraclavicular groove Heart: Regular rate and rhythm, normal S1, S2 and no murmur/gallop. Lungs: Clear to auscultation bilaterally with no use of accessory muscles. Extremities: Skin warm and dry without acute lesions, coloration, temperature, skin intact, no tenderness or erythema Integument: Hairy patches: Absent Dorsal skin dimples: Absent Cafe au lait spots: Absent Surgical incisions: yes Palpation: Please see Pain drawing on Intake sheet for further detail. Midline spinal tenderness: yes, L1 E6 Paralumbar tenderness: yes E6 Parathoracic tenderness: No E6 Buttocks tenderness: Yes, bilaterally E6 Special findings: yes, bilaterally POSTURAL and MUSCULO-SKELETAL EVALUATION: Coronal Balance: NEUTRAL Recumbent testing: Patient is able to lay flat on back Sagittal Balance: NEUTRAL Shoulder Profile: LEVEL Pelvic Girdle: LEVEL Neck ROM: UNRESTRICTED Lumbar ROM: RESTRICTED Shoulder ROM: Symmetrical Hip ROM: Symmetrical Knee ROM: Symmetrical Hands: Normal appearance, symmetrical Feet: Normal appearance, Symmetrical VASCULAR STATUS : LEFT RIGHT Wrist Pulses INTACT INTACT Pedal Pulses (Dors. pedis & post.tibialis) INTACT INTACT Color NORMAL NORMAL Edema Absent Absent NEUROLOGIC EXAMINATION: Mental Status:Awake and alert, fully oriented, with normal attention, concentration and memory, and fluent, appropriate speech. Cranial Nerves: I: Olfactory not tested. II: Visual acuity normal, no visual field deficit noted with confrontation. III,IV: Normal pupillary reflexes & intact extraocular movements without nystagmus. V,: Intact symmetrical facial sensation. VII: Intact symmetrical facial motor movement VIII: Hearing intact. IX,X: Intact gag, swallow, & normal voice. XI: Sternocleidomastoid, trapezius function intact. XII: Tongue midline with normal movements. L'hermitte's Sign: Negative / absent Spurling'Sign: Absent bilaterally. Cubital percussion test: Absent bilaterally. Duran-Tinel sign - Carpal region: Absent bilaterally. Straight Leg Raising: Absent bilaterally. Crossed straight leg raise: negative O8 MOTOR EXAM (0-5/5, N/T) STRENGTH RIGHT LEFT Shoulder Abd (not part of the JAIRO score) 5 5 Elbow Flexors 5 5 Elbow Extensor 5 5 Wrist Dorsiflexors 5 5 Finger Abductor 5 5 [place] Operator 5 5 Hip Flexor (Not part of JAIRO Motor score) 5 5 Knee Flexor 5 5 Knee Extensor 5 5 Ankle dorsiflexor 5 5 Ankle plantarflexion 5 5 Extensor hallucis 5 5 REFLEXES(0-4/2, NT) RIGHT LEFT Upper Extremities 2 2 Lower Extremities 2 2 Pathological Reflexes RIGHT LEFT Duran's Absent Absent Clonus Absent Absent Babinski Absent Absent # Indicates mechanical impairment Muscle appearance: Symmetrical, without signs of atrophy or dystrophy. Sensory system (0-4, N/T) Test type RU CRISTHIAN RL LL Joint-Position 2 2 2 2 Vibration 2 2 2 2 Pain & LT sense 2 2 2 2 Dermatomal Deficit: None None None None Gait and Functional Evaluation: Ambulatory aids: Independent Romberg's test: Intact bilaterally Toe heel walk / heel-toe walk intact while maintaining satisfactory balance? yes Squatting/straightening w/o assistance to a min of 60 degree knee flexion? yes Single leg stance: intact Hand and finger dexterity intact bilaterally? yes Disdiadochokinesis examination negative bilaterally? yes RADIOGRAPHIC STUDIES: Xray taken today and compared to previous films show a new L1 compression type fracture that is 40% compressed fom the inferior enplate. There is no evidence of hardware loosening at L4-5. There is good bony consolidation noted at this level. No other fractures or instability noted other than the acute L1 fracture. I MPRESSION: It was my pleasure to have seen and examined Asha. I reviewed the patient's clinical syndrome, physical findings, and imaging studies during the appointment today. It is my impression that the patient has a diagnosis of. 1. New, Acute L1 VCF 40% wedge 2. s/p ffs with BHT 3. s/p L4-5 TLIF, stable I outlined the natural course history without intervention and various interventional options. PLAN: Based on my findings I suggest the following course of action: -Advised patient to continue with supplements, health maintenance, and home exercise programs. Patient expressed understanding and will continue with these modalities. - Ordered a CT scan without contrast of the lumbar spine for further evaluation of her acute fracture and pre-operative planning. - We reviewed her recent injury, Xrays, clinical findings, and acute symptoms. I discussed treatment options with the patient, including operative and non- operative options, and they have elected to proceed with the following surgical procedure: lumbar (L1) Kyphoplasty The indications, risks, benefits, and alternatives to surgery were discussed with the patient at length. Specifically (but not limited to) the risks of infection, stiffness, recurrence of symptoms, need for revision surgery, local numbness, neurovascular injury, and blood clots were discussed. The patient's questions were answered. The decision to proceed was made. Consent will be obtained for the procedure. Patient will plan on following up with her PCP for pre-operative clearance. - Patient referred to the [facility] fragility Fracture clinic for further evaluation and treatment of her osteoporosis. The patient was given instructions to care for the joint after this injection. -Ambulate daily -Take medications as directed -Ice and rest for pain and swelling control. Follow- up: Post op Patient Education: (Informational booklet, instructions, etc) given at today's appointment: Yes .ED:Patient Education: Y Medications Reviewed: YES In our visit today Ms. Gonzalez and I have had a chance to go over my understanding of the patient's current condition, the natural course history without intervention and various interventional options. Questions were invited and answered, and the patient wishes to proceed as outlined above. I will be sure to keep you updated afterMs. Gonzalez returns here for further follow-up. Thank you again for your referral. Please do not hesitate to contact me if you have any further questions. Signed and authenticated by: Matthew Sharif [facility] [address] [place] [id number] This message is confidential, intended only for the named recipient(s) and may contain information that is privileged or exempt from disclosure under applicable law. If you are not the intended recipient(s), you are notified that the dissemination, distribution or copying of this information is strictly prohibited. If you received this message in error, please notify the sender then delete this message. Patient verbalizes understanding of the information discussed. The above note was initiated by Matthew Grossman, physician recording assistant professor of geography for Dr. Matthew Pittman. This note has been reviewed by Dr. Pittman, who has made his personal changes and impressions for this document. Lala Oreilly M.D #Orders: Lumbar 2v xray #Orders: CT Scan # SIGNED BY Matthew Pittman (GOO)01/07/2022 09:45A Past Medical History Past Medical History: CVA/TIA, Diabetes Mellitus, GERD/Reflux, Hyperlipidemia, Hypertension, Memory Impairment, Osteoarthritis (OA), Pneumonia, Thyroid Disorder Additional Past Medical History / Comment(s): ?TIA (OVER 10 YRS AGO-STATES SOME INFORMATION ASSURANCE MEMORY LOSS., PARKINSONS, SEASONAL ALLERGIES, OSTEOPOROSIS., PAST HX INTERSTITIAL CYSTITIS., DRY EYES, BEGINNING MACULAR DEGENERATION., COVID 12/07/21 WITH PNEUMONIA AND ANEMIA SINCE THEN., HX OF FALL 3 WEEKS AGO WITH COMPRESSION FX-STATES SHE BLACKED OUT. History of Any Multi-Drug Resistant Organisms: None Reported Past Surgical History: Adenoidectomy, Back Surgery, Bladder Surgery, Cholecystectomy, Heart Catheterization, Hysterectomy, Joint Replacement, Orthopedic Surgery, Tonsillectomy, Tubal Ligation Additional Past Surgical History / Comment(s): LEFT ROTATOR CUFF, RIGHT FROZEN SHOULDER, JEFF KNEES-TOTAL AND PARTIAL, OOPHERECTOMY, CYSTOSCOPIES, BLADDER SUSPENSION, INTERSTITIAL CYSTITIS, JEFF CARPAL TUNNEL, PAIN CLINIC PROCEDURES , EYE SURGERY (CHILD), EYELID RESECTION & EYEBROW LIFT. , LAMINECTOMY JULY 2020 AND FELL 4 WEEKS LATER AND HAD FX AND ANOTHER BACK SURGERY WITH CAGE. Past Anesthesia/Blood Transfusion Reactions: Previous Problems w/ Anesthesia Additional Past Anesthesia/Blood Transfusion Reaction / Comment(s): STATES MEDICATION "CURRARRE" USED OVER 25 YEARS AGO, SHE WAS PARALYZED AND COULD NOT MOVE OR BREATHE. Past Psychological History: Depression Smoking Status: Never smoker Past Alcohol Use History: Occasional Past Drug Use History: None Reported - Past Family History Mother Family Medical History: Cancer Additional Family Medical History / Comment(s): SKIN CANCER Father Family Medical History: Cancer Additional Family Medical History / Comment(s): SKIN CANCER Sister(s) Family Medical History: Cancer Additional Family Medical History / Comment(s): BREAST CANCER Medications and Allergies Home Medications Medication Instructions Recorded Confirmed Type Fenofibrate [Lofibra] 160 mg PO DAILY 02/05/20 01/09/22 History Levothyroxine Sodium [Synthroid] 50 mcg PO HS 02/05/20 01/09/22 History Loratadine [Claritin] 10 mg PO DAILY PRN 02/05/20 01/09/22 History Pioglitazone [Actos] 15 mg PO HS 02/05/20 01/09/22 History Magnesium Oxide 800 mg PO BID 07/20/20 01/09/22 History Lisinopril-Hctz 20-25 mg 1 tab PO DAILY 08/15/20 01/09/22 History [Zestoretic 20-25] Aspirin [Adult Low Dose Aspirin EC] 81 mg PO DAILY 10/24/20 01/09/22 History Carbidopa-Levodopa 25-100 mg 2 tab PO QID 10/24/20 01/09/22 History [Sinemet 25-100] Acetaminophen [Tylenol Extra 100 mg PO DIRECTED PRN 01/09/22 01/09/22 History Strength] Alendronate Sodium [Fosamax] 70 mg PO TEIXEIRA 01/09/22 01/09/22 History Cetirizine HCl [Zyrtec] 10 mg PO DAILY PRN 01/09/22 01/09/22 History Citracal 1 dose PO DAILY 01/09/22 History Empagliflozin [Jardiance] 10 mg PO DAILY 01/09/22 01/09/22 History Escitalopram Oxalate [Lexapro] 20 mg PO HS 01/09/22 01/09/22 History Ferrous Sulfate [Feosol] 325 mg PO DAILY 01/09/22 01/09/22 History Gabapentin [Neurontin] 300 mg PO TID 01/09/22 01/09/22 History Krill Oil 500 mg PO DAILY 01/09/22 01/09/22 History Multivit with Calcium,Iron,Min 1 each PO DAILY 01/09/22 01/09/22 History [Women's Multivitamin] Naproxen Sodium [Aleve] 440 mg PO DAILY PRN 01/09/22 01/09/22 History Waverly-3 Fatty Acids [Waverly-3] 90 mg PO DAILY 01/09/22 01/09/22 History Rosuvastatin Calcium [Crestor] 40 mg PO HS 01/09/22 01/09/22 History Vitamin C, D & Zinc 1 tab PO DAILY 01/09/22 History Allergies Allergy/AdvReac Type Severity Reaction Status Date / Time erythromycin base Allergy Unknown Rash, Verified 01/09/22 13:58 itching, lips swollen, tingling, head like basketball oxycodone Allergy Unknown vomit bile Verified 01/09/22 13:58 Penicillins Allergy Unknown Rash, Verified 01/09/22 13:59 itching sulfamethoxazole Allergy Unknown rash, Verified 01/09/22 13:58 [From Bactrim] itching tolterodine [From Detrol] Allergy Unknown itching/nelly Verified 01/09/22 13:58 h tramadol [From Ultram] Allergy Unknown Rash, Verified 01/09/22 13:58 itching, lips swollen, tingling, head like basketball trimethoprim [From Bactrim] Allergy Unknown rash, Verified 01/09/22 13:58 itching nickel Allergy Rash/Hives Verified 01/09/22 13:58 hydromorphone [From Dilaudid] AdvReac Unknown reaction Verified 01/09/22 13:58 in higher doses, rash, itching gel adhesive pad Allergy Unknown ekg pads Uncoded 01/09/22 13:58 and adhesive- chemical burn, itching rash Physical Examination Osteopathic Statement: *. No significant issues noted on an osteopathic structural exam other than those noted in the History and Physical/Consult. Assessment and Plan Plan: .D:Date: 01/07/22 : 09:45am .T:Title: Surgical Procedure Risk Review Asha Gonzalez is a 71 year old female presenting for evaluation of sudden onset of low back pain afer a fall athome 2 weeks ago. It was my pleasure to have seen and examined Ms. Gonzalez. In our visit today we have had a chance to go over subjective complaints, physical examination findings and treatments, including the natural course history without intervention and various interventional options. The imaging demonstrates New L1 vertebral compression fractgure 40% wedge type . On physical exam, Ms. Gonzalez demonstrates TTP midline over L1, pain with motion of the low back, difficultywith ADLs secondary to pain, pain with ambulation in her mid/low back . I explained to the patient that as her condition progresses it could cause Continued pain, progressive symptoms and collapse of L1 . At this time, based on the patients imaging and physical exam, I recommend surgery in the form or a: L1 kyphoplasty . I discussed the risk and benefits of this procedure at length with Ms. Gonzalez. The patient and her husbandagreed to consider pursuing the procedure mentioned above. Plan: 1. L1 kyphoplasty 2. Follow up with PCP for surgical clearance 3. Review of surgical risks and benefits as well as an educational packet on the proposed surgical procedure. Risks: All surgical procedures come with inherent risks, including those related to positioning, anesthesia, intraoperative findings, and postoperative complications. It is important to understand that surgery does not come with any guarantee of a successful outcome as complications and adverse events are always possible. The patient was given a handout in office today discussing the surgical procedure and risks associated with the intervention, both of which were discussed with the patient. These risks include but are not limited to the following: ? Experiencing same, different or even worse symptoms in back, neck, arms, or legs compared to before surgery. ? Requiring further surgery or other forms of treatment presently or at some time in the future at same or other levels of the intended spine surgery. ? On an extreme but fortunately relatively rare basis severe complication such as blindness, stroke, heart attack, temporary and/or permanent nerve injury, paralysis, coma, or may occur, sometimes without known explanation. ? Surgical complications may include but are not limited to risk of infection, fluid accumulation in the surgical dissection site, including a seroma or hematoma, that requires additional surgery, wound drainage, bleeding, new numbness or weakness, vision changes/loss, spinal fluid leakage, non-healing and/or infected incision, headaches, difficulty or inability to swallow, hoarseness, hemopneumothorax, pneumothorax, impotence, retrograde ejaculation, vaginal dryness; injury to nerves, spinal cord, blood vessels, lymphatics or other vital organs (i.e., bowel injury, injury to the great vessels); heterotopic bone formation; complications related to the hardware such as screws, rods, cages including misplaced hardware, device failure, instrumentation at the wrong spine level, hardware fracture/breakage, or hardware loosening; vertebral failure of the spinal column above or below the newly placed hardware; retained surgical instrumentations or devices and the need for further surgery. ? Medical risks of the planned spine surgery include but are not limited to generalized Infections to the whole body or local areas outside of the surgical site (sepsis), heart attack, bleeding, anaphylaxis, meningitis, seizure, epilepsy, hearing loss, burn [place], laceration of the head or other areas of the body, bruising, hypersensitivity of the skin, bladder over distension; allergic reaction; shoulder injury related to positioning; fat, blood and air clots to other areas of the body like heart, lungs, brain; failure of internal organs such as lungs, kidneys, liver and excessive bleeding. If blood transfusions are necessary, note that transfusions may cause intolerance reactions such as anaphylaxis or other complex reactions. Despite best efforts, the results of spine surgery might not heal in terms of bone, soft tissues such as skin, fascia, ligaments, and joints. Additionally, in order to achieve best possible results, spine surgery may be carried out beyond the initially planned levels and involve decompression, fusion including insertion of hardware at levels other than the original intended area of surgical interest change some portions of the procedure in order to ensure the best possible outcomes. With spine surgery and spinal fusion, there are different off label uses of instrumentation (devices, implants and hardware) as well as biological subs tances (bone morphogenic proteins, demineralized bone matrix) as well as using extra bone from allograft sources (i.e. cadaver bone) or autograft (iliac crest bone, ribs, or the spine itself). The patient has been given information about these practices and their inherent risks and benefits. Wilmer Santoyo Physician Assistants are medically trained surgical providers who function in the outpatient, inpatient, and operating room setting under the direct supervision of the attending surgeon.They assist in the operating room with direct supervision of the attending surgeons. The patient has had a chance to review all the listed information, has been given print outs detailing this information, and has had all his/her questions answered to their satisfaction. It was my pleasure to have seen and examined Ms. Gonzalez. In our visit today we have had a chance to go over my understanding of our patient's current condition, the natural course history without intervention and various interventional options. Questions were invited and answered, and the patient wishes to proceed as outlined above. I have seen and examined the patient for 25 minutes and we have spent more than 50% of the time in repeat and detailed counseling about the patient's condition, its natural course history with out and as much as can be predicted with surgery and re-review of various surgical treatment options. In conclusion,Ms. Gonzalez and her spouse/partner requested we proceed with the above suggested surgery and are willing to accept risks and limitations of the suggested surgery as nature of the disease process and our best attempts at treatment for the condition. Thank you again for allowing us to be part of your patient's care. Please don't hesitate to contact me if you have any further questions. Signed and authenticated by: Matthew Campa [facility] [address] [place] [address] [place], [address] [id number] # SIGNED BY Matthew Pittman (GOO)01/07/2022 09:47AM
[2022-01-12 07:04] VITALS: RESP 16; TEMP 98
[2022-01-12] MEDS ORDERED: DEXAMETHASONE SOD PHOSPHATE 4 MG/ML 1 ML VIAL IVP ONE (07:04)
[2022-01-12] MEDS ORDERED: LACTATED RINGERS 1,000 ML IV ONE ×2 (07:04→09:04)
[2022-01-12 07:06] LABS: Glucose,Whole Blood 115 mg/dL (70-110)
[2022-01-12 07:16] LABS: INR 1.1 (<1.2); Prothrombin Time 11.5 sec (9.0-12.0)
[2022-01-12] MEDS ORDERED: TRANEXAMIC ACID IN NACL,ISO-OS 1,000 MG/100 ML BAG ONE (07:25)
[2022-01-12] MEDS ORDERED: ePHEDrine 50 MG/ML 1 ML VIAL ONE (07:25)
[2022-01-12] MEDS ORDERED: PROPOFOL 10 MG/ML 20 ML VIAL IV ONE (07:25)
[2022-01-12] MEDS ORDERED: MIDAZOLAM 2 MG/2 ML VIAL ONE (07:25)
[2022-01-12] MEDS ORDERED: LIDOCAINE 2% INJ 20 MG/ML (2 ML VIAL) ONE (07:25)
[2022-01-12] MEDS ORDERED: fentaNYL (PF) 50 MCG/ML 2 ML AMP ONE (07:25)
[2022-01-12] MEDS ORDERED: SUCCINYLCHOLINE CHLORIDE 200 MG/10 ML VIAL IV ONE (07:25)
[2022-01-12] MEDS ORDERED: WATER FOR INJECTION, STERILE 10 ML VIAL IV ONE (07:25)
[2022-01-12] MEDS ORDERED: LIDOCAINE 1%-EPI 1:100,000 20 ML VIAL SQ ONE (08:00)
[2022-01-12] MEDS ORDERED: IOPAMIDOL M200 10 ML VIAL MISCELLANE ONE (08:01)
--- NOTE | 2022-01-12 08:23 | P.OP ---
Date of Procedure: 01/12/22 Preoperative Diagnosis: 1. L1 VCF 40% 2. Sp ffs Postoperative Diagnosis: 1. L1 VCF 40% 2. Sp ffs Procedure(s) Performed: 1. L1 kyphoplasty with biopsy (88536) Implants: Jem cement Anesthesia: SCARA Surgeon: Matthew Pittman Estimated Blood Loss (ml): 5 IV fluids (ml): 150 Urine output (ml): 0 Pathology: other (L1 vertebral body) Condition: stable Disposition: PACU Indications for Procedure: 71 yo female presented after FFS with mid and lower back pain. She was found to have L1 VCF that was 40% collapsed. She tried bracing but this did not help her and she continued to have severe back pain. We discussed different options for her and she has elected for kyphoplasty. We discussed risks and benefits as outlined in risk review. She is willing to assume all the risks of surgery. She is willing to proceed. Description of Procedure: The patient was seen and examined in the preoperative area. All preoperative protocols were followed. Informed consent was obtained risks and benefits of the procedure were discussed at length. Risks including bleeding infection damage to the surrounding tissue and risk of reoperation were discussed with the patient. Risk of anesthesia up to and including was a discussed with the patient. These are outlined in the risk review. They were willing to accept these risks and all of the risks of surgery. The patient was given a weight- based dose of antibiotics in the form of 2 g Ancef. The patient was seen and evaluated by the anesthesia team who deemed them fit for surgery. The site was marked, the patient was willing to proceed with the procedure. The patient was transferred to the operative suite by the Department of anesthesia. They were then drifted off to sleep by the department anesthesia and GETAwas performed. The patient tolerated this well. [Arellano catheter was placed by nursing staff, atraumatically]. Once confirmation of lines and ventilation the patient was transferred to a [prone José Miguel table very carefully]. All bony prominences including wrists, elbows, axilla, chest, hips, and thighs, and feet were padded very well. Special attention was paid to the genitalia and these were padded accordingly. SCDs were placed on bilateral lower extremities and were connected. Arms were well padded and placed [on arm boards up and out in the 90/90 position]. Once in position, again we confirmed good ventilation capabilities and that lines were running appropriately. The patient's lumbar spine was then exposed. 1010s were placed outlining the incision site. Standard alcohol was used to clean the incision site and allowed to dry. C-arm was used to biomark the patient and confirm level for incision which was marked with a skin marker. Operative briefing was performed with all teams and everyone in agreement to proceed. The patient was then prepped and draped in a normal sterile fashion. Timeout was then performed and all parties were in agreement with the procedure to be performed. spinal needle was used to localize the L1 pedicle on the left-hand side. Once this was identified skin james was made in G she was taken down pedicles to the left-hand side with biplanar fluoroscopy. Once Center Center within the body the trocar was removed and drill was inserted. This was followed by the biopsy needle and biopsy was taken of L1 vertebral body. Curet was then entered and created space along with balloon which was inflated. This was then visualized under AP and lateral fluoroscopy and was well centered and create a good space. We then injected cement under pulsed lateral fluoroscopy. Patient went stable throughout this process there is no cement myelogram arteriogram. There was good fill of the L1 vertebral body. Jamshidi and trocar were then removed and final AP and lateral confirmed good placement of cement. The area was anesthetized with core percent Marcaine without epinephrine. The wound was cleaned a single stitch was placed in the skin glue was placed on top of this. It was dressed with a Band-Aid. The patient was transferred back to their hospital bed atraumatically. . Patient was then awakened and extubated by the department of anesthesia having tolerated the procedure very well with no complications. They were transferred to the postoperative care unit in stable condition.
[2022-01-12] MEDS ORDERED: HYDROcodone/APAP 5-325MG 1 EACH TAB PO PRN (08:24)
[2022-01-12] MEDS ORDERED: SENNOSIDES-DOCUSATE SODIUM 1 EACH TAB PO PRN (08:24)
[2022-01-12] MEDS ORDERED: HYDROcodone/APAP 10-325MG 1 EACH TAB PO PRN (08:24)
[2022-01-12] MEDS ORDERED: CYCLOBENZAPRINE 5 MG TAB PO PRN (08:24)
--- NOTE | 2022-01-12 09:18 | XR ---
EXAM TYPE: LUMBAR SPINE X RAY SERIES COMPARISON: NONE HISTORY: None TECHNIQUE: 7 views are submitted. FINDINGS: Limited resolution intraoperative views of the lumbar spine were obtained. There is a compression def ormity in the upper lumbar region with postsurgical changes involving the lower lumbar spine. IMPRESSION: 1. Postsurgical changes.
--- NOTE | 2022-01-12 09:18 | FL ---
EXAMINATION TYPE: FL guidance operating room DATE OF EXAM: 01/12/2022 HISTORY: Fluoroscopy time 40 seconds of fluoroscopy provided. IMPRESSION: 1. Fluoroscopy time.
[2022-01-12 09:26] VITALS: BP 114/73; PULSE 81
[2022-01-12 09:37] LABS: Glucose,Whole Blood 128 mg/dL (70-110)
[2022-01-12] MEDS ORDERED: ACETAMINOPHEN TAB 325 MG TAB PO SCH (12:00)
== END 2022-01-12 09:45 | disposition home or self-care (01) ==
LOC: OR 06:18
PROVIDERS: ATTEND Orthopaedic Surgery
DX: S32.010A Wedge compression fracture of first lumbar vertebra, initial encounter for closed fracture (principal); K21.9 Gastro-esophageal reflux disease without esophagitis; E11.9 Type 2 diabetes mellitus without complications; E78.5 Hyperlipidemia, unspecified; I10 Essential (primary) hypertension; M19.90 Unspecified osteoarthritis, unspecified site; J18.9 Pneumonia, unspecified organism; E07.9 Disorder of thyroid, unspecified; R41.3 Other amnesia; F10.90 Alcohol use, unspecified, uncomplicated; F32.A Depression, unspecified; Z86.16 Personal history of COVID-19; Z90.89 Acquired absence of other organs; Z98.890 Other specified postprocedural states; Z95.5 Presence of coronary angioplasty implant and graft; Z90.710 Acquired absence of both cervix and uterus; Z90.49 Acquired absence of other specified parts of digestive tract; Z98.51 Tubal ligation status; Z80.8 Family history of malignant neoplasm of other organs or systems
CPT/HCPCS: 85610; 88307; 88311; 72100; 22514; C1713; J2250; J0330; J1100; J0690; J2405; J3010; J2704; Q9966; J2001; 86850; 86900; 86901

== ENCOUNTER → 2022-07-01 | Outpatient (CLI) | payer MEDICARE, OTHER ==
--- NOTE | 2022-07-02 21:35 | MR ---
EXAMINATION TYPE: MR lumbar spine wo con DATE OF EXAM: 07/01/2022 COMPARISON: Prior MRI lumbar spine July 22, 2020. Most recent lumbar spine x-ray January 28, 2022 HISTORY: Low back pain since December 2001 going into both thighs and buttocks. History of prior surge ry December 2021 TECHNIQUE: Multiplanar, multisequence imaging of the lumbar spine is performed without IV contrast. FINDINGS: Sagittal images of the lumbar spine shows [id number] height loss with diminished sign al from vertebroplasty involving the L1 vertebra. Artifact from posterior interpedicular rods and scr ews and metallic disc material at L4-L5 level is redemonstrated. Slight grade 1 anterolisthesis L4 on L5 is again seen. Multilevel disc desiccation is present. With disc space heights are preserved. Th e conus medullaris is normal in position and signal ending at T12-L1 disc space level. The bone jihan ow signal intensity is within normal limits. Axial images show T12-L1 level to appear within normal limits. Axial images at L1-L2 level show mild broad disc bulge minimally effacing the anterior thecal sac. Pa tent bilateral neural foramina. Axial images at L2-L3 level appear within normal limits. Axial images at L3-L4 level show artifact from surgical change below this. There is mild broad-based posterior disc protrusion effacing the anterior thecal sac. There is mild bilateral foraminal narrowi ng. Axial images L4-L5 level show spondylolisthesis and artifact from surgical change L4-L5 level. Bilate ral neural foramina are felt patent. Spinal canal is preserved. Axial images at L5-S1 level Appears within normal limits. No suspicious retroperitoneal findings are seen. IMPRESSION: Spondylolisthesis and postsurgical change L4-L5 level redemonstrated. Mild to moderate he ight loss with vertebroplasty L1 level. Multilevel degenerative changes as detailed above.
== END | disposition home or self-care (01) ==
LOC: RADMRIMAIN 18:53
PROVIDERS: ATTEND Orthopaedic Surgery
DX: M43.16 Spondylolisthesis, lumbar region (principal); M47.816 Spondylosis without myelopathy or radiculopathy, lumbar region
CPT/HCPCS: 72148

== ENCOUNTER 2022-08-04 06:25 | Day surgery (SDC) | payer MEDICARE, OTHER ==
[2022-08-03 09:38] VITALS: BMI 33.6
--- NOTE | 2022-08-03 13:16 | P.HPOR ---
History of Present Illness H&P Date: 07/08/22 .D:Date: 07/08/22 : 04:52pm .T:Title: [facility] Date of :[birth year] R14 Allergies: Age: 72 year Height: 5'3" Weight: 190 lbs BMI: 33.66 kg/m2 Occupation: Retired VAS: 6 CHIEF COMPLAINT: S/P L1 kyphoplasty DOI:None DOS:01/12/2022 Post Op Week: 6 months HISTORY: Ms. Gonzalez returns to the office for a post-operative evaluation and MRI results following their L1 kyphoplasty and L4-L5 decompression and fusion. Patient reports no changes in symptoms since last appointment with her still having some low back and hip pain. Patient states they have been wearing their LSO brace with some relief. Ms. Gonzalez notes that their symptoms are exacerbated with prolonged ambulation and high impact movements like walking up and down the stairs, but this is well controlled with rest and medications. Patient is having no sleep disturbances as well. The patient denies taking any medications for pain at this time. Otherwise the patient is very happy with the progress they have made and have no acute concerns at this time. Patient denies any f/c/sob/cp, no incision concerns, no bladder or bowel retention/incontinence, no perineal numbness/tingling, and ambulates independently. The patient's past medical history; past surgical history; family history; medicines; allergies and social history have been reviewed and are as stated elsewhere in the chart. 16 points review of systems completed and as stated in HPI, all other systems reviewed are negative. PHYSICAL EXAM: -Patient is alert and oriented 3 appears well-nourished well-hydrated is in no acute distress. They do not appear septic. -On exam the patient has no tenderness to palpation of their thoracic or lumbar spine. There is no edema or ballottement sign. -Upper extremities show 5/5 strength in all major muscle groups. -Lower extremities with 4 out of 5 strength in all major muscle groups. Patient demonstrates decreased, but still positive Forton's finger on the right side along with bilateral positive compression testing and (R>L) positive distraction testing. -There is FROM that is painless of the b/l UE and LE in all major joints. -They are intact to light touch sensation in L2 to S1 nerve distribution as well as the C5-T1 distribution. -DTRs 2/4 all upper and lower -Patient has palpable distal pulses in all four extremities -Compartments are soft and compressible. -Neg Duran's -No Clonus -Neg Babinski -Neg Igor's -No tensioning signs. -Cranial nerves II through XII are grossly intact. -Overall alignment is well-maintained in the sagittal coronal planes. Surgical incision: Looks good, no sign of any infection, no drainage, EEE, edema, or ecchymosis. No fevers or chills. SI joint pain: positive +Fortons +FABER4 +Hip Thrust RADIOGRAPHS: Lumbar MRI taken on 07/01/22 at [facility]: images reviewed with patient. There are no comp cane processes seen. There is spondylosis noted at L5-S1 and L3-L4. A surgical changes noted L4-L5 with good decompression and hardware placement. No evidence of loosening fracture failure and infection. There is in the visualized SI joints some uptake related to sacroiliitis. No acute fractures noted. No lesions. ASSESSMENT: 1. S/P L1 kyphoplasty 2. B/L SI Joint pain 3. S/P L4-L5 decompression and fusion 4. Low back pain PLAN: All options were reviewed today, we decided the best course of action would be: -Advised patient to continue with supplements, health maintenance, and home exercise programs. Patient expressed understanding and will continue with these modalities. I discussed treatment options with the patient, including operative and non- operative options, and they have elected to proceed with the following surgical procedure: B/L SI Joint Injections The indications, risks, benefits, and alternatives to surgery were discussed wit h the patient at length. Specifically (but not limited to) the risks of infection, stiffness, recurrence of symptoms, need for revision surgery, local numbness, neurovascular injury, and blood clots were discussed. The patient's questions were answered.The decision to proceed was made. Consent will be obtained for the procedure. -Wear brace as needed/when up and about, do not sleep or shower in it. -Ambulate daily -Take pain medications and post op medications as needed and as directed -Ice and rest for pain and swelling control. Spine Surgery Risk Review Ms. Gonzalez is presenting for evaluation of B/L SI Joint pain. It was my pleasure to have seen and examined Ms. Gonzalez. In our visit today we have had a chance to go over subjective complaints, physical examination findings and treatments including the natural course history without intervention and various interventional options. The patients imaging demonstrates: Lumbar MRI taken on 07/01/22 at [facility]: images reviewed with patient. There are no comp cane processes seen. There is spondylosis noted at L5-S1 and L3-L4. A surgical changes noted L4-L5 with good decompression and hardware placement. No evidence of loosening fracture failure and infection. There is in the visualized SI joints some uptake related to sacroiliitis. No acute fractures noted. No lesions. On physical exam, Ms. Gonzalez demonstrates: SI joint pain: positive +Fortons +FABER4 +Hip Thrust I have explained to the patient that as their condition progresses it will cause further neurological deficits and eventual paralysis. Based on the patients imaging, physical exam, and the rapid progression and disabling nature of their symptoms, at this time I recommend surgery in the form of a: B/L SI Joint Injections. I discussed the risk and benefits of this procedure at length with Ms. Gonzalez. The patient agreed to considered pursuing the procedure abovementioned. Prior to surgery, she should follow up with her PCP (Cardio, ID, IM etc) for clearance. Questions were invited and answered, and the patient wishes to proceed as outlined below. Currently, I am recommendin.B/L SI Joint Injections 2.Follow up with PCP for surgical clearance 3.Review of surgical risks and benefits as well as an educational packet on the proposed surgical procedure. Risks: All surgical procedures come with inherent risks, including those related to positioning, anesthesia, intraoperative findings, and postoperative complications. It is important to understand that surgery does not come with any guarantee of a successful outcome as complications and adverse events are always possible. The patient was given a handout in office today discussing the surgical procedure and risks associated with the intervention, both of which were discussed with the patient. These risks include but are not limited to the following: * Experiencing same, different or even worse symptoms in back, neck, arms, or legs compared to before surgery. Requiring further surgery or other forms of treatment presently or at some time in the future at same or other levels of the intended spine surgery. On an extreme but fortunately relatively rare basis severe complication such as blindness, stroke, heart attack, temporary and/or permanent nerve injury, paralysis, coma, or may occur, sometimes without known explan ation. Surgical complications may include but are not limited to risk of infection, fluid accumulation in the surgical dissection site, including a seroma or hematoma, that requires additional surgery, wound drainage, bleeding, new numbness or weakness, vision changes/loss, spinal fluid leakage, non-healing and/or infected incision, headaches, difficulty or inability to swallow, hoarseness, hemopneumothorax, pneumothorax, impotence, retrograde ejaculation, vaginal dryness; injury to nerves, spinal cord, blood vessels, lymphatics or other vital organs (i.e., bowel injury, injury to the great vessels); heterotopic bone formation; complications related to the hardware such as screws, rods, cages including misplaced hardware, device failure, instrumentation at the wrong spine level, hardware fracture/breakage, or hardware loosening; vertebral failure of the spinal column above or below the newly placed hardware; retained surgical instrumentations or devices and the need for further surgery. * Medical risks of the planned spine surgery include but are not limited to generalized Infections to the whole body or local areas outside of the surgical site (sepsis), heart attack, bleeding, anaphylaxis, meningitis, seizure, epilepsy, hearing loss, burn [place], laceration of the head or other areas of the body, bruising, hypersensitivity of the skin, bladder over distension; allergic reaction; shoulder injury related to positioning; fat, blood and air clots to other areas of the body like heart, lungs, brain; failure of internal organs such as lungs, kidneys, liver and excessive bleeding. If blood transfusions are necessary, note that transfusions may cause intolerance reactions such as anaphylaxis or other complex reactions. Despite best efforts, the results of spine surgery might not heal in terms of bone, soft tissues such as skin, fascia, ligaments, and joints. Additionally, in order to achieve best possible results, spine surgery may be carried out beyond the initially planned levels and involve decompression, fusion including insertion of hardware at levels other than the original intended area of surgical interest change some portions of the procedure in order to ensure the best possible outcomes. With spine surgery and spinal fusion, there are different off label uses of instrumentation (devices, implants and hardware) as well as biological substa nces (bone morphogenic proteins, demineralized bone matrix) as well as using extra bone from allograft sources (i.e. cadaver bone) or autograft (iliac crest bone, ribs, or the spine itself). The patient has been given information about these practices and their inherent risks and benefits. [facility] is an educational center that serves as a training facility for neurosurgical and orthopedic [employer] PROFESSOR and Nursing students. Physician assistants are medically trained surgical providers who function in the outpatient, inpatient, and operating room setting under the direct supervision of the attending surgeon. [facility] has multiple operating rooms with single and overlapping rooms running daily. They currently function under the required guidelines as produced by the [facility] Finance Committee with regards to the overlapping rooms and will continue to comply with changes to this policy as they occur. The requirements include and are complied with as follows: (1) the critical portions of the overlapping rooms will not occur at the same time, (2) the attending physician will be physically present during the critical portions of the procedure and immediately available during the entire case, and (3) a back-up attending is designated should the primary attending not be immediately available. The patient has had a chance to review all the listed information, has been given print outs detailing this information, and has had all his/her questions answered to their satisfaction. It was my pleasure to have seen and examined Ms. Gonzalez. In our visit today we have had a chance to go over my understanding of our patient's current condition, the natural course history without intervention and various interventional options. Questions were invited and answered, and the patient wishes to proceed as outlined above. I have seen and examined the patient for 25 minutes and we have spent more than 50% of the time in repeat and detailed counseling about the patient's condition, its natural course history with out and as much as can be predicted with surgery and re-review of various surgical treatment options. In conclusion, Ms. Gonzalez requested we proceed with the above suggested surgery and are willing to accept risks and limitations of the suggested surgery as nature of the disease process and our best attempts at treatment for the condit ion. Thank you again for allowing us to be part of your patient's care. Please don't hesitate to contact me if you have any further questions. Follow-up: Post procedure Patient Education: (Informational booklet, instructions, etc) given at today's appointment: Yes .ED:Patient Education: Y Medications Reviewed: YES Attestation: In our visit today Ms. Gonzalez and I have had a chance to go over my understanding of the patient's current condition, the natural course history without intervention and various interventional options. Questions were invited and answered, and the patient wishes to proceed as outlined above. I will be sure to keep you updated afterMsJovanna Gonzalez returns here for further follow-up. Thank you again for your referral. Please do not hesitate to contact me if you have any further questions. Signed and authenticated by: Matthew [facility] [address], [address] [address] This message is confidential, intended only for the named recipient(s) and may contain information that is privileged or exempt from disclosure under applicable law. If you are not the intended recipient(s), you are notified that the dissemination, distribution or copying of this information is strictly prohibited. If you received this message in error, please notify the sender then delete this message. CC: Cami Oreilly M.D. # SIGNED BY Matthew Pittman (GOO)07/15/2022 09:04AM Past Medical History Past Medical History: CVA/TIA, Diabetes Mellitus, Hyperlipidemia, Hypertension, Osteoarthritis (OA), Thyroid Disorder Additional Past Medical History / Comment(s): PARKINSON's disease, possible TIA, SEASONAL ALLERGIES, OSTEOPORISIS, INTERSTITIAL CYSTITIS, DRY EYES, MACULAR DEGENERATION.CHRONIC KIDNEY DISEASE STAGE 3 History of Any Multi-Drug Resistant Organisms: None Reported Past Surgical History: Adenoidectomy, Back Surgery, Bladder Surgery, Cholecystectomy, Heart Catheterization, Hysterectomy, Orthopedic Surgery, Tonsillectomy, Tubal Ligation Additional Past Surgical History / Comment(s): LEFT ROTATOR CUFF, RIGHT FROZEN SHOULDER, JEFF KNEES-TOTAL AND PARTIAL, OOPHERECTOMY, CYSTOSCOPIES, BLADDER SUSPENSION, INTERSTITIAL CYSTITIS, JEFF CARPAL TUNNEL, PAIN CLINIC PROCEDURES , EYE SURGERIES (CHILD), EYELID RESECTION & EYEBROW LIFT. laminectomy on 07-26-20, BACK SURGERY WITH HARDWARE (CAGE) 11/02, L1 & L2 01/12/22, BILATERAL CATARACT SURGERY. Past Anesthesia/Blood Transfusion Reactions: Previous Problems w/ Anesthesia Additional Past Anesthesia/Blood Transfusion Reaction / Comment(s): STATES MEDICATION "CURRARRE" USED OVER 25 YEARS AGO, SHE FELT PARALYZED AND COULD NOT MOVE OR BREATHE. Smoking Status: Never smoker - Past Family History Mother Family Medical History: Cancer Additional Family Medical History / Comment(s): SKIN CANCER Father Family Medical History: Cancer Additional Family Medical History / Comment(s): BRAIN CANCER, SKIN CANCER Sister(s) Family Medical History: Cancer Additional Family Medical History / Comment(s): BREAST CANCER Medications and Allergies Home Medications Medication Instructions Recorded Confirmed Type Fenofibrate [Lofibra] 160 mg PO DAILY 02/05/20 08/03/22 History Levothyroxine Sodium [Synthroid] 50 mcg PO HS 02/05/20 08/03/22 History Pioglitazone [Actos] 15 mg PO HS 02/05/20 08/03/22 History Magnesium Oxide 800 mg PO BID 07/20/20 08/03/22 History Aspirin [Adult Low Dose Aspirin EC] 81 mg PO DAILY 10/24/20 08/03/22 History Carbidopa-Levodopa 25-100 mg 2 tab PO QID 10/24/20 08/03/22 History [Sinemet 25-100] Alendronate Sodium [Fosamax] 70 mg PO TEIXEIRA 01/09/22 08/03/22 History Empagliflozin [Jardiance] 10 mg PO DAILY 01/09/22 08/03/22 History Escitalopram Oxalate [Lexapro] 20 mg PO HS 01/09/22 08/03/22 History Ferrous Sulfate [Feosol] 325 mg PO DAILY 01/09/22 08/03/22 History Gabapentin [Neurontin] 300 mg PO TID 01/09/22 08/03/22 History Multivit with Calcium,Iron,Min 1 each PO DAILY 01/09/22 08/03/22 History [Women's Multivitamin] Naproxen Sodium [Aleve] 440 mg PO Q6H PRN 01/09/22 08/03/22 History Rosuvastatin Calcium [Crestor] 40 mg PO HS 01/09/22 08/03/22 History Vitamin C, D & Zinc 1 tab PO DAILY 01/09/22 08/03/22 History Calcium Carb/Vitamin D3/Vit K1 1 tab PO BID 08/03/22 08/03/22 History [Citracal-D3 500 mg Soft Chew] Cyclobenzaprine [Flexeril] 10 mg PO HS PRN 08/03/22 08/03/22 History Escitalopram [Lexapro] 10 mg PO DAILY 08/03/22 08/03/22 History Fexofenadine HCl 180 mg PO HS PRN 08/03/22 08/03/22 History Krill/Om-3/Dha/Epa/Phospho/Ast 1 each PO DAILY 08/03/22 08/03/22 History [Krill Oil 500 mg Softgel] Pramipexole [Mirapex] 0.5 mg PO TID 08/03/22 08/03/22 History lisinopriL [Zestril] 20 mg PO DAILY 08/03/22 08/03/22 History Allergies Allergy/AdvReac Type Severity Reaction Status Date / Time erythromycin base Allergy Unknown Rash, Verified 08/03/22 08:22 itching, lips swollen, tingling, head like basketball oxycodone Allergy Unknown vomit bile Verified 08/03/22 08:22 Penicillins Allergy Unknown Rash, Verified 08/03/22 09:25 itching sulfamethoxazole Allergy Unknown rash, Verified 08/03/22 08:22 [From Bactrim] itching tolterodine [From Detrol] Allergy Unknown itching/nelly Verified 08/03/22 08:22 h tramadol [From Ultram] Allergy Unknown Rash, Verified 08/03/22 08:22 itching, lips swollen, tingling, head like basketball trimethoprim [From Bactrim] Allergy Unknown rash, Verified 08/03/22 08:22 itching nickel Allergy Rash/Hives Verified 08/03/22 08:22 hydromorphone [From Dilaudid] AdvReac Unknown reaction Verified 08/03/22 08:22 in higher doses, rash, itching gel adhesive pad Allergy Unknown ekg pads Uncoded 08/03/22 08:22 and adhesive- chemical burn, itching rash Physical Examination Osteopathic Statement: *. No significant issues noted on an osteopathic structural exam other than those noted in the History and Physical/Consult.
[~2022-08-04 06:25] MED LIST changes: -ACETAMINOPHEN TAB 500 MG TAB PO PRN; +DEXAMETHASONE SOD PHOSPHATE 4 MG/ML 1 ML VIAL IV ONE; -GABAPENTIN 300 MG CAP PO PRN; +LACTATED RINGERS 1,000 ML IV SCH; +LIDOCAINE 1% (10MG/ML) FOR IV START INTRADERMA PRN; +MIDAZOLAM 2 MG/2 ML VIAL IV PRN; +ONDANSETRON 4 MG/2 ML VIAL IVP ONE; -ONDANSETRON 4 MG/2 ML VIAL IVP PRN; +Pre Op ABX Message 1 EACH MISC MISCELLANE ONE; -TRANEXAMIC ACID IN NACL,ISO-OS 1,000 MG in SALINE 1 100ML.BAG IVPB PRN
[2022-08-04 06:57] LABS: Glucose,Whole Blood 119 mg/dL (70-110)
[2022-08-04 07:10] VITALS: RESP 16; TEMP 96.7
[2022-08-04] MEDS ORDERED: TRIAMCINOLONE ACETONIDE 40 MG/ML 1 ML VIAL INTRAARTIC STA (07:19)
[2022-08-04] MEDS ORDERED: PROPOFOL 10 MG/ML 20 ML VIAL IV ONE (07:20)
[2022-08-04] MEDS ORDERED: KETAMINE 10 MG/ML 20 ML VIAL ONE (07:20)
[2022-08-04] MEDS ORDERED: MIDAZOLAM 2 MG/2 ML VIAL ONE (07:20)
[2022-08-04] MEDS ORDERED: fentaNYL (PF) 50 MCG/ML 2 ML AMP ONE (07:20)
[2022-08-04] MEDS ORDERED: IOPAMIDOL-370 100ML BTL INJ ONE ×2 (07:23→07:35)
[2022-08-04] MEDS ORDERED: BUPIVACAINE (PF) 0.25% 30 ML VIAL SQ ONE ×2 (07:24→07:35)
[2022-08-04] MEDS ORDERED: LIDOCAINE 0.5%-EPI 1:200,000 50 ML VIAL SQ ONE ×2 (07:24→07:35)
[2022-08-04] MEDS ORDERED: TRIAMCINOLONE ACETONIDE 40 MG/ML 1 ML VIAL INTRAARTIC ONE (07:35)
[2022-08-04 08:25] VITALS: BP 123/77; PULSE 72
--- NOTE | 2022-08-04 09:40 | FL ---
EXAMINATION TYPE: FL guidance operating room DATE OF EXAM: 08/04/2022 FLUOROSCOPY Fluoroscopy time of 13 seconds was used during bilateral SI joint injections. 2 image/s document/s t he procedure. DOSE AREA PRODUCT (DAP) UGY*M,MGY*CM: 1.325.
--- NOTE | 2022-08-06 07:00 | P.OP ---
Date of Procedure: 08/04/22 Preoperative Diagnosis: 1. BL SIJ OA, degenerative Postoperative Diagnosis: 1. BL SIJ OA, degenerative Procedure(s) Performed: 1. Needle localization of b/l SI joints via flouroscopy 2. b/l SIJ injection with kenolog and local anesthetic Implants: marcaine .25%/ lidocaine 1%/ kenolog 40 per joint Anesthesia: other (sedation) Surgeon: Matthew Pittman Estimated Blood Loss (ml): 2 IV fluids (ml): 20 Urine output (ml): 0 Pathology: none sent Condition: stable Disposition: PACU Indications for Procedure: Ms. Gonzalez is presenting for evaluation of B/L SI Joint pain. It was my pleasure to have seen and examined Ms. Gonzalez. In our visit today we have had a chance to go over subjective complaints, physical examination findings and treatments including the natural course history without intervention and various interventional options. The patients imaging demonstrates: Lumbar MRI taken on 07/01/22 at [facility]: images reviewed with patient. There are no comp cane processes seen. There is spondylosis noted at L5-S1 and L3-L4. A surgical changes noted L4-L5 with good decompression and hardware placement. No evidence of loosening fracture failure and infection. There is in the visualized SI joints some uptake related to sacroiliitis. No acute fractures noted. No lesions. On physical exam, Ms. Gonzalez demonstrates: SI joint pain: positive +Fortons +FABER4 +Hip Thrust I have explained to the patient that as their condition progresses it will cause further neurological deficits and eventual paralysis. Based on the patients imaging, physical exam, and the rapid progression and disabling nature of their symptoms, at this time I recommend surgery in the form of a: B/L SI Joint Injections. I discussed the risk and benefits of this procedure at length with Ms. Gonzalez. The patient agreed to considered pursuing the procedure abovementioned. Prior to surgery, she should follow up with her PCP (Cardio, ID, IM etc) for clearance. Questions were invited and answered, and the patient wishes to proceed as outlined below. Currently, I am recommendin.B/L SI Joint Injections Description of Procedure: The patient was seen and examined in the preoperative area. All preoperative protocols were followed. Informed consent was obtained risks and benefits of the procedure were discussed at length. Risks including bleeding infection damage to the surrounding tissue and risk of reoperation were discussed with the patient. Risk of anesthesia up to and including was a discussed with the patient. These are outlined in the risk review. They were willing to accept these risks and all of the risks of surgery. The patient was seen and evaluated by the anesthesia team who deemed them fit for surgery. The site was marked, the patient was willing to proceed with the procedure. The patient was transferred to the operative suite by the Department of anesthesia. They were then drifted off to sleep by the department anesthesia and sedation with local was performed. The patient tolerated this well. Once confirmation of lines and ventilation the patient was transferred to a prone José Miguel table very carefully. All bony prominences including wrists, elbows, axilla, chest, hips, and thighs, and feet were padded very well. Special attention was paid to the genitalia and these were padded accordingly. SCDs were placed on bilateral lower extremities and were connected. Arms were well padded and placed on arm boards up and out in the 90/90 position. Once in position, again we confirmed good ventilation capabilities and that lines were running appropriately. The patient's lumbopelvic spine was then exposed. 1010s were placed outlining the incision site. Standard alcohol was used to clean the incision site and allowed to dry. C-arm was used to biomark the patient and conf irm level for incision which was marked with a skin marker. Operative briefing was performed with all teams and everyone in agreement to proceed. The patient was then prepped and draped in a normal sterile fashion. Timeout was then performed and all parties were in agreement with the procedure to be performed. Vital Gosia fluoroscopy was used to identify the bilateral SI joints which were then accessed with a 18-gauge needle after anesthetic was placed into the subcutaneous tissue in the form of 1% with epinephrine of lidocaine along with a mixture of cortical percent Marcaine without epinephrine. Once there is good anesthesia and the SI joints were accessed Isovue was used to confirm within the joint space. Once this was confirmed 40 of Kenalog along with a mixture of lidocaine and Marcaine were injected into the bilateral SI joints. Patient remained stable the entire time without any radicular symptoms during the injection phase. The needles were withdrawn and the area cleaned and Band-Aids placed. The patient was transferred back to their hospital bed atraumatically. Patient was then awakened and extubated by the department of anesthesia having tolerated the procedure very well with no complications. They were transferred to the postoperative care unit in stable condition.
== END 2022-08-04 08:25 | disposition home or self-care (01) ==
LOC: OR 06:25
PROVIDERS: ATTEND Orthopaedic Surgery
DX: M46.1 Sacroiliitis, not elsewhere classified (principal); M47.817 Spondylosis without myelopathy or radiculopathy, lumbosacral region; I12.9 Hypertensive chronic kidney disease with stage 1 through stage 4 chronic kidney disease, or unspecified chronic kidney disease; N18.30 Chronic kidney disease, stage 3 unspecified; E11.22 Type 2 diabetes mellitus with diabetic chronic kidney disease; E78.5 Hyperlipidemia, unspecified; Z86.73 Personal history of transient ischemic attack (TIA), and cerebral infarction without residual deficits; E07.9 Disorder of thyroid, unspecified; G20 Parkinson's disease; M81.0 Age-related osteoporosis without current pathological fracture; N30.10 Interstitial cystitis (chronic) without hematuria; Z98.890 Other specified postprocedural states; Z79.84 Long term (current) use of oral hypoglycemic drugs; Z79.82 Long term (current) use of aspirin; Z79.899 Other long term (current) drug therapy; Z88.0 Allergy status to penicillin; Z88.1 Allergy status to other antibiotic agents; Z88.2 Allergy status to sulfonamides; Z88.5 Allergy status to narcotic agent; Z88.8 Allergy status to other drugs, medicaments and biological substances; Z91.048 Other nonmedicinal substance allergy status
CPT/HCPCS: J2250; J1100; J3301; J2405; J3010; J2704; Q9967; G0260

== ENCOUNTER 2022-09-18 11:48 | Day surgery (SDC) | payer MEDICARE, OTHER ==
--- NOTE | 2022-09-18 06:58 | P.HPOR ---
History of Present Illness H&P Date: 09/02/22 Chief Complaint: b/l SIJ OA .D:Date: 09/02/22 : 04:09pm .T:Title: [facility] Date of :[birth year] [id number]: NKDA Age: 72 year Height: 5'3" Weight: 190 lbs BMI: 33.66 kg/m2 Occupation: Retired VAS: 2 CHIEF COMPLAINT: S/P L1 kyphoplasty and re-check after undergoing SI joint injection DOI:None DOS:01/12/2022 Post Op Week: 8 months HISTORY: Ms. Gonzalez returns to the office today approximately 8 months following her L1 kyphoplasty and for re-evaluation proceeding her recent SI joint injection. The patient recently received an SI joint injection on 08/04/2022, which provided her with 100% relief. The patient denies experiencing any low back, buttock, or lower extremity pain at this time. The patient notes that she is very pleased with her progress since surgery and her outcome following the SI joint injection. The patient notes that the only time she experiences low back or buttock pain is after prolonged sitting or walking. The patient notes that she has been doing very well overall. The patient is currently taking Gabapentin and Ibuprofen, which provide her with relief. Otherwise the patient states that she does not have any acute concerns at this time. The patient denies any f/c/sob/cp, no incision concerns, no bladder or bowel retention/incontinence, no perineal numbness/tingling, and ambulates independently today. The patient's past medical history; past surgical history; family history; medicines; allergies and social history have been reviewed and are as stated elsewhere in the chart. 16 points review of systems completed and as stated in HPI, all other systems reviewed are negative. Injection #1: 100% relief PHYSICAL EXAM: - Patient is alert and oriented 3 appears well-nourished well-hydrated is in no acute distress. They do not appear septic. - On exam the patient has no tenderness to palpation of their thoracic or lumbar spine. There is no edema or ballottement sign. SI testing is stable and she continues to have pain in this joint. The tests are blunted due to recent injection. - Upper extremities show 5/5 strength in all major muscle groups. - Lower extremities with 5 out of 5 strength in all major muscle groups. - There is FROM that is painless of the b/l UE and LE in all major joints. - They are intact to light touch sensation in L2 to S1 nerve distribution as well as the C5-T1 distribution. - DTRs 2/4 all upper and lower - Patient has palpable distal pulses in all four extremities - Compartments are soft and compressible. -Neg Duran's -No Clonus -Neg Babinski -Neg Igor's -No tensioning signs. - Cranial nerves II through XII are grossly intact. - Overall alignment is well-maintained in the sagittal coronal planes. - Surgical incision: Healed Well. RADIOGRAPHS: No new x-rays taken in office today. ASSESSMENT: 1. Sacroiliac joint degenerative osteoarthritis P LETI: All options were reviewed today, we decided the best course of action would be: - Advised patient to continue with supplements, health maintenance, and home exercise programs. Patient expressed understanding and will continue with these modalities. - Return to activities gradually, as tolerated, and as per limitations and restrictions discussed today. - she is scheduled for her second SIJ injection on 09/18/22. We will use this as continued diagnostic proof that she would likely benefit from SIJ fusion in the future should she want this. She understands the risks as laid out in the previous notes for SIJ injection. She understands that this time there is no sedation offered as insurance will not cover this for her comfort. She is willing to proceed. Spine Surgery Risk Review Ms. Gonzalez is presenting for evaluation of B/L SI Joint pain. It was my pleasure to have seen and examined Ms. Gonzalez. In our visit today we have had a chance to go over subjective complaints, physical examination findings and treatments including the natural course history without intervention and various interventional options. The patients imaging demonstrates: Lumbar MRI taken on 07/01/22 at [facility]: images reviewed with patient. There are no comp cane processes seen. There is spondylosis noted at L5-S1 and L3-L4. A surgical changes noted L4-L5 with good decompression and hardware placement. No evidence of loosening fracture failure and infection. There is in the visualized SI joints some uptake related to sacroiliitis. No acute fractures noted. No lesions. On physical exam, Ms. Gonzalez demonstrates: SI joint pain: positive +Fortons +FABER4 +Hip Thrust I have explained to the patient that as their condition progresses it will cause further neurological deficits and eventual paralysis. Based on the patients imaging, physical exam, and the rapid progression and disabling nature of their symptoms, at this time I recommend surgery in the form of a: B/L SI Joint Injections. I discussed the risk and benefits of this procedure at length with Ms. Gonzalez. The patient agreed to considered pursuing the procedure abovementioned. Prior to surgery, she should follow up with her PCP (Cardio, ID, IM etc) for clearance. Questions were invited and answered, and the patient wishes to proceed as outlined below. Currently, I am recommendin.B/L SI Joint Injections 2.Follow up with PCP for surgical clearance 3.Review of surgical risks and benefits as well as an educational packet on the proposed surgical procedure. Risks: All surgical procedures come with inherent risks, including those related to positioning, anesthesia, intraoperative findings, and postoperative complications. It is important to understand that surgery does not come with any guarantee of a successful outcome as complications and adverse events are always possible. The patient was given a handout in office today discussing the surgical procedure and risks associated with the intervention, both of which were discussed with the patient. These risks include but are not limited to the following: * Experiencing same, different or even worse symptoms in back, neck, arms, or legs compared to before surgery. Requiring further surgery or other forms of treatment presently or at some time in the future at same or other levels of the intended spine surgery. On an extreme but fortunately relatively rare basis severe complication such as blindness, stroke, heart attack, temporary and/or permanent nerve injury, paralysis, coma, or may occur, sometimes without known explana tion. Surgical complications may include but are not limited to risk of infection, fluid accumulation in the surgical dissection site, including a seroma or hematoma, that requires additional surgery, wound drainage, bleeding, new numbness or weakness, vision changes/loss, spinal fluid leakage, non-healing and/or infected incision, headaches, difficulty or inability to swallow, hoarseness, hemopneumothorax, pneumothorax, impotence, retrograde ejaculation, vaginal dryness; injury to nerves, spinal cord, blood vessels, lymphatics or other vital organs (i.e., bowel injury, injury to the great vessels); heterotopic bone formation; complications related to the hardware such as screws, rods, cages including misplaced hardware, device failure, instrumentation at the wrong spine level, hardware fracture/breakage, or hardware loosening; vertebral failure of the spinal column above or below the newly placed hardware; retained surgical instrumentations or devices and the need for further surgery. * Medical risks of the planned spine surgery include but are not limited to generalized Infections to the whole body or local areas outside of the surgical site (sepsis), heart attack, bleeding, anaphylaxis, meningitis, seizure, epilepsy, hearing loss, burn [place], laceration of the head or other areas of the body, bruising, hypersensitivity of the skin, bladder over distension; allergic reaction; shoulder injury related to positioning; fat, blood and air clots to other areas of the body like heart, lungs, brain; failure of internal organs such as lungs, kidneys, liver and excessive bleeding. If blood transfusions are necessary, note that transfusions may cause intolerance reactions such as anaphylaxis or other complex reactions. Despite best efforts, the results of spine surgery might not heal in terms of bone, soft tissues such as skin, fascia, ligaments, and joints. Additionally, in order to achieve best possible results, spine surgery may be carried out beyond the initially planned levels and involve decompression, fusion including insertion of hardware at levels other than the original intended area of surgical interest change some portions of the procedure in order to ensure the best possible outcomes. With spine surgery and spinal fusion, there are different off label uses of instrumentation (devices, implants and hardware) as well as biological substan michell (bone morphogenic proteins, demineralized bone matrix) as well as using extra bone from allograft sources (i.e. cadaver bone) or autograft (iliac crest bone, ribs, or the spine itself). The patient has been given information about these practices and their inherent risks and benefits. [facility] is an educational center that serves as a training facility for neurosurgical and orthopedic [employer] and Nursing students. Physician assistants are medically trained surgical providers who function in the outpatient, inpatient, and operating room setting under the direct supervision of the attending surgeon. [facility] has multiple operating rooms with single and overlapping rooms running daily. They currently function under the required guidelines as produced by the [facility] with regards to the overlapping rooms and will continue to comply with changes to this policy as they occur. The requirements include and are complied with as follows: (1) the critical portions of the overlapping rooms will not occur at the same time, (2) the attending physician will be physically present during the critical portions of the procedure and immediately available during the entire case, and (3) a back-up attending is designated should the primary attending not be immediately available. The patient has had a chance to review all the listed information, has been given print outs detailing this information, and has had all his/her questions answered to their satisfaction. It was my pleasure to have seen and examined Ms. Gonzalez. In our visit today we have had a chance to go over my understanding of our patient's current condition, the natural course history without intervention and various interventional options. Questions were invited and answered, and the patient wishes to proceed as outlined above. I have seen and examined the patient for 25 minutes and we have spent more than 50% of the time in repeat and detailed counseling about the patient's condition, its natural course history with out and as much as can be predicted with surgery and re-review of various surgical treatment options. In conclusion, Ms. Gonzalez requested we proceed with the above suggested surgery and are willing to accept risks and limitations of the suggested surgery as nature of the disease process and our best attempts at treatment for the conditi on. Thank you again for allowing us to be part of your patient's care. Please don't hesitate to contact me if you have any further questions. Follow-up: 4-6 weeks after second injection Patient Education: (Informational booklet, instructions, etc) given at today's appointment: Yes .ED:Patient Education: Y Medications Reviewed: YES Attestation: In our visit today Ms. Gonzalez and I have had a chance to go over my understanding of the patient's current condition, the natural course history without intervention and various interventional options. Questions were invited and answered, and the patient wishes to proceed as outlined above. I will be sure to keep you updated afterMs. Gonzalez returns here for further follow-up. Thank you again for your referral. Please do not hesitate to contact me if you have any further questions. Signed and authenticated by: [facility] [address], [place] [address] [place] [id number] This message is confidential, intended only for the named recipient(s) and may contain information that is privileged or exempt from disclosure under applicable law. If you are not the intended recipient(s), you are notified that the dissemination, distribution or copying of this information is strictly prohibited. If you received this message in error, please notify the sender then delete this message. Patient verbalizes understanding of the information discussed. The above note was initiated by Na Stephenson, physician recording service assistant for Dr. Matthew Pittman. This note has been reviewed by Dr. Pittman, who has made his personal changes and impressions for this document. CC: Cami Oreilly M.D. # SIGNED BY Matthew Pittman (GOO)09/17/2022 07:14AM Past Medical History Past Medical History: CVA/TIA, Diabetes Mellitus, Eye Disorder, Hyperlipidemia, Hypertension, Memory Impairment, Neurologic Disorder, Osteoarthritis (OA), Renal Disease, Thyroid Disorder Additional Past Medical History / Comment(s): Parkinson's disease, tremors, possible TIA, seasonal allergies, osteoporosis, intestitial cystitis, dry eyes, macular degeneration, chronic kidney disease stage 3, macular degeneration History of Any Multi-Drug Resistant Organisms: None Reported Past Surgical History: Adenoidectomy, Back Surgery, Bladder Surgery, Cholecys tectomy, Heart Catheterization, Hysterectomy, Orthopedic Surgery, Tonsillectomy, Tubal Ligation Additional Past Surgical History / Comment(s): LEFT ROTATOR CUFF, RIGHT FROZEN SHOULDER, JEFF KNEES-TOTAL AND PARTIAL, OOPHERECTOMY, CYSTOSCOPIES, BLADDER SUSPENSION, JEFF CARPAL TUNNEL, PAIN CLINIC PROCEDURES , EYE SURGERY (CHILD), EYELID RESECTION & EYEBROW LIFT. laminectomy on 07-26-20, back surg. w/hardware, jeff cataracts removed Past Anesthesia/Blood Transfusion Reactions: Previous Problems w/ Anesthesia Additional Past Anesthesia/Blood Transfusion Reaction / Comment(s): STATES MEDICATION "CURRARRE" USED OVER 25 YEARS AGO, SHE FELT PARALYZED AND COULD NOT MOVE OR BREATHE. Smoking Status: Never smoker - Past Family History Mother Family Medical History: Cancer Additional Family Medical History / Comment(s): SKIN CANCER Father Family Medical History: Cancer Additional Family Medical History / Comment(s): SKIN CANCER Sister(s) Family Medical History: Cancer Additional Family Medical History / Comment(s): BREAST CANCER Medications and Allergies Home Medications Medication Instructions Recorded Confirmed Type Fenofibrate [Lofibra] 160 mg PO DAILY 02/05/20 09/09/22 History Levothyroxine Sodium [Synthroid] 50 mcg PO HS 02/05/20 09/09/22 History Pioglitazone [Actos] 15 mg PO HS 02/05/20 09/09/22 History Magnesium Oxide 800 mg PO BID 07/20/20 09/09/22 History Aspirin [Adult Low Dose Aspirin EC] 81 mg PO DAILY 10/24/20 09/09/22 History Carbidopa-Levodopa 25-100 mg 2 tab PO QID 10/24/20 09/09/22 History [Sinemet 25-100] Alendronate Sodium [Fosamax] 70 mg PO TEIXEIRA 01/09/22 09/09/22 History Empagliflozin [Jardiance] 10 mg PO DAILY 01/09/22 09/09/22 History Escitalopram Oxalate [Lexapro] 20 mg PO HS 01/09/22 09/09/22 History Ferrous Sulfate [Feosol] 325 mg PO DAILY 01/09/22 09/09/22 History Gabapentin [Neurontin] 300 mg PO TID 01/09/22 09/09/22 History Multivit with Calcium,Iron,Min 1 each PO DAILY 01/09/22 09/09/22 History [Women's Multivitamin] Naproxen Sodium [Aleve] 440 mg PO Q6H PRN 01/09/22 09/09/22 History Rosuvastatin Calcium [Crestor] 40 mg PO HS 01/09/22 09/09/22 History Vitamin C, D & Zinc 1 tab PO DAILY 01/09/22 09/09/22 History Calcium Carb/Vitamin D3/Vit K1 1 tab PO BID 08/03/22 09/09/22 History [Citracal-D3 500 mg Soft Chew] Cyclobenzaprine [Flexeril] 10 mg PO HS PRN 08/03/22 09/09/22 History Escitalopram [Lexapro] 10 mg PO DAILY 08/03/22 09/09/22 History Fexofenadine HCl 180 mg PO HS PRN 08/03/22 09/09/22 History Krill/Om-3/Dha/Epa/Phospho/Ast 1 each PO DAILY 08/03/22 09/09/22 History [Krill Oil 500 mg Softgel] Pramipexole [Mirapex] 0.5 mg PO TID 08/03/22 09/09/22 History lisinopriL [Zestril] 20 mg PO DAILY 08/03/22 09/09/22 History Allergies Allergy/AdvReac Type Severity Reaction Status Date / Time erythromycin base Allergy Unknown Rash, Verified 09/09/22 15:15 itching, lips swollen, tingling, head like basketball oxycodone Allergy Unknown vomit bile Verified 09/09/22 15:15 Penicillins Allergy Unknown Rash, Verified 09/09/22 15:15 itching sulfamethoxazole Allergy Unknown rash, Verified 09/09/22 15:15 [From Bactrim] itching tolterodine [From Detrol] Allergy Unknown itching/nelly Verified 09/09/22 15:15 h tramadol [From Ultram] Allergy Unknown Rash, Verified 09/09/22 15:15 itching, lips swollen, tingling, head like basketball trimethoprim [From Bactrim] Allergy Unknown rash, Verified 09/09/22 15:15 itching nickel Allergy Rash/Hives Verified 09/09/22 15:15 hydromorphone [From Dilaudid] AdvReac Unknown reaction Verified 09/09/22 15:15 in higher doses, rash, itching gel adhesive pad Allergy Unknown ekg pads Uncoded 09/09/22 15:15 and adhesive- chemical burn, itching rash Physical Examination Osteopathic Statement: *. No significant issues noted on an osteopathic structural exam other than those noted in the History and Physical/Consult.
[~2022-09-18 11:48] MED LIST changes: -DEXAMETHASONE SOD PHOSPHATE 4 MG/ML 1 ML VIAL IV ONE; -LACTATED RINGERS 1,000 ML IV SCH; -LIDOCAINE 1% (10MG/ML) FOR IV START INTRADERMA PRN; -MIDAZOLAM 2 MG/2 ML VIAL IV PRN; -ONDANSETRON 4 MG/2 ML VIAL IVP ONE
[2022-09-18 12:21] VITALS: TEMP 97
[2022-09-18] MEDS ORDERED: IOPAMIDOL-370 50ML BTL MISCELLANE ONE ×2 (13:15→13:47)
[2022-09-18] MEDS ORDERED: LIDOCAINE 2% INJ 20 MG/ML SQ ONE ×2 (13:15→13:47)
[2022-09-18] MEDS ORDERED: BUPIVACAINE (PF) 0.5% 30 ML VIAL SQ ONE ×2 (13:15→13:47)
[2022-09-18] MEDS ORDERED: methylPREDNISolone ACETATE 80 MG/ML 1 ML VIAL INTRAARTIC ONE ×2 (13:15→13:47)
[2022-09-18 14:00] VITALS: RESP 16
[2022-09-18 14:16] VITALS: BP 114/70; PULSE 64
--- NOTE | 2022-09-22 06:55 | P.OP ---
Date of Procedure: 09/18/22 Preoperative Diagnosis: 1. b/l SIJ OA 2. Low back pain Postoperative Diagnosis: 1. b/l SIJ OA 2. Low back pain Procedure(s) Performed: 1. bilateral SIJ injection under flouroscopic guidance Anesthesia: none Surgeon: Matthew Pittman Estimated Blood Loss (ml): 0 IV fluids (ml): 0 Urine output (ml): 0 Pathology: none sent Condition: stable Disposition: PACU Indications for Procedure: Ms. Gonzalez is presenting for evaluation of B/L SI Joint pain. It was my pleasure to have seen and examined Ms. Gonzalez. In our visit today we have had a chance to go over subjective complaints, physical examination findings and treatments including the natural course history without intervention and various interventional options. The patients imaging demonstrates: Lumbar MRI taken on 07/01/22 at [facility]: images reviewed with patient. There are no comp cane processes seen. There is spondylosis noted at L5-S1 and L3-L4. A surgical changes noted L4-L5 with good decompression and hardware placement. No evidence of loosening fracture failure and infection. There is in the visualized SI joints some uptake related to sacroiliitis. No acute fractures noted. No lesions. On physical exam, Ms. Gonzalez demonstrates: SI joint pain: positive +Fortons +FABER4 +Hip Thrust I have explained to the patient that as their condition progresses it will cause further neurological deficits and eventual paralysis. Based on the patients imaging, physical exam, and the rapid progression and disabling nature of their symptoms, at this time I recommend surgery in the form of a: B/L SI Joint Injections. I discussed the risk and benefits of this procedure at length with Ms. Gonzalez. The patient agreed to considered pursuing the procedure abovementioned. Prior to surgery, she should follow up with her PCP (Cardio, ID, IM etc) for clearance. Questions were invited and answered, and the patient wishes to proceed as outlined below. Currently, I am recommendin.B/L SI Joint Injections Description of Procedure: Bilateral SIJ injection The patient was seen and examined in the preoperative area. All preoperative protocols were followed. Informed consent was obtained risks and benefits of the procedure were discussed at length. Risks including bleeding infection damage to the surrounding tissue and risk of reoperation were discussed with the patient. Risk of anesthesia up to and including was a discussed with the patient. These are outlined in the risk review. They were willing to accept these risks and all of the risks of surgery. The patient was seen and evaluated by the anesthesia team who deemed them fit for surgery. The site was marked, the patient was willing to proceed with the procedure. The patient was transferred to the operative suite by the Department of anesthesia. They were then drifted off to sleep by the department anesthesia and sedation with local was performed. The patient tolerated this well. Once confirmation of lines and ventilation the patient was transferred to a prone José Miguel table very carefully. All bony prominences including wrists, elbows, axilla, chest, hips, and thighs, and feet were padded very well. Special attention was paid to the genitalia and these were padded accordingly. SCDs were placed on bilateral lower extremities and were connected. Arms were well padded and placed on arm boards up and out in the 90/90 position. Once in position, again we confirmed good ventilation capabilities and that lines were running appropriately. The patient's lumbopelvic spine was then exposed. 1010s were placed outlining the incision site. Standard alcohol was used to clean the incision site and allowed to dry. C-arm was used to biomark the patient and confirm level for incision which was marked with a skin marker. Operative briefing was performed with all teams and everyone in agreement to proceed. The patient was then prepped and draped in a normal sterile fashion. Timeout was then performed and all parties were in agreement with the procedure to be performed. Biplanar fluoroscopy was used to identify the bilateral SI joints which were then accessed with a 18-gauge needle after anesthetic was placed into the subcutaneous tissue in the form of 1% with epinephrine of lidocaine along with a mixture of cortical percent Marcaine without epinephrine. Once there is good anesthesia and the SI joints were accessed Isovue was used to confirm within the joint space. Once this was confirmed 40 of Kenalog along with a mixture of lidocaine and Marcaine were injected into the SI joint. Patient remained stable the entire time without any radicular symptoms during the injection phase. The needles were withdrawn and the area cleaned and Band-Aids placed. The patient was transferred back to their hospital bed atraumatically. Patient was then awakened and extubated by the department of anesthesia having tolerated the procedure very well with no complications. They were transferred to the postoperative care unit in stable condition.
== END 2022-09-18 14:22 | disposition home or self-care (01) ==
LOC: OR 11:48
PROVIDERS: ATTEND Orthopaedic Surgery
DX: M13.88 Other specified arthritis, other site (principal); E11.40 Type 2 diabetes mellitus with diabetic neuropathy, unspecified; E78.5 Hyperlipidemia, unspecified; I12.9 Hypertensive chronic kidney disease with stage 1 through stage 4 chronic kidney disease, or unspecified chronic kidney disease; N18.30 Chronic kidney disease, stage 3 unspecified; G20 Parkinson's disease; M81.0 Age-related osteoporosis without current pathological fracture; E07.9 Disorder of thyroid, unspecified; Z86.73 Personal history of transient ischemic attack (TIA), and cerebral infarction without residual deficits; Z86.69 Personal history of other diseases of the nervous system and sense organs; Z98.890 Other specified postprocedural states; Z79.890 Hormone replacement therapy; Z79.82 Long term (current) use of aspirin; Z79.84 Long term (current) use of oral hypoglycemic drugs; Z79.899 Other long term (current) drug therapy; Z88.1 Allergy status to other antibiotic agents; Z88.5 Allergy status to narcotic agent; Z88.0 Allergy status to penicillin; Z88.2 Allergy status to sulfonamides; Z88.8 Allergy status to other drugs, medicaments and biological substances; Z91.048 Other nonmedicinal substance allergy status
CPT/HCPCS: G0260; J3301

== ENCOUNTER 2023-01-01 11:51 | Day surgery (SDC) | payer MEDICARE, OTHER ==
[2022-12-28 15:04] VITALS: BMI 35.4
--- NOTE | 2023-01-01 11:33 | P.HPOR ---
History of Present Illness H&P Date: 12/02/22 Chief Complaint: SIJ OA .D:Date: 12/02/22 : 03:42pm .T:Title: *[facility] History and Physical Date of :[birth year] [id number]: Age: 72 year Height: 5'3" Weight: 190 lbs BP:118/72 BMI: 33.66 kg/m2 Occupation: Retired VAS: 6 CHIEF COMPLAINT: re-check after undergoing 2nd bilateral SI joint injection DOI:None DOS: 09/18/2022 Post Op Week: 2 months proceeding second SI joint injection HISTORY: Ms. Gonzalez returns to the office today for a re-check on her low back pain. The patient reports experiencing continued diffuse low back pain that radiates down into the buttocks and posterior aspect of the bilateral lower extremities. The patient notes mild, intermittent hip pain bilaterally. The patient notes an onset of cramping throughout the bilateral lower extremities over the last 2 to 3 weeks. The patient states that her symptoms are exacerbated by prolonged activity. The patient states that her low back and leg pain have significantly increased since she was last evaluated in office on 10/20/2022. The patient previously trialed bilateral SI joint injections on 08/04/2022, which provided her with 100% relief for 6 weeks and her second bilateral SI joint injection on 09/18/2022 with 100% relief for 1 week. The patient is currently taking Celebrex which provides her with relief. Otherwise the patient states that she does not have any acute concerns at this time. The patient denies any f/c/sob/cp, no incision concerns, no bladder or bowel retention/incontinence, no perineal numbness/tingling, and ambulates independently today. The patient's past medical history; past surgical history; family history; medicines; allergies and social history have been reviewed and are as stated elsewhere in the chart. 16 points review of systems completed and as stated in HPI, all other systems reviewed are negative. HISTORY: Ms. Gonzalez was previously seen in the office on 10/20/2022, which was approximately 1 month following her second SI joint injection. The patient recently received a bilateral SI joint injection on 08/04/2022, which provided her with 100% relief for 6 weeks and her second bilateral SI joint injection on 09/18/22 with 100% relief for 1 week. Patient was seen last week and received a left hip GTB with 100% relief. Patient continues to have pain on her right side. The patient notes her pain is exacerbated after prolonged sitting or walking. The patient is currently taking Gabapentin, Motrin, and Aspirin, which provide her with relief. Otherwise the patient states that she does not have any acute concerns at this time. The patient denies any f/c/sob/cp, no incision concerns, no bladder or bowel retention/incontinence, no perineal numbness/tingling, and ambulates independently today. PHYSICAL EXAM: - Patient is alert and oriented 3 appears well-nourished well-hydrated is in no acute distress. They do not appear septic. - On exam the patient has no tenderness to palpation of their thoracic or lumbar spine. There is no edema or ballottement sign. SI testing is stable and she continues to have pain in this joint. The tests are blunted due to recent injection. - Upper extremities show 5/5 strength in all major muscle groups. - Lower extremities with 5 out of 5 strength in all major muscle groups. - There is FROM that is painless of the b/l UE and LE in all major joints. - They are intact to light touch sensation in L2 to S1 nerve distribution as well as the C5-T1 distribution. - DTRs 2/4 all upper and lower - Patient has palpable distal pulses in all four extremities - Compartments are soft and compressible. -Neg Duran's -No Clonus -Neg Babinski -Neg Igor's -No tensioning signs. - Cranial nerves II through XII are grossly intact. - Overall alignment is well-maintained in the sagittal coronal planes. - Surgical incision: Healed Well. RADIOGRAPHS: No new imaging completed for review. Please see previous notes. ASSESSMENT: 1. Bilateral sacroiliitis I outlined the natural course history without intervention and various interventional options. PLAN: Based on my findings I suggest the following course of action: -Presently, I have recommended that the patient proceed with bilateral SI joint injections, as they have previously provided her wit relief of her symptoms. The patient has elected to proceed with the following procedure at this time: Bilateral SI joint injections The patient understands all risks, benefits, and alternatives at this time, and wishes to proceed. -Carlota nielson sent a prescription to the patient's pharmacy today for Celebrex 200 mg. I have advised the patient to continue taking Gabapentin 300 mg on a regimen of two pills at night daily. Carlota nielson also advised her to continue taking over te counter Tylenol on a regimen of two tablets three times daily. -Advised patient to continue with supplements, health maintenance, and home exercise programs. Patient expressed understanding and will continue with these modalities. - Ambulate daily - Take medications as directed - Ice and rest for pain and swelling control. Spine Surgery Risk Review Ms. Gonzalez is presenting for evaluation of low back, buttocks, and bilateral lower extremity pain. It was my pleasure to have seen and examined Ms. Gonzalez. In our visit today we have had a chance to go over subjective complaints, physical examination findings and treatments including the natural course history without intervention and various interventional options. The patients imaging demonstrates: Lumbar MRI taken on 07/01/22 at [facility]: - Re-reviewed with the patient today. images reviewed with patient. There are no comp cane processes seen. There is spondylosis noted at L5-S1 and L3-L4. A surgical changes noted L4-L5 with good decompression and hardware placement. No evidence of loosening fracture failure and infection. There is in the visualized SI joints some uptake related to sacroiliitis. No acute fractures noted. No lesions. XRayLumbar AP/lateral 2 views taken at [facility] on 01/28/22 of Lumbar Spine: - Re-reviewed with the patient today. Hardware in good position, no signs of any screw loosening, migration, dislocation, or failure. Overall good coronal alignment with stable sagittal balance. Good reduction maintained.No osseous abnormalities noted. Cement in good position and holding On physical exam, Ms. Gonzalez demonstrates: Continued diffuse low back pain that radiates down into the buttocks and posterior aspect of the bilateral lower extremities. The patient notes mild, intermittent hip pain bilaterally. The patient notes an onset of cramping throughout the bilateral lower extremities over the last 2 to 3 weeks. The patient states that her symptoms are exacerbated by prolonged activity. The patient states that her low back and leg pain have significantly increased since she was last evaluated in office on 10/20/2022. I have explained to the patient that as their condition progresses it will cause further neurological deficits and eventual paralysis. Based on the patients imaging, physical exam, and the rapid progression and disabling nature of their symptoms, at this time I recommend surgery in the form of a: Bilateral SI joint injections. I discussed the risk and benefits of this procedure at length with Ms. Gonzalez. The patient agreed to considered pursuing the procedure abovementioned. Prior to surgery, she should follow up with her PCP (Cardio, ID, IM etc) for clearance. Questions were invited and answered, and the patient wishes to proceed as outlined below. Currently, I am recommendin.Bilateral SI joint injections 2.Follow up with PCP for surgical clearance 3.Review of surgical risks and benefits as well as an educational packet on the proposed surgical procedure. Risks: All surgical procedures come with inherent risks, including those related to positioning, anesthesia, intraoperative findings, and postoperative complications. It is important to understand that surgery does not come with any guarantee of a successful outcome as complications and adverse events are always possible. The patient was given a handout in office today discussing the surgical procedure and risks associated with the intervention, both of which were discussed with the patient. These risks include but are not limited to the following: * Experiencing same, different or even worse symptoms in back, neck, arms, or legs compared to before surgery. Requiring further surgery or other forms of treatment presently or at some time in the future at same or other levels of the intended spine surgery. On an extreme but fortunately relatively rare basis severe complication such as blindness, stroke, heart attack, temporary and/or permanent nerve injury, paralysis, coma, or may occur, sometimes without known explanation. Surgical complications may include but are not limited to risk of infection, fluid accumulation in the surgical dissection site, including a seroma or hematoma, that requires additional surgery, wound drainage, bleeding, new numbness or weakness, vision changes/loss, spinal fluid leakage, non-healing and/or infected incision, headaches, difficulty or inability to swallow, hoarseness, hemopneumothorax, pneumothorax, impotence, retrograde ejaculation, vaginal dryness; injury to nerves, spinal cord, blood vessels, lymphatics or other vital organs (i.e., bowel injury, injury to the great vessels); heterotopic bone formation; complications related to the hardware such as screws, rods, cages including misplaced hardware, device failure, instrumen tation at the wrong spine level, hardware fracture/breakage, or hardware loosening; vertebral failure of the spinal column above or below the newly placed hardware; retained surgical instrumentations or devices and the need for further surgery. * Medical risks of the planned spine surgery include but are not limited to generalized Infections to the whole body or local areas outside of the surgical site (sepsis), heart attack, bleeding, anaphylaxis, meningitis, seizure, epilepsy, hearing loss, burn [place], laceration of the head or other areas of the body, bruising, hypersensitivity of the skin, bladder over distension; allergic reaction; shoulder injury related to positioning; fat, blood and air clots to other areas of the body like heart, lungs, brain; failure of internal organs such as lungs, kidneys, liver and excessive bleeding. If blood transfusions are necessary, note that transfusions may cause intolerance reactions such as anaphylaxis or other complex reactions. Despite best efforts, the results of spine surgery might not heal in terms of bone, soft tissues such as skin, fascia, ligaments, and joints. Additionally, in order to achieve best possible results, spine surgery may be carried out beyond the initially planned levels and involve decompression, fusion including insertion of hardware at levels other than the original intended area of surgical interest change some portions of the procedure in order to ensure the best possible outcomes. With spine surgery and spinal fusion, there are different off label uses of instrumentation (devices, implants and hardware) as well as biological substances (bone morphogenic proteins, demineralized bone matrix) as well as using extra bone from allograft sources (i.e. cadaver bone) or autograft (iliac crest bone, ribs, or the spine itself). The patient has been given information about these practices and their inherent risks and benefits. [facility] is an educational center that serves as a training facility for neurosurgical and orthopedic STEWARDESSES TEACHER and Nursing students. Physician assistants are medically trained surgical providers who function in the outpatient, inpatient, and operating room setting under the direct supervision of the attending surgeon. [facility] has multiple operating rooms with single and overlapping rooms running daily. They currently function under the required guidelines as produced by the [facility] with regards to the overlapping rooms and will continue to comply with changes to this policy as they occur. The requirements include and are complied with as follows: (1) the critical portions of the overlapping rooms will not occur at the same time, (2) the attending physician will be physically present during the critical portions of the p rocedure and immediately available during the entire case, and (3) a back-up attending is designated should the primary attending not be immediately available. The patient has had a chance to review all the listed information, has been given print outs detailing this information, and has had all his/her questions answered to their satisfaction. It was my pleasure to have seen and examined Ms. Gonzalez. In our visit today we have had a chance to go over my understanding of our patient's current condition, the natural course history without intervention and various interventional options. Questions were invited and answered, and the patient wishes to proceed as outlined above. I have seen and examined the patient for 25 minutes and we have spent more than 50% of the time in repeat and detailed counseling about the patient's condition, its natural course history with out and as much as can be predicted with surgery and re-review of various surgical treatment options. In conclusion, Ms. Gonzalez requested we proceed with the above suggested surgery and are willing to accept risks and limitations of the suggested surgery as nature of the disease process and our best attempts at treatment for the condition. Thank you again for allowing us to be part of your patient's care. Please don't hesitate to contact me if you have any further questions. Signed and authenticated by: [employer] "C:\\\\Program Files ([id number])\\\\[employer]\\\\Practice Partner\\\\[id number].PNG" \\d Matthew Pittman DO [facility] and Minimally Invasive Spine Surgery [address] [place] [id number] Follow-up: After SI joint injections has been completed Patient Education: (Informational booklet, instructions, etc) given at today's appointment: Yes .ED:Patient Education: Y Medications Reviewed: YES In our visit today Ms. Gonzalez and I have had a chance to go over my understanding of the patient's current condition, the natural course history without intervention and various interventional options. Questions were invited and answered, and the patient wishes to proceed as outlined above. I will be sure to keep you updated afterMs. Gonzalez returns here for further follow-up. Thank you again for your referral. Please do not hesitate to contact me if you have any further questions. Signed and authenticated by: Matthew Pittman DO [facility]imally Invasive Spine Surgery [address] [place] [address], [address] [place] [address] This message is confidential, intended only for the named recipient(s) and may contain information that is privileged or exempt from disclosure under applicable law. If you are not the intended recipient(s), you are notified that the dissemination, distribution or copying of this information is strictly prohibited. If you received this message in error, please notify the sender then delete this message. Patient verbalizes understanding of the information discussed. The above note was initiated by Na Stephenson, physician recording billing assistant for Dr. Matthew Pittman. This note has been reviewed by Dr. Pittman, who has made his personal changes and impressions for this document. CC: Cami Oreilly M.D. Past Medical History Past Medical History: CVA/TIA, Diabetes Mellitus, Hyperlipidemia, Hypertension, Osteoarthritis (OA), Thyroid Disorder Additional Past Medical History / Comment(s): PARKINSON's disease, possible TIA, SEASONAL ALLERGIES, OSTEOPORISIS, INTERSTITIAL CYSTITIS, DRY EYES, MACULAR DEGENERATION.CHRONIC KIDNEY DISEASE STAGE 3 , NEW DX ANEMIA, IRON DEFICIENCY AND B12 DEFICIENCY History of Any Multi-Drug Resistant Organisms: None Reported Past Surgical History: Adenoidectomy, Back Surgery, Bladder Surgery, Cholecystectomy, Heart Catheterization, Hysterectomy, Orthopedic Surgery, Tonsillectomy, Tubal Ligation Additional Past Surgical History / Comment(s): LEFT ROTATOR CUFF, RIGHT FROZEN SHOULDER, JEFF KNEES-TOTAL AND PARTIAL, OOPHERECTOMY, CYSTOSCOPIES, BLADDER SUSPENSION, INTERSTITIAL CYSTITIS, JEFF CARPAL TUNNEL, PAIN CLINIC PROCEDURES , EYE SURGERIES (CHILD), EYELID RESECTION & EYEBROW LIFT. laminectomy on 07-26-20, BACK SURGERY WITH HARDWARE (CAGE) 11/02, L1 & L2 01/12/22, BILATERAL CATARACT SURGERY. Past Anesthesia/Blood Transfusion Reactions: Previous Problems w/ Anesthesia Additional Past Anesthesia/Blood Transfusion Reaction / Comment(s): STATES MEDICATION "CURRARRE" USED OVER 25 YEARS AGO, SHE FELT PARALYZED AND COULD NOT MOVE OR BREATHE. Smoking Status: Never smoker - Past Family History Mother Family Medical History: Cancer Additional Family Medical History / Comment(s): SKIN CANCER Father Family Medical History: Cancer Additional Family Medical History / Comment(s): SKIN CANCER Sister(s) Family Medical History: Cancer Additional Family Medical History / Comment(s): BREAST CANCER Medications and Allergies Home Medications Medication Instructions Recorded Confirmed Type Fenofibrate [Lofibra] 160 mg PO DAILY 02/05/20 12/28/22 History Levothyroxine Sodium [Synthroid] 50 mcg PO HS 02/05/20 12/28/22 History Pioglitazone [Actos] 15 mg PO HS 02/05/20 12/28/22 History Magnesium Oxide 800 mg PO BID 07/20/20 12/28/22 History Aspirin [Adult Low Dose Aspirin EC] 81 mg PO DAILY 10/24/20 12/28/22 History Carbidopa-Levodopa 25-100 mg 2 tab PO QID 10/24/20 12/28/22 History [Sinemet 25-100] Alendronate Sodium [Fosamax] 70 mg PO TEIXEIRA 01/09/22 12/28/22 History Empagliflozin [Jardiance] 10 mg PO DAILY 01/09/22 12/28/22 History Escitalopram Oxalate [Lexapro] 20 mg PO HS 01/09/22 12/28/22 History Ferrous Sulfate [Feosol] 325 mg PO DAILY 01/09/22 12/28/22 History Gabapentin [Neurontin] 300 mg PO TID 01/09/22 12/28/22 History Multivit with Calcium,Iron,Min 1 each PO DAILY 01/09/22 12/28/22 History [Women's Multivitamin] Rosuvastatin Calcium [Crestor] 40 mg PO HS 01/09/22 12/28/22 History Vitamin C, D & Zinc 1 tab PO DAILY 01/09/22 12/28/22 History Calcium Carb/Vitamin D3/Vit K1 1 tab PO BID 08/03/22 12/28/22 History [Citracal-D3 500 mg Soft Chew] Cyclobenzaprine [Flexeril] 10 mg PO HS PRN 08/03/22 12/28/22 History Escitalopram [Lexapro] 10 mg PO DAILY 08/03/22 12/28/22 History Fexofenadine HCl 180 mg PO HS PRN 08/03/22 12/28/22 History Krill/Om-3/Dha/Epa/Phospho/Ast 1 each PO DAILY 08/03/22 12/28/22 History [Krill Oil 500 mg Softgel] Pramipexole [Mirapex] 0.5 mg PO TID 08/03/22 12/28/22 History lisinopriL [Zestril] 20 mg PO DAILY 08/03/22 12/28/22 History Acetaminophen [Tylenol Extra 1,000 mg PO Q6H PRN 12/28/22 12/28/22 History Strength] Allergies Allergy/AdvReac Type Severity Reaction Status Date / Time erythromycin base Allergy Unknown Rash, Verified 12/28/22 14:43 itching, lips swollen, tingling, head like basketball oxycodone Allergy Unknown vomit bile Verified 12/28/22 14:43 Penicillins Allergy Unknown Rash, Verified 12/28/22 14:43 itching sulfamethoxazole Allergy Unknown rash, Verified 12/28/22 14:43 [From Bactrim] itching tolterodine [From Detrol] Allergy Unknown itching/nelly Verified 12/28/22 14:43 h tramadol [From Ultram] Allergy Unknown Rash, Verified 12/28/22 14:43 itching, lips swollen, tingling, head like basketball trimethoprim [From Bactrim] Allergy Unknown rash, Verified 12/28/22 14:43 itching nickel Allergy Rash/Hives Verified 12/28/22 14:43 hydromorphone [From Dilaudid] AdvReac Unknown reaction Verified 12/28/22 14:43 in higher doses, rash, itching gel adhesive pad Allergy Unknown ekg pads Uncoded 12/28/22 14:43 and adhesive- chemical burn, itching rash Physical Examination Osteopathic Statement: *. No significant issues noted on an osteopathic structural exam other than those noted in the History and Physical/Consult.
[~2023-01-01 11:51] MED LIST changes: +LACTATED RINGERS 1,000 ML IV SCH; +LIDOCAINE 1% (10MG/ML) FOR IV START INTRADERMA PRN; +ONDANSETRON 4 MG/2 ML VIAL IVP PRN; +droPERidol 5 MG/2 ML VIAL IVP PRN; +fentaNYL (PF) 50 MCG/ML 2 ML AMP IV PRN; +fentaNYL (PF) 50 MCG/ML 2 ML AMP IVP PRN
[2023-01-01 12:23] LABS: Glucose,Whole Blood 121 mg/dL (70-110)
[2023-01-01 12:30] VITALS: RESP 16; TEMP 97.7
[2023-01-01] MEDS ORDERED: IOPAMIDOL M200 10 ML VIAL MISCELLANE ONE ×2 (12:33→12:55)
[2023-01-01] MEDS ORDERED: BUPIVACAINE (PF) 0.25% 30 ML VIAL SQ ONE ×2 (12:33→12:55)
[2023-01-01] MEDS ORDERED: methylPREDNISolone ACETATE 40 MG/ML 1 ML VIAL MISCELLANE ONE ×2 (12:33→12:55)
[2023-01-01] MEDS ORDERED: LIDOCAINE 2%-EPI 1:100,000 20 ML VIAL SQ ONE ×2 (12:33→12:55)
[2023-01-01 13:27] VITALS: BP 135/67; PULSE 77
--- NOTE | 2023-01-01 14:20 | FL ---
EXAMINATION TYPE: FL guidance operating room DATE OF EXAM: 01/01/2023 HISTORY: Fluoroscopy time Total dose area product (DAP) in uGy*m?, mGy*cm? (or similar): 49.47 IMPRESSION: 1. Fluoroscopy time.
--- NOTE | 2023-01-01 17:17 | P.OP ---
Date of Procedure: 01/01/23 Preoperative Diagnosis: 1. B/L SIJ OA 2. LOW BACK PAIN Postoperative Diagnosis: 1. B/L SIJ OA 2. LOW BACK PAIN Procedure(s) Performed: 1. B/L SIJ INJECTION UNDER FLOUROSCOPIC GUIDANCE Implants: NONE Anesthesia: local Surgeon: Matthew Pittman Estimated Blood Loss (ml): 2 IV fluids (ml): 0 Urine output (ml): 0 Pathology: none sent Condition: stable Disposition: PACU Indications for Procedure: Ms. Gonzalez is presenting for evaluation of low back, buttocks, and bilateral lower extremity pain. It was my pleasure to have seen and examined Ms. Gonzalez. In our visit today we have had a chance to go over subjective complaints, physical examination findings and treatments including the natural course history without intervention and various interventional options. The patients imaging demonstrates: Lumbar MRI taken on 07/01/22 at [facility]: - Re-reviewed with the patient today. images reviewed with patient. There are no comp cane processes seen. There is spondylosis noted at L5-S1 and L3-L4. A surgical changes noted L4-L5 with good decompression and hardware placement. No evidence of loosening fracture failure and infection. There is in the visualized SI joints some uptake related to sacroiliitis. No acute fractures noted. No lesions. XRayLumbar AP/lateral 2 views taken at [facility] on 01/28/22 of Lumbar Spine: - Re-reviewed with the patient today. Hardware in good position, no signs of any screw loosening, migration, dislocation, or failure. Overall good coronal alignment with stable sagittal balance. Good reduction maintained.No osseous abnormalities noted. Cement in good position and holding On physical exam, Ms. Gonzalez demonstrates: Continued diffuse low back pain that radiates down into the buttocks and posterior aspect of the bilateral lower extremities. The patient notes mild, intermittent hip pain bilaterally. The patient notes an onset of cramping throughout the bilateral lower extremities over the last 2 to 3 weeks. The patient states that her symptoms are exacerbated by prolonged activity. The patient states that her low back and leg pain have significantly increased since she was last evaluated in office on 10/20/2022. I have explained to the patient that as their condition progresses it will cause further neurological deficits and eventual paralysis. Based on the patients imaging, physical exam, and the rapid progression and disabling nature of their symptoms, at this time I recommend surgery in the form of a: Bilateral SI joint injections. I discussed the risk and benefits of this procedure at length with Ms. Gonzalez. The patient agreed to considered pursuing the procedure abovementioned. Prior to surgery, she should follow up with her PCP (Cardio, ID, IM etc) for clearance. Questions were invited and answered, and the patient wishes to proceed as outlined below. Currently, I am recommendin.Bilateral SI joint injections Description of Procedure: Bilateral SIJ injection The patient was seen and examined in the preoperative area. All preoperative protocols were followed. Informed consent was obtained, risks and benefits of the procedure were discussed at length. Risks including bleeding infection damage to the surrounding tissue and risk of reoperation were discussed with the patient. Risk of anesthesia up to and including was discussed with the patient. These are outlined in the risk review. They were willing to accept these risks and all of the risks of surgery. The patient was seen and evaluated by the anesthesia team who deemed them fit for surgery. The site was marked, the patient was willing to proceed with the procedure. The patient was transferred to the operative suite by the Department of anesthesia. They were then drifted off to sleep by the department anesthesia and sedation with local was performed. The patient tolerated this well. Once confirmation of lines and ventilation the patient was transferred to a prone José Miguel table very carefully. All bony prominences including wrists, elbows, axilla, chest, hips, and thighs, and feet were padded very well. Special attention was paid to the genitalia and these were padded accordingly. SCDs were placed on bilateral lower extremities and were connected. Arms were well padded and placed on arm boards up and out in the 90/90 position. Once in position, again we confirmed good ventilation capabilities and that lines were running appropriately. The patient's lumbopelvic spine was then exposed. 1010s were rneee carolina outlining the incision site. Standard alcohol was used to clean the incision site and allowed to dry. C-arm was used to biomark the patient and confirm level for incision which was marked with a skin marker. Operative briefing was performed with all teams and everyone in agreement to proceed. The patient was then prepped and draped in a normal sterile fashion. Timeout was then performed and all parties were in agreement with the procedure to be performed. Biplanar fluoroscopy was used to identify the bilateral SI joints which were then accessed with a 18-gauge needle after anesthetic was placed into the subcutaneous tissue in the form of 1% with epinephrine of lidocaine along with a mixture of cortical percent Marcaine without epinephrine. Once there is good anesthesia and the SI joints were accessed Isovue was used to confirm within the joint space. Once this was confirmed 40 of Kenalog along with a mixture of lidocaine and Marcaine were injected into the SI joint. Patient remained stable the entire time without any radicular symptoms during the injection phase. The needles were withdrawn and the area cleaned and Band-Aids placed. The patient was transferred back to their hospital bed atraumatically. Patient was then awakened and extubated by the department of anesthesia having tolerated the procedure very well with no complications. They were transferred to the postoperative care unit in stable condition.
== END 2023-01-01 13:33 | disposition home or self-care (01) ==
LOC: OR 11:51
PROVIDERS: ATTEND Orthopaedic Surgery
DX: M46.1 Sacroiliitis, not elsewhere classified (principal); M47.818 Spondylosis without myelopathy or radiculopathy, sacral and sacrococcygeal region; E11.9 Type 2 diabetes mellitus without complications; N18.30 Chronic kidney disease, stage 3 unspecified; I12.9 Hypertensive chronic kidney disease with stage 1 through stage 4 chronic kidney disease, or unspecified chronic kidney disease; G20.A1 Parkinson's disease without dyskinesia, without mention of fluctuations; E78.5 Hyperlipidemia, unspecified; Z86.73 Personal history of transient ischemic attack (TIA), and cerebral infarction without residual deficits; E07.9 Disorder of thyroid, unspecified; Z79.899 Other long term (current) drug therapy; Z90.49 Acquired absence of other specified parts of digestive tract; Z90.710 Acquired absence of both cervix and uterus; Z90.89 Acquired absence of other organs; Z98.51 Tubal ligation status; Z80.3 Family history of malignant neoplasm of breast; Z79.890 Hormone replacement therapy; Z79.84 Long term (current) use of oral hypoglycemic drugs; Z79.82 Long term (current) use of aspirin; Z88.1 Allergy status to other antibiotic agents; Z88.2 Allergy status to sulfonamides; Z88.0 Allergy status to penicillin; Z88.5 Allergy status to narcotic agent
CPT/HCPCS: J1030; Q9966; J0665; G0260

== ENCOUNTER 2023-02-19 11:51 | Day surgery (SDC) | payer MEDICARE, OTHER ==
--- NOTE | 2023-02-19 07:32 | P.HPOR ---
History of Present Illness H&P Date: 02/01/23 .D:Date: 02/01/23 : 03:51pm .T:Title: [facility] Date of :[birth year] [id number]: NKDA Age: 72 year Height: 5'3" Weight: 190 lbs BP:118/72 BMI: 33.66 kg/m2 Occupation: Retired VAS: 5 CHIEF COMPLAINT: Re-check on low back pain following bilateral SI joint injections DOI:None DOS: 01/01/2023 (most recent bilateral SI joint injections) HISTORY: Ms. Gonzalez returns to the office today for a re-check on her low back pain following bilateral SI joint injections completed on 01/01/2023. The patient reports experiencing approximately 85% relief for three and a half weeks following the injections. The patient previously trialed bilateral SI joint injections on 08/04/2022, which provided her with 100% relief for 6 weeks and her second bilateral SI joint injection on 09/18/2022 with 100% relief for 1 week. She has another set of bilateral SI joint injections scheduled for 02/19/2023. Today, the patient reports experiencing an ache-like low back pain that radiates down into the buttocks and posterior aspect of the bilateral lower extremity with a shooting, burning quality. She notes that her left lower extremity symptoms are worse than the right at this time. She states that her symptoms are exacerbated by prolonged standing and sitting, going from a seated to standing position, and when going up the stairs. The patient reports experiencing mild to moderate sleep disturbances related to her ongoing pain and associated symptoms. The patient is currently taking Tylenol as needed for relief of her current symptoms. Otherwise the patient states that she does not have any acute concerns at this time. The patient denies any f/c/sob/cp, no incision concerns, no bladder or bowel retention/incontinence, no perineal numbness/tingling, and ambulates independently today. The patient's past medical history; past surgical history; family history; medicines; allergies and social history have been reviewed and are as stated elsewhere in the chart. 16 points review of systems completed and as stated in HPI, all other systems reviewed are negative. HISTORY: Ms. Gonzalez returned to the office on 12/02/2022 regarding a re-check on her low back pain. The patient reports experiencing continued diffuse low back pain that radiates down into the buttocks and posterior aspect of the bilateral lower extremities. The patient notes mild, intermittent hip pain bilaterally. The patient notes an onset of cramping throughout the bilateral lower extremities over the last 2 to 3 weeks. The patient states that her symptoms are exacerbated by prolonged activity. The patient states that her low back and leg pain have significantly increased since she was last evaluated in office on 10/20/2022. The patient previously trialed bilateral SI joint injections on 08/04/2022, which provided her with 100% relief for 6 weeks and her second bilateral SI joint injection on 09/18/2022 with 100% relief for 1 week. The patient is currently taking Celebrex which provides her with relief. Otherwise the patient states that she does not have any acute concerns at this time. The patient denies any f/c/sob/cp, no incision concerns, no bladder or bowel retention/incontinence, no perineal numbness/tingling, and ambulates independently today. Ms. Gonzalez was previously seen in the office on 10/20/2022, which was approximately 1 month following her second SI joint injection. The patient recently received a bilateral SI joint injection on 08/04/2022, which provided her with 100% relief for 6 weeks and her second bilateral SI joint injection on 09/18/22 with 100% relief for 1 week. Patient was seen last week and received a left hip GTB with 100% relief. Patient continues to have pain on her right side. The patient notes her pain is exacerbated after prolonged sitting or walking. The patient is currently taking Gabapentin, Motrin, and Aspirin, which provide her with relief. Otherwise the patient states that she does not have any acute concerns at this time. The patient denies any f/c/sob/cp, no incision concerns, no bladder or bowel retention/incontinence, no perineal numbness/tingling, and ambulates independently today. PHYSICAL EXAM: - Patient is alert and oriented 3 appears well-nourished well-hydrated is in no acute distress. They do not appear septic. - On exam the patient has no tenderness to palpation of their thoracic or lumbar spine. There is no edema or ballottement sign. SI testing is stable and she continues to have pain in this joint. The tests are blunted due to recent injection. - Upper extremities show 5/5 strength in all major muscle groups. - Lower extremities with 5 out of 5 strength in all major muscle groups. - There is FROM that is painless of the b/l UE and LE in all major joints. - They are intact to light touch sensation in L2 to S1 nerve distribution as well as the C5-T1 distribution. - DTRs 2/4 all upper and lower - Patient has palpable distal pulses in all four extremities - Compartments are soft and compressible. -Neg Duran's -No Clonus -Neg Babinski -Neg Igor's -No tensioning signs. - Cranial nerves II through XII are grossly intact. - Overall alignment is well-maintained in the sagittal coronal planes. - Surgical incision: Healed Well. RAD IOGRAPHS: No new x-rays completed in office today. Please see previous notes. ASSESSMENT: 1. Bilateral SI joint osteoarthritis, left worse than right 2. Low back pain PLAN: All options were reviewed today, we decided the best course of action would be: - Proceed with previously scheduled bilateral SI joint injections on 02/19/2023. - Take pain medications as needed and as directed - Ice and rest for pain and swelling control. - Ambulate daily. Spine Surgery Risk Review Ms. Gonzalez is presenting for evaluation of low back, buttocks, and bilateral lower extremity pain; left worse than the right. It was my pleasure to have seen and examined Ms. Gonzalez. In our visit today we have had a chance to go over subjective complaints, physical examination findings and treatments including the natural course history without intervention and various interventional options. The patients imaging demonstrates: Lumbar MRI taken on 07/01/22 at [facility]: - Re-reviewed with the patient today. images reviewed with patient. There are no comp cane processes seen. There is spondylosis noted at L5-S1 and L3-L4. A surgical changes noted L4-L5 with good decompression and hardware placement. No evidence of loosening fracture failure and infection. There is in the visualized SI joints some uptake related to sacroiliitis. No acute fractures noted. No lesions. XRayLumbar AP/lateral 2 views taken at [facility] on 01/28/22 of Lumbar Spine: - Re-reviewed with the patient today. Hardware in good position, no signs of any screw loosening, migration, dislocation, or failure. Overall good coronal alignment with stable sagittal balance. Good reduction maintained.No osseous abnormalities noted. Cement in good position and holding On physical exam, Ms. Gonzalez demonstrates: An ache-like low back pain that radiates down into the buttocks and posterior aspect of the bilateral lower extremity with a shooting, burning quality. She notes that her left lower extremity symptoms are worse than the right at this time. She states that her symptoms are exacerbated by prolonged standing and sitting, going from a seated to standing position, and when going up the stairs. The patient reports experiencing mild to moderate sleep disturbances related to her ongoing pain and associated symptoms. I have explained to the patient that as their condition progresses it will cause further neurological deficits and eventual paralysis. Based on the patients imaging, physical exam, and the rapid progression and disabling nature of their symptoms, at this time I recommend surgery in the form of a: Bilateral SI joint injections. I discussed the risk and benefits of this procedure at length with Ms. Gonzalez. The patient agreed to considered pursuing the procedure abovementioned. Prior to surgery, she should follow up with her PCP (Cardio, ID, IM etc) for clearance. Questions were invited and answered, and the patient wishes to proceed as outlined below. Currently, I am recommendin.Bilateral SI joint injections 2.Follow up with PCP for surgical clearance 3.Review of surgical risks and benefits as well as an educational packet on the proposed surgical procedure. Risks: All surgical procedures come with inherent risks, including those related to positioning, anesthesia, intraoperative findings, and postoperative complications. It is important to understand that surgery does not come with any guarantee of a successful outcome as complications and adverse events are always possible. The patient was given a handout in office today discussing the surgical procedure and risks associated with the intervention, both of which were discussed with the patient. These risks include but are not limited to the following: * Experiencing same, different or even worse symptoms in back, neck, arms, or legs compared to before surgery. Requiring further surgery or other forms of treatment presently or at some time in the future at same or other levels of the intended spine surgery. On an extreme but fortunately relatively rare basis severe complication such as blindness, stroke, heart attack, temporary and/or permanent nerve injury, paralysis, coma, or may occur, sometimes without known explanation. Surgical complications may include but are not limited to risk of infection, fluid accumulation in the surgical dissection site, including a seroma or hematoma, that requires additional surgery, wound drainage, bleeding, new numbness or weakness, vision changes/loss, spinal fluid leakage, non-healing and/or infected incision, headaches, difficulty or inability to swallow, hoarseness, hemopneumothorax, pneumothorax, impotence, retrograde ejaculation, vaginal dryness; injury to nerves, spinal cord, blood vessels, lymphatics or other vital organs (i.e., bowel injury, injury to the great vessels); heterotopic bone formation; complications related to the hardware such as screws, rods, cages including misplaced hardware, device failure, instrumenta tion at the wrong spine level, hardware fracture/breakage, or hardware loosening; vertebral failure of the spinal column above or below the newly placed hardware; retained surgical instrumentations or devices and the need for further surgery. * Medical risks of the planned spine surgery include but are not limited to generalized Infections to the whole body or local areas outside of the teixeira rgical site (sepsis), heart attack, bleeding, anaphylaxis, meningitis, seizure, epilepsy, hearing loss, burn [place], laceration of the head or other areas of the body, bruising, hypersensitivity of the skin, bladder over distension; allergic reaction; shoulder injury related to positioning; fat, blood and air clots to other areas of the body like heart, lungs, brain; failure of internal organs such as lungs, kidneys, liver and excessive bleeding. If blood transfusions are necessary, note that transfusions may cause intolerance reactions such as anaphylaxis or other complex reactions. Despite best efforts, the results of spine surgery might not heal in terms of bone, soft tissues such as skin, fascia, ligaments, and joints. Additionally, in order to achieve best possible results, spine surgery may be carried out beyond the initially planned levels and involve decompression, fusion including insertion of hardware at levels other than the original intended area of surgical interest change some portions of the procedure in order to ensure the best possible outcomes. With spine surgery and spinal fusion, there are different off label uses of instrumentation (devices, implants and hardware) as well as biological substances (bone morphogenic proteins, demineralized bone matrix) as well as using extra bone from allograft sources (i.e. cadaver bone) or autograft (iliac crest bone, ribs, or the spine itself). The patient has been given information about these practices and their inherent risks and benefits. [facility] is an educational center that serves as a training facility for neurosurgical and orthopedic [employer]OOKKEEPER and Nursing students. Physician assistants are medically trained surgical providers who function in the outpatient, inpatient, and operating room setting under the direct supervision of the attending surgeon. [facility] has multiple operating rooms with single and overlapping rooms running daily. They currently function under the required guidelines as produced by the [facility] Finance Committee with regards to the overlapping rooms and will continue to comply with changes to this policy as they occur. The requirements include and are complied with as follows: (1) the critical portions of the overlapping rooms will not occur at the same time, (2) the attending physician will be physically present during the critical portions of the pro cedure and immediately available during the entire case, and (3) a back-up attending is designated should the primary attending not be immediately available. The patient has had a chance to review all the listed information, has been given print outs detailing this information, and has had all his/her questions answered to their satisfaction. It was my pleasure to have seen and examined Ms. Gonzalez. In our visit today we have had a chance to go over my understanding of our patient's current condition, the natural course history without intervention and various interventional options. Questions were invited and answered, and the patient wishes to proceed as outlined above. I have seen and examined the patient for 25 minutes and we have spent more than 50% of the time in repeat and detailed counseling about the patient's condition, its natural course history with out and as much as can be predicted with surgery and re-review of various surgical treatment options. In conclusion, Ms. Gonzalez requested we proceed with the above suggested surgery and are willing to accept risks and limitations of the suggested surgery as nature of the disease process and our best attempts at treatment for the condition. Thank you again for allowing us to be part of your patient's care. Please don't hesitate to contact me if you have any further questions. Follow- up: After completion of scheduled bilateral SI joint injections Patient Education (Informational booklet, instructions, etc) given at today's appointment: Yes .ED:Patient Education: Y Medications Reviewed: yes Attestation: In our visit today Ms. Gonzalez and I have had a chance to go over my understanding of the patient's current condition, the natural course history without intervention and various interventional options. Questions were invited and answered, and the patient wishes to proceed as outlined above. I will be sure to keep you updated afterMsJovanna Gonzalez returns here for further follow-up. Thank you again for your referral. Please do not hesitate to contact me if you have any further questions. Signed and authenticated by: Matthew Mills [facility] [address] [address] This message is confidential, intended only for the named recipient(s) and may contain information that is privileged or exempt from disclosure under applicable law. If you are not the intended recipient(s), you are notified that the dissemination, distribution or copying of this information is strictly prohibited. If you received this message in error, please notify the sender then delete this message. Patient verbalizes understanding of the information discussed. The above note was initiated by Na Stephenson, physician recording procurement assistant for Dr. Matthew Pittman. This note has been reviewed by Dr. Pittman, who has made his personal changes and impressions for this document. CC: Cami Oreilly M.D. # SIGNED BY Matthew Pittman (GOO)02/11/2023 11:13AM Past Medical History Past Medical History: CVA/TIA, Diabetes Mellitus, Hyperlipidemia, Hypertension, Osteoarthritis (OA), Thyroid Disorder Additional Past Medical History / Comment(s): PARKINSON's disease, possible TIA, SEASONAL ALLERGIES, OSTEOPORISIS, INTERSTITIAL CYSTITIS, DRY EYES, MACULAR DEGENERATION.CHRONIC KIDNEY DISEASE STAGE 3 , NEW DX ANEMIA, IRON DEFICIENCY AND B12 DEFICIENCY, resolving cold sx, nasal congestion History of Any Multi-Drug Resistant Organisms: None Reported Past Surgical History: Adenoidectomy, Back Surgery, Bladder Surgery, Cholecystectomy, Heart Catheterization, Hysterectomy, Orthopedic Surgery, Tonsillectomy, Tubal Ligation Additional Past Surgical History / Comment(s): LEFT ROTATOR CUFF, RIGHT FROZEN SHOULDER, JEFF KNEES-TOTAL AND PARTIAL, OOPHERECTOMY, CYSTOSCOPIES, BLADDER SUSPENSION, INTERSTITIAL CYSTITIS, JEFF CARPAL TUNNEL, PAIN CLINIC PROCEDURES , EYE SURGERIES (CHILD), EYELID RESECTION & EYEBROW LIFT. laminectomy on 07-26-20, BACK SURGERY WITH HARDWARE (CAGE) 11/02, L1 & L2 10/31/22, BILATERAL CATARACT SURGERY. Past Anesthesia/Blood Transfusion Reactions: Previous Problems w/ Anesthesia Additional Past Anesthesia/Blood Transfusion Reaction / Comment(s): STATES MEDICATION "CURRARRE" USED OVER 25 YEARS AGO, SHE FELT PARALYZED AND COULD NOT MOVE OR BREATHE. Smoking Status: Never smoker - Past Family History Mother Family Medical History: Cancer Additional Family Medical History / Comment(s): SKIN CANCER Father Family Medical History: Cancer Additional Family Medical History / Comment(s): SKIN CANCER Sister(s) Family Medical History: Cancer Additional Family Medical History / Comment(s): BREAST CANCER Medications and Allergies Home Medications Medication Instructions Recorded Confirmed Type Fenofibrate [Lofibra] 160 mg PO DAILY 02/05/20 02/16/23 History Levothyroxine Sodium [Synthroid] 50 mcg PO HS 02/05/20 02/16/23 History Pioglitazone [Actos] 15 mg PO HS 02/05/20 02/16/23 History Magnesium Oxide 800 mg PO BID 07/20/20 02/16/23 History Aspirin [Adult Low Dose Aspirin EC] 81 mg PO DAILY 10/24/20 02/16/23 History Carbidopa-Levodopa 25-100 mg 2 tab PO QID 10/24/20 02/16/23 History [Sinemet 25-100] Alendronate Sodium [Fosamax] 70 mg PO TEIXEIRA 01/09/22 02/16/23 History Empagliflozin [Jardiance] 10 mg PO DAILY 01/09/22 02/16/23 History Ferrous Sulfate [Feosol] 325 mg PO DAILY 01/09/22 02/16/23 History Gabapentin [Neurontin] 300 mg PO DAILY 01/09/22 02/16/23 History Multivit with Calcium,Iron,Min 1 each PO DAILY 01/09/22 02/16/23 History [Women's Multivitamin] Rosuvastatin Calcium [Crestor] 40 mg PO HS 01/09/22 02/16/23 History Vitamin C, D & Zinc 1 tab PO DAILY 01/09/22 02/16/23 History Calcium Carb/Vitamin D3/Vit K1 1 tab PO BID 08/03/22 02/16/23 History [Citracal-D3 500 mg Soft Chew] Cyclobenzaprine [Flexeril] 10 mg PO HS PRN 08/03/22 02/16/23 History Escitalopram [Lexapro] 10 mg PO DAILY 08/03/22 02/16/23 History Fexofenadine HCl 180 mg PO HS PRN 08/03/22 02/16/23 History Krill/Om-3/Dha/Epa/Phospho/Ast 1 each PO DAILY 08/03/22 02/16/23 History [Krill Oil 500 mg Softgel] Pramipexole [Mirapex] 0.5 mg PO TID 08/03/22 02/16/23 History lisinopriL [Zestril] 20 mg PO DAILY 08/03/22 02/16/23 History Acetaminophen [Tylenol Extra 1,000 mg PO Q6H PRN 12/28/22 02/16/23 History Strength] Meloxicam [Mobic] 15 mg PO DAILY PRN 02/16/23 02/16/23 History Retaine Flax [place] 1 tab PO DAILY 02/16/23 History Retinavite 1 tab PO DAILY 02/16/23 History Allergies Allergy/AdvReac Type Severity Reaction Status Date / Time erythromycin base Allergy Unknown Rash, Verified 02/16/23 12:15 itching, lips swollen, tingling, head like basketball oxycodone Allergy Unknown vomit bile Verified 02/16/23 12:15 Penicillins Allergy Unknown Rash, Verified 02/16/23 12:15 itching sulfamethoxazole Allergy Unknown rash, Verified 02/16/23 12:15 [From Bactrim] itching tolterodine [From Detrol] Allergy Unknown itching/nelly Verified 02/16/23 12:15 h tramadol [From Ultram] Allergy Unknown Rash, Verified 02/16/23 12:15 itching, lips swollen, tingling, head like basketball trimethoprim [From Bactrim] Allergy Unknown rash, Verified 02/16/23 12:15 itching nickel Allergy Rash/Hives Verified 02/16/23 12:15 hydromorphone [From Dilaudid] AdvReac Unknown reaction Verified 02/16/23 12:15 in higher doses, rash, itching gel adhesive pad Allergy Unknown ekg pads Uncoded 02/16/23 12:15 and adhesive- chemical burn, itching rash Physical Examination Osteopathic Statement: *. No significant issues noted on an osteopathic structural exam other than those noted in the History and Physical/Consult.
[~2023-02-19 11:51] MED LIST changes: -LACTATED RINGERS 1,000 ML IV SCH; -LIDOCAINE 1% (10MG/ML) FOR IV START INTRADERMA PRN; -ONDANSETRON 4 MG/2 ML VIAL IVP PRN; -droPERidol 5 MG/2 ML VIAL IVP PRN; -fentaNYL (PF) 50 MCG/ML 2 ML AMP IV PRN; -fentaNYL (PF) 50 MCG/ML 2 ML AMP IVP PRN
[2023-02-19 12:55] LABS: Glucose,Whole Blood 139 mg/dL (70-110)
--- NOTE | 2023-02-19 13:18 | P.OP ---
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, sacral and sacrococcygeal region M53.3 Sacrococcygeal disorders, not elsewhere classified Procedure(s) Performed: 42379 INJECTION PROCEDURE FOR SACROILIAC JOINT, ANESTHETIC/STEROID, WITH IMAGE GUIDANCE (FLUOROSCOPY OR CT) INCLUDING ARTHROGRAPHY WHEN PERFORMED 11881 INJECTION(S), ANESTHETIC AGENT(S) AND/OR STEROID; NERVES INNERVATING THE SACROILIAC JOINT, WITH IMAGE GUIDANCE (IE, FLUOROSCOPY OR COMPUTED TOMOGRAPHY) Implants: None Anesthesia: Local Surgeon: Matthew Pittman Estimated Blood Loss (ml): 1 IV fluids (ml): 0 Urine output (ml): 0 Pathology: none sent Condition: stable Disposition: Stable home Indications for Procedure: [Mr. Bhatt] is presenting for evaluation of [SI joint pain]. It was my pleasure to have seen and examined [Mr. Bhatt]. Today we have had a chance to go over subjective complaints, physical examination findings and treatments including the natural course history without intervention and various interventional options. The patients imaging demonstrates: [No evidence of spinal pathology on imaging that would account for his symptoms. They have no hip OA that is visible to account for symptoms. 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 There is no evidence of any infectious process within the SIJ b/l. No lesions. No fractures.] On the physical exam, [Mr. Bhatt] demonstrates: Patient reports pain across the buttocks and around the hip region. SIJ pain. + provocative testing ? of b/l SIJ. I have explained to the patient that as their condition progresses it will cause further pain, continued debility or even progressive pain and issues. Based on the patients imaging, physical exam, and the rapid progression and disabling nature of their symptoms, at this time I recommend surgery in the form of: [Bilateral SI joint injections]. I discussed the risk and benefits of this procedure at length with [Mr. Bhatt]. The patient agreed to consider pursuing the procedure above mentioned. Prior to surgery, the patient should follow up with her PCP (Cardio, ID, IM etc) for clearance. Questions were invited and answered, and the patient wishes to proceed as outlined below. Currently, I am recommendin. [Bilateral SI joint injections] Description of Procedure: [Bilateral] SIJ injection The patient was seen and examined in their room. All protocols were followed. Informed consent was obtained, risks and benefits of the procedure were discussed at length. Risks including bleeding infection damage to the surrounding tissue and risk of reoperation were discussed with the patient. Risk of anesthesia up to and including was discussed with the patient. These are outlined in the risk review. They were willing to accept these risks and all of the risks of the procedure. The site was marked, the patient was willing to proceed with the procedure. The patient was transferred to the injection table. The Site was localized with Ultrasound and marked. Timeout was performed and all parties in agreement with procedure. The patient was then prepped and draped in a normal sterile fashion. Local anesthetic in the form of 2% lidocaine with epi 5cc and .25% marcaine w/o epi 5cc was placed into each injection site and allowed to work. Xray was then used again to localize the SIJ. Picture was captured. [bilateral] SI joints which were then accessed with a 18-gauge needle. Xray with isovue injected into SIJ b/l done to confirm within joints. Once this was confirmed 40 of dexamethasone along with a mixture of lidocaine and Marcaine 2.5cc each were injected into the SI joint. Patient remained stable the entire time without any radicular symptoms during the injection phase. The needles were withdrawn and the area cleaned and Band-Aids placed. The patient then sat up slowly and was stable. They were road tested and were comfortable and stable to go home with family members who accompanied them.
[2023-02-19] MEDS ORDERED: BUPIVACAINE (PF) 0.25% 30 ML VIAL SQ ONE (13:22)
[2023-02-19] MEDS ORDERED: LIDOCAINE 2%-EPI 1:100,000 20 ML VIAL SQ ONE (13:22)
[2023-02-19] MEDS ORDERED: methylPREDNISolone ACETATE 40 MG/ML 1 ML VIAL INTRAARTIC ONE (13:24)
--- NOTE | 2023-02-19 13:51 | FL ---
EXAMINATION TYPE: FL guidance operating room DATE OF EXAM: 02/19/2023 HISTORY: Fluoroscopy time Total dose area product (DAP) in uGy*m?, mGy*cm? (or similar): 0.1353 IMPRESSION: 1. Fluoroscopy time.
[2023-02-19 13:52] VITALS: BP 123/60; PULSE 81; RESP 16
== END 2023-02-19 13:57 | disposition home or self-care (01) ==
LOC: OR 11:51
PROVIDERS: ATTEND Orthopaedic Surgery
DX: M46.1 Sacroiliitis, not elsewhere classified (principal); I12.9 Hypertensive chronic kidney disease with stage 1 through stage 4 chronic kidney disease, or unspecified chronic kidney disease; E11.22 Type 2 diabetes mellitus with diabetic chronic kidney disease; N18.30 Chronic kidney disease, stage 3 unspecified; E78.5 Hyperlipidemia, unspecified; G20.A1 Parkinson's disease without dyskinesia, without mention of fluctuations; Z79.84 Long term (current) use of oral hypoglycemic drugs; Z79.890 Hormone replacement therapy; Z86.73 Personal history of transient ischemic attack (TIA), and cerebral infarction without residual deficits; Z88.0 Allergy status to penicillin; Z88.1 Allergy status to other antibiotic agents; Z88.2 Allergy status to sulfonamides; Z88.5 Allergy status to narcotic agent; Z88.8 Allergy status to other drugs, medicaments and biological substances
CPT/HCPCS: J1030; J0665; G0260

== ENCOUNTER → 2023-05-21 | Outpatient (CLI) | payer MEDICARE, OTHER ==
--- NOTE | 2023-05-23 19:17 | CT ---
EXAMINATION TYPE: CT lumbar spine wo con CT DLP: 1255.5 mGycm, Automated exposure control for dose reduction was used. DATE OF EXAM: 05/21/2023 2:04 PM COMPARISON: 04/23/2023 MRI CLINICAL INDICATION:Female, 73 years old with history of M47.816 spondylosis; PHH, low back pain TECHNIQUE: Multiple axial images were obtained from the midportion of T11 through the sacroiliac calvin nts. Soft tissue and bone windows in coronal and sagittal planes were obtained and reviewed. Contrast used: mL of , (None, if empty). Oral contrast used: (None, if empty). FINDINGS: Alignment: There are 5 lumbar type vertebral bodies. Levoscoliosis apex L4.. Surgically fixed grade 1 anterolisthesis of L4 and L5. Hardware appears intact. Bone: Surgically fixed grade 1 anterolisthesis of L4 and L5. Hardware appears intact. There is vertebral pl asty changes of the L1 vertebrae. Multilevel degeneration changes throughout the spine with osteophyt e formation disc space narrowing, facet joint uncovertebral joint arthropathy. No evidence for acute fracture. 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 Discs: T12-L1: No spinal canal or neural foraminal stenosis is identified. L1-L2: No spinal canal or neural foraminal stenosis is identified. L2-L3: No spinal canal or neural foraminal stenosis is identified. L3-L4: Ligamentum flavum buckling with bulging with at least moderate spinal canal stenosis similar t o prior MRI. Moderate bilateral neural foraminal stenosis. L4-L5: Surgically fixed grade 1 anterolisthesis of L5 on S1 with discectomy changes. No evidence for significant spinal canal stenosis or neural foraminal stenosis. L5-S1: No spinal canal or neural foraminal stenosis is identified. Other: None IMPRESSION: 1. No evidence for spinal fracture. 2. L3-L4 moderate spinal canal stenosis. 3. Moderate degeneration changes throughout the spine with varying degrees of neural foraminal stenos is. No foraminal stenosis worse at L3-L4 with moderate bilateral. 4. Surgically fixed grade 1 anterolisthesis of L4 and L5 without evidence for hardware failure. 5. 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
== END | disposition home or self-care (01) ==
LOC: RADCTMAIN 13:09
PROVIDERS: ATTEND Orthopaedic Surgery
DX: M47.816 Spondylosis without myelopathy or radiculopathy, lumbar region (principal); M48.061 Spinal stenosis, lumbar region without neurogenic claudication; M51.36 Other intervertebral disc degeneration, lumbar region; M99.73 Connective tissue and disc stenosis of intervertebral foramina of lumbar region; Q76.49 Other congenital malformations of spine, not associated with scoliosis
CPT/HCPCS: 72131

== ENCOUNTER → 2023-06-14 | Outpatient (CLI) | payer MEDICARE, OTHER | END | disposition home or self-care (01) | LOC: LABPAT 11:10 | PROVIDERS: ATTEND Orthopaedic Surgery | DX: Z01.812 Encounter for preprocedural laboratory examination (principal); Z22.322 Carrier or suspected carrier of Methicillin resistant Staphylococcus aureus; M43.16 Spondylolisthesis, lumbar region; M47.26 Other spondylosis with radiculopathy, lumbar region | CPT/HCPCS: 36415; 86850; 86900; 86901; 87070 ==

== ENCOUNTER 2023-06-21 14:30 | Inpatient (IN) | payer MEDICARE, OTHER ==
[~2023-06-21 14:30] MED LIST changes: +ACETAMINOPHEN TAB 500 MG TAB PO PRN; +GABAPENTIN 300 MG CAP PO PRN; +ONDANSETRON 4 MG/2 ML VIAL IVP PRN; -Pre Op ABX Message 1 EACH MISC MISCELLANE ONE; +TRANEXAMIC 1,000 MG/100ML-NACL 1,000 MG in SALINE 1 100ML.BAG IVPB PRN; +VANCOMYCIN 1,500 MG in SODIUM CHLORIDE 0.9% 500 ML 500 ML IVPB PRN
[2023-06-29] MEDS ORDERED: TRANEXAMIC 1,000 MG/100ML-NACL 1,000 MG in SALINE 1 100ML.BAG IVPB PRN (05:00)
[2023-06-29] MEDS ORDERED: LIDOCAINE 1% (10MG/ML) FOR IV START INTRADERMA PRN (06:08)
[2023-06-29] MEDS: LACTATED RINGERS 1,000 ML IV SCH (06:45)
[2023-06-29] MEDS: ACETAMINOPHEN TAB 500 MG TAB PO PRN (06:48)
[2023-06-29] MEDS: GABAPENTIN 300 MG CAP PO PRN (06:48)
--- NOTE | 2023-06-29 06:53 | P.HPOR ---
History of Present Illness H&P Date: 05/19/23 .D:Date: 05/19/23 : 09:17am .T:Title: [facility] HISTORY AND PHYSICAL Age: 73 year Height: 5'3" Weight: 190 lbs BP:118/72 BMI: 33.66 kg/m2 Occupation: Retired VAS: 0 Hand:Right CC: Re-check on low back pain following recent bilateral SI joint injections HISTORY: Ms. Gonzalez presents to the office today, 05/19/23, for re-evaluation of her low back pain following recent bilateral SI joint injections performed in my office with ultrasound guidance on 05/03/2023. The patient notes very mild temporary relief following her recent SI joint injections. The patient has trialed several sets of bilateral SI joint injections, with the first on 08/04/2022. She also received injections on 09/18/2022, 01/01/2023, and 02/19/2023. She notes that all injections have provided her with significant, temporary relief up until the most recent injection on 05/03/2023 that only provided her with mild, temporary relief. The patient notes her pain has been progressively worsening over the last 1 month. Today she notes experiencing a continued sharp, shooting pain throughout the low back that radiates down into the bilateral lower extremities from the posterior thigh down into the bilateral foot. The patient states her lower extremity pain is associated with intermittent numbness and tingling. She states her symptoms worsen when changing position in bed at night or after prolonged standing or walking. The patient reports experiencing severe sleep disturbances related to her ongoing pain and associated symptoms. The patient notes history of surgical intervention in the form of an L1 kyphoplasty performed on 01/12/2022 and an L4-5 decompression and fusion performed on 10/30/2020. The patient has also trialed conservative treatment in the form of physical therapy, physician directed at home stretches/exercises, activity modification, medication management, and at home heat therapies all with only mild, temporary relief. The patient is currently taking Tylenol, Flexeril, Celebrex, and [place] for relief of her current symptoms. She reports a new onset of bowel and bladder incontinence. Otherwise patient denies any f/c/sob/cp or perineal numbness or tingling. Patient is ambulatory independently today. HPI: Ms. Gonzalez presents to the office on 03/25/23 for re-evaluation of her low back pain. She continues to note significant SIJ pain b/l seems to be worse on the left today. She states pain down the outside of her hip and into her thigh. Nothing past her knee today. She states she is leaving for a trip. She states she cannot have surgery yet, but she is miserable. We discussed different treatment options for her at this time. She states she would like to continue to avoid surgery until after May sometime. Ms. Gonzalez returns to the office on 03/05/2023 for a re-check on her low back pain following bilateral SI joint injections completed on 02/19/2023. The patient reports experiencing 80-90% relief following the injections. She notes her symptoms are starting to gradually return, though she is still experiencing relief from her recent injections. She does reports experiencing mild ache-like, burning pain throughout the low back that radiates down into the bilateral lower extremities. She denies experiencing any numbness or tingling throughout the lower extremities. She states her symptoms are exacerbated when rolling over in bed or with prolonged sitting. She reports experiencing mild sleep disturbances related to her ongoing pain and associated symptoms. The patient has also trialed conservative measures in the form of physician directed at home stretches/exercises, activity modification, at home heat/ice therapies, and medication management all with only mild, temporary relief. The patient is currently taking FLexeril and Tylenol for relief of her current symptoms. Otherwise the patient states that she does not have any acute concerns at this time. The patient denies any f/c/sob/cp, no incision concerns, no bladder or bowel retention/incontinence, no perineal numbness/tingling, and ambulates independently today. Ms. Gonzalez returns to the office on 02/01/2023 for a re-check on her low back pain following bilateral SI joint injections completed on 01/01/2023. The patient reports experiencing approximately 85% relief for three and a half weeks following the injections. The patient previously trialed bilateral SI joint injections on 08/04/2022, which provided her with 100% relief for 6 weeks and her second bilateral SI joint injection on 09/18/2022 with 100% relief for 1 week. She has another set of bilateral SI joint injections scheduled for 02/19/2023. Today, the patient reports experiencing an ache-like low back pain that radiates down into the buttocks and posterior aspect of the bilateral lower extremity with a shooting, burning quality. She notes that her left lower extremity symptoms are worse than the right at this time. She states that her symptoms are exacerbated by prolonged standing and sitting, going from a seated to standing position, and when going up the stairs. The patient reports experiencing mild to moderate sleep disturbances related to her ongoing pain and associated symptoms. The patient is currently taking Tylenol as needed for relief of her current symptoms. Otherwise the patient states that she does not have any acute concerns at this time. The patient denies any f/c/sob/cp, no incision concerns, no bladder or bowel retention/incontinence, no perineal numbness/tingling, and ambulates independently today. Ms. Gonzalez returned to the office on 12/02/2022 regarding a re-check on her low back pain. The patient reports experiencing continued diffuse low back pain that radiates down into the buttocks and posterior aspect of the bilateral lower extremities. The patient notes mild, intermittent hip pain bilaterally. The patient notes an onset of cramping throughout the bilateral lower extremities over the last 2 to 3 weeks. The patient states that her symptoms are exacerbated by prolonged activity. The patient states that her low back and leg pain have significantly increased since she was last evaluated in office on 10/20/2022. The patient previously trialed bilateral SI joint injections on 08/04/2022, which provided her with 100% relief for 6 weeks and her second bilateral SI joint injection on 09/18/2022 with 100% relief for 1 week. The patient is currently taking Celebrex which provides her with relief. Otherwise the patient states that she does not have any acute concerns at this time. The patient denies any f/c/sob/cp, no incision concerns, no bladder or bowel retention/incontinence, no perineal numbness/tingling, and ambulates independently today. Ms. Gonzalez was previously seen in the office on 10/20/2022, which was approxim ately 1 month following her second SI joint injection. The patient recently received a bilateral SI joint injection on 08/04/2022, which provided her with 100% relief for 6 weeks and her second bilateral SI joint injection on 09/18/22 with 100% relief for 1 week. Patient was seen last week and received a left hip GTB with 100% relief. Patient continues to have pain on her right side. The patient notes her pain is exacerbated after prolonged sitting or walking. The patient is currently taking Gabapentin, Motrin, and Aspirin, which provide her with relief. Otherwise the patient states that she does not have any acute concerns at this time. The patient denies any f/c/sob/cp, no incision concerns, no bladder or bowel retention/incontinence, no perineal numbness/tingling, and ambulates independently today. Ms. Gonzalez returns to the office on 10/15/2022 approximately 1 month following her second SI joint injection. The patient recently received a bilateral SI joint injection on 08/04/2022, which provided her with 100% relief for 6 weeks and her second bilateral SI joint injection on 09/18/22 with 100% relief for 1 week. Patient reports that her pain has returned and she is experiencing low back, buttock and hip pain. Patient states her left side is more painful than her right side. The patient notes her fisher is exacerbated after prolonged sitting or walking. The patient is currently taking Gabapentin, Motrin, and Aspirin, which provide her with relief. Otherwise the patient states that she does not have any acute concerns at this time. The patient denies any f/c/sob/cp, no incision concerns, no bladder or bowel retention/incontinence, no perineal numbness/tingling, and ambulates independently today. Ms. Gonzalez returns to the office on 08/13/2022 approximately 8 months following her L1 kyphoplasty and for re-evaluation proceeding her recent SI joint injection. The patient recently received an SI joint injection on 08/04/2022, which provided her with 100% relief. The patient denies experiencing any low back, buttock, or lower extremity pain at this time. The patient notes that she is very pleased with her progress since surgery and her outcome following the SI joint injection. The patient notes that the only time she experiences low back or buttock pain is after prolonged sitting or walking. The patient notes that she has been doing very well overall. The patient is currently taking Gabapentin and Ibuprofen, which provide her with relief. Otherwise the patient states that she does not have any acute concerns at this time. The patient denies any f/c/sob/cp, no incision concerns, no bladder or bowel retention/incontinence, no perineal numbness/tingling, and ambulates independently today. Ms. Gonzalez returns to the office on 07/08/2022 for a post-operative evaluation and MRI results following theirL1 kyphoplasty and L4-L5 decompression and fusion. Patient reports no changes in symptoms since last appointment with her still having some low back and hip pain. Patient states they have been wearing their LSO brace with some relief. Ms. Gonzalez notes that their symptoms are exacerbated with prolonged ambulation and high impact movements like walking up and down the stairs, but this is well controlled with rest and medications. Patient is having no sleep disturbances as well. The patient denies taking any medications for pain at this time. Otherwise the patient is very happy with the progress they have made and have no acute concerns at this time. Patient denies any f/c/sob/cp, no incision concerns, no bladder or bowel retention/incontinence, no perineal numbness/tingling, and ambulates independently. The patients' past social, medical, family, surgical history, as well as review of systems, have been reviewed. Please refer to the Neurosurgery History and Physical form that has been scanned into our electronic medical record system. 16 points review of systems completed and as stated in HPI, all other systems reviewed are negative. PAST TREATMENTS: PAST IMAGING: - Xray 2 view AP/LAT lumbar spine at [facility] done on 03/25/2023 - MRI lumbar spine without contrast on 07/01/2022 at [facility] TRAUMA RELATED: - No WORK RELATED: - No PT IN LAST 6 MONTHS: - No - Patient completed physical therapy approximately 2 years ago with mild relief PHYSICIAN DIRECTED HOME EXERCISE PROGRAM: - Yes; no significant relief ACTIVITY MODIFICAITON: - Yes MEDICATIONS: - Tylenol, Flexeril, Celebrex, and [place] ALTERNATIVE INTERVENTIONS (CHIROPRACTIC, ACCUPUNCTURE, MASSAGE, RICE): - Yes; home heat therapies and rest with mild, temporary relief BRACING: - No INJECTIONS (LIOR, TF, RFA): - Yes; ilateral SI joint injections MEDICAL HISTORY: Social History: Reviewed, see appropriate section of the chart for details. Family History: Reviewed, see appropriate section of the chart for details. Past Medical History: Reviewed, see appropriate section of the chart for details. Current Medications: P1Rx: carbidopa 25 mg-levodopa 100 mg tablet Ref: 0 Rx: aspirin 81 mg tablet,delayed release Ref: 0 Rx: Jardiance 10 mg tablet Ref: 0 Rx: alendronate 70 mg tablet Ref: 0 Rx: calcium citrate 250 mg tablet Ref: 0 Rx: fenofibrate 160 mg tablet Ref: 0 Rx: ferrous sulfate 325 mg (65 mg iron) tablet Ref: 0 Rx: levothyroxine 50 mcg capsule Ref: 0 Rx: Lexapro 20 mg tablet Ref: 0 Rx: lisinopriL 20 mg tablet Ref: 0 Rx: multivitamin tablet Ref: 0 Rx: [place]-3 Krill Oil 350 mg-90 mg-24 mg-50 mg capsule Ref: 0 Rx: pioglitazone 15 mg tablet Ref: 0 Rx: pramipexole 0.5 mg tablet Ref: 0 Rx: Retaine FLAX 250 mg-125 mg-10 mg capsule Ref: 0 Rx: rosuvastatin 40 mg tablet Ref: 0 Rx: Tylenol Extra Strength 500 mg tablet Ref: 0 Rx: Vitamin C 500 mg chewable tablet Ref: 0 Rx: Xiidra 5 % eye drops in a dropperette Ref: 0 Rx: CeleBREX 200 mg capsule Ref: 0 Rx: HYDROcodone 5 mg-acetaminophen 325 mg tablet Ref: 0 Rx: cyclobenzaprine 10 mg tablet Ref: 0 IMAGING Study Findings XRAY No new x-rays taken in office today, please see previous notes. CT N/A MRI N/A (previous MRI L spine from 07/01/22 received today with the patient) PHYSICAL EXAM: General: AOX3, NAD, Well hydrate, Well nourished HEENT: No lumps or masses Heart: RRR, no murmur, no zeynep Lungs: CTAB, no w/r/r Extremities: No color changes, no pooling INTEGUMENT: Hairy Patches: ABSENT Dorsal Skin Dimples: Normal [place] spots: ABSENT Surgical Incisions: Yes, healed well. Muscle Appearance: Well formed, no atrophy PALPATION: Midline:NO Paracervical:NO Parathoracic:NO Paralumbar:NO SIJ TESTING: Yes TTP: Yes (bilateral) [place] Finger:YES FABER4:YES Compression:YES Distraction:YES Thigh thrust:YES Hip thrust: No POSTURAL BALANCE: Coronal:BALANCED Sagittal:BALANCED Shoulder height: LEVEL Pelvic Girdle: LEVEL ROM AND APPEARANCE: Neck:UNRESTRICTED Lumbar:RESTRICTED Shoulders: Symmetrical Hips: Symmetrical Knees: Symmetrical Hands: Symmetrical Feet: Symmetrical VASCULAR STATUS: RUE- 2 LUE-2 RLE-2 LLE-2 Edema: NONE NEUROLOGICAL EXAMINATION: Mental Status: Awake, alert, oriented fully with normal attention, concentration and memory. Fluent appropriate speech. CRANIAL NERVES: I: Olfactory not tested. II: Visual acuity normal, no visual field deficit noted with confrontation. III,IV: Normal pupillary reflexes & intact extraocular movements without nystagmus. V,: Intact symmetrical facial sensation. VII: Intact symmetrical facial motor movementVIII: Hearing intact. IX,X: Intact gag, swallow, & normal voice. XI: Sternocleidomastoid, trapezius function intact. XII: Tongue midline with normal movements. TENSIONING: L'HERMITTE'S SIGN NEG SPURLUNG'S SIGN NEG CUBITAL COMPRESSION NEG TINELS AT WRIST NEG SLR/CROSSED SLR POS MOTOR EXAM (0-5/5, NT) Muscle appearance:Symmetrical, without signs of atrophy or dystrophy UPPER EXTREMITY RIGHT LEFT Shoulder Abduction 5 5 Biceps 5 5 Triceps 5 5 Wrist Extension 5 5 Hand Intrinsic 5 5 Program Services Planner 5 5 LOWER EXTREMITY RIGHT LEFT Hip Flexion 4 4 Knee Extension 4 4 Knee Flexion 4 4 Dorsiflexion 4 4 Plantarflexion 4 4 EHL 4 4 FHL 4 4 -Hand and finger dexterity intact bilaterally? YES -Dysdiadochokinesia examination negative bilaterally? YES -Toe heel walk / heel-toe walk intact while maintaining satisfactory balance? NO -Squatting/straightening w/o assistance to a min of 60 degree knee flexion? NO -Single leg stance: NOT/ABLE -Trendelenburg sign NEGATIVE B/L REFLEXES (0-4/2, NT): RUE- 2LUE- 2 RLE- 2 LLE- 2 PATHOLOGICAL REFLEXES: RIGHT LEFT MENDOZA'S ABSENT ABSENT CLONUS ABSENT ABSENT BABINSKI ABSENT ABSENT Rectal Tone: INTACT SENSATION (0-4, NT): RUE-2LUE-2 RLE-2 LLE-2 Dermatomal deficit: L3, L4, L5 GAIT AND FUNCTIONAL EVALUATION: Ambulatory aids - INDEPENDENT Rombergs test-NEG IMPRESSION: It was my pleasure to have seen and examined Asha. I reviewed the patient's clinical syndrome, physical findings, and imaging studies during the appointment today. It is my impression that the patient has a diagnosis of. 1. 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 Urinary and bowel incontinence (new onset) 3. Right sacroiliitis 4. Left sacroiliitis PLAN: SURGICAL RECOMMENDATION - I have recommended treatment in the form of a revision L3-5 decompression and fusion, as the patient has symptomatic L3-5 spondylosis wit stenosis. I have recommended she schedule surgical intervention in a more urgent manner due to her new onset of bowel and urinary incontinence. The patient verbally understands all risks and benefits involved with the surgical procedure and elects to proceed. Surgery will be scheduled for a date in the near future and pre-operative clearance will be obtained from her primary care physician. The patient will proceed with surgical intervention in the form of a: - Revision L3-5 decompression and fusion MEDICATIONS - I have sent a prescription to the patient's pharmacy today for Prednisone 20 mg. IMAGING - I have ordered a CT scan of the lumbar spine for preoperative/surgical planning Spine Surgery Risk Review Ms. Gonzalez is presenting for evaluation of low back and bilateral lower extremity pain, bilateral lower extremity numbness and tingling, urinary and bowel incontinence. It was my pleasure to have seen and examined Ms. Gonzalez. In our visit today we have had a chance to go over subjective complaints, physical examination findings and treatments including the natural course hist ory without intervention and various interventional options. The patients imaging demonstrates: Xray 2 view AP/LAT lumbar spine at [facility] completed on 03/25/2023: - Images re-reviewed with the patient today Stable post operative changes. No complicating process seen. Lumbar MRI [facility] on 07/01/22 at [facility]: - Images re-reviewed with the patient today. images reviewed with patient. There are no comp cane processes seen. There is spondylosis noted at L5-S1 and L3-L4. A surgical changes noted L4-L5 with good decompression and hardware placement. No evidence of loosening fracture failure and infection. There is in the visualized SI joints some uptake related to sacroiliitis. No acute fractures noted. No lesions. On physical exam, Ms. Gonzalez demonstrates: The patient notes her pain has been progressively worsening over the last 1 month. Today she notes experiencing a continued sharp, shooting pain throughout the low back that radiates down into the bilateral lower extremities from the posterior thigh down into the bilateral foot. The patient states her lower extremity pain is associated with intermittent numbness and tingling. She states her symptoms worsen when changing position in bed at night or after prolonged standing or walking. The patient reports experiencing severe sleep disturbances related to her ongoing pain and associated symptoms. I have explained to the patient that as their condition progresses it will cause further neurological deficits and eventual paralysis. Based on the patients imaging, physical exam, and the rapid progression and disabling nature of their symptoms, at this time I recommend surgery in the form of a: L3-5 revision decompression and fusion. I discussed the risk and benefits of this procedure at length with Ms. Gonzalez. The patient agreed to considered pursuing the procedure above mentioned. Prior to surgery, she should follow up with her PCP (Cardio, ID, IM etc) for clearance. Questions were invited and answered, and the patient wishes to proceed as outlined below. Currently, I am recommendin.L3-5 revision decompression and fusion 2.Follow up with PCP for surgical clearance 3.Review of surgical risks and benefits as well as an educational packet on the proposed surgical procedure. Risks: All surgical procedures come with inherent risks, including those related to positioning, anesthesia, intraoperative findings, and postoperative complications. It is important to understand that surgery does not come with any guarantee of a successful outcome as complications and adverse events are always possible. The patient was given a handout in office today discussing the surgical procedure and risks associated with the intervention, both of which were discus sed with the patient. These risks include but are not limited to the following: * Experiencing same, different or even worse symptoms in back, neck, arms, or legs compared to before surgery. Requiring further surgery or other forms of treatment presently or at some time in the future at same or other levels of the intended spine surgery. On an extreme but fortunately relatively rare basis severe complication such as blindness, stroke, heart attack, temporary and/or permanent nerve injury, paralysis, coma, or may occur, sometimes without known explanation. Surgical complications may include but are not limited to risk of infection, fluid accumulation in the surgical dissection site, including a seroma or hematoma, that requires additional surgery, wound drainage, bleeding, new numbn ess or weakness, vision changes/loss, spinal fluid leakage, non-healing and/or infected incision, headaches, difficulty or inability to swallow, hoarseness, hemopneumothorax, pneumothorax, impotence, retrograde ejaculation, vaginal dryness; injury to nerves, spinal cord, blood vessels, lymphatics or other vital organs (i.e., bowel injury, injury to the great vessels); heterotopic bone formation; complications related to the hardware such as screws, rods, cages including misplaced hardware, device failure, instrumentation at the wrong spine level, hardware fracture/breakage, or hardware loosening; vertebral failure of the spinal column above or below the newly placed hardware; retained surgical instrumentations or devices and the need for further surgery. * Medical risks of the planned spine surgery include but are not limited to generalized Infections to the whole body or local areas outside of the surgical site (sepsis), heart attack, bleeding, anaphylaxis, meningitis, seizure, epilepsy, hearing loss, burn [place], laceration of the head or other areas of the body, bruising, hypersensitivity of the skin, bladder over distension; allergic reaction; shoulder injury related to positioning; fat, blood and air clots to other areas of the body like heart, lungs, brain; failure of internal organs such as lungs, kidneys, liver and excessive bleeding. If blood transfusions are necessary, note that transfusions may cause intolerance reactions such as anaphylaxis or other complex reactions. Despite best efforts, the results of spine surgery might not heal in terms of bone, soft tissues such as skin, fascia, ligaments, and joints. Additionally, in order to achieve best possible results, spine surgery may be carried out beyond the initially planned levels and involve decompression, fusion including insertion of hardware at levels other than the original intended area of surgical interest change some portions of the procedure in order to ensure the best possible outcomes. With spine surgery and spinal fusion, there are different off label uses of instrumentation (devices, implants and hardware) as well as biological substances (bone morphogenic proteins, demineralized bone matrix) as well as using extra bone from allograft sources (i.e. cadaver bone) or autograft (iliac crest bone, ribs, or the spine itself). The patient has been given information about these practices and their inherent risks and benefits. [facility] is an educational center that serves as a training facility for neurosurgical and orthopedic CARD GRADER and Nursing students. Physician assistants are medically trained surgical providers who function in the outpatient, inpatient, and operating room setting under the direct supervision of the attending surgeon. [facility] has multiple operating rooms with single and overlapping rooms running daily. They currently function under the required guidelines as produced by the [facility] Finance Committee with regards to the overlapping rooms and will continue to comply with changes to this policy as they occur. The requirements include and are complied with as follows: (1) the critical portions of the overlapping rooms will not occur at the same time, (2) the attending physician will be physically present during the critical portions of the procedure and immediately available during the entire case, and (3) a back-up attending is designated should the primary attending not be immediately available. The patient has had a chance to review all the listed information, has been given print outs detailing this information, and has had all his/her questions answered to their satisfaction. It was my pleasure to have seen and examined Ms. Gonzalez. In our visit today we have had a chance to go over my understanding of our patient's current condition, the natural course history without intervention and various interventional options. Questions were invited and answered, and the patient wishes to proceed as outlined above. I have seen and examined the patient for 25 minutes and we have spent more than 50% of the time in repeat and detailed counseling about the patient's condition, its natural course history with out and as much as can be predicted with surgery and re-review of various surgical treatment options. In conclusion, Ms. Gonzalez requested we proceed with the above suggested surgery and are willing to accept risks and limitations of the suggested surgery as nature of the disease process and our best attempts at treatment for the condition. Thank you again for allowing us to be part of your patient's care. Please don't hesitate to contact me if you have any further questions. FOLLOW UP: Post Procedure PATIENT EDUCATION: Medications Reviewed: YES In our visit today Ms. Gonzalez and I have had a chance to go over my understanding of the patient's current condition, the natural course history without intervention and various interventional options. Questions were invited and answered, and the patient wishes to proceed as outlined above. I will be sure to keep you updated after Ms. Gonzalez returns here for further follow-up. Thank you again for your referral. Please do not hesitate to contact me if you have any further questions. Signed and authenticated by: Matthew Campa [facility] [address] [facility], [address] [address] This message is confidential, intended only for the named recipient(s) and may contain information that is privileged or exempt from disclosure under applicable law. If you are not the intended recipient(s), you are notified that the dissemination, distribution or copying of this information is strictly prohibited. If you received this message in error, please notify the sender then delete this message. Rx: predniSONE 20 mg tablet, 20, Ref: 0, take 1 tablet (20 mg) by oral route 2 times per day # SIGNED BY Matthew Pittman (GOO)05/26/2023 01:33PM Past Medical History Past Medical History: CVA/TIA, Diabetes Mellitus, Hyperlipidemia, Hypertension, Osteoarthritis (OA), Renal Disease, Thyroid Disorder Additional Past Medical History / Comment(s): PARKINSON's disease, possible TIA, SEASONAL ALLERGIES, OSTEOPORISIS, INTERSTITIAL CYSTITIS, DRY EYES, MACULAR DEGENERATION.CHRONIC KIDNEY DISEASE STAGE 3 , NEW DX ANEMIA, IRON DEFICIENCY AND B12 DEFICIENCY,, nasal congestion History of Any Multi-Drug Resistant Organisms: None Reported Past Surgical History: Adenoidectomy, Back Surgery, Bladder Surgery, Cholecystectomy, Heart Catheterization, Hysterectomy, Orthopedic Surgery, Tonsillectomy, Tubal Ligation Additional Past Surgical History / Comment(s): LEFT ROTATOR CUFF, RIGHT FROZEN SHOULDER, JEFF KNEES-TOTAL AND PARTIAL, OOPHERECTOMY, CYSTOSCOPIES, BLADDER SUSPENSION, INTERSTITIAL CYSTITIS, JEFF CARPAL TUNNEL, PAIN CLINIC PROCEDURES , EYE SURGERIES (CHILD), EYELID RESECTION & EYEBROW LIFT. laminectomy on 07-26-20, BACK SURGERY WITH HARDWARE (CAGE) back surgery x4 11/02, L1 & L2 01/12/22, BILATERAL CATARACT SURGERY. Past Anesthesia/Blood Transfusion Reactions: Previous Problems w/ Anesthesia Additional Past Anesthesia/Blood Transfusion Reaction / Comment(s): STATES MEDICATION "CURRARRE" USED OVER 25 YEARS AGO, SHE FELT PARALYZED AND COULD NOT MOVE OR BREATHE. Smoking Status: Never smoker - Past Family History Mother Family Medical History: Cancer Additional Family Medical History / Comment(s): SKIN CANCER Father Family Medical History: Cancer Additional Family Medical History / Comment(s): SKIN CANCER Sister(s) Family Medical History: Cancer Additional Family Medical History / Comment(s): BREAST CANCER Medications and Allergies Home Medications Medication Instructions Recorded Confirmed Type Fenofibrate [Lofibra] 160 mg PO DAILY 02/05/20 06/23/23 History Levothyroxine Sodium [Synthroid] 50 mcg PO HS 02/05/20 06/23/23 History Pioglitazone [Actos] 15 mg PO HS 02/05/20 06/23/23 History Magnesium Oxide 800 mg PO BID 07/20/20 06/23/23 History Aspirin [Adult Low Dose Aspirin EC] 81 mg PO DAILY 10/24/20 06/23/23 History Carbidopa-Levodopa 25-100 mg 2 tab PO QID 10/24/20 06/23/23 History [Sinemet 25-100] Alendronate Sodium [Fosamax] 70 mg PO TEIXEIRA 01/09/22 06/23/23 History Empagliflozin [Jardiance] 10 mg PO DAILY 01/09/22 06/23/23 History Ferrous Sulfate [Feosol] 325 mg PO DAILY 01/09/22 06/23/23 History Multivit with Calcium,Iron,Min 1 each PO DAILY 01/09/22 06/23/23 History [Women's Multivitamin] Rosuvastatin Calcium [Crestor] 40 mg PO HS 01/09/22 06/23/23 History Vitamin C, D & Zinc 1 tab PO DAILY 01/09/22 06/23/23 History Calcium Carb/Vitamin D3/Vit K1 1 tab PO BID 08/03/22 06/23/23 History [Citracal-D3 500 mg Soft Chew] Cyclobenzaprine [Flexeril] 10 mg PO HS PRN 08/03/22 06/23/23 History Escitalopram [Lexapro] 10 mg PO DAILY 08/03/22 06/23/23 History Fexofenadine HCl 180 mg PO HS PRN 08/03/22 06/23/23 History Krill/Om-3/Dha/Epa/Phospho/Ast 1 each PO DAILY 08/03/22 06/23/23 History [Krill Oil 500 mg Softgel] Pramipexole [Mirapex] 0.5 mg PO TID 08/03/22 06/23/23 History lisinopriL [Zestril] 20 mg PO DAILY 08/03/22 06/23/23 History Acetaminophen [Tylenol Extra 1,000 mg PO Q6H PRN 12/28/22 06/23/23 History Strength] Retaine Flax [place] 1 tab PO DAILY 02/16/23 06/23/23 History Retinavite 1 tab PO DAILY 02/16/23 06/23/23 History Celecoxib [CeleBREX] 200 mg PO BID 06/18/23 06/23/23 History Escitalopram [Lexapro] 20 mg PO HS 06/18/23 06/23/23 History HYDROcodone/APAP 5-325MG [[place] 1 tab PO Q6H PRN 06/18/23 06/23/23 History 5-325] Allergies Allergy/AdvReac Type Severity Reaction Status Date / Time erythromycin base Allergy Unknown Rash, Verified 06/23/23 13:09 itching, lips swollen, tingling, head like basketball oxycodone Allergy Unknown vomit bile Verified 06/23/23 13:09 Penicillins Allergy Unknown Rash, Verified 06/23/23 13:09 itching sulfamethoxazole Allergy Unknown rash, Verified 06/23/23 13:09 [From Bactrim] itching tolterodine [From Detrol] Allergy Unknown itching/nelly Verified 06/23/23 13:09 h tramadol [From Ultram] Allergy Unknown Rash, Verified 06/23/23 13:09 itching, lips swollen, tingling, head like basketball trimethoprim [From Bactrim] Allergy Unknown rash, Verified 06/23/23 13:09 itching nickel Allergy Rash/Hives Verified 06/23/23 13:09 hydromorphone [From Dilaudid] AdvReac Unknown reaction Verified 06/23/23 13:09 in higher doses, rash, itching gel adhesive pad Allergy Unknown ekg pads Uncoded 06/23/23 13:09 and adhesive- chemical burn, itching rash Physical Examination Osteopathic Statement: *. No significant issues noted on an osteopathic structural exam other than those noted in the History and Physical/Consult.
--- NOTE | 2023-06-29 06:54 | P.PN ---
Progress Note - Text Progress Note Date: 06/29/23 History and Physical UPDATE I have seen and examined the patient and reviewed the history and physical. There appear to be no significant changes in the patient's current medical status as outlined in the current History and Physical. We discussed the s urgical options as well as risks and benefits again. An exam was done in the pre op area and is stable from previous exams. Questions were invited and answered. She is ready and willing to proceed with surgery today.
[2023-06-29] MEDS: DEXAMETHASONE SOD PHOSPHATE 4 MG/ML 1 ML VIAL IV ONE (07:05)
[2023-06-29] MEDS: ONDANSETRON 4 MG/2 ML VIAL IVP PRN (07:05)
[2023-06-29 07:09] LABS: Glucose,Whole Blood 140 mg/dL (70-110)
[2023-06-29] MEDS: VANCOMYCIN 1,500 MG in SODIUM CHLORIDE 0.9% 500 ML 500 ML IVPB PRN (07:10)
[2023-06-29] MEDS: MIDAZOLAM 2 MG/2 ML VIAL IV PRN (07:19)
[2023-06-29] MEDS ORDERED: SUCCINYLCHOLINE CHLORIDE 200 MG/10 ML VIAL IV ONE (07:33)
[2023-06-29] MEDS ORDERED: ePHEDrine 50 MG/ML 1 ML VIAL ONE (07:33)
[2023-06-29] MEDS ORDERED: LIDOCAINE 1% INJ 10MG/ML (20 ML MDV) ONE (07:33)
[2023-06-29] MEDS ORDERED: fentaNYL (PF) 50 MCG/ML 2 ML AMP ONE (07:33)
[2023-06-29] MEDS ORDERED: KETAMINE HCL IN 0.9 % NACL 50 MG/5 ML SYRINGE ONE (07:33)
[2023-06-29] MEDS ORDERED: PROPOFOL 10 MG/ML 20 ML VIAL IV ONE (07:33)
[2023-06-29] MEDS ORDERED: TRANEXAMIC 1,000 MG/100ML-NACL PREMIX BAG ONE (07:33)
[2023-06-29] MEDS ORDERED: ROCURONIUM 10 MG/ML (5 ML VIAL) IV ONE (07:33)
[2023-06-29] MEDS: VANCOMYCIN 1,000 MG VIAL MISCELLANE ONE ×2 (08:23→10:15)
[2023-06-29] MEDS: BUPIVACAINE (PF) 0.25% 30 ML VIAL SQ ONE (08:23)
[2023-06-29] MEDS: GELATIN SPONGE,ABSORBABLE 1 GM POWDER TOPICAL ONE (08:23)
[2023-06-29] MEDS: THROMBIN (BOVINE) 5,000 UNIT VIAL TOPICAL ONE ×2 (08:24→10:15)
[2023-06-29] MEDS: ceFAZolin 3,000 MG in SODIUM CHLORIDE 0.9% IRRIGATIO 3,000 ML IRRIGATION ONE (09:09)
[2023-06-29] MEDS: GENTAMICIN 80 MG in SODIUM CHLORIDE 0.9% IRRIGATIO 3,000 ML IRRIGATION ONE (09:10)
[2023-06-29] MEDS: LACTATED RINGERS 1,000 ML IV ONE ×2 (09:11→10:34)
--- NOTE | 2023-06-29 10:49 | P.OP ---
Date of Procedure: 06/29/23 Preoperative Diagnosis: 1. 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 S/P L4-5 DECOMPRESSION AND FUSION 4. NEUROGENIC CLAUDICATION 5. LE WEAKNESS WITH PARESTHESIAS 6. [facility] Postoperative Diagnosis: 1. 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 S/P L4-5 DECOMPRESSION AND FUSION 4. NEUROGENIC CLAUDICATION 5. LE WEAKNESS WITH PARESTHESIAS 6. [facility] Procedure(s) Performed: 1. L3-4 POSTERIOLATERAL AND INTERBODY FUSION 2. REVISION POSTEROLATERAL FUSION L4-5 3. L3-5 SEGMENTAL INSTRUMENTATION 4. L3-4 WITH REVISION L4-5 BILATERAL LAMINECTOMY, COMPLETE FACETECTOMY AND FORAMINOTOMY 5. INSERTION OF BIOMECHANICAL DEVICE L3-4 6. EXPLORATION OF FUSION L4-5 7. REMOVAL OF SEGMENTAL HARDWARE L4-5 8. USE OF [employer] NAVIGATION FOR SCREW PLACEMENT USE OF IONM ALL SCREWS TESTING >20 mA MOD 22. THIS CASE TOOK 50% LONGER THAN EXPECTED DUE TO COMORBID CONDITIONS, BMI>30, HIGH TECHNICALITY OF THE CASE, REVISION NATURE OF THE CASE AND SEVERE LUMBAR PATHOLOGY. Implants: -[employer]ER[employer] -GLOBUS SABLE CAGE 10MM 9-16MM 8 DEG -CONTOUR (R), MAGNATOS (L), AUTOGRAFT, ARTHROCELL Anesthesia: SCARA Surgeon: Matthew Pittman Cert Pharmacy Tech #1: Edgar Blanco (WAS PRESENT AND ASSISTED WITH ALL ASPECTS OF THE CASE FROM POSITION TO CLOSURE) Estimated Blood Loss (ml): 250 IV fluids (ml): 1,200 Urine output (ml): 225 Pathology: none sent Condition: stable Disposition: PACU Indications for Procedure: Ms. Gonzalez is presenting for evaluation of low back and bilateral lower extremity pain, bilateral lower extremity numbness and tingling, urinary and bowel incontinence. It was my pleasure to have seen and examined Ms. Gonzalez. In our visit today we have had a chance to go over subjective complaints, physical examination findings and treatments including the natural course history without intervention and various interventional options. The patients imaging demonstrates: Xray 2 view AP/LAT lumbar spine at [facility] completed on 03/25/2023: - Images re-reviewed with the patient today Stable post operative changes. No complicating process seen. Lumbar MRI taken on 07/01/22 at [facility]: - Images re-reviewed with the patient today. images reviewed with patient. There are no comp cane processes seen. There is spondylosis noted at L5-S1 and L3-L4. A surgical changes noted L4-L5 with good decompression and hardware placement. No evidence of loosening fracture failure and infection. There is in the visualized SI joints some uptake related to sacroiliitis. No acute fractures noted. No lesions. On physical exam, Ms. Gonzalez demonstrates: The patient notes her pain has been progressively worsening over the last 1 month. Today she notes experiencing a continued sharp, shooting pain throughout the low back that radiates down into the bilateral lower extremities from the posterior thigh down into the bilateral foot. The patient states her lower extremity pain is associated with intermittent numbness and tingling. She states her symptoms worsen when changing position in bed at night or after prolonged standing or walking. The patient reports experiencing severe sleep disturbances related to her ongoing pain and associated symptoms. I have explained to the patient that as their condition progresses it will cause further neurological deficits and eventual paralysis. Based on the patients imaging, physical exam, and the rapid progression and disabling nature of their symptoms, at this time I recommend surgery in the form of a: L3-5 revision decompression and fusion. I discussed the risk and benefits of this procedure at length with Ms. Gonzalez. The patient agreed to considered pursuing the procedure above mentioned. Prior to surgery, she should follow up with her PCP (Cardio, ID, IM etc) for clearance. Questions were invited and answered, and the patient wishes to proceed as outlined below. Currently, I am recommendin.L3-5 revision decompression and fusion Description of Procedure: L3-5 revision decompression fusion open The patient was seen and examined in the preoperative area. All preoperative protocols were followed. Informed consent was obtained, risks and benefits of the procedure were discussed at length. Risks including bleeding infection damage to the surrounding tissue and risk of reoperation were discussed with the patient. Risk of anesthesia up to and including was discussed with the patient. These are outlined in the risk review. They were willing to accept these risks and all the risks of surgery. The patient was given a weight-based dose of antibiotics in the form of 2 g Ancef. The patient was seen and evaluated by the anesthesia team who deemed them fit for surgery. The site was marked, the patient was willing to proceed with the procedure. The patient was transferred to the operative suite by the Department of anesthesia. They were then drifted off to sleep by the department anesthesia and GETA was performed. The patient tolerated this well. Arellano catheter was placed by nursing staff, a-traumatically. Once confirmation of lines and ventilation the patient was transferred to a prone José Miguel table very carefully. All bony prominences including wrists, elbows, axilla, chest, hips, and thighs, and feet were padded very well. Special attention was paid to the genitalia, and these were padded accordingly. SCDs were placed on bilateral lower extremities and were connected. Arms were well padded and placed on arm boards up and out in the 90/90 position. Once in position, again we confirmed good ventilation capabilities and that lines were running appropriately. The patients Lumbar spine was then exposed. 1010s were placed outlining the incision site. Standard alcohol was used to clean the incision site and allowed to dry. C-arm was used to needle localize the pedicles at L3-5 and bio-evelia the patient and confirm level for incision which was marked with a skin marker. Operative briefing was performed with all teams and everyone in agreement to proceed. The patient was then prepped and draped in a normal sterile fashion. Timeout was then performed, and all parties agreed with the procedure to be performed. Midline skin incision was made over the previously bio-marked area and dissection taken down over the SP of L3-L5. L3-5 was taken out over facet joints and TPs and a penfield 4 used to evelia the L4 pedicle. Lateral image used to confirm levels. Once confirmed, screws were removed from L4-5 b/l along with rods. The L4 screws were loose b/l and when removed there was still motion at this segment. The fusion was explored and there was minimal bone formation posteriorly. We then proceeded to place screws b/l at pedicles from L3-5 using Lateral C arm and free hand technique. Liz was used to create a docking pilot hole, gear shift passed then a ball tip feeler to confirm within the pedicles. Screw was measured and placed. Once screws were placed they were confirmed to be in good position using AP and Lateral fluoroscopy. The wound was then irrigated. Screws were tested and all tested above 20 mA. We then proceeded to decompression and cage placement. Attention was then turned to interbody fusion at L3-4. Bilateral laminectomy, complete facetectomy and foraminotomy performed at L3-4 using high speed liz and Kerrison rongeur. The ligamentum was removed and dural sac decompressed. Exiting and traversing roots visualized and decompressed. Neural elements were then protected, and disc space accessed with an osteotome. Sequential shaving then done under lateral imaging and complete discectomy performed using nick, pituitary and curette. Once good bleeding endplates accomplished and good height worship with trials, a combination of autograft, allograft and synthetic placed anterior in the disc space. The cage was then selected and impacted into place under lateral imaging. The cage was then expanded restoring height, lordosis and alignment. The cage was backfilled with bone graft through a funnel. The clipper automatic was removed and the area inspected. Good cage plac ement, stable cage and no injuries. Area was irrigated copiously, and meticulous hemostasis achieved. The tubular retractor was then removed under direct visualization. Attention was then turned to revision decompression at L4-5. Bilateral laminectomy, complete facetectomy and foraminotomy performed at L4-5 using high speed liz and Kerrison rongure. The ligamentum was removed and the dural sac decompressed. Exiting and traversing roots visualized and decompressed. Area was irrigated copiously, and meticulous hemostasis achieved. Rods were then sized and selected and placed into L5 screws b/l. Set screws locked these in place and then sequentially reduced into L4 and L3 b/l for reduction of listhesis. This was accomplished. Set screws were then all placed and final tightened. A cross link was selected and placed and final tightened. TPs were then decorticated with a high speed liz. The wound was irrigated with 3L acne irrigation, 3L gentamicin irrigation 1L betadine solution and 1L irricept followed by 3L NSS. Surgical was placed over the dura. Autograft and MagnatOs then placed in the posterolateral gutters and impacted into place. Deep drain placed and secured to the skin. 2 g Vancomycin powder placed in the wound bed. Final images confirmed good placement of hardware and good reduction of listhesis as well as worship of height and lordosis. Fascia was then closed with #1 PDS. Deep subq closed with 0 Vicryl. Superficial subq closed with 2-0 Vicryl and skin with erickson. Wound edges approximated very well. Wound was then cleaned with alcohol and dried. Wounds dressed with Optifoam dressings. The patient was then transferred off the table back to their hospital bed a- traumatically. Drain continued to hold suction. They were extubated by the d epartment of anesthesia. They were then transferred to PACU in stable condition having tolerated the procedure with no complications.
[2023-06-29] MEDS: HYDROmorphone 0.5 MG/0.5 ML SYRINGE IVP ONE ×2 (11:21→12:50)
--- NOTE | 2023-06-29 11:58 | FL ---
EXAMINATION TYPE: FL guidance operating room, XR lumbar spine 2 or 3V Intraoperative/procedural fluor oscopic services were provided. Total fluoroscopy time is 0.25 seconds with a total of 5 submitted im ages to PACS. Please see the operative/procedural note for further details. DAP: 73.58 Gycm2
[2023-06-29 13:35] LABS: Glucose,Whole Blood 176 mg/dL (70-110)
[2023-06-29] MEDS: ONDANSETRON 4 MG/2 ML VIAL IVP ONE (14:04)
[2023-06-29] MEDS ORDERED: MAGNESIUM HYDROXIDE 2,400 MG/30 ML CUP PO PRN (15:32)
[2023-06-29] MEDS ORDERED: HYDROcodone/APAP 5-325MG 1 EACH TAB PO PRN ×2 (15:32→15:35)
[2023-06-29] MEDS ORDERED: bisacodyL 10 MG SUPP RECTAL PRN (15:32)
[2023-06-29] MEDS ORDERED: NA PHOS,M-B/NA PHOS,DI-BA 133 ML ENEMA RECTAL PRN (15:32)
[2023-06-29] MEDS ORDERED: ONDANSETRON 4 MG/2 ML VIAL IVP PRN (15:32)
[2023-06-29] MEDS: HYDROmorphone 0.5 MG/0.5 ML SYRINGE IVP PRN (16:21)
[2023-06-29 16:27] LABS: Glucose,Whole Blood 168 mg/dL (70-110)
[2023-06-29] MEDS: ACETAMINOPHEN TAB 325 MG TAB PO SCH (17:04)
[2023-06-29 17:24] LABS: African American GFR (CKD) 77 (>60 ml/min/1.73 sqM); Non-African American GFR(CKD) 67 (>60 ml/min/1.73 sqM)
[2023-06-29] MEDS: CYCLOBENZAPRINE 10 MG TAB PO PRN (18:01)
[2023-06-29] MEDS ORDERED: VIT K1 PO SCH (21:00)
[2023-06-29] MEDS ORDERED: VITAMIN D3 PO SCH (21:00)
[2023-06-29] MEDS ORDERED: [UNRECOGNIZED DRUG - OTHER] PO SCH (21:00)
[2023-06-29] MEDS ORDERED: CALCIUM CARB PO SCH (21:00)
[2023-06-29 21:23] LABS: Glucose,Whole Blood 214 mg/dL (70-110)
[2023-06-29] MEDS: MAGNESIUM OXIDE 400 MG TAB PO SCH (22:57)
[2023-06-29] MEDS: ATORVASTATIN 80 MG TAB PO SCH (22:57)
[2023-06-29] MEDS: LEVOTHYROXINE 50 MCG TAB PO SCH (22:57)
[2023-06-29] MEDS: CARBIDOPA-LEVODOPA 25-100 MG 1 EACH TAB PO SCH (22:57)
[2023-06-29] MEDS: PRAMIPEXOLE 0.5 MG TAB PO SCH (22:59)
[2023-06-30] MEDS: VANCOMYCIN 1,500 MG in SODIUM CHLORIDE 0.9% 500 ML 500 ML IVPB SCH ×2 (00:23→21:34)
[2023-06-30] MEDS: HYDROcodone/APAP 7.5-325MG 1 EACH TAB PO PRN (02:44)
[2023-06-30 05:48] LABS: Glucose,Whole Blood 158 mg/dL (70-110)
[2023-06-30] MEDS: INSULIN ASPART (NovoLOG) 100 UNIT/ML VIAL SQ SCH (06:20)
[2023-06-30] MEDS ORDERED: VANCOMYCIN IV PER PHARMACY 1 EACH MISC MISCELLANE SCH (08:00)
[2023-06-30] MEDS: lisinopriL 20 MG TAB PO SCH (08:07)
[2023-06-30] MEDS: HYDROcodone/APAP 5-325MG 1 EACH TAB PO SCH (08:08)
[2023-06-30] MEDS: ESCITALOPRAM 10 MG TAB PO SCH (08:08)
[2023-06-30] MEDS: CYCLOBENZAPRINE 10 MG TAB PO SCH (08:08)
[2023-06-30] MEDS: SENNOSIDES-DOCUSATE SODIUM 1 EACH TAB PO SCH (08:08)
[2023-06-30] MEDS: MULTIVITAMINS, THERA 1 EACH TAB PO SCH (08:09)
--- NOTE | 2023-06-30 08:50 | P.PN ---
Subjective Progress Note Date: 06/30/23 Principal diagnosis: 1. 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 Urinary and bowel incontinence (new onset) 3. Right sacroiliitis 4. Left sacroiliitis Patient seen and examined this morning. Patient is sitting up at bedside. She reports that her home medications for Parkinson's have been delayed by hospital schedule and that her tremors have been increasing. Patient also reports she is having moderate pain in her low back. Medications have been adjusted and request to pharmacy to match home schedule for her Parkinson's medications has been sent. Dressing to the lumbar spine is CDI and hemovac drain is patent with 200ml output overnight. Informed patient that PT/OT will be in to work with her today. Continue to encourage use of incentive spirometer. No acute concerns. Objective - Vital Signs Vital signs: Vital Signs Temp 98.4 F 06/30/23 03:08 Pulse 67 06/30/23 03:08 Resp 17 06/30/23 03:08 BP 110/65 06/30/23 03:08 Pulse Ox 90 L 06/30/23 03:08 FiO2 Intake & Output 06/29/23 06/30/23 06/30/23 18:59 06:59 18:59 Intake Total 3502 240 Output Total 1155 2600 Balance 2347 -2360 Weight 91.8 kg Intake: IV 3502 Oral 240 Output: Drainage 80 200 Back 80 200 Urine 825 2400 Uretheral (Arellano) 1100 Estimated Blood Loss 250 - Exam Physical Examination General: The patient is awake and alert, in no acute distress Skin: Skin is warm and dry with no obvious rashes or lesions. Surgical incision to the posterior lumbar spine, dressing is clean dry and intact with Hemovac present, 200 mL output overnight. Eye: Pupils are equal, round and reactive to light, extra-ocular movements are intact; there is normal conjunctiva bilaterally. Neck: The neck is supple, there is no tenderness and ROM intact. Cardiovascular: There is a regular rate and rhythm. No murmur, rub or gallop is appreciated. Respiratory: Lungs are clear to auscultation, respirations are non-labored, breath sounds are equal. Gastrointestinal: Soft, non-distended, non-tender abdomen. Back: There is no tenderness to palpation in the midline, paralumbar, parathoracic or buttocks region. There is no obvious deformity . Musculoskeletal: ROM limited secondary to pain and stiffness from surgical procedure. Muscle strength in all major muscle groups of bilateral upper extremities 5/5, bilateral lower extremities 4/5. Neurological: CN 2-12 intact. There are no obvious motor or sensory deficits. Movement and coordination equal and intact. Sensory exam to light touch intact C5-T1 and intact from L2-S1. Reflexes 2/4 in bilateral upper and lower extremities. Negative Hoffmans, babinski, and clonus signs. Psychiatric: Cooperative, appropriate mood & affect, normal judgment. - Labs CBC & Chem 7: 06/29/23 16:53 Labs: Abnormal Lab Results - Last 24 Hours (Table) 06/29/23 06/29/23 06/29/23 Range/Units 06:51 13:22 16:26 POC Glucose (mg/dL) 140 H 176 H 168 H (70-110) mg/dL 06/29/23 06/30/23 Range/Units 21:21 05:46 POC Glucose (mg/dL) 214 H 158 H (70-110) mg/dL Assessment and Plan Assessment: Postop day 1: Revision L3-L5 decompression and fusion 1. 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 Urinary and bowel incontinence (new onset) 3. Right sacroiliitis 4. Left sacroiliitis Plan: -Appreciate instructional consultant and team management. -Activity: Ambulate QID, OOB all meals, up and about, limit lifting bending twisting to less than 5 lbs. Use walker or cane if needed for stability. -Daily PT/OT, increase ambulation strength and balance. -Brace when up and about, not needed in bed or chair -Pain control: Adequate at this time -Meds: reviewed -GI ppx: senna, Miralax -DVT PPX: OK to restart Heparin tonight -Hygiene: Shower today. Maintain dressing clean and dry. Meticulous cleaning after BMs away from the incision site -Drains: Maintain for now. Continue to monitor and record output q shift. -Encourage IS 10x/hr -Dispo: Anticipate discharge home within the next 48hrs with homecare *I reviewed and discussed this case with my attending Dr. Pittman, whom has reviewed this chart and films and is in agreement with assessment and plan of care as outlined above. I have personally seen and examined the patient, performed the documentation and the assessment and plan as written. Number of minutes spent on the visit: 20m.
[2023-06-30 09:00] LABS: Basophils # (A) 0.01 X 10*3/uL (0.00-0.10); Basophils % (A) 0.1 %; Eosinophils # (A) 0.02 X 10*3/uL (0.04-0.35); Eosinophils % (A) 0.2 %; HCT 27.9 % (37.2-46.3); HGB 8.5 g/dL (12.0-15.0); Lymphocytes # (A) 0.86 X 10*3/uL (0.90-5.00); Lymphocytes % (A) 10.2 %; MCH 28.1 pg (27.0-32.0); MCHC 30.5 g/dL (32.0-37.0); MCV 92.4 FL (80.0-97.0); Mean Platelet Volume 10.3 FL (9.5-12.2); Monocytes # (A) 0.54 X 10*3/uL (0.20-1.00); Monocytes % (A) 6.4 %; NRBC Per 100 WBC 0 X 10*3/uL (0.00-0.01); Neutrophils # (A) 6.93 X 10*3/uL (1.80-7.70); Neutrophils % (A) 82.3 %; Platelet Count 233 X 10*3/uL (140-440); RBC 3.02 X 10*6/uL (4.10-5.20); RDW 14.2 % (11.5-14.5); WBC 8.43 X 10*3/uL (4.50-10.00)
[2023-06-30] MEDS ORDERED: KRILL PO SCH (09:00)
[2023-06-30] MEDS ORDERED: DHA PO SCH (09:00)
[2023-06-30] MEDS ORDERED: AST PO SCH (09:00)
[2023-06-30] MEDS ORDERED: PHOSPHO PO SCH (09:00)
[2023-06-30] MEDS ORDERED: [UNRECOGNIZED DRUG - OTHER] PO SCH (09:00)
[2023-06-30] MEDS ORDERED: EPA PO SCH (09:00)
[2023-06-30] MEDS: VIT A,C & E-LUTEIN-MINERALS 1 EACH TAB PO SCH (10:34)
[2023-06-30] MEDS: KETOROLAC 15 MG/ML 1 ML VIAL IVP PRN (10:34)
--- NOTE | 2023-06-30 10:44 | CT ---
EXAMINATION TYPE: CT lumbar spine wo con DATE OF EXAM: 06/30/2023 COMPARISON: 05/21/2023 HISTORY: Post op imaging, s/p lumbar fusion. CT DLP: 1597.6 mGycm CONTRAST: None TECHNIQUE: CT of the lumbar spine is performed on a spiral scan at 3 mm thick sections. Reconstructed images are performed in the coronal and sagittal planes. FINDINGS: There is a inferior endplate compression deformity of L1 present previously. Vertebral plasty is evid ent. Patient is status post fixation of L3-L5. This is a change from the prior presurgical image. Postsurgical soft tissue changes are posterior to the spinal canal. Disc spacers are present L3-4 L4- 5. There appears to be a grade 1 spondylolisthesis of L4 anteriorly on L5 present previously. No sign ificant interval change is evident. IMPRESSION: 1. Postsurgical changes at L3. 2. Remaining findings appear stable over the interval
[2023-06-30 11:12] LABS: Glucose,Whole Blood 337 mg/dL (70-110)
[2023-06-30] MEDS: CARBIDOPA-LEVODOPA 25-100 MG 1 EACH TAB PO SCH (11:21)
[2023-06-30 11:51] LABS: BUN/Creat Ratio 20.46 Ratio (12.00-20.00); Blood Urea Nitrogen 26.6 mg/dL (9.0-27.0); Calcium 8.6 mg/dL (8.7-10.3); Carbon Dioxide 20.8 mmol/L (21.6-31.8); Chloride 104 mmol/L (96-109); Glucose 183 mg/dL (70-110); Potassium 4.2 mmol/L (3.5-5.5); Sodium 138 mmol/L (135-145)
--- NOTE | 2023-06-30 13:33 | P.CONS ---
History of Present Illness - Reason for Consult Consult date: 06/30/23 Medical management - History of Present Illness History of present illness; patient is a 73-year-old lady with past medical history significant for Parkinson's disease, chronic back pain-following up outpatient with orthopedic surgery for lower back pains. Patient had received multiple rounds of SI joint injections with minimal relief. Patient also had tried pain management and therapy without any relief. This was discussed by orthopedic surgery and they recommended revision L3-5 decompression and fusion for which patient presented to hospital on 06/28 and underwent the procedure. Postoperatively internal medicine team were consulted for medical management REVIEW OF SYSTEMS: CONSTITUTIONAL: No fever, no malaise, no fatigue. HEENT: No recent visual problems or hearing problems. Denied any sore throat. CARDIOVASCULAR: No chest pain, orthopnea, PND, no palpitations, no syncope. PULMONARY: No shortness of breath, no cough, no hemoptysis. GASTROINTESTINAL: No diarrhea, no nausea, no vomiting, no abdominal pain. NEUROLOGICAL: No headaches, no weakness, no numbness. HEMATOLOGICAL: Denies any bleeding or petechiae. GENITOURINARY: Denies any burning micturition, frequency, or urgency. MUSCULOSKELETAL/RHEUMATOLOGICAL: Complaining of back pain ENDOCRINE: Denies any polyuria or polydipsia. The rest of the 14-point review of systems is negative. PHYSICAL EXAMINATION: GENERAL: The patient is alert and oriented x3, not in any acute distress. Well developed, well nourished. Tremors noticeable HEENT: Pupils are round and equally reacting to light. EOMI. No scleral icterus. No conjunctival pallor. Normocephalic, atraumatic. No pharyngeal erythema. No thyromegaly. CARDIOVASCULAR: S1 and S2 present. No murmurs, rubs, or gallops. PULMONARY: Chest is clear to auscultation, no wheezing or crackles. ABDOMEN: Soft, nontender, nondistended, normoactive bowel sounds. No palpable organomegaly. MUSCULOSKELETAL: No joint swelling or deformity. EXTREMITIES: No cyanosis, clubbing, or pedal edema. NEUROLOGICAL: Gross neurological examination did not reveal any focal deficits. SKIN: Lumbar area surgical skin seen, drain in place Assessment and plan L3-5 spondylosis with stenosis s/p revision L3-5 decompression and fusion Urinary and bowel incontinence Right sacroiliitis Left sacroiliitis Parkinson's disease Hyperlipidemia Hypertension Diabetes mellitus Monitor vital signs Monitor CBC Monitor CMP Continue pain management per orthopedics Continue DVT prophylaxis per orthopedics Resume home meds PT and OT consulted Labs and medication were reviewed.. Continue same treatment. Continue with symptomatic treatment. Resume home medication. Monitor labs and vitals. DVT and GI prophylaxis. Further recommendations as per clinical course of the patient Dictation was produced using [employer] dictation software. please excuse any gra mmatical, word or spelling errors. Past Medical History Past Medical History: CVA/TIA, Diabetes Mellitus, Hyperlipidemia, Hypertension, Osteoarthritis (OA), Renal Disease, Thyroid Disorder Additional Past Medical History / Comment(s): PARKINSON's disease, possible TIA, SEASONAL ALLERGIES, OSTEOPORISIS, INTERSTITIAL CYSTITIS, DRY EYES, MACULAR DEGENERATION.CHRONIC KIDNEY DISEASE STAGE 3 , NEW DX ANEMIA, IRON DEFICIENCY AND B12 DEFICIENCY,, nasal congestion History of Any Multi-Drug Resistant Organisms: None Reported Past Surgical History: Adenoidectomy, Back Surgery, Bladder Surgery, Cholecystectomy, Heart Catheterization, Hysterectomy, Orthopedic Surgery, Tonsillectomy, Tubal Ligation Additional Past Surgical History / Comment(s): LEFT ROTATOR CUFF, RIGHT FROZEN SHOULDER, JEFF KNEES-TOTAL AND PARTIAL, OOPHERECTOMY, CYSTOSCOPIES, BLADDER SUSPENSION, INTERSTITIAL CYSTITIS, JEFF CARPAL TUNNEL, PAIN CLINIC PROCEDURES , EYE SURGERIES (CHILD), EYELID RESECTION & EYEBROW LIFT. laminectomy on 07-26-20, BACK SURGERY WITH HARDWARE (CAGE) back surgery x4 11/02, L1 & L2 01/12/22, BILATERAL CATARACT SURGERY. Past Anesthesia/Blood Transfusion Reactions: Previous Problems w/ Anesthesia Additional Past Anesthesia/Blood Transfusion Reaction / Comm: STATES MEDICATION "CURRARRE" USED OVER 25 YEARS AGO, SHE FELT PARALYZED AND COULD NOT MOVE OR BREATHE. Past Psychological History: Depression Smoking Status: Never smoker Past Alcohol Use History: Occasional Past Drug Use History: None Reported - Past Family History Mother Family Medical History: Cancer Additional Family Medical History / Comment(s): SKIN CANCER Father Family Medical History: Cancer Additional Family Medical History / Comment(s): SKIN CANCER Sister(s) Family Medical History: Cancer Additional Family Medical History / Comment(s): BREAST CANCER Medications and Allergies Home Medications Medication Instructions Recorded Confirmed Type Fenofibrate [Lofibra] 160 mg PO DAILY 02/05/20 06/23/23 History Levothyroxine Sodium [Synthroid] 50 mcg PO HS 02/05/20 06/23/23 History Pioglitazone [Actos] 15 mg PO HS 02/05/20 06/23/23 History Magnesium Oxide 800 mg PO BID 07/20/20 06/23/23 History Aspirin [Adult Low Dose Aspirin EC] 81 mg PO DAILY 10/24/20 06/23/23 History Carbidopa-Levodopa 25-100 mg 2 tab PO QID 10/24/20 06/23/23 History [Sinemet 25-100] Alendronate Sodium [Fosamax] 70 mg PO TEIXEIRA 01/09/22 06/23/23 History Empagliflozin [Jardiance] 10 mg PO DAILY 01/09/22 06/23/23 History Ferrous Sulfate [Feosol] 325 mg PO DAILY 01/09/22 06/23/23 History Multivit with Calcium,Iron,Min 1 each PO DAILY 01/09/22 06/23/23 History [Women's Multivitamin] Rosuvastatin Calcium [Crestor] 40 mg PO HS 01/09/22 06/23/23 History Vitamin C, D & Zinc 1 tab PO DAILY 01/09/22 06/23/23 History Calcium Carb/Vitamin D3/Vit K1 1 tab PO BID 08/03/22 06/23/23 History [Citracal-D3 500 mg Soft Chew] Cyclobenzaprine [Flexeril] 10 mg PO HS PRN 08/03/22 06/23/23 History Escitalopram [Lexapro] 10 mg PO DAILY 08/03/22 06/23/23 History Fexofenadine HCl 180 mg PO HS PRN 08/03/22 06/23/23 History Krill/Om-3/Dha/Epa/Phospho/Ast 1 each PO DAILY 08/03/22 06/23/23 History [Krill Oil 500 mg Softgel] Pramipexole [Mirapex] 0.5 mg PO TID 08/03/22 06/23/23 History lisinopriL [Zestril] 20 mg PO DAILY 08/03/22 06/23/23 History Acetaminophen [Tylenol Extra 1,000 mg PO Q6H PRN 12/28/22 06/23/23 History Strength] Retaine Flax [place] 1 tab PO DAILY 02/16/23 06/23/23 History Retinavite 1 tab PO DAILY 02/16/23 06/23/23 History Celecoxib [CeleBREX] 200 mg PO BID 06/18/23 06/23/23 History Escitalopram [Lexapro] 20 mg PO HS 06/18/23 06/23/23 History HYDROcodone/APAP 5-325MG [[place] 1 tab PO Q6H PRN 06/18/23 06/23/23 History 5-325] Allergies Allergy/AdvReac Type Severity Reaction Status Date / Time erythromycin base Allergy Unknown Rash, Verified 06/23/23 13:09 itching, lips swollen, tingling, head like basketball oxycodone Allergy Unknown vomit bile Verified 06/23/23 13:09 Penicillins Allergy Unknown Rash, Verified 06/23/23 13:09 itching sulfamethoxazole Allergy Unknown rash, Verified 06/23/23 13:09 [From Bactrim] itching tolterodine [From Detrol] Allergy Unknown itching/nelly Verified 06/23/23 13:09 h tramadol [From Ultram] Allergy Unknown Rash, Verified 06/23/23 13:09 itching, lips swollen, tingling, head like basketball trimethoprim [From Bactrim] Allergy Unknown rash, Verified 06/23/23 13:09 itching nickel Allergy Rash/Hives Verified 06/23/23 13:09 hydromorphone [From Dilaudid] AdvReac Unknown reaction Verified 06/23/23 13:09 in higher doses, rash, itching gel adhesive pad Allergy Unknown ekg pads Uncoded 06/23/23 13:09 and adhesive- chemical burn, itching rash Physical Exam Vitals: Vital Signs Temp Pulse Resp BP BP Pulse Ox 06/30/23 07:18 98.5 F 78 14 103/67 93 L 06/30/23 03:08 98.4 F 67 17 110/65 90 L 06/29/23 21:32 98.1 F 96 17 114/66 96 06/29/23 15:16 84 127/76 98 06/29/23 15:15 83 106/50 94 L 06/29/23 14:30 81 114/70 93 L Intake and Output 06/29/23 06/30/23 06/30/23 22:59 06:59 14:59 Intake Total 240 Output Total 380 2600 Balance -140 -2600 Intake: Oral 240 Output: Drainage 80 200 Back 80 200 Urine 300 2400 Uretheral (Arellano) 1100 Results CBC & Chem 7: 06/30/23 04:05 06/30/23 04:05 Labs: Abnormal Lab Results - Last 24 Hours (Table) 06/29/23 06/29/23 06/29/23 Range/Units 13:22 16:26 21:21 RBC (4.10-5.20) X 10*6/uL Hgb (12.0-15.0) g/dL Hct (37.2-46.3) % MCHC (32.0-37.0) g/dL Immature Gran # (0.00-0.04) X 10*3/uL Lymphocytes # (0.90-5.00) X 10*3/uL Eosinophils # (0.04-0.35) X 10*3/uL Carbon Dioxide (21.6-31.8) mmol/L Anion Gap (4.00-12.00) mmol/L Est GFR (CKD-EPI) (>=60) BUN/Creatinine Ratio (12.00-20.00) Ratio Glucose (70-110) mg/dL POC Glucose (mg/dL) 176 H 168 H 214 H (70-110) mg/dL Calcium (8.7-10.3) mg/dL 06/30/23 06/30/23 06/30/23 Range/Units 04:05 04:05 05:46 RBC 3.02 L (4.10-5.20) X 10*6/uL Hgb 8.5 L (12.0-15.0) g/dL Hct 27.9 L (37.2-46.3) % MCHC 30.5 L (32.0-37.0) g/dL Immature Gran # 0.07 H (0.00-0.04) X 10*3/uL Lymphocytes # 0.86 L (0.90-5.00) X 10*3/uL Eosinophils # 0.02 L (0.04-0.35) X 10*3/uL Carbon Dioxide 20.8 L (21.6-31.8) mmol/L Anion Gap 13.20 H (4.00-12.00) mmol/L Est GFR (CKD-EPI) 44 L (>=60) BUN/Creatinine Ratio 20.46 H (12.00-20.00) Ratio Glucose 183 H (70-110) mg/dL POC Glucose (mg/dL) 158 H (70-110) mg/dL Calcium 8.6 L (8.7-10.3) mg/dL 06/30/23 Range/Units 11:11 RBC (4.10-5.20) X 10*6/uL Hgb (12.0-15.0) g/dL Hct (37.2-46.3) % MCHC (32.0-37.0) g/dL Immature Gran # (0.00-0.04) X 10*3/uL Lymphocytes # (0.90-5.00) X 10*3/uL Eosinophils # (0.04-0.35) X 10*3/uL Carbon Dioxide (21.6-31.8) mmol/L Anion Gap (4.00-12.00) mmol/L Est GFR (CKD-EPI) (>=60) BUN/Creatinine Ratio (12.00-20.00) Ratio Glucose (70-110) mg/dL POC Glucose (mg/dL) 337 H (70-110) mg/dL Calcium (8.7-10.3) mg/dL
[2023-06-30 14:53] LABS: Glucose,Whole Blood 144 mg/dL (70-110)
[2023-06-30] MEDS: PRAMIPEXOLE 0.5 MG TAB PO SCH (15:52)
[2023-06-30 15:57] LABS: Glucose,Whole Blood 136 mg/dL (70-110)
[2023-06-30 20:53] LABS: Glucose,Whole Blood 201 mg/dL (70-110)
[2023-07-01 05:57] LABS: Glucose,Whole Blood 139 mg/dL (70-110)
--- NOTE | 2023-07-01 07:33 | P.PN ---
Subjective Progress Note Date: 07/01/23 Principal diagnosis: 1. 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 Urinary and bowel incontinence (new onset) 3. Right sacroiliitis 4. Left sacroiliitis Patient seen and examined this morning. Patient is sitting up at bedside. She reports that her pain is controlled on current regimen. Dressing to the lumbar spine is CDI and hemovac drain is patent with 120ml output overnight. We will continue to monitor output and possibly remove tomorrow 07/02/23. Patient reports she has been ambulatory within room and out in patel way utilizing a walker with PT and spouse. She states she is tolerating activity well and continues to report improvement of the radiculopathy in her lower extremities. Continue to encourage use of incentive spirometer. No acute concerns. Anticipate discharge tomorrow 07/02/23 with homecare. Objective - Vital Signs Vital signs: Vital Signs Temp 97.8 F 07/01/23 00:37 Pulse 71 07/01/23 00:37 Resp 17 07/01/23 00:37 BP 97/49 07/01/23 00:37 Pulse Ox 97 07/01/23 00:37 FiO2 Intake & Output 06/30/23 07/01/23 07/01/23 18:59 06:59 18:59 Output Total 120 Balance -120 Output: Drainage 120 Back 120 Other: # Voids 4 2 - Exam Physical Examination General: The patient is awake and alert, in no acute distress Skin: Skin is warm and dry with no obvious rashes or lesions. Surgical incision to the posterior lumbar spine, dressing is clean dry and intact with Hemovac present, 120 mL output overnight. Eye: Pupils are equal, round and reactive to light, extra-ocular movements are intact; there is normal conjunctiva bilaterally. Neck: The neck is supple, there is no tenderness and ROM intact. Cardiovascular: There is a regular rate and rhythm. No murmur, rub or gallop is appreciated. Respiratory: Lungs are clear to auscultation, respirations are non-labored, breath sounds are equal. Gastrointestinal: Soft, non-distended, non-tender abdomen. Back: There is no tenderness to palpation in the midline, paralumbar, parathoracic or buttocks region. There is no obvious deformity . Musculoskeletal: ROM limited secondary to pain and stiffness from surgical procedure. Muscle strength in all major muscle groups of bilateral upper extremities 5/5, bilateral lower extremities 4/5. Neurological: CN 2-12 intact. There are no obvious motor or sensory deficits. Movement and coordination equal and intact. Sensory exam to light touch intact C5-T1 and intact from L2-S1. Reflexes 2/4 in bilateral upper and lower extremities. Negative Hoffmans, babinski, and clonus signs. Psychiatric: Cooperative, appropriate mood & affect, normal judgment. - Labs CBC & Chem 7: 06/30/23 04:05 06/30/23 04:05 Labs: Abnormal Lab Results - Last 24 Hours (Table) 06/30/23 06/30/23 06/30/23 Range/Units 04:05 04:05 11:11 RBC 3.02 L (4.10-5.20) X 10*6/uL Hgb 8.5 L (12.0-15.0) g/dL Hct 27.9 L (37.2-46.3) % MCHC 30.5 L (32.0-37.0) g/dL Immature Gran # 0.07 H (0.00-0.04) X 10*3/uL Lymphocytes # 0.86 L (0.90-5.00) X 10*3/uL Eosinophils # 0.02 L (0.04-0.35) X 10*3/uL Carbon Dioxide 20.8 L (21.6-31.8) mmol/L Anion Gap 13.20 H (4.00-12.00) mmol/L Est GFR (CKD-EPI) 44 L (>=60) BUN/Creatinine Ratio 20.46 H (12.00-20.00) Ratio Glucose 183 H (70-110) mg/dL POC Glucose (mg/dL) 337 H (70-110) mg/dL Calcium 8.6 L (8.7-10.3) mg/dL 06/30/23 06/30/23 06/30/23 Range/Units 14:51 15:55 20:52 RBC (4.10-5.20) X 10*6/uL Hgb (12.0-15.0) g/dL Hct (37.2-46.3) % MCHC (32.0-37.0) g/dL Immature Gran # (0.00-0.04) X 10*3/uL Lymphocytes # (0.90-5.00) X 10*3/uL Eosinophils # (0.04-0.35) X 10*3/uL Carbon Dioxide (21.6-31.8) mmol/L Anion Gap (4.00-12.00) mmol/L Est GFR (CKD-EPI) (>=60) BUN/Creatinine Ratio (12.00-20.00) Ratio Glucose (70-110) mg/dL POC Glucose (mg/dL) 144 H 136 H 201 H (70-110) mg/dL Calcium (8.7-10.3) mg/dL 07/01/23 Range/Units 05:56 RBC (4.10-5.20) X 10*6/uL Hgb (12.0-15.0) g/dL Hct (37.2-46.3) % MCHC (32.0-37.0) g/dL Immature Gran # (0.00-0.04) X 10*3/uL Lymphocytes # (0.90-5.00) X 10*3/uL Eosinophils # (0.04-0.35) X 10*3/uL Carbon Dioxide (21.6-31.8) mmol/L Anion Gap (4.00-12.00) mmol/L Est GFR (CKD-EPI) (>=60) BUN/Creatinine Ratio (12.00-20.00) Ratio Glucose (70-110) mg/dL POC Glucose (mg/dL) 139 H (70-110) mg/dL Calcium (8.7-10.3) mg/dL Assessment and Plan Assessment: Postop day 2: Revision L3-L5 decompression and fusion 1. 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 Urinary and bowel incontinence (new onset) 3. Right sacroiliitis 4. Left sacroiliitis Plan: -Appreciate area development consultant and team management. -Activity: Ambulate QID, OOB all meals, up and about, limit lifting bending twisting to less than 5 lbs. Use walker or cane if needed for stability. -Daily PT/OT, increase ambulation strength and balance. -Brace when up and about, not needed in bed or chair, spouse to bring brace from home. -Pain control: Adequate at this time -Meds: reviewed -GI ppx: senna, Miralax -DVT PPX: Heparin -Hygiene: Shower today. Maintain dressing clean and dry. Meticulous cleaning after BMs away from the incision site -Drains: Maintain for now. Continue to monitor and record output q shift. -Encourage IS 10x/hr -Dispo: Anticipate discharge home within the next 24hrs with homecare *I reviewed and discussed this case with my attending Dr. Pittman, whom has reviewed this chart and films and is in agreement with assessment and plan of care as outlined above. I have personally seen and examined the patient, performed the documentation and the assessment and plan as written. Number of minutes spent on the visit: 20m.
[2023-07-01] MEDS: HEPARIN SODIUM,PORCINE 5,000 UNIT/ML 1 ML VIAL SQ SCH (07:59)
[2023-07-01 08:00] LABS: African American GFR (CKD) 63 (>60 ml/min/1.73 sqM); Anion Gap 5 mmol/L; Blood Urea Nitrogen 27 mg/dL (7-17); Calcium 8.4 mg/dL (8.4-10.2); Carbon Dioxide 25 mmol/L (22-30); Chloride 103 mmol/L (98-107); Glucose 130 mg/dL (74-99); Non-African American GFR(CKD) 54 (>60 ml/min/1.73 sqM); Potassium 4.6 mmol/L (3.5-5.1); Sodium 133 mmol/L (137-145)
[2023-07-01 11:26] LABS: Glucose,Whole Blood 130 mg/dL (70-110)
--- NOTE | 2023-07-01 12:18 | P.PN ---
Subjective Progress Note Date: 07/01/23 patient is a 73-year-old lady with past medical history significant for Parkinson's disease, chronic back pain-following up outpatient with orthopedic surgery for lower back pains. Patient had received multiple rounds of SI joint injections with minimal relief. Patient also had tried pain management and therapy without any relief. This was discussed by orthopedic surgery and they recommended revision L3-5 decompression and fusion for which patient presented to hospital on 06/28 and underwent the procedure. Postoperatively internal medicine team were consulted for medical management 06/30. Patient seen and examined. States she feels better than yesterday. Still has lumbar drain in, having high output. REVIEW OF SYSTEMS: CONSTITUTIONAL: No fever, no malaise,. CARDIOVASCULAR: No chest pain, no palpitations, no syncope. PULMONARY: No shortness of breath, no cough, GASTROINTESTINAL: No diarrhea, no nausea, no vomiting, no abdominal pain. NEUROLOGICAL: No headaches, no weakness, PHYSICAL EXAMINATION: GENERAL: The patient is alert and oriented x3, not in any acute distress. Well developed, well nourished. Tremors noticeable HEENT: Pupils are round and equally reacting to light. EOMI. No scleral icterus. No conjunctival pallor. Normocephalic, atraumatic. No pharyngeal erythema. No thyromegaly. CARDIOVASCULAR: S1 and S2 present. No murmurs, rubs, or gallops. PULMONARY: Chest is clear to auscultation, no wheezing or crackles. ABDOMEN: Soft, nontender, nondistended, normoactive bowel sounds. No palpable organomegaly. MUSCULOSKELETAL: No joint swelling or deformity. EXTREMITIES: No cyanosis, clubbing, or pedal edema. NEUROLOGICAL: Gross neurological examination did not reveal any focal deficits. SKIN: Lumbar area surgical skin seen, drain in place Assessment and plan L3-5 spondylosis with stenosis s/p revision L3-5 decompression and fusion Urinary and bowel incontinence Right sacroiliitis Left sacroiliitis Parkinson's disease Hyperlipidemia Hypertension Diabetes mellitus Monitor vital signs Monitor CBC Monitor CMP Continue pain management per orthopedics Continue DVT prophylaxis per orthopedics Continue drain management per orthopedic Continue home meds PT and OT following Labs and medication were reviewed.. Continue same treatment. Continue with symptomatic treatment. Resume home medication. Monitor labs and vitals. DVT and GI prophylaxis. Further recommendations as per clinical course of the patient Dictation was produced using [employer] dictation software. please excuse any grammatical, word or spelling errors. Objective - Vital Signs Vital signs: Vital Signs Temp 97.8 F 07/01/23 00:37 Pulse 71 07/01/23 00:37 Resp 17 07/01/23 00:37 BP 97/49 07/01/23 00:37 Pulse Ox 97 07/01/23 00:37 FiO2 Intake & Output 06/30/23 07/01/23 07/01/23 18:59 06:59 18:59 Output Total 120 Balance -120 Output: Drainage 120 Back 120 Other: # Voids 4 2 - Labs CBC & Chem 7: 06/30/23 04:05 07/01/23 07:11 Labs: Abnormal Lab Results - Last 24 Hours (Table) 06/30/23 06/30/23 06/30/23 Range/Units 14:51 15:55 20:52 Sodium (137-145) mmol/L BUN (7-17) mg/dL Glucose (74-99) mg/dL POC Glucose (mg/dL) 144 H 136 H 201 H (70-110) mg/dL 07/01/23 07/01/23 07/01/23 Range/Units 05:56 07:11 11:24 Sodium 133 L (137-145) mmol/L BUN 27 H (7-17) mg/dL Glucose 130 H (74-99) mg/dL POC Glucose (mg/dL) 139 H 130 H (70-110) mg/dL
[2023-07-01 13:22] LABS: Basophils % (A) 0 %; Eosinophils # (A) 0.3 k/uL (0-0.7); Eosinophils % (A) 5 %; HCT 30.1 % (34.0-46.0); HGB 9.2 gm/dL (11.4-16.0); Hypochromasia Marked; Lymphocytes # (A) 1.3 k/uL (1.0-4.8); Lymphocytes % (A) 21 %; MCH 29.1 pg (25.0-35.0); MCHC 30.5 g/dL (31.0-37.0); MCV 95.3 fL (80.0-100.0); Mean Platelet Volume 8.9; Monocytes # (A) 0.3 k/uL (0-1.0); Monocytes % (A) 5 %; Neutrophils # (A) 4.3 k/uL (1.3-7.7); Neutrophils % (A) 68 %; Platelet Count 236 k/uL (150-450); RBC 3.16 m/uL (3.80-5.40); RDW 14.1 % (11.5-15.5); WBC 6.3 k/uL (3.8-10.6)
[2023-07-01 16:42] LABS: Glucose,Whole Blood 153 mg/dL (70-110)
[2023-07-01 19:52] VITALS: TEMP 98.9
[2023-07-01 20:23] LABS: Glucose,Whole Blood 145 mg/dL (70-110)
[2023-07-02 02:56] VITALS: BP 113/73; PULSE 77; RESP 18
[2023-07-02 05:57] LABS: Glucose,Whole Blood 128 mg/dL (70-110)
--- NOTE | 2023-07-02 07:37 | P.PN ---
Subjective Progress Note Date: 07/02/23 Principal diagnosis: 1. 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 Urinary and bowel incontinence (new onset) 3. Right sacroiliitis 4. Left sacroiliitis Patient seen and examined this morning. Patient is sitting up in chair. She reports that her pain is controlled on current regimen. Surgical incision to the lumbar spine, edges are well approximated with erickson intact. No active drainage noted. Hemovac drain with 80 mL output overnight, this has been removed and new surgical dressing has been applied. Patient reports that she has been ambulatory with walker and tolerating activity well. Patient states that she feels comfortable going home. Discharge instructions have been discussed. No acute concerns at this time. Objective - Vital Signs Vital signs: Vital Signs Temp 98.9 F 07/01/23 19:09 Pulse 77 07/02/23 01:57 Resp 18 07/02/23 01:57 BP 113/73 07/02/23 01:57 Pulse Ox 99 07/02/23 01:57 FiO2 Intake & Output 07/01/23 07/02/23 07/02/23 18:59 06:59 18:59 Intake Total 480 Output Total 80 80 Balance 400 -80 Intake: Oral 480 Output: Drainage 80 80 Back 80 80 Other: # Voids 3 5 - Exam Physical Examination General: The patient is awake and alert, in no acute distress Skin: Skin is warm and dry with no obvious rashes or lesions. Surgical incision to the posterior lumbar spine, Edges are well approximated with erickson intact. No active drainage noted. Hemovac has been removed and new surgical dressing has been applied. Eye: Pupils are equal, round and reactive to light, extra-ocular movements are intact; there is normal conjunctiva bilaterally. Neck: The neck is supple, there is no tenderness and ROM intact. Cardiovascular: There is a regular rate and rhythm. No murmur, rub or gallop is appreciated. Respiratory: Lungs are clear to auscultation, respirations are non-labored, breath sounds are equal. Gastrointestinal: Soft, non-distended, non-tender abdomen. Back: There is no tenderness to palpation in the midline, paralumbar, parathoracic or buttocks region. There is no obvious deformity . Musculoskeletal: ROM limited secondary to pain and stiffness from surgical proc edure. Muscle strength in all major muscle groups of bilateral upper extremities 5/5, bilateral lower extremities 4/5. Neurological: CN 2-12 intact. There are no obvious motor or sensory deficits. M ovement and coordination equal and intact. Sensory exam to light touch intact C5-T1 and intact from L2-S1. Reflexes 2/4 in bilateral upper and lower extremities. Negative Hoffmans, babinski, and clonus signs. Psychiatric: Cooperative, appropriate mood & affect, normal judgment. - Labs CBC & Chem 7: 07/01/23 07:11 07/01/23 07:11 Labs: Abnormal Lab Results - Last 24 Hours (Table) 07/01/23 07/01/23 07/01/23 Range/Units 07:11 07:11 11:24 RBC 3.16 L (3.80-5.40) m/uL Hgb 9.2 L (11.4-16.0) gm/dL Hct 30.1 L (34.0-46.0) % MCHC 30.5 L (31.0-37.0) g/dL Sodium 133 L (137-145) mmol/L BUN 27 H (7-17) mg/dL Glucose 130 H (74-99) mg/dL POC Glucose (mg/dL) 130 H (70-110) mg/dL 07/01/23 07/01/23 07/02/23 Range/Units 16:40 20:18 05:54 RBC (3.80-5.40) m/uL Hgb (11.4-16.0) gm/dL Hct (34.0-46.0) % MCHC (31.0-37.0) g/dL Sodium (137-145) mmol/L BUN (7-17) mg/dL Glucose (74-99) mg/dL POC Glucose (mg/dL) 153 H 145 H 128 H (70-110) mg/dL Assessment and Plan Assessment: Postop day 3: Revision L3-L5 decompression and fusion 1. 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 Urinary and bowel incontinence (new onset) 3. Right sacroiliitis 4. Left sacroiliitis Plan: -Appreciate residential sales consultant and team management. -Activity: Ambulate QID, OOB all meals, up and about, limit lifting bending twisting to less than 5 lbs. Use walker or cane if needed for stability. -Daily PT/OT, increase ambulation strength and balance. -Brace when up and about, not needed in bed or chair, spouse to bring brace from home. -Pain control: Adequate at this time -Meds: reviewed -GI ppx: senna, Miralax -DVT PPX: Heparin -Hygiene: Shower today. Maintain dressing clean and dry. Meticulous cleaning after BMs away from the incision site -Encourage IS 10x/hr -Dispo: Discharge home with homecare *I reviewed and discussed this case with my attending Dr. Pittman, whom has reviewed this chart and films and is in agreement with assessment and plan of care as outlined above. I have personally seen and examined the patient, performed the documentation and the assessment and plan as written. Number of minutes spent on the visit: 20m.
--- NOTE | 2023-07-02 07:54 | P.DS ---
Providers Date of admission: 06/29/23 05:59 Expected date of discharge: 07/02/23 Attending physician: Matthew Pittman DO Consults: 06/29/23 16:10 Consult Physician Routine Consulting Provider: Ning Little Reason/Comments: Medical Management s/p revision L3-L5 decompr fusion Do you want consulting provider notified?: Yes Primary care physician: Cami [facility] Course: Hospital Course: The patient was evaluated preoperatively and found to have the diagnosis of lumbar spondylosis. They underwent appropriate preoperative care and were willing to undergo the intended procedure. They underwent a successful Revision L4-S1 decompression and fusion were recovered appropriately and sent to the floor. While on the floor they worked with physical therapy, occupational therapy and nursing to enhance their recovery experience. Their pain was well controlled through their stay and they were started on appropriate medications, DVT ppx modalities, activity and dietary needs. Daily labs were monitored closely, and transfusions were only used when necessary. Medicine as well as other consulting services have made their input and have helped with our team approach and multidisciplinary care. PT milestones have been met and passed and they have made the recommendation of home with homecare for this patient and treating providers agree with this care path. The patient will be discharged home with appropriate medications, instructions and follow-up information and in stable condition. Patient Condition at Discharge: Good Plan - Discharge Summary Discharge Rx Participant: No New Discharge Prescriptions: New metroNIDAZOLE [Flagyl] 500 mg PO QID #20 tab Cyclobenzaprine [Flexeril] 10 mg PO TID PRN #40 tab PRN Reason: Muscle Spasm HYDROcodone/APAP 7.5-325MG [[place] 7.5-325] 1 tab PO Q4-6H PRN #42 tab PRN Reason: Pain Sennosides/Docusate Sodium [Senna Plus 8.6-50 mg Softgel] 1 each PO DAILY PRN #20 capsule PRN Reason: Constipation No Action Levothyroxine Sodium [Synthroid] 50 mcg PO HS Fenofibrate [Lofibra] 160 mg PO DAILY Pioglitazone [Actos] 15 mg PO HS Alendronate Sodium [Fosamax] 70 mg PO TEIXEIRA Vitamin C, D & Zinc 1 tab PO DAILY lisinopriL [Zestril] 20 mg PO DAILY Fexofenadine HCl 180 mg PO HS PRN PRN Reason: allergies Escitalopram [Lexapro] 10 mg PO DAILY Calcium Carb/Vitamin D3/Vit K1 [Citracal-D3 500 mg Soft Chew] 1 tab PO BID Pramipexole [Mirapex] 0.5 mg PO TID Acetaminophen [Tylenol Extra Strength] 1,000 mg PO Q6H PRN PRN Reason: Pain Retaine Flax Louise 1 tab PO DAILY HYDROcodone/APAP 5-325MG [[place] 5-325] 1 tab PO Q6H PRN PRN Reason: Pain Magnesium Oxide 800 mg PO BID Aspirin [Adult Low Dose Aspirin EC] 81 mg PO DAILY Carbidopa-Levodopa 25-100 mg [Sinemet 25-100] 2 tab PO QID Rosuvastatin Calcium [Crestor] 40 mg PO HS Ferrous Sulfate [Feosol] 325 mg PO DAILY Empagliflozin [Jardiance] 10 mg PO DAILY Multivit with Calcium,Iron,Min [Women's Multivitamin] 1 each PO DAILY Krill/Om-3/Dha/Epa/Phospho/Ast [Krill Oil 500 mg Softgel] 1 each PO DAILY Cyclobenzaprine [Flexeril] 10 mg PO HS PRN PRN Reason: muscle spasms Retinavite 1 tab PO DAILY Escitalopram [Lexapro] 20 mg PO HS Celecoxib [CeleBREX] 200 mg PO BID Discharge Medication List Fenofibrate [Lofibra] 160 mg PO DAILY 02/05/20 [History] Levothyroxine Sodium [Synthroid] 50 mcg PO HS 02/05/20 [History] Pioglitazone [Actos] 15 mg PO HS 02/05/20 [History] Magnesium Oxide 800 mg PO BID 07/20/20 [History] Aspirin [Adult Low Dose Aspirin EC] 81 mg PO DAILY 10/24/20 [History] Carbidopa-Levodopa 25-100 mg [Sinemet 25-100] 2 tab PO QID 10/24/20 [History] Alendronate Sodium [Fosamax] 70 mg PO TEIXEIRA 01/09/22 [History] Empagliflozin [Jardiance] 10 mg PO DAILY 01/09/22 [History] Ferrous Sulfate [Feosol] 325 mg PO DAILY 01/09/22 [History] Multivit with Calcium,Iron,Min [Women's Multivitamin] 1 each PO DAILY 01/09/22 [History] Rosuvastatin Calcium [Crestor] 40 mg PO HS 01/09/22 [History] Vitamin C, D & Zinc 1 tab PO DAILY 01/09/22 [History] Calcium Carb/Vitamin D3/Vit K1 [Citracal-D3 500 mg Soft Chew] 1 tab PO BID 08/03/22 [History] Cyclobenzaprine [Flexeril] 10 mg PO HS PRN 08/03/22 [History] Escitalopram [Lexapro] 10 mg PO DAILY 08/03/22 [History] Fexofenadine HCl 180 mg PO HS PRN 08/03/22 [History] Krill/Om-3/Dha/Epa/Phospho/Ast [Krill Oil 500 mg Softgel] 1 each PO DAILY 08/03/22 [History] Pramipexole [Mirapex] 0.5 mg PO TID 08/03/22 [History] lisinopriL [Zestril] 20 mg PO DAILY 08/03/22 [History] Acetaminophen [Tylenol Extra Strength] 1,000 mg PO Q6H PRN 12/28/22 [History] Retaine Flax Louise 1 tab PO DAILY 02/16/23 [History] Retinavite 1 tab PO DAILY 02/16/23 [History] Celecoxib [CeleBREX] 200 mg PO BID 06/18/23 [History] Escitalopram [Lexapro] 20 mg PO HS 06/18/23 [History] HYDROcodone/APAP 5-325MG [[place] 5-325] 1 tab PO Q6H PRN 06/18/23 [History] Cyclobenzaprine [Flexeril] 10 mg PO TID PRN #40 tab 07/02/23 [Rx] HYDROcodone/APAP 7.5-325MG [[place] 7.5-325] 1 tab PO Q4-6H PRN #42 tab 07/02/23 [Rx] Sennosides/Docusate Sodium [Senna Plus 8.6-50 mg Softgel] 1 each PO DAILY PRN #20 capsule 07/02/23 [Rx] metroNIDAZOLE [Flagyl] 500 mg PO QID #20 tab 07/02/23 [Rx] Follow up Appointment(s)/Referral(s): [facility] [NON-STAFF] - As Needed (Agency will call 24-48 hours after discharge to schedule an appointment. ) Cami Oreilly MD [Primary Care Provider] - 1 Week Matthew Pittman DO [Doctor of Osteopathic Medicine] - 2 Weeks Activity/Diet/Wound Care/Special Instructions: Spine Discharge and Recovery Instructions Medications: See medication list All medication refills should be obtained through your primary care doctor or your clinic spine surgeon. Please discuss prescription refills at your follow up appointment. Do not call the hospital for medication refills. Activity: Encourage ambulation with assist of walker, Up and about 6-8x daily PT/OT daily work on balance, strength and mobility Up in chair with all meals Shower daily Brace: Use brace when up and about, do not wear in bed or shower Dressing: Leave your dressing in place for a total of 3 days post operatively. Then you may remove your dressing and leave open to air. Keep the area clean and if not able to keep area clean, then cover with sterile gauze and tape. Showering: You may shower 3 days after your procedure allowing soap and water to run over incision. Do not scrub. Do not soak. Blot dry. Follow up: Please confirm a follow up appointment with your surgeon 2 weeks post operatively. Please make an appointment to follow up with your PCP in 1-2 weeks after surgery for evaluation 3 phase, 3-week plan POST OP WEEKS 1-3 1. Lifting/carrying/pushing/pulling limited to less than 5 pounds. 2. Do not sit for longer than 15 minutes at one time. Get up and walk around. Prolonged sitting is NOT advised. If you lay down, see if you can t olerate laying down on you front (belly side) 3. Walk for periods of 15 minutes = 1 mile but no longer; do it multiple times times each day. 4. Ice your low back after activity. POST OP WEEKS 3-6 1. Lifting limited to less than 10 pounds. 2. Do not sit for longer than 30 minutes at a time. Frequently change positions. Use a sit-to stand workstation or take frequent breaks from sitting if you have returned to work. 3. Walk for 30 minutes each day. If possible, do these three or more times a day POST OP WEEKS 6+ At your 6-week appointment we will give you a physical therapy referral to focus on a core stabilization and strengthening program. You should also work on leg & buttock strengthening, hamstring & quadriceps stretching, and continue a low impact aerobic activity program such as swimming, walking, or riding a stationary bicycle. During the initial 6 weeks after your surgery, you are at the highest risk of re-injuring your spine. You should generally avoid BLTs (bending, lifting and twisting combination motions) and follow the above guidelines to reduce the chance of reinjury. You can anticipate post op appointments in our office at approximately 3 weeks and 6 weeks after your surgery. INCISION CARE: If your incision is not draining you do NOT need to cover it with a dressing. Keep your incision clean, dry and intact. In most cases, we apply skin glue, erickson or sutures to the incision at the t tsering of surgery. This will be like a crust or have the appearance of a scab and will fall off in time on its own. The stitches or erickson need to be removed at 3 weeks post op appointment. You may begin to shower 3 days after surgery (this allows the glue to ayala well). However, please avoid scrubbing the incision site or peeling off any of the skin glue. This will ensure optimal healing of your incision. Also, during this time avoid soaking the incision area in water - this includes swimming pools, hot tubs or baths. No ointments, lotions or oils on the incision until your surgeon allows. Leave erickson, sutures or glue in place. Neurological dysfunction that comes on suddenly can also be a sign of a stroke. Below some common symptoms of a stroke are listed: B - balance difficulty such as sudden onset walking or leaning to one side - NEW E - eye problem such as sudden double vision or trouble seeing on one side - NEW F - Facial weakness or numbness on one side - NEW A - Arm or leg weakness or numbness on one side - NEW S - Slurred speech or difficulty with word finding - NEW T - Time is BRAIN! Call 911 as soon as you recognize these symptoms Diet: Consume a regular diet rich in vegetables and lean protein such as chicken or fish. You should consume in a ratio of approximately 20% fats|40% carbohydrates|40%protein. Vegetables, sweet potatoes, brown rice or quinoa are examples of good carbohydrates. Chips, white bread, cookies and sweets/sugar are examples of bad carbohydrates. Limit your bad carbs, go wild with good carbs. "Life's Simple 7" Guidelines as per [place] [employer] These will help you reclaim your life after surgery and rod buster helper in your recovery, keeping in mind your restrictions. (1) Get Active. Physical activity can help people lose weight, control high blood pressure and cholesterol, feel emotionally better, and sleep better. (2) Control Cholesterol. Avoid a diet high in saturated fat, trans fat, & cholesterol. Limit whole milk & cream, ice cream, butter, egg yolks, processed meats (like sausage and hot dogs), and fatty meats. Choose healthy foods that are low in saturated fat, trans fat and cholesterol which include: Fruits and vegetables, fiber rich grain products (like whole grain pasta and brown rice), lean meat such as chicken, fish, nuts, seeds, and legumes. (3) Eat Better. Eat small portions. Shop at the grocery with a list and do not stray from it. Tips for a healthy diet include: Limit sodium intake to less than 1500mg daily, avoid prepackaged, processed, and fast foods, choose a diet rich in fruits, vegetables, and whole grain, high fiber foods, and limit saturated & cholesterol in your diet. (4) Manage Blood Pressure. If you have high blood pressure, you should have a cuff at home so that you can check your blood pressure regularly. Be sure you have a good cuff. An arm one is generally better than a wrist one. Bring the cuff to a doctor's appointment to validate that the measurements that your cuff are taking are accurate. Take your blood pressure twice daily when you are sitting down and relaxing. Record the numbers in a log and bring this log with you to your doctors' appointments. (5) Lose Weight if your BMI is above 25. A healthy BMI is between 19-25. To calculate Your BMI, you may use a Standard BMI Calculator on the NIH BMI website: <www.nhlbi.nih.gov/guidelines/obesity/BMI/bmicalc.htm>. Weigh oneself daily. If you are overweight, set a goal to lose weight. A pound a week loss if needed is a good target. (6) Reduce Blood Sugar. Limit foods and liquids with "added sugars." (Added sugars include sucrose, fructose, glucose, maltose, dextrose, high fructose corn syrup, corn syrup, concentrated fruit juice and honey). (7) Stop Smoking. If you smoke, quitting smoking is one of the best things that you can do for your health. Smoking increases your risk of heart attack, stroke, and peripheral vascular disease, which is a build-up of plaque in your arteries. Please discard all the cigarettes and lighters in your house. Have a plan for what you will do when you have the urge to smoke. Direct and second- hand smoke shortens your life as well as the lives of your family, friends and others around you. For your health and the health of those around you, please consider quitting! Proper Bending Body Mechanics: Maintain a wide stance with one foot slightly in front of the other. Keep your back straight. Bend utilizing the strength in your hips and knees. Do not bend at the waist. Maintain the lifted object at your waist-level close to your body. Avoid lifting weight that causes immediately pain or pain anywhere in the body afterwards. Smoking/Nicotine If there was ever one thing that you could do to increase your overall health, decrease your risk of cardiovascular problems by about 39% the second you make the choice, it is to STOP SMOKING. Your body's most instant gratification is the second you stop smoking. We have all heard the studies, read the articles but it is true, smoking is extremely bad for your overall health, and moreover it is detrimental to your bone health. Nicotine, IN ANY FORM, kills bone cells, prevents your body from healing fractures, and significantly prolongs healing after surgery. In spine surgery specifically, it increases your risk of not healing your bones to create a fusion and increases your risk of having a revision surgery due to this up to 60%. I know it is hard. I know it feels impossible. But there are ways. Take control of your life. We are here to help you through it. And when you are ready, ask us and we can direct you to help if you desire. Use the START Plan to Quit Smoking (please visit the Helpguide.org website listed below for more information): S = Set a quit date. Choose a date within the next 2 weeks, so you have enough time to prepare without losing your motivation to quit. If you mainly smoke at work, quit on the weekend, so you have a few days to adjust to the change. T = Tell family, friends, and co-workers that you plan to quit. Let your friends and family in on your plan to quit smoking and tell them you need their support and encouragement to stop. Look for a quit irma who wants to stop smoking as well. You can help each other get through the rough times. A = Anticipate and plan for the challenges you'll face while quitting. Most people who begin smoking again do so within the first 3 months. You can help yourself make it through by preparing ahead for common challenges, such as nicotine withdrawal and cigarette cravings. R = Remove cigarettes and other tobacco products from your home, car, and work. Throw away all your cigarettes (no emergency pack!), lighters, ashtrays, and matches. Wash your clothes and freshen up anything that smells like smoke. Shampoo your car, clean your drapes and carpet, and steam your furniture. T = Talk to your doctor about getting help to quit. Your doctor can prescribe medication to help with withdrawal and suggest other alternatives. If you can't see a doctor, you can get many products over the counter at your local pharmacy or grocery store, including the nicotine patch, nicotine lozenges, and nicotine gum. Resources for Quitting Smoking: <https://www.[place].gov/ documents/[facility]/Quit_Tobacco_Resources_for_patients_313480_7.pdf> Supplementation: Take recommended dosages of Vitamin D and Calcium to help fortify your bones and help them to heal. See your health maintenance packet for dosages and recommended levels. DVT/VTE prophylaxis: You will be given compression stockings from the hospital. Wear these daily for the first two weeks after surgery. You may take them off at night. You may be prescribed a medication to help thin your blood. Take this as directed. If you are not prescribed this medication, early and frequent ambulation has been shown to be the best prophylaxis to deep vein thrombosis and sequelae related to this event. Discharge Disposition: HOME WITH HOME HEALTH SERVICES
[2023-07-02 08:01] LABS: African American GFR (CKD) 66 (>60 ml/min/1.73 sqM); Non-African American GFR(CKD) 57 (>60 ml/min/1.73 sqM)
[2023-07-02 11:40] LABS: Glucose,Whole Blood 171 mg/dL (70-110)
--- NOTE | 2023-07-02 13:32 | P.PN ---
Subjective Progress Note Date: 07/02/23 patient is a 73-year-old lady with past medical history significant for Parkinson's disease, chronic back pain-following up outpatient with orthopedic surgery for lower back pains. Patient had received multiple rounds of SI joint injections with minimal relief. Patient also had tried pain management and therapy without any relief. This was discussed by orthopedic surgery and they recommended revision L3-5 decompression and fusion for which patient presented to hospital on 06/28 and underwent the procedure. Postoperatively internal medicine team were consulted for medical management 06/30. Patient seen and examined. States she feels better than yesterday. Still has lumbar drain in, having high output. 07/01. Patient seen examined. Back pain is under control. Orthopedic planning to discharge patient today REVIEW OF SYSTEMS: CONSTITUTIONAL: No fever, no malaise,. CARDIOVASCULAR: No chest pain, no palpitations, no syncope. PULMONARY: No shortness of breath, no cough, GASTROINTESTINAL: No diarrhea, no nausea, no vomiting, no abdominal pain. NEUROLOGICAL: No headaches, no weakness, PHYSICAL EXAMINATION: GENERAL: The patient is alert and oriented x3, not in any acute distress. Well developed, well nourished. Tremors noticeable HEENT: Pupils are round and equally reacting to light. EOMI. No scleral icterus. No conjunctival pallor. Normocephalic, atraumatic. No pharyngeal erythema. No thyromegaly. CARDIOVASCULAR: S1 and S2 present. No murmurs, rubs, or gallops. PULMONARY: Chest is clear to auscultation, no wheezing or crackles. ABDOMEN: Soft, nontender, nondistended, normoactive bowel sounds. No palpable organomegaly. MUSCULOSKELETAL: No joint swelling or deformity. EXTREMITIES: No cyanosis, clubbing, or pedal edema. NEUROLOGICAL: Gross neurological examination did not reveal any focal deficits. SKIN: Lumbar area surgical skin seen, drain in place Assessment and plan L3-5 spondylosis with stenosis s/p revision L3-5 decompression and fusion Urinary and bowel incontinence Right sacroiliitis Left sacroiliitis Parkinson's disease Hyperlipidemia Hypertension Diabetes mellitus Monitor vital signs Monitor CBC Monitor CMP Continue pain management per orthopedics Continue DVT prophylaxis per orthopedics Continue drain management per orthopedic Continue home meds PT and OT following Labs and medication were reviewed.. Continue same treatment. Continue with symptomatic treatment. Resume home medication. Monitor labs and vitals. DVT and GI prophylaxis. Further recommendations as per clinical course of the patient Dictation was produced using [employer] dictation software. please excuse any gramm atical, word or spelling errors. Objective - Vital Signs Vital signs: Vital Signs Temp 98.9 F 07/01/23 19:09 Pulse 77 07/02/23 01:57 Resp 18 07/02/23 01:57 BP 113/73 07/02/23 01:57 Pulse Ox 99 07/02/23 01:57 FiO2 Intake & Output 07/01/23 07/02/23 07/02/23 18:59 06:59 18:59 Intake Total 480 Output Total 80 80 Balance 400 -80 Intake: Oral 480 Output: Drainage 80 80 Back 80 80 Other: # Voids 3 5 - Labs CBC & Chem 7: 07/01/23 07:11 07/02/23 06:43 Labs: Abnormal Lab Results - Last 24 Hours (Table) 07/01/23 07/01/23 07/02/23 Range/Units 16:40 20:18 05:54 POC Glucose (mg/dL) 153 H 145 H 128 H (70-110) mg/dL 07/02/23 Range/Units 11:36 POC Glucose (mg/dL) 171 H (70-110) mg/dL
[2023-07-02] MEDS ORDERED: VANCOMYCIN TROUGH DUE 1 EACH MISC MISCELLANE ONE (20:00)
[2023-07-04] MEDS ORDERED: NON FORMULARY DRUG (Alendronate Sodium [Fosamax] 70 MG Tablet) PO SCH (09:00)
== END 2023-07-02 13:17 | disposition home health service (06) | DRG 455 ==
LOC: 2ORMAIN 06-29 05:59 → 4SSUR 06-29 13:26
PROVIDERS: ADMIT Orthopaedic Surgery; ATTEND Orthopaedic Surgery
PROC: 0SG1071 Fusion of 2 or more Lumbar Vertebral Joints with Autologous Tissue Substitute, Posterior Approach, Posterior Column, Open Approach (ICD-10-PCS; 2023-06-29)
PROC: 0ST20ZZ Resection of Lumbar Vertebral Disc, Open Approach (ICD-10-PCS; 2023-06-29)
PROC: 01NB0ZZ Release Lumbar Nerve, Open Approach (ICD-10-PCS; 2023-06-29)
PROC: 0SP00AZ Removal of Interbody Fusion Device from Lumbar Vertebral Joint, Open Approach (ICD-10-PCS; 2023-06-29)
PROC: 8E0WXBZ Computer Assisted Procedure of Trunk Region (ICD-10-PCS; 2023-06-29)
PROC: 0SG10AJ Fusion of 2 or more Lumbar Vertebral Joints with Interbody Fusion Device, Posterior Approach, Anterior Column, Open Approach (ICD-10-PCS; principal; 2023-06-29 07:30)
DX: M43.16 Spondylolisthesis, lumbar region (principal); E11.22 Type 2 diabetes mellitus with diabetic chronic kidney disease; G20.A1 Parkinson's disease without dyskinesia, without mention of fluctuations; N18.30 Chronic kidney disease, stage 3 unspecified; M46.1 Sacroiliitis, not elsewhere classified; I12.9 Hypertensive chronic kidney disease with stage 1 through stage 4 chronic kidney disease, or unspecified chronic kidney disease; M47.26 Other spondylosis with radiculopathy, lumbar region; E07.9 Disorder of thyroid, unspecified; M48.062 Spinal stenosis, lumbar region with neurogenic claudication; R15.9 Full incontinence of feces; N39.498 Other specified urinary incontinence; G89.29 Other chronic pain; E78.5 Hyperlipidemia, unspecified; G47.8 Other sleep disorders; Z96.653 Presence of artificial knee joint, bilateral; Z79.84 Long term (current) use of oral hypoglycemic drugs; Z79.890 Hormone replacement therapy; Z79.83 Long term (current) use of bisphosphonates; Z79.82 Long term (current) use of aspirin; Z79.1 Long term (current) use of non-steroidal anti-inflammatories (NSAID); Z79.899 Other long term (current) drug therapy; Z88.1 Allergy status to other antibiotic agents; Z88.5 Allergy status to narcotic agent; Z88.0 Allergy status to penicillin; Z88.8 Allergy status to other drugs, medicaments and biological substances; Z91.048 Other nonmedicinal substance allergy status; Z86.73 Personal history of transient ischemic attack (TIA), and cerebral infarction without residual deficits
CPT/HCPCS: 72100; 72131; 80048; 82565; 85025; 86850; 86900; 86901

== ENCOUNTER 2023-07-05 19:02 | Observation (INO) | payer MEDICARE, OTHER ==
--- NOTE | 2023-07-05 20:40 | ED ---
General Adult HPI - General Source: patient Mode of arrival: ambulatory Limitations: no limitations <Juan R Coronado - Last Filed: 07/05/23 20:41> <Logan Patterson - Last Filed: 07/06/23 01:09> - General Chief complaint: Recheck/Abnormal Lab/Rx Stated complaint: Post op complications-back pain Time Seen by Provider: 07/05/23 20:36 - History of Present Illness Initial comments: 73-year-old female presenting to the ED with complaints of back pain knee pain. Patient recently had revision L4 S1 decompression and fusion. Reports since then has developed some bilateral knee pain/swelling. Also notes back pain con sistent with history of back pain however seems to be worse than usual. Denies fever or chills. (Juan R Coronado) Dictation was produced using [employer] dictation software. please excuse any grammatical, word or spelling errors. Chief Complaint: 73-year-old female presents emergency department for postoperative back pain History of Present Illness: Patient 73-year-old female 6 days ago patient was here in the hospital she had extensive surgical intervention for treatment of lower back issues. Operative note was reviewed. Patient states she was admitted to the hospital for few days. She was put on Dilaudid hydrocodone and muscle relaxers. She was discharged on July 01. Patient states that her pain is not controlled with the prescribed oral medications. States that she was prescribed hydrocodone. States that she feels decent when she is sitting however whenever she tries to stand and bear weight. Patient did not contact her surgeon about her postoperative pain and decided to come to the emergency department instead. Patient [place] any fever. Denies any radiation of symptoms. Patient denies any saddle anesthesia. No bowel or bladder symptoms. The ROS documented in this emergency department record has been reviewed and confirmed by me. Those systems with pertinent positive or negative responses have been documented in the HPI. All other systems are other negative and/or noncontributory. (Logan Patterson) - Related Data Home Medications Medication Instructions Recorded Confirmed Fenofibrate [Lofibra] 160 mg PO DAILY 02/05/20 06/23/23 Levothyroxine Sodium [Synthroid] 50 mcg PO HS 02/05/20 06/23/23 Pioglitazone [Actos] 15 mg PO HS 02/05/20 06/23/23 Magnesium Oxide 800 mg PO BID 07/20/20 06/23/23 Aspirin [Adult Low Dose Aspirin EC] 81 mg PO DAILY 10/24/20 06/23/23 Carbidopa-Levodopa 25-100 mg 2 tab PO QID 10/24/20 06/23/23 [Sinemet 25-100 mg] Alendronate Sodium [Fosamax] 70 mg PO TEIXEIRA 01/09/22 06/23/23 Empagliflozin [Jardiance] 10 mg PO DAILY 01/09/22 06/23/23 Ferrous Sulfate [Iron (65 MG 325 mg PO DAILY 01/09/22 06/23/23 Elemental)] Multivit with Calcium,Iron,Min 1 each PO DAILY 01/09/22 06/23/23 [Women's Multivitamin] Rosuvastatin Calcium [Crestor] 40 mg PO HS 01/09/22 06/23/23 Vitamin C, D & Zinc 1 tab PO DAILY 01/09/22 06/23/23 Calcium Carb/Vitamin D3/Vit K1 1 tab PO BID 08/03/22 06/23/23 [Citracal-D3 500 mg Soft Chew] Cyclobenzaprine [Flexeril] 10 mg PO HS PRN 08/03/22 06/23/23 Escitalopram [Lexapro] 10 mg PO DAILY 08/03/22 06/23/23 Fexofenadine HCl 180 mg PO HS PRN 08/03/22 06/23/23 Krill/Om-3/Dha/Epa/Phospho/Ast 1 each PO DAILY 08/03/22 06/23/23 [Krill Oil 500 mg Softgel] Pramipexole [Mirapex] 0.5 mg PO TID 08/03/22 06/23/23 lisinopriL [Zestril] 20 mg PO DAILY 08/03/22 06/23/23 Acetaminophen [Tylenol Extra 1,000 mg PO Q6H PRN 12/28/22 06/23/23 Strength] Retaine Flax [place] 1 tab PO DAILY 02/16/23 06/23/23 Retinavite 1 tab PO DAILY 02/16/23 06/23/23 Celecoxib [CeleBREX] 200 mg PO BID 06/18/23 06/23/23 Escitalopram [Lexapro] 20 mg PO HS 06/18/23 06/23/23 Previous Rx's Medication Instructions Recorded Cyclobenzaprine [Flexeril] 10 mg PO TID PRN #40 tab 07/02/23 HYDROcodone/APAP 7.5-325MG [[place] 1 tab PO Q4-6H PRN #42 tab 07/02/23 7.5-325] Sennosides/Docusate Sodium [Senna 1 each PO DAILY PRN #20 capsule 07/02/23 Plus 8.6-50 mg Softgel] metroNIDAZOLE [Flagyl] 500 mg PO QID #20 tab 07/02/23 Allergies Allergy/AdvReac Type Severity Reaction Status Date / Time erythromycin base Allergy Unknown Rash, Verified 07/05/23 19:07 itching, lips swollen, tingling, head like basketball oxycodone Allergy Unknown vomit bile Verified 07/05/23 19:07 Penicillins Allergy Unknown Rash, Verified 07/05/23 19:07 itching sulfamethoxazole Allergy Unknown rash, Verified 07/05/23 19:07 [From Bactrim] itching tolterodine [From Detrol] Allergy Unknown itching/nelly Verified 07/05/23 19:07 h tramadol [From Ultram] Allergy Unknown Rash, Verified 07/05/23 19:07 itching, lips swollen, tingling, head like basketball trimethoprim [From Bactrim] Allergy Unknown rash, Verified 07/05/23 19:07 itching nickel Allergy Rash/Hives Verified 07/05/23 19:07 hydromorphone [From Dilaudid] AdvReac Unknown reaction Verified 07/05/23 19:07 in higher doses, rash, itching gel adhesive pad Allergy Unknown ekg pads Uncoded 07/05/23 19:07 and adhesive- chemical burn, itching rash Review of Systems ROS Other: All systems not noted in ROS Statement are negative. <Juan R Coronado - Last Filed: 07/05/23 20:41> ROS Other: All systems not noted in ROS Statement are negative. <Logan Patterson - Last Filed: 07/06/23 01:09> ROS Statement: Those systems with pertinent positive or pertinent negative responses have been documented in the HPI. Past Medical History Past Medical History: CVA/TIA, Diabetes Mellitus, Hyperlipidemia, Hypertension, Osteoarthritis (OA), Renal Disease, Thyroid Disorder Additional Past Medical History / Comment(s): PARKINSON's disease, possible TIA, SEASONAL ALLERGIES, OSTEOPORISIS, INTERSTITIAL CYSTITIS, DRY EYES, MACULAR DEGENERATION.CHRONIC KIDNEY DISEASE STAGE 3 , NEW DX ANEMIA, IRON DEFICIENCY AND B12 DEFICIENCY,, nasal congestion History of Any Multi-Drug Resistant Organisms: None Reported Past Surgical History: Adenoidectomy, Back Surgery, Bladder Surgery, Cholecystectomy, Heart Catheterization, Hysterectomy, Orthopedic Surgery, Tonsillectomy, Tubal Ligation Additional Past Surgical History / Comment(s): LEFT ROTATOR CUFF, RIGHT FROZEN SHOULDER, JEFF KNEES-TOTAL AND PARTIAL, OOPHERECTOMY, CYSTOSCOPIES, BLADDER SUSPENSION, INTERSTITIAL CYSTITIS, JEFF CARPAL TUNNEL, PAIN CLINIC PROCEDURES , EYE SURGERIES (CHILD), EYELID RESECTION & EYEBROW LIFT. laminectomy on 07-26-20, BACK SURGERY WITH HARDWARE (CAGE) back surgery x4 11/02, L1 & L2 01/12/22, BILATERAL CATARACT SURGERY. Past Anesthesia/Blood Transfusion Reactions: Previous Problems w/ Anesthesia Additional Past Anesthesia/Blood Transfusion Reaction / Comment(s): STATES MEDICATION "CURRARRE" USED OVER 25 YEARS AGO, SHE FELT PARALYZED AND COULD NOT MOVE OR BREATHE. Past Psychological History: Depression Smoking Status: Never smoker Past Alcohol Use History: Occasional Past Drug Use History: None Reported - Past Family History Mother Family Medical History: Cancer Additional Family Medical History / Comment(s): SKIN CANCER Father Family Medical History: Cancer Additional Family Medical History / Comment(s): SKIN CANCER Sister(s) Family Medical History: Cancer Additional Family Medical History / Comment(s): BREAST CANCER <Juan R Coronado - Last Filed: 07/05/23 20:41> General Exam Limitations: no limitations <Juan R Coronado - Last Filed: 07/05/23 20:41> <Logan Patterson - Last Filed: 07/06/23 01:09> - General Exam Comments Initial Comments: Visual Physical Exam Vital signs reviewed General: Well-appearing, nontoxic, no acute distress. Head: Normocephalic, atraumatic Eyes: PERRLA, EOMI ENT: Airway patent Chest: Nonlabored breathing Skin: No visual rash, normal skin tone Neuro: Alert and oriented 3 Musculoskeletal: No gross abnormalities (Juan R Coronado) PHYSICAL EXAM: General Impression: Alert and oriented x3, not in acute distress HEENT: Normocephalic atraumatic, extra-ocular movements intact, pupils equal and reactive to light bilaterally, mucous membranes moist. Cardiovascular: Heart regular rate and rhythm Chest: Able to complete full sentences, no retractions, no tachypnea Abdomen: abdomen soft, non-tender, non-distended, no organomegaly Musculoskeletal: Pulses present and equal in all extremities, no peripheral edema Motor: no focal deficits noted Neurological: CN II-XII grossly intact, no focal motor or sensory deficits noted Skin: Intact with no visualized rashes, lower back surgical site clean dry and intact without any drainage or erythema Psych: Normal affect and mood (Logan Patterson) Course Vital Signs 07/05/23 19:05 Temperature 98.2 F Pulse Rate 76 Respiratory 20 Rate Blood Pressure 169/72 O2 Sat by Pulse 99 Oximetry Medical Decision Making <Juan R Coronado - Last Filed: 07/05/23 20:41> - Lab Data Result diagrams: 07/05/23 21:00 07/05/23 21:00 <Logan Patterson - Last Filed: 07/06/23 01:09> - Medical Decision Making Quicknote portion performed. Signed Juan R Coronado PA-C (Juan R Coronado) Was pt. sent in by a medical professional or institution ([facility] Ricci, [employer], urgent care, hospital, or assisted...) When possible be specific @ -No Did you speak to anyone other than the patient for history (EMS, parent, family, police, friend...)? What history was obtained from this source @ -No Did you review nursing and triage notes (agree or disagree)? Why? @ -I reviewed and agree with nursing and triage notes Were old charts reviewed (outside hosp., previous admission, EMS record, old EKG, old radiological studies, urgent care reports/EKG's, assisted records)? Report findings @June 28 operative note was reviewed showing that patient had extensive back surgery Differential Diagnosis (chest pain, altered mental status, abdominal pain women, abdominal pain men, vaginal bleeding, musculoskeletal, weakness, fever, dyspnea, syncope, headache, dizziness, GI bleed, back pain, seizure, CVA, palpatations, mental health)? @ -Differential Back Pain: Strain, zoster, cauda equina syndrome, epidural abscess, vertebral osteomyelitis, discitis, fracture, subluxation, disc herniation, DJD, spinal stenosis, dissection, AAA, pancreatitis, peptic ulcer disease, pyelonephritis, kidney stone, this is not meant to be an all-inclusive list. EKG interpreted by me (3pts min.). @ -None done X-rays interpreted by me (1pt min.). @ -None done CT interpreted by me (1pt min.). @ -CT of the lumbar spine shows no complicating processes U/S interpreted by me (1pt. min.). @ -None done What testing was considered but not performed or refused? (CT, X-rays, U/S, labs)? Why? @ -None What meds were considered but not given or refused? Why? @ -None Did you discuss the management of the patient with other professionals (professionals i.e. , PA, [employer], lab, RT, psych nurse, social science instructor, nurses aide, teacher, debt recovery officer, housing case manager)? Give summary @ -Case discussed with Dr. [place] who recommended patient be admitted to Dr. Pittman under observation Was smoking cessation discussed for >3mins.? @ -No Was critical care preformed (if so, how long)? @ -No Were there social determinants of health that impacted care today? How? (Homelessness, low income, unemployed, alcoholism, drug addiction, t ransportation, low edu. Level, literacy, decrease access to med. care, alf, rehab)? @ -No Was there de-escalation of care discussed even if they declined (Discuss DNR or withdrawal of care, Hospice)? DNR status @ -No What co-morbidities impacted this encounter? (DM, HTN, Smoking, COPD, CAD, Cance r, CVA, ARF, Chemo, Hep., AIDS, mental health diagnosis, sleep apnea, morbid obesity)? @ -None Was patient admitted / discharged? Hospital course, mention meds given and route, prescriptions, significant lab abnormalities, going to OR and other pertinent info. @ -73-year-old female presents to the emergency department with intractable postoperative pain. States that her pain is so severe that she is unable to stand perform her activities of daily living. Vital signs upon arrival are within acceptable limits. Patient does not feel comfortable being discharged home. Laboratory evaluation is obtained. Labs are unremarkable. Lumbar spine CT shows no complicating processes. Case discussed with Dr. Alba who will request that patient be admitted to Dr. Prado send under observation. Undiagnosed new problem with uncertain prognosis? @ -No Drug Therapy requiring intensive monitoring for toxicity (Heparin, Nitro, Insulin, Cardizem)? @ -No Were any procedures done? @ -No Diagnosis/symptom? Acute, or Chronic, or Acute on Chronic? Uncomplicated (without systemic symptoms) or Complicated (systemic symptoms)? @ -Postoperative back pain Side effects of treatment? @ -No Exacerbation, Progression, or Severe Exacerbation? @ -No Poses a threat to life or bodily function? How? (Chest pain, [place], SD, pneumonia, PE, COPD, DKA, ARF, appy, cholecystitis, CVA, Diverticulitis, Homicidal, Suicidal, threat to staff... and all critical care pts) @ -yes (Logan Patterson) - Lab Data Lab Results 07/05/23 07/05/23 07/05/23 Range/Units 21:00 21:00 21:00 WBC 6.4 (3.8-10.6) k/uL RBC 3.37 L (3.80-5.40) m/uL Hgb 9.5 L (11.4-16.0) gm/dL Hct 30.7 L (34.0-46.0) % MCV 91.1 (80.0-100.0) fL MCH 28.1 (25.0-35.0) pg MCHC 30.8 L (31.0-37.0) g/dL RDW 14.1 (11.5-15.5) % Plt Count 299 (150-450) k/uL MPV 7.5 Neutrophils % 69 % Lymphocytes % 18 % Monocytes % 5 % Eosinophils % 5 % Basophils % 0 % Neutrophils # 4.4 (1.3-7.7) k/uL Lymphocytes # 1.2 (1.0-4.8) k/uL Monocytes # 0.3 (0-1.0) k/uL Eosinophils # 0.3 (0-0.7) k/uL Basophils # 0.0 (0-0.2) k/uL Hypochromasia Slight PT 10.5 (10.0-12.5) sec INR 0.9 (<1.2) APTT 23.0 (22.0-30.0) sec Sodium 137 (137-145) mmol/L Potassium 4.1 (3.5-5.1) mmol/L Chloride 104 (98-107) mmol/L Carbon Dioxide 29 (22-30) mmol/L Anion Gap 4 mmol/L BUN 22 H (7-17) mg/dL Creatinine 0.97 (0.52-1.04) mg/dL Est GFR (CKD-EPI)AfAm 68 (>60 ml/min/1.73 sqM) Est GFR (CKD-EPI)NonAf 59 (>60 ml/min/1.73 sqM) Glucose 105 H (74-99) mg/dL Calcium 9.0 (8.4-10.2) mg/dL Total Bilirubin 0.4 (0.2-1.3) mg/dL AST 67 H (14-36) U/L ALT 13 (4-34) U/L Alkaline Phosphatase 76 (38-126) U/L Total Protein 5.5 L (6.3-8.2) g/dL Albumin 3.3 L (3.5-5.0) g/dL Urine Color Urine Appearance (Clear) Urine pH (5.0-8.0) Ur Specific [place] (1.001-1.035) Urine Protein (Negative) Urine Glucose (UA) (Negative) Urine Ketones (Negative) Urine Blood (Negative) Urine Nitrite (Negative) Urine Bilirubin (Negative) Urine Urobilinogen (<2.0) mg/dL Ur Leukocyte Esterase (Negative) Urine WBC (0-5) /hpf Ur Squamous Epith Cells (0-4) /hpf Urine Bacteria (None) /hpf 07/05/23 Range/Units 21:34 WBC (3.8-10.6) k/uL RBC (3.80-5.40) m/uL Hgb (11.4-16.0) gm/dL Hct (34.0-46.0) % MCV (80.0-100.0) fL MCH (25.0-35.0) pg MCHC (31.0-37.0) g/dL RDW (11.5-15.5) % Plt Count (150-450) k/uL MPV Neutrophils % % Lymphocytes % % Monocytes % % Eosinophils % % Basophils % % Neutrophils # (1.3-7.7) k/uL Lymphocytes # (1.0-4.8) k/uL Monocytes # (0-1.0) k/uL Eosinophils # (0-0.7) k/uL Basophils # (0-0.2) k/uL Hypochromasia PT (10.0-12.5) sec INR (<1.2) APTT (22.0-30.0) sec Sodium (137-145) mmol/L Potassium (3.5-5.1) mmol/L Chloride (98-107) mmol/L Carbon Dioxide (22-30) mmol/L Anion Gap mmol/L BUN (7-17) mg/dL Creatinine (0.52-1.04) mg/dL Est GFR (CKD-EPI)AfAm (>60 ml/min/1.73 sqM) Est GFR (CKD-EPI)NonAf (>60 ml/min/1.73 sqM) Glucose (74-99) mg/dL Calcium (8.4-10.2) mg/dL Total Bilirubin (0.2-1.3) mg/dL AST (14-36) U/L ALT (4-34) U/L Alkaline Phosphatase (38-126) U/L Total Protein (6.3-8.2) g/dL Albumin (3.5-5.0) g/dL Urine Color Yellow Urine Appearance Clear (Clear) Urine pH 6.0 (5.0-8.0) Ur Specific [place] 1.017 (1.001-1.035) Urine Protein Negative (Negative) Urine Glucose (UA) 4+ H (Negative) Urine Ketones Negative (Negative) Urine Blood Negative (Negative) Urine Nitrite Negative (Negative) Urine Bilirubin Negative (Negative) Urine Urobilinogen <2.0 (<2.0) mg/dL Ur Leukocyte Esterase Trace H (Negative) Urine WBC 1 (0-5) /hpf Ur Squamous Epith Cells <1 (0-4) /hpf Urine Bacteria Rare H (None) /hpf Disposition <Juan R Coronado - Last Filed: 07/05/23 20:41> Decision Time: 01:09 <Logan Patterson - Last Filed: 07/06/23 01:09> Clinical Impression: Pain Disposition: ADMITTED IP TO THIS HOSP Condition: Fair Referrals: Cami Oreilly MD [Primary Care Provider] - 1-2 days
[2023-07-05 21:50] LABS: Appearance,Urine Clear (Clear); Bacteria,Urine Rare /hpf; Bilirubin,Urine Negative (Negative); Blood,Urine Negative (Negative); Color,Urine Yellow; Glucose,Urine (UA) 4+ (Negative); Ketones,Urine Negative (Negative); Leukocyte Esterase,Urine Trace (Negative); Nitrite,Urine Negative (Negative); Protein,Urine Negative (Negative); Specific Gravity,Urine 1.017 (1.001-1.035); Squamous Epithelial Cell,Urine <1 /hpf (0-4); Urobilinogen,Urine <2.0 mg/dL (<2.0); WBC,Urine 1 /hpf (0-5)
[2023-07-05 21:55] LABS: Basophils % (A) 0 %; Eosinophils # (A) 0.3 k/uL (0-0.7); Eosinophils % (A) 5 %; HCT 30.7 % (34.0-46.0); HGB 9.5 gm/dL (11.4-16.0); Hypochromasia Slight; Lymphocytes # (A) 1.2 k/uL (1.0-4.8); Lymphocytes % (A) 18 %; MCH 28.1 pg (25.0-35.0); MCHC 30.8 g/dL (31.0-37.0); MCV 91.1 fL (80.0-100.0); Mean Platelet Volume 7.5; Monocytes # (A) 0.3 k/uL (0-1.0); Monocytes % (A) 5 %; Neutrophils # (A) 4.4 k/uL (1.3-7.7); Neutrophils % (A) 69 %; Platelet Count 299 k/uL (150-450); RBC 3.37 m/uL (3.80-5.40); RDW 14.1 % (11.5-15.5); WBC 6.4 k/uL (3.8-10.6)
[2023-07-05 22:08] LABS: INR 0.9 (<1.2); Prothrombin Time 10.5 sec (10.0-12.5)
[2023-07-05 22:10] LABS: ALT 13 U/L (4-34); AST 67 U/L (14-36); African American GFR (CKD) 68 (>60 ml/min/1.73 sqM); Albumin 3.3 g/dL (3.5-5.0); Alkaline Phosphatase 76 U/L (38-126); Anion Gap 4 mmol/L; Blood Urea Nitrogen 22 mg/dL (7-17); Carbon Dioxide 29 mmol/L (22-30); Chloride 104 mmol/L (98-107); Glucose 105 mg/dL (74-99); Non-African American GFR(CKD) 59 (>60 ml/min/1.73 sqM); Potassium 4.1 mmol/L (3.5-5.1); Sodium 137 mmol/L (137-145); Total Bilirubin 0.4 mg/dL (0.2-1.3); Total Protein 5.5 g/dL (6.3-8.2)
--- NOTE | 2023-07-05 22:16 | US ---
EXAM: US Duplex Bilateral Lower Extremities Veins CLINICAL HISTORY: ITS.REASON US Reason: knee swelling/pain post op r/o dvt TECHNIQUE: Real-time duplex ultrasound scan of the bilateral lower extremity veins integrating B-mode two-dimensional vascular structure, Doppler spectral analysis, color flow Doppler imaging and compression. COMPARISON: None FINDINGS: Right deep veins: Unremarkable. No DVT in the right common femoral, femoral, proximal deep femoral or popliteal veins. The veins demonstrate normal color flow, are normally compressible, with normal phasic flow and/or augmentation response. Right superficial veins: Unremarkable. No thrombus in the visualized right great saphenous vein. Left deep veins: Unremarkable. No DVT in the left common femoral, femoral, proximal deep femoral or popliteal veins. The veins demonstrate normal color flow, are normally compressible, with normal phasic flow and/or augmentation response. Left superficial veins: Unremarkable. No thrombus in the visualized left great saphenous vein. Soft tissues: No acute findings. No popliteal cyst. IMPRESSION: No deep venous thrombosis identified in either lower extremity.
--- NOTE | 2023-07-05 23:26 | CT ---
EXAM: CT Lumbar Spine Without Intravenous Contrast CLINICAL HISTORY: ITS.REASON CT Reason: post operative pain TECHNIQUE: Axial computed tomography images of the lumbar spine without intravenous contrast. CTDI is 29 mGy and DLP is 1091.4 mGy-cm. This CT exam was performed using one or more of the following dose reduction techniques: automated exposure control, adjustment of the mA and/or kV according to patient size, and/or use of iterative reconstruction technique. COMPARISON: CT lumbar spine 05/21/23 FINDINGS: Bones are osteopenic. There is stable mild levoconvex lumbar curvature. There is no evidence of acute fracture or traumatic subluxation. There is left hemitransitional lumbosacral anatomy with degenerative changes at the pseudo-articulation between the left transverse process of L5 and the sacrum. There is a chronic 50% L1 inferior endplate compression fracture status post vertebral augmentation. Vertebral body heights are otherwise maintained. There is multilevel facet degeneration. Disc heights are relatively maintained. Since prior CT, there is been revision and expansion of previously seen postoperative changes in the lumbar spine. There is now posterior decompression, posterior hardware fixation, and interbody fusion from L3- L5. Hardware appears intact. There is posterior subcutaneous edema and midline skin closure erickson. T12-L1: No spinal canal or foraminal narrowing. L1-L2: No spinal canal or foraminal narrowing. L2-L3: Mild disc bulging. Ligamentum flavum thickening. Mild canal stenosis. Foramina are patent. L3-L4: Posterior decompression at this level. Evaluation of the spinal canal is limited by beam hardening artifact. Foramina appear patent. L4-L5: Fixed grade 1 anterolisthesis of L4. Posterior decompression at this level. Spinal canal appears patent. Foramina appear patent. L5-S1: No spinal canal or foraminal narrowing. Sacroiliac joints are normally aligned. IMPRESSION: 1. No acute osseous findings. 2. Recent lumbar spine surgery with posterior decompression, posterior hardware fixation, and interbody fusion at L3-L5. No hardware complication.
[2023-07-05] MEDS: HYDROmorphone 1 MG/ML 1 ML SYRINGE IVP STA (23:56)
[2023-07-06] MEDS ORDERED: NALOXONE 0.4 MG/ML 1 ML VIAL IV PRN (01:05)
[2023-07-06] MEDS: SODIUM CHLORIDE 0.9% 1,000 ML IV SCH (01:22)
[2023-07-06] MEDS: HYDROmorphone 1 MG/ML 1 ML SYRINGE IVP PRN (02:38)
[2023-07-06] MEDS: diazePAM 5 MG TAB PO SCH (08:01)
[2023-07-06] MEDS: KETOROLAC 15 MG/ML 1 ML VIAL IVP SCH (08:11)
[2023-07-06] MEDS: SENNOSIDES 8.6 MG TAB PO SCH (08:20)
--- NOTE | 2023-07-06 09:57 | P.HPOR ---
History of Present Illness H&P Date: 07/06/23 Chief Complaint: Post-Op pain History of Presenting Illness Patient is a pleasant 73-year-old female who presented to the ER due to increased postoperative pain in her lumbar spine. On 06/29/2023, patient underwent a successful Revision L4-S1 decompression and fusion performed by Dr. Pittman. Patient states since going home from surgery that her pain has not been well controlled at home. She is describing a sharp pain with activity that radiates across her lower back and into her hips and groin. Patient states she does have a homecare nurse that has been out to her house. Patient reports she has been having difficulty remembering to take her medications as needed and feels she has gotten behind on her pain control. Spouse is at bedside and stated pateint has been ambulatory at home and felt she was doing well. Patient seen and examined in the ER. Patient presents in a wheelchair. She was able to stand to allow for assessment of her lumbar incision. She sat back down and stated her pain was radiating into her hips and groin. She states she has been ambulating at home with walker and tolerating activity well. She does admit that she gets her medications messed up and that she will talk to her homecare nurse to set up a schedule for her. Discussed with patient and spouse that we will adjust pain medications and attempt to get pain managed and possibly get her discharged later today. Review of Systems Pertinent positives and negatives as discussed in HPI, a complete review of systems was performed and all other systems are negative. Physical Examination General: The patient is awake and alert, in no acute distress Skin: Skin is warm and dry with no obvious rashes or lesions. Surgical incision to the lumbar spine, edges are well approximated with erickson intact. Eye: Pupils are equal, round and reactive to light, extra-ocular movements are intact; there is normal conjunctiva bilaterally. Neck: The neck is supple, there is no tenderness and ROM intact. Cardiovascular: There is a regular rate and rhythm. No murmur, rub or gallop is appreciated. Respiratory: Respirations are non-labored, breath sounds are equal. Gastrointestinal: Soft, non-distended, non-tender abdomen. Back: There is no tenderness to palpation in the midline, paralumbar, parathoracic or buttocks region. There is no obvious deformity. Musculoskeletal: ROM limited secondary to pain and stiffness from surgical procedure. Shoulder abduction 5/5, elbow flexors 5/5, wrist dorsiflexors 5/5. finger abductor 5/5, filling room operator 5/5, hip flexor 4/5, knee flexor 4/5, ankle dorsiflexor 4/5, ankle plantarflexion 4/5 and extensor hallucis 4/5. Neurological: CN 2-12 intact. There are no obvious motor or sensory deficits. Movement and coordination equal and intact. Sensory exam to light touch intact C5-T1 and intact from L2-S1. Reflexes 2/4 in bilateral upper and lower extremities. Negative Hoffmans, babinski, and clonus signs. Psychiatric: Cooperative, appropriate mood & affect, normal judgment. Assessment and Plan Increased Postoperative pain s/p Revision L4-S1 decompression and fusion Multiple medical comorbidities At this time we do not recommend any emergent/urgent orthopedic surgical intervention. Patient may follow-up with Dr. Pittman's office for further evaluation as needed. Orthopedics is signing off at this time. Please do not hesitate to contact us for any further questions. 2. Appreciate medical management 3. Pain management - Oral Clarinda, IV toradol and Dilaudid. Utilize ice therapy 20min every hour as needed. 4. GI prophylaxis - senna 5. DVT prophylaxis - TEDS 6. PT/OT - weightbearing as tolerated with a walker as needed. 7. Anticipate discharge later today. I reviewed and discussed this case with my attending Dr. Pittman, whom has reviewed this chart and films and is in agreement with assessment and plan of care as outlined above. I have personally seen and examined the patient, performed the documentation and the assessment and plan as written. Number of minutes spent on the visit: 30m. Past Medical History Past Medical History: CVA/TIA, Diabetes Mellitus, Hyperlipidemia, Hypertension, Osteoarthritis (OA), Renal Disease, Thyroid Disorder Additional Past Medical History / Comment(s): PARKINSON's disease, possible TIA, SEASONAL ALLERGIES, OSTEOPORISIS, INTERSTITIAL CYSTITIS, DRY EYES, MACULAR DEGENERATION.CHRONIC KIDNEY DISEASE STAGE 3 , NEW DX ANEMIA, IRON DEFICIENCY AND B12 DEFICIENCY,, nasal congestion History of Any Multi-Drug Resistant Organisms: None Reported Past Surgical History: Adenoidectomy, Back Surgery, Bladder Surgery, Cholecystectomy, Heart Catheterization, Hysterectomy, Orthopedic Surgery, Tonsillectomy, Tubal Ligation Additional Past Surgical History / Comment(s): LEFT ROTATOR CUFF, RIGHT FROZEN SHOULDER, JEFF KNEES-TOTAL AND PARTIAL, OOPHERECTOMY, CYSTOSCOPIES, BLADDER CHING PENSION, INTERSTITIAL CYSTITIS, JEFF CARPAL TUNNEL, PAIN CLINIC PROCEDURES , EYE SURGERIES (CHILD), EYELID RESECTION & EYEBROW LIFT. laminectomy on 07-26-20, BACK SURGERY WITH HARDWARE (CAGE) back surgery x4 11/02, L1 & L2 01/12/22, BILATERAL CATARACT SURGERY. Past Anesthesia/Blood Transfusion Reactions: Previous Problems w/ Anesthesia Additional Past Anesthesia/Blood Transfusion Reaction / Comment(s): STATES MEDICATION "CURRARRE" USED OVER 25 YEARS AGO, SHE FELT PARALYZED AND COULD NOT MOVE OR BREATHE. Past Psychological History: Depression Smoking Status: Never smoker Past Alcohol Use History: Occasional Past Drug Use History: None Reported - Past Family History Mother Family Medical History: Cancer Additional Family Medical History / Comment(s): SKIN CANCER Father Family Medical History: Cancer Additional Family Medical History / Comment(s): SKIN CANCER Sister(s) Family Medical History: Cancer Additional Family Medical History / Comment(s): BREAST CANCER Medications and Allergies Home Medications Medication Instructions Recorded Confirmed Type Fenofibrate [Lofibra] 160 mg PO DAILY 02/05/20 07/06/23 History Levothyroxine Sodium [Synthroid] 50 mcg PO HS 02/05/20 07/06/23 History Pioglitazone [Actos] 15 mg PO HS 02/05/20 07/06/23 History Magnesium Oxide 800 mg PO BID 07/20/20 07/06/23 History Aspirin [Adult Low Dose Aspirin EC] 81 mg PO DAILY 10/24/20 07/06/23 History Carbidopa-Levodopa 25-100 mg 2 tab PO QID 10/24/20 07/06/23 History [Sinemet 25-100 mg] Alendronate Sodium [Fosamax] 70 mg PO TEIXEIRA 01/09/22 07/06/23 History Empagliflozin [Jardiance] 10 mg PO DAILY 01/09/22 07/06/23 History Ferrous Sulfate [Iron (65 MG 325 mg PO DAILY 01/09/22 07/06/23 History Elemental)] Multivit with Calcium,Iron,Min 1 tab PO DAILY 01/09/22 07/06/23 History [Women's Multivitamin] Rosuvastatin Calcium [Crestor] 40 mg PO HS 01/09/22 07/06/23 History Vitamin C, D & Zinc 1 tab PO DAILY 01/09/22 07/06/23 History Calcium Carb/Vitamin D3/Vit K1 1 tab PO BID 08/03/22 07/06/23 History [Citracal-D3 500 mg Soft Chew] Escitalopram [Lexapro] 10 mg PO DAILY 08/03/22 07/06/23 History Fexofenadine HCl 180 mg PO HS PRN 08/03/22 07/06/23 History Krill/Om-3/Dha/Epa/Phospho/Ast 1 cap PO DAILY 08/03/22 07/06/23 History [Krill Oil 500 mg Softgel] Pramipexole [Mirapex] 0.5 mg PO TID 08/03/22 07/06/23 History lisinopriL [Zestril] 20 mg PO DAILY 08/03/22 07/06/23 History Acetaminophen [Tylenol Extra 1,000 mg PO Q6H PRN 12/28/22 07/06/23 History Strength] Retaine Flax [place] 1 tab PO DAILY 02/16/23 07/06/23 History Retinavite 1 tab PO DAILY 02/16/23 07/06/23 History Celecoxib [CeleBREX] 200 mg PO BID 06/18/23 07/06/23 History Escitalopram [Lexapro] 20 mg PO HS 06/18/23 07/06/23 History Cyclobenzaprine [Flexeril] 10 mg PO TID PRN #40 tab 07/02/23 07/06/23 Rx HYDROcodone/APAP 7.5-325MG [[place] 1 tab PO Q4-6H PRN #42 tab 07/02/23 07/06/23 Rx 7.5-325] metroNIDAZOLE [Flagyl] 500 mg PO QID #20 tab 07/02/23 07/06/23 Rx HYDROcodone/APAP 7.5-325MG [[place] 1 - 2 each PO Q4HR PRN #42 tab 07/06/23 Rx 7.5] Sennosides/Docusate Sodium [Senna 1 cap PO DAILY PRN 07/06/23 07/06/23 History Plus 8.6-50 mg Softgel] diazePAM [Valium] 5 mg PO BID #6 tab 07/06/23 Rx predniSONE 10 mg PO BID 5 Days #10 tab 07/06/23 Rx Allergies Allergy/AdvReac Type Severity Reaction Status Date / Time erythromycin base Allergy Unknown Rash, Verified 07/06/23 09:56 itching, lips swollen, tingling, head like basketball oxycodone Allergy Unknown vomit bile Verified 07/06/23 09:56 Penicillins Allergy Unknown Rash, Verified 07/06/23 09:56 itching sulfamethoxazole Allergy Unknown Rash/Hives/ Verified 07/06/23 09:56 [From Bactrim] Itching tolterodine [From Detrol] Allergy Unknown itching/nelly Verified 07/06/23 09:56 h tramadol [From Ultram] Allergy Unknown Rash, Verified 07/06/23 09:56 itching, lips swollen, tingling, head like basketball trimethoprim [From Bactrim] Allergy Unknown Rash/Hives/ Verified 07/06/23 09:56 Itching nickel Allergy Rash/Hives Verified 07/06/23 09:56 hydromorphone [From Dilaudid] AdvReac Unknown reaction Verified 07/06/23 09:56 in higher doses, rash, itching gel adhesive pad Allergy Unknown ekg pads Uncoded 07/05/23 19:07 and adhesive- chemical burn, itching rash Physical Examination Osteopathic Statement: *. No significant issues noted on an osteopathic structural exam other than those noted in the History and Physical/Consult. Results - Labs Labs: Abnormal Lab Results - Last 24 Hours (Table) 07/05/23 07/05/23 07/05/23 Range/Units 21:00 21:00 21:34 RBC 3.37 L (3.80-5.40) m/uL Hgb 9.5 L (11.4-16.0) gm/dL Hct 30.7 L (34.0-46.0) % MCHC 30.8 L (31.0-37.0) g/dL BUN 22 H (7-17) mg/dL Glucose 105 H (74-99) mg/dL AST 67 H (14-36) U/L Total Protein 5.5 L (6.3-8.2) g/dL Albumin 3.3 L (3.5-5.0) g/dL Urine Glucose (UA) 4+ H (Negative) Ur Leukocyte Esterase Trace H (Negative) Urine Bacteria Rare H (None) /hpf H & H 07/05/23 Range/Units 21:00 Hgb 9.5 L (11.4-16.0) gm/dL Hct 30.7 L (34.0-46.0) % Coagulation 07/05/23 Range/Units 21:00 INR 0.9 (<1.2) Result Diagrams: 07/05/23 21:00 07/05/23 21:00
[2023-07-06] MEDS ORDERED: CYCLOBENZAPRINE 10 MG TAB PO PRN (09:58)
[2023-07-06 12:44] VITALS: RESP 18
[2023-07-06 14:15] VITALS: BP 116/71; PULSE 78; TEMP 98.7
[2023-07-06] MEDS: HYDROcodone/APAP 7.5-325MG 1 EACH TAB PO PRN (15:16)
== END 2023-07-06 16:10 | disposition home health service (06) ==
LOC: EC 19:02 → 4SSUR 07-06 01:06 → 1SOBS 07-06 14:37
PROVIDERS: ADMIT Orthopaedic Surgery; ATTEND Orthopaedic Surgery
DX: G89.18 Other acute postprocedural pain (principal); M25.562 Pain in left knee; M25.561 Pain in right knee; E78.5 Hyperlipidemia, unspecified; M19.90 Unspecified osteoarthritis, unspecified site; G20.A1 Parkinson's disease without dyskinesia, without mention of fluctuations; M81.0 Age-related osteoporosis without current pathological fracture; I12.9 Hypertensive chronic kidney disease with stage 1 through stage 4 chronic kidney disease, or unspecified chronic kidney disease; E11.22 Type 2 diabetes mellitus with diabetic chronic kidney disease; N18.30 Chronic kidney disease, stage 3 unspecified; D50.9 Iron deficiency anemia, unspecified; E53.8 Deficiency of other specified B group vitamins; Z79.899 Other long term (current) drug therapy; Z98.1 Arthrodesis status; Z79.890 Hormone replacement therapy; Z79.82 Long term (current) use of aspirin; Z88.8 Allergy status to other drugs, medicaments and biological substances; Z88.5 Allergy status to narcotic agent; Z88.0 Allergy status to penicillin; Z88.2 Allergy status to sulfonamides; Z79.83 Long term (current) use of bisphosphonates; Z79.1 Long term (current) use of non-steroidal anti-inflammatories (NSAID); Z79.84 Long term (current) use of oral hypoglycemic drugs
CPT/HCPCS: 96365; 96367; 96376; 99285; 36415; 80053; 85025; 85610; 85730; 81001; 93970; 72131; G0378 ×2; J1170 ×2; J1885; 96374; 96375

== ENCOUNTER → 2023-07-28 | Outpatient (CLI) | payer MEDICARE, OTHER ==
--- NOTE | 2023-07-28 16:36 | US ---
EXAMINATION TYPE: US venous doppler duplex LE DATE OF EXAM: 07/28/2023 2:29 PM COMPARISON: NONE CLINICAL INDICATION: Female, 73 years old with history of R22.42 LOCALIZED SWELLING, MASS AND LUMP, L EFT LOW; back surgery x 4 weeks ago. Bilateral leg swelling and redness. On aspirin. SIDE PERFORMED: Bilateral TECHNIQUE: The lower extremity deep venous system is examined utilizing real time linear array sonog robby with graded compression, doppler sonography and color-flow sonography. VESSELS IMAGED: Common Femoral Vein Deep Femoral Vein Greater Saphenous Vein * Femoral Vein Popliteal Vein Small Saphenous Vein * Proximal Calf Veins (* superficial vessels) Grayscale, color doppler, spectral doppler imaging performed of the deep veins of the lower extremiti es. There is normal flow, compressibility, vascular waveforms Right Leg: Negative for DVT Left Leg: Negative for DVT IMPRESSION: No ultrasound evidence for deep venous thrombosis of the bilateral lower extremities.
== END | disposition home or self-care (01) ==
LOC: RADUSWWP 13:43
PROVIDERS: ATTEND Internal Medicine
DX: R22.42 Localized swelling, mass and lump, left lower limb (principal)
CPT/HCPCS: 93970

== ENCOUNTER 2023-09-06 23:13 | Emergency (ER) | payer MEDICARE, OTHER ==
--- NOTE | 2023-09-06 23:29 | ED ---
Extremity Problem HPI - General Source: patient, RN notes reviewed Mode of arrival: ambulatory Limitations: no limitations <Claudia Escalona - Last Filed: 09/06/23 23:28> - General Source: patient, RN notes reviewed, old records reviewed Mode of arrival: ambulatory Limitations: no limitations - History of Present Illness MD Complaint: extremity pain, extremity swelling, joint swelling, joint pain -: days(s) Location: left, lower extremity History of Same: Yes -: Yes myalgia, Yes arthralgia Radiation: proximal, distal Quality: stabbing, aching Consistency: constant Improves with: nothing Worsens with: nothing Associated Symptoms: denies other symptoms <Rasta Tovar - Last Filed: 09/19/23 20:59> - General Stated complaint: Blood clots in left leg Time Seen by Provider: 09/06/23 23:28 - History of Present Illness Initial comments: Quick note: 73-year-old female presenting to the ER with a chief complaint of left calf warmth, tenderness and swelling. She states she noticed it in her ankle yesterday and today noticed it increasing to her calf around 8 PM. She admits to recent surgery by Dr. Pittman in 06-29-2023. She denies any shortness of breath or chest pain. (Claudia Escalona) This 73-year-old female to ER with severe left leg pain left leg swelling with recent surgery. Patient has no chest pain or shortness of breath concern for DVT not on blood thinners (Rasta Tovar) - Related Data Home Medications Medication Instructions Recorded Confirmed Fenofibrate [Lofibra] 160 mg PO DAILY 02/05/20 07/06/23 Levothyroxine Sodium [Synthroid] 50 mcg PO HS 02/05/20 07/06/23 Pioglitazone [Actos] 15 mg PO HS 02/05/20 07/06/23 Magnesium Oxide 800 mg PO BID 07/20/20 07/06/23 Aspirin [Adult Low Dose Aspirin EC] 81 mg PO DAILY 10/24/20 07/06/23 Carbidopa-Levodopa 25-100 mg 2 tab PO QID 10/24/20 07/06/23 [Sinemet 25-100 mg] Alendronate Sodium [Fosamax] 70 mg PO TEIXEIRA 01/09/22 07/06/23 Empagliflozin [Jardiance] 10 mg PO DAILY 01/09/22 07/06/23 Ferrous Sulfate [Iron (65 MG 325 mg PO DAILY 01/09/22 07/06/23 Elemental)] Multivit with Calcium,Iron,Min 1 tab PO DAILY 01/09/22 07/06/23 [Women's Multivitamin] Rosuvastatin Calcium [Crestor] 40 mg PO HS 01/09/22 07/06/23 Vitamin C, D & Zinc 1 tab PO DAILY 01/09/22 07/06/23 Calcium Carb/Vitamin D3/Vit K1 1 tab PO BID 08/03/22 07/06/23 [Citracal-D3 500 mg Soft Chew] Escitalopram [Lexapro] 10 mg PO DAILY 08/03/22 07/06/23 Fexofenadine HCl 180 mg PO HS PRN 08/03/22 07/06/23 Krill/Om-3/Dha/Epa/Phospho/Ast 1 cap PO DAILY 08/03/22 07/06/23 [Krill Oil 500 mg Softgel] Pramipexole [Mirapex] 0.5 mg PO TID 08/03/22 07/06/23 lisinopriL [Zestril] 20 mg PO DAILY 08/03/22 07/06/23 Acetaminophen [Tylenol Extra 1,000 mg PO Q6H PRN 12/28/22 07/06/23 Strength] Retaine Flax [place] 1 tab PO DAILY 02/16/23 07/06/23 Retinavite 1 tab PO DAILY 02/16/23 07/06/23 Celecoxib [CeleBREX] 200 mg PO BID 06/18/23 07/06/23 Escitalopram [Lexapro] 20 mg PO HS 06/18/23 07/06/23 Sennosides/Docusate Sodium [Senna 1 cap PO DAILY PRN 07/06/23 07/06/23 Plus 8.6-50 mg Softgel] Previous Rx's Medication Instructions Recorded Cyclobenzaprine [Flexeril] 10 mg PO TID PRN #40 tab 07/02/23 HYDROcodone/APAP 7.5-325MG [[place] 1 tab PO Q4-6H PRN #42 tab 07/02/23 7.5-325] metroNIDAZOLE [Flagyl] 500 mg PO QID #20 tab 07/02/23 HYDROcodone/APAP 7.5-325MG [[place] 1 - 2 each PO Q4HR PRN #42 tab 07/06/23 7.5] diazePAM [Valium] 5 mg PO BID #6 tab 07/06/23 methocarbamoL [Robaxin-750] 750 mg PO TID PRN #40 tab 07/06/23 predniSONE 10 mg PO BID 5 Days #10 tab 07/06/23 Allergies Allergy/AdvReac Type Severity Reaction Status Date / Time erythromycin base Allergy Unknown Rash, Verified 09/07/23 00:12 itching, lips swollen, tingling, head like basketball oxycodone Allergy Unknown vomit bile Verified 09/07/23 00:12 Penicillins Allergy Unknown Rash, Verified 09/07/23 00:12 itching sulfamethoxazole Allergy Unknown Rash/Hives/ Verified 09/07/23 00:12 [From Bactrim] Itching tolterodine [From Detrol] Allergy Unknown itching/nelly Verified 09/07/23 00:12 h tramadol [From Ultram] Allergy Unknown Rash, Verified 09/07/23 00:12 itching, lips swollen, tingling, head like basketball trimethoprim [From Bactrim] Allergy Unknown Rash/Hives/ Verified 09/07/23 00:12 Itching nickel Allergy Rash/Hives Verified 09/07/23 00:12 hydromorphone [From Dilaudid] AdvReac Unknown reaction Verified 09/07/23 00:12 in higher doses, rash, itching gel adhesive pad Allergy Unknown ekg pads Uncoded 09/07/23 00:12 and adhesive- chemical burn, itching rash Review of Systems ROS Other: All systems not noted in ROS Statement are negative. <Claudia Escalona - Last Filed: 09/06/23 23:28> ROS Other: All systems not noted in ROS Statement are negative. <Rasta Tovar - Last Filed: 09/19/23 20:59> ROS Statement: Those systems with pertinent positive or pertinent negative responses have been documented in the HPI. Past Medical History Past Medical History: CVA/TIA, Diabetes Mellitus, Hyperlipidemia, Hypertension, Osteoarthritis (OA), Renal Disease, Thyroid Disorder Additional Past Medical History / Comment(s): PARKINSON's disease, possible TIA, SEASONAL ALLERGIES, OSTEOPORISIS, INTERSTITIAL CYSTITIS, DRY EYES, MACULAR DEGENERATION.CHRONIC KIDNEY DISEASE STAGE 3 , NEW DX ANEMIA, IRON DEFICIENCY AND B12 DEFICIENCY,, nasal congestion History of Any Multi-Drug Resistant Organisms: None Reported Past Surgical History: Adenoidectomy, Back Surgery, Bladder Surgery, Cholecystectomy, Heart Catheterization, Hysterectomy, Orthopedic Surgery, Tonsillectomy, Tubal Ligation Additional Past Surgical History / Comment(s): LEFT ROTATOR CUFF, RIGHT FROZEN SHOULDER, JEFF KNEES-TOTAL AND PARTIAL, OOPHERECTOMY, CYSTOSCOPIES, BLADDER SUSPENSION, INTERSTITIAL CYSTITIS, JEFF CARPAL TUNNEL, PAIN CLINIC PROCEDURES , EYE SURGERIES (CHILD), EYELID RESECTION & EYEBROW LIFT. laminectomy on 07-26-20, BACK SURGERY WITH HARDWARE (CAGE) back surgery x4 11/02, L1 & L2 01/12/22, BILATERAL CATARACT SURGERY. Past Anesthesia/Blood Transfusion Reactions: Previous Problems w/ Anesthesia Additional Past Anesthesia/Blood Transfusion Reaction / Comment(s): STATES MEDICATION "CURRARRE" USED OVER 25 YEARS AGO, SHE FELT PARALYZED AND COULD NOT MOVE OR BREATHE. Past Psychological History: Depression Smoking Status: Never smoker Past Alcohol Use History: Occasional Past Drug Use History: None Reported - Past Family History Mother Family Medical History: Cancer Additional Family Medical History / Comment(s): SKIN CANCER Father Family Medical History: Cancer Additional Family Medical History / Comment(s): SKIN CANCER Sister(s) Family Medical History: Cancer Additional Family Medical History / Comment(s): BREAST CANCER <Claudia Escalona - Last Filed: 09/06/23 23:28> General Exam <Claudia Escalona - Last Filed: 09/06/23 23:28> General appearance: alert, in no apparent distress Head exam: Present: atraumatic, normocephalic, normal inspection Eye exam: Present: normal appearance, PERRL, EOMI. Absent: scleral icterus, conjunctival injection, periorbital swelling ENT exam: Present: normal exam, mucous membranes moist Neck exam: Present: normal inspection. Absent: tenderness, meningismus, lymphadenopathy Respiratory exam: Present: normal lung sounds bilaterally. Absent: respiratory distress, wheezes, rales, rhonchi, stridor Cardiovascular Exam: Present: regular rate, normal rhythm, normal heart sounds. Absent: systolic murmur, diastolic murmur, rubs, gallop, clicks GI/Abdominal exam: Present: soft, normal bowel sounds. Absent: distended, tenderness, guarding, rebound, rigid Extremities exam: Present: normal inspection, full ROM, normal capillary refill. Absent: tenderness, pedal edema, joint swelling, calf tenderness Back exam: Present: normal inspection Neurological exam: Present: alert, oriented X3, CN II-XII intact Psychiatric exam: Present: normal affect, normal mood Skin exam: Present: warm, dry, intact, normal color. Absent: rash <Rasta Tovar - Last Filed: 09/19/23 20:59> - General Exam Comments Initial Comments: Visual Physical Exam Vital signs reviewed General: Well-appearing, nontoxic, no acute distress. Head: Normocephalic, atraumatic Eyes: PERRLA, EOMI ENT: Airway patent Chest: Nonlabored breathing Skin: No visual rash, normal skin tone Neuro: Alert and oriented 3 Musculoskeletal: No gross abnormalities (Claudia Escalona) Course <Rasta Tovar - Last Filed: 09/19/23 20:59> Vital Signs 09/06/23 23:20 Temperature 98.0 F Pulse Rate 81 Respiratory 17 Rate Blood Pressure 141/68 O2 Sat by Pulse 95 Oximetry - Reevaluation(s) Reevaluation #1: Medical records reviewed (Rasta Tovar) Reevaluation #2: Patient symptoms improved (Rasta Tovar) Reevaluation #3: Informed of results questions answered (Rasta Tovar) Reevaluation #4: Was pt. sent in by a medical professional or institution (, PA, FLAMER SEALER, urgent care, hospital, or usp...) When possible be specific @ -no Did you speak to anyone other than the patient for history (EMS, parent, family, police, friend...)? What history was obtained from this source @ -no Did you review nursing and triage notes (agree or disagree)? Why? @ -agree Are old charts reviewed (outside hosp., previous admission, EMS record, old EKG, old radiological studies, urgent care reports/EKG's, usp records)? Report findings @ -yes Differential Diagnosis (chest pain, altered mental status, abdominal pain women, abdominal pain men, vaginal bleeding, weakness, fever, dyspnea, syncope, headache, dizziness, GI bleed, back pain, seizure, CVA, palpatations, mental health, musculoskeletal)? @ -prior EKG interpreted by me (3pts min.). @ -no X-rays interpreted by me (1pt min.). @ -no CT interpreted by me (1pt min.). @ -no U/S interpreted by me (1pt. min.). @ -yes negative for acute disease What testing was considered but not performed or refused? (CT, X-rays, U/S, labs)? Why? @ -none What meds were considered but not given or refused? Why? @ -none Did you discuss the management of the patient with other professionals (professionals i.e. , PA, FLAMER SEALER, lab, RT, psych nurse, oncology social worker, or manager, teacher, postal delivery officer, home health care case manager)? Give summary @ -no Was smoking cessation discussed for >3mins.? @ -no Was critical care preformed (if so, how long)? @ -no Were there social determinants of health that impacted care today? How? (Homelessness, low income, unemployed, alcoholism, drug addiction, transportation, low edu. Level, literacy, decrease access to med. care, long-term, rehab)? @ -none Was there de-escalation of care discussed even if they declined (Discuss DNR or withdrawal of care, Hospice)? DNR status @ -no What co-morbidities impacted this encounter? (DM, HTN, Smoking, COPD, CAD, Cancer, CVA, ARF, Chemo, Hep., AIDS, mental health diagnosis, sleep apnea, morbid obesity)? @ -none Was patient admitted / discharged? Hospital course, mention meds given and route, prescriptions, significant lab abnormalities, going to OR and other pertinent info. @ -73 female with left leg pain, ultrasound negative for DVT no other acute cause of pain found. Patient can be discharged home Discharged Undiagnosed new problem with uncertain prognosis? @ -no Drug Therapy requiring intensive monitoring for toxicity (Heparin, Nitro, Insulin, Cardizem)? @ -no Were any procedures done? @ -no Diagnosis/symptom? @ -Left leg pain and edema Acute, or Chronic, or Acute on Chronic? @ -Acute Uncomplicated (without systemic symptoms) or Complicated (systemic symptoms)? @ -Complicated Side effects of treatment? @ -no Exacerbation, Progression, or Severe Exacerbation? @ -exacerbation Poses a threat to life or bodily function? How? (Chest pain, [place], [place], pneumonia, PE, COPD, DKA, ARF, appy, cholecystitis, CVA, Diverticulitis, Homicidal, Suicidal, threat to staff... and all critical care pts) @ -yes dvT with PE left leg pain and edema (Rasta Tovar) Medical Decision Making <Claudia Escalona - Last Filed: 09/06/23 23:28> - Radiology Data Radiology results: report reviewed (Ultrasound left lower extremity negative for DVT), image reviewed <Rasta Tovar - Last Filed: 09/19/23 20:59> - Medical Decision Making I performed the quick note portion of this chart. Electronically signed by Claudia Escalona PA-C (Claudia Escalona) 73 female with left leg pain, ultrasound negative for DVT no other acute cause of pain found. Patient can be discharged home (Rasta Tovar) Disposition <Claudia Escalona - Last Filed: 09/06/23 23:28> Is patient prescribed a controlled substance at d/c from ED?: No <Rasta Tovar - Last Filed: 09/19/23 20:59> Clinical Impression: Left leg pain, Leg edema, left Disposition: HOME SELF-CARE Condition: Good Instructions (If sedation given, give patient instructions): Leg Edema (ED), Leg Pain (ED) Referrals: Cami Oreilly MD [Primary Care Provider] - 1-2 days
[2023-09-07 00:12] VITALS: BP 141/68; PULSE 81; RESP 17; TEMP 98
--- NOTE | 2023-09-07 02:22 | US ---
EXAM: US Duplex Left Lower Extremity Veins CLINICAL HISTORY: ITS.REASON US Reason: swelling TECHNIQUE: Real-time duplex ultrasound scan of the left lower extremity veins integrating B-mode two-dimensional vascular structure, Doppler spectral analysis, color flow Doppler imaging and compression. COMPARISON: No relevant prior studies available. FINDINGS: Deep veins: Unremarkable. No DVT in the visualized common femoral, femoral, proximal deep femoral or popliteal veins. The veins demonstrate normal color flow, are normally compressible, with normal phasic flow and/or augmentation response. Superficial veins: Unremarkable. No thrombus in the visualized great saphenous vein. Soft tissues: No acute findings. No popliteal cyst. IMPRESSION: Normal left lower extremity duplex venous ultrasound.
== END 2023-09-07 03:21 | disposition home or self-care (01) ==
LOC: EC 23:13
DX: M79.605 Pain in left leg (principal); Z88.0 Allergy status to penicillin; Z88.1 Allergy status to other antibiotic agents; Z88.2 Allergy status to sulfonamides; Z88.5 Allergy status to narcotic agent; Z88.8 Allergy status to other drugs, medicaments and biological substances; Z90.49 Acquired absence of other specified parts of digestive tract; Z86.73 Personal history of transient ischemic attack (TIA), and cerebral infarction without residual deficits
CPT/HCPCS: 99283

== ENCOUNTER → 2023-10-14 | Outpatient (CLI) | payer MEDICARE, OTHER ==
--- NOTE | 2023-10-14 10:57 | XR ---
EXAMINATION TYPE: XR chest 2V DATE OF EXAM: 10/14/2023 10:46 AM CLINICAL INDICATION:Female, 73 years old with history of 786.05 SHORTNESS OF BREATH; PHH COMPARISON: Chest radiographs from 10/29/2020 TECHNIQUE: XR chest 2V Frontal view of the chest. FINDINGS: Lungs/Pleura: There is no evidence of pleural effusion, focal consolidation, or pneumothorax. Pulmonary vascularity: Unremarkable. Heart/mediastinum: Cardiomediastinal silhouette is unremarkable. Musculoskeletal: No acute osseous pathology. IMPRESSION: No acute cardiopulmonary disease/process.
--- NOTE | 2023-10-14 11:10 | XR ---
EXAMINATION TYPE: XR Hip Bilateral Complete DATE OF EXAM: 10/14/2023 10:46 AM CLINICAL INDICATION:Female, 73 years old with history of Z91.81 HISTORY OF FALLS, M54.50 LUMBAR PAIN; PHH COMPARISON: None. TECHNIQUE: XR Hip Bilateral Complete; hip was examined in the frontal and lateral projections and a A P pelvis. FINDINGS: No evidence for acute process, joint dislocation or significant soft tissue swelling. Osteo phyte formation of the superior acetabulum of the hips. There is mild joint space narrowing. IMPRESSION: 1. No evidence for acute process. 2. Mild bilateral hip osteoarthrosis.
--- NOTE | 2023-10-14 11:30 | XR ---
EXAMINATION TYPE: XR lumbar spine 2 or 3V, XR sacroiliac joint comp BILAT DATE OF EXAM: 10/14/2023 10:46 AM CLINICAL INDICATION:Female, 73 years old with history of Z91.81 HISTORY OF FALLS, M54.50 LUMBAR PAIN, M46.1 BILATERA; PHH COMPARISON: None TECHNIQUE: XR lumbar spine 2 or 3V, XR sacroiliac joint comp BILAT - Frontal, lateral and coned in L5 -S1 lateral views of the spine. Frontal and oblique views of the sacroiliac joints were obtained. FINDINGS: No evidence of any acute osseous pathology. No evidence of loss of vertebral body height i s seen. There is normal alignment of the lumbar vertebral bodies. Post surgical changes to the spine with fixation hardware at L3, L4, and L5. Hardware appears intact. Discectomy at L3-L4 and L4-5. Vert ebroplasty changes at L1. With wedge compression deformity. Compression deformity of L3 vertebrae sup erior endplate. Moderate multilevel degeneration changes with joint space narrowing osteophyte format ion disc and facet joint arthropathy. Mild Osteophyte formation of the bilateral sacroiliac joints. IMPRESSION: 1. No acute fracture. 2. Mild to moderate disc degeneration. 3. Surgical changes with hardware intact. 4. Mild to moderate degeneration changes sacroiliac joints.
[2023-10-14 16:13] LABS: HCT 37.4 % (37.2-46.3); HGB 11.2 g/dL (12.0-15.0); MCH 27.7 pg (27.0-32.0); MCHC 29.9 g/dL (32.0-37.0); MCV 92.3 FL (80.0-97.0); Mean Platelet Volume 10.6 FL (9.5-12.2); NRBC Per 100 WBC 0 X 10*3/uL (0.00-0.01); Platelet Count 270 X 10*3/uL (140-440); RBC 4.05 X 10*6/uL (4.10-5.20); RDW 14.7 % (11.5-14.5); WBC 5.63 X 10*3/uL (4.50-10.00)
[2023-10-14 16:29] LABS: Albumin 4.4 g/dL (3.8-4.9); Blood Urea Nitrogen 21.7 mg/dL (9.0-27.0); Calcium 9.6 mg/dL (8.7-10.3); Carbon Dioxide 23.4 mmol/L (21.6-31.8); Chloride 105 mmol/L (96-109); Globulin 1.8 g/dL (1.6-3.3); Glucose 235 mg/dL (70-110); Potassium 4.2 mmol/L (3.5-5.5); Sodium 141 mmol/L (135-145); Total Protein 6.2 g/dL (6.2-8.2)
[2023-10-14 16:30] LABS: ALT 11 U/L (8-44); AST 16 U/L (13-35); Albumin/Globulin Ratio 2.44 Ratio (1.60-3.17); Alkaline Phosphatase 53 U/L (41-126); Total Bilirubin <0.2 mg/dL (0.3-1.2)
[2023-10-14 17:01] LABS: INR 1.02 sec (0.93-1.11)
== END | disposition home or self-care (01) ==
LOC: LABPAT 08:57
PROVIDERS: ATTEND Orthopaedic Surgery
DX: Z01.818 Encounter for other preprocedural examination (principal); M51.36 Other intervertebral disc degeneration, lumbar region; I44.0 Atrioventricular block, first degree; I45.10 Unspecified right bundle-branch block; M16.0 Bilateral primary osteoarthritis of hip; M46.1 Sacroiliitis, not elsewhere classified; R06.02 Shortness of breath; Z91.81 History of falling; Z79.01 Long term (current) use of anticoagulants; Z98.890 Other specified postprocedural states
CPT/HCPCS: 71046; 72100; 72202; 73521; 80053; 85027; 85610; 93005

== ENCOUNTER → 2023-10-14 | Outpatient (CLI) | payer MEDICARE, OTHER ==
--- NOTE | 2023-10-14 10:54 | CT ---
EXAMINATION TYPE: CT pelvis wo con DATE OF EXAM: 10/14/2023 COMPARISON: None HISTORY: recent fall right side hip pain CT DLP: 554.60 mGycm Automated exposure control for dose reduction was used. FINDINGS: The pelvis is intact and there is no fracture or focal intraosseous abnormality. 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 The hips are normal and symmetric there's no hip fracture or dislocation. There are postsurgical changes of lower lumbar spine fusion. IMPRESSION: NO ACUTE TRAUMA TO THE PELVIS OR HIPS.
== END | disposition home or self-care (01) ==
LOC: RADCTMAIN 08:37
PROVIDERS: ATTEND Orthopaedic Surgery
DX: M47.818 Spondylosis without myelopathy or radiculopathy, sacral and sacrococcygeal region (principal)
CPT/HCPCS: 72192

== ENCOUNTER → 2023-10-27 | Outpatient (CLI) | payer MEDICARE, OTHER | END | disposition home or self-care (01) | LOC: LABPRL 09:45 | PROVIDERS: ATTEND Internal Medicine Cardiovascular Disease | DX: E78.2 Mixed hyperlipidemia (principal) | CPT/HCPCS: 80061; 84450; 84460 ==

== ENCOUNTER 2023-11-12 12:30 | Inpatient (IN) | payer MEDICARE, OTHER ==
[~2023-11-12 12:30] MED LIST changes: -ACETAMINOPHEN TAB 500 MG TAB PO PRN; -GABAPENTIN 300 MG CAP PO PRN; -ONDANSETRON 4 MG/2 ML VIAL IVP PRN; -VANCOMYCIN 1,500 MG in SODIUM CHLORIDE 0.9% 500 ML 500 ML IVPB PRN
[2023-11-12] MEDS ORDERED: fentaNYL (PF) 50 MCG/ML 2 ML AMP IV PRN (13:16)
[2023-11-12] MEDS ORDERED: MIDAZOLAM 2 MG/2 ML VIAL IV PRN (13:16)
[2023-11-12] MEDS: IV FLUID CONTINUATION 1,000 ML IV ONE ×2 (13:51→18:35)
[2023-11-12] MEDS: LACTATED RINGERS 1,000 ML IV SCH (13:52)
[2023-11-12 13:55] LABS: Glucose,Whole Blood 101 mg/dL (70-110)
[2023-11-12] MEDS: ONDANSETRON 4 MG/2 ML VIAL IVP PRN (13:56)
[2023-11-12] MEDS: ACETAMINOPHEN TAB 500 MG TAB PO PRN (14:06)
[2023-11-12] MEDS: GABAPENTIN 300 MG CAP PO PRN (14:06)
--- NOTE | 2023-11-12 14:31 | P.HPOR ---
History of Present Illness H&P Date: 11/05/23 DEMOGRAPHICS: Height: 5.3 Weight: 209 LBS BMI: 37.0 Occupation: RETIRED, [employer] VAS: 10 CHIEF COMPLAINT: Right SI pain, Low back pain IMPRESSION: It was my pleasure to have seen and examined Jocy Harvey. I reviewed the patient's clinical syndrome, physical findings, and imaging studies during the appointment today. It is my impression that the patient has a diagnosis of. 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 It was my pleasure to have seen and examined JOCY HARVEY. In our visit today we have had a chance to go over subjective complaints, physical examination findings and treatments including the natural course history without intervention and various interventional options. The patients imaging demonstrates the following findings: Right SIJ sclerosis, with joint space narrowing, vacuum phenomenon on CT scan as well as osteophyte formation anteriorly and subchondral cysts. On a physical exam, Lyric Mcdonald demonstrates the following findings: Right SIJ TTP with + fortins; +FABER4, +Compression, +Hip and thigh thrust provocative motions. She has pain with ambulation on this side and can no longer stand on her right leg due to the pain. She states she is in miserable pain all the time and nothing seems to be making it any better. I have explained to the patient that as their condition progresses it will cause further neurological deficits and eventual paralysis. Based on the patients imaging, physical exam, and the rapid progression and disabling nature of their symptoms, at this time I recommend surgery in the form of a: Right SI joint fusion. I discussed the risk and benefits of this procedure at length with JOCY HARVEY AND IN ROOM WITH HER. The patient agreed to consider pursuing the procedure above mentioned. Prior to surgery, they should follow up with her PCP (Cardio, ID, IM etc) for clearance. Questions were invited and answered, and the patient wishes to proceed as outlined below. Currently, I am recommending: RIGHT SACROILIAC JOINT FUSION Review of surgical risks and benefits as well as an educational packet on the proposed surgical procedure. Risks: All surgical procedures come with inherent risks, including those related to positioning, anesthesia, intraoperative findings, and postoperative complications. It is important to understand that surgery does not come with any guarantee of a successful outcome as complications and adverse events are always possible. The patient was given a handout in the office today discussing the surgical procedure and risks associated with the intervention, both of which were discussed with the patient. These risks include but are not limited to the foll owing: Experiencing same, different or even worse symptoms in back, neck, arms, or legs compared to before surgery. Requiring further surgery or other forms of treatment presently or at some time in the future at same or other levels of the intended spine surgery. On an extreme but fortunately relatively rare basis severe complications such as blindness, stroke, heart attack, temporary and/or permanent nerve injury, paralysis, coma, or may occur, sometimes without known explanation. Surgical complications may include but are not limited to risk of infection, fluid accumulation in the surgical dissection site, including a seroma or hematoma, that requires additional surgery, wound drainage, bleeding, new numbness or weakness, vision changes/loss, spinal fluid leakage, non-healing and/or infected incision, headaches, difficulty or inability to swallow, hoarseness, hemopneumothorax, pneumothorax, impotence, retrograde ejaculation, vaginal dryness; injury to nerves, spinal cord, blood vessels, lymphatics or other vital organs (i.e., bowel injury, injury to the great vessels); heterotopic bone formation; complications related to the hardware such as screws, rods, cages including misplaced hardware, device failure, instrumentation at the wrong spine level, hardware fracture/breakage, or hardware loosening; vertebral failure of the spinal column above or below the ne wly placed hardware; retained surgical instrumentations or devices and the need for further surgery. Medical risks of the planned spine surgery include but are not limited to generalized Infections to the whole body or local areas outside of the surgical site (sepsis), heart attack, bleeding, anaphylaxis, meningitis, seizure, epilepsy, hearing loss, burn [place], laceration of the head or other areas of the body, bruising, hypersensitivity of the skin, bladder over distension; allergic reaction; shoulder injury related to positioning; fat, blood and air clots to other areas of the body like heart, lungs, brain; failure of internal organs such as lungs, kidneys, liver and excessive bleeding. If blood transfusions are necessary, note that transfusions may cause intolerance reactions such as anaphylaxis or other complex reactions. Despite best efforts, the results of spine surgery might not heal in terms of bone, soft tissues such as skin, fascia, ligaments, and joints. Additionally, in order to achieve best possible results, spine surgery may be carried out beyond the initially planned levels and involve decompression, fusion including insertion of hardware at levels other than the original intended area of surgical interest change some portions of the procedure in order to ensure the best possible outcomes. With spine surgery and spinal fusion, there are different off label uses of instrumentation (devices, implants and hardware) as well as biological substances (bone morphogenic proteins, demineralized bone matrix) as well as using extra bone from allograft sources (i.e. cadaver bone) or autograft (iliac crest bone, ribs, or the spine itself). The patient has been given information about these practices and their inherent risks and benefits. The patient has had a chance to review all the listed information, has been given print outs detailing this information, and has had all his/her questions answered to their satisfaction. It was my pleasure to have seen and examined JOCY HARVEY. In our visit today we have had a chance to go over my understanding of our patient's current condition, the natural course history without intervention and various interventional options. Questions were invited and answered, and the patient wishes to proceed as outlined above. I have seen and examined the patient for 25 minutes and we have spent more than 50% of the time in repeat and detailed counseling about the patient's condition, its natural course history without and as much as can be predicted with surgery and re-review of various surgical treatment options. In conclusion, JOCY HARVEY requested we proceed with the above suggested surgery and are willing to accept risks and limitations of the suggested surgery as to the nature of the disease process and our best attempts at treatment for the condition. Thank you again for allowing us to be part of your patient's care. Please don't hesitate to contact me if you have any further questions. FOLLOW UP: POSTOP PLAN AT NEXT VISIT: RECHECK PATIENT EDUCATION: Medications Reviewed: YES In our visit today the patient and I have had a chance to go over my understanding of their current condition, the natural course history without intervention and various interventional options. Questions were invited and answered, and the patient wishes to proceed as outlined above. I will be sure to keep you updated after the patient returns here for further follow-up. Thank you again for your referral. Please do not hesitate to contact me if you have any further questions. In our visit today the patient and I have had a chance to go over my understanding of their current condition, the natural course history without intervention and various interventional options. Questions were invited and answered, and the patient wishes to proceed as outlined above. I will be sure to keep you updated after the patient returns here for further follow-up. Thank you again for your referral. Please do not hesitate to contact me if you have any further questions. Signed and authenticated by: Oct 25, 2023 12:00?AM DO Wilmer Mccloud [facility] [address] [address] This document is confidential, intended only for the named recipient(s) and may contain information that is privileged or exempt from disclosure under applicable law. If you are not the intended recipient(s), you are notified that the dissemination, distribution or copying of this information is strictly prohibited. If you received this message in error, please notify the sender then delete this message. Past Medical History Past Medical History: CVA/TIA, Diabetes Mellitus, Hyperlipidemia, Hypertension, Osteoarthritis (OA), Renal Disease, Thyroid Disorder Additional Past Medical History / Comment(s): PARKINSON's disease, possible TIA, SEASONAL ALLERGIES, OSTEOPORISIS, INTERSTITIAL CYSTITIS, DRY EYES, MACULAR DEGENERATION, CHRONIC KIDNEY DISEASE STAGE 3 , ANEMIA, IRON DEFICIENCY AND B12 D EFICIENCY, Type II Diabetes, bilat. LE lymphedema, urinary incontinence History of Any Multi-Drug Resistant Organisms: None Reported Past Surgical History: Adenoidectomy, Back Surgery, Bladder Surgery, Cholecystectomy, Heart Catheterization, Hysterectomy, Orthopedic Surgery, Tonsillectomy, Tubal Ligation Additional Past Surgical History / Comment(s): LEFT ROTATOR CUFF, RIGHT FROZEN SHOULDER, JEFF KNEES-TOTAL AND PARTIAL, OOPHERECTOMY, CYSTOSCOPIES, BLADDER SUSPENSION, JEFF CTR, PAIN CLINIC PROCEDURES , EYE SURGERIES (CHILD), EYELID RESECTION & EYEBROW LIFT. laminectomy on 07-26-20, BACK SURGERY WITH HARDWARE (CAGE) back surgery x4 11/02, L1 & L2 01/12/22, BILATERAL CATARACT SURGERY, BACK SURGERY TO REMOVE HARDWARE 2023 Past Anesthesia/Blood Transfusion Reactions: Previous Problems w/ Anesthesia Additional Past Anesthesia/Blood Transfusion Reaction / Comment(s): STATES MEDICATION "CURARE" USED OVER 25 YEARS AGO, SHE FELT PARALYZED AND COULD NOT MOVE OR BREATHE. Smoking Status: Never smoker - Past Family History Mother Family Medical History: Cancer Additional Family Medical History / Comment(s): SKIN CANCER Father Family Medical History: Cancer Additional Family Medical History / Comment(s): SKIN CANCER Sister(s) Family Medical History: Cancer Additional Family Medical History / Comment(s): BREAST CANCER Medications and Allergies Home Medications Medication Instructions Recorded Confirmed Type Fenofibrate [Lofibra] 160 mg PO DAILY 02/05/20 11/09/23 History Levothyroxine Sodium [Synthroid] 50 mcg PO HS 02/05/20 11/09/23 History Pioglitazone [Actos] 15 mg PO HS 02/05/20 11/09/23 History Magnesium Oxide 800 mg PO BID 07/20/20 11/09/23 History Aspirin [Adult Low Dose Aspirin EC] 81 mg PO DAILY 10/24/20 11/09/23 History Carbidopa-Levodopa 25-100 mg 2 tab PO QID 10/24/20 11/09/23 History [Sinemet 25-100 mg] Alendronate Sodium [Fosamax] 70 mg PO TEIXEIRA 01/09/22 11/09/23 History Empagliflozin [Jardiance] 10 mg PO DAILY 01/09/22 11/09/23 History Ferrous Sulfate [Iron (65 MG 325 mg PO BID 01/09/22 11/09/23 History Elemental)] Multivit with Calcium,Iron,Min 1 tab PO DAILY 01/09/22 11/09/23 History [Women's Multivitamin] Rosuvastatin Calcium [Crestor] 40 mg PO HS 01/09/22 11/09/23 History Vitamin C, D & Zinc 1 tab PO DAILY 01/09/22 11/09/23 History Calcium Carb/Vitamin D3/Vit K1 1 tab PO BID 08/03/22 11/09/23 History [Citracal-D3 500 mg Soft Chew] Escitalopram [Lexapro] 10 mg PO QAM 08/03/22 11/09/23 History Fexofenadine HCl 180 mg PO HS PRN 08/03/22 11/09/23 History Krill/Om-3/Dha/Epa/Phospho/Ast 1 cap PO DAILY 08/03/22 11/09/23 History [Krill Oil 500 mg Softgel] Pramipexole [Mirapex] 0.5 mg PO TID 08/03/22 11/09/23 History lisinopriL [Zestril] 20 mg PO QAM 08/03/22 11/09/23 History Acetaminophen [Tylenol Extra 1,000 mg PO Q6H PRN 12/28/22 11/09/23 History Strength] Retaine Flax Kiel 1 tab PO DAILY 02/16/23 11/09/23 History Retinavite 1 tab PO DAILY 02/16/23 11/09/23 History Celecoxib [CeleBREX] 200 mg PO BID 06/18/23 11/09/23 History Escitalopram [Lexapro] 20 mg PO HS 06/18/23 11/09/23 History Cyclobenzaprine [Flexeril] 10 mg PO TID PRN #40 tab 07/02/23 11/09/23 Rx Sennosides/Docusate Sodium [Senna 1 cap PO DAILY PRN 07/06/23 11/09/23 History Plus 8.6-50 mg Softgel] methocarbamoL [Robaxin-750] 750 mg PO TID PRN #40 tab 07/06/23 11/09/23 Rx Gabapentin 300 mg PO TID 11/09/23 11/09/23 History HYDROcodone/APAP 10-325MG [[place] 1 tab PO Q6HR PRN 11/09/23 11/09/23 History 10-325] Ibuprofen 800 mg PO Q8H 11/09/23 11/09/23 History Allergies Allergy/AdvReac Type Severity Reaction Status Date / Time oxycodone Allergy Severe vomit bile Verified 11/12/23 13:29 erythromycin base Allergy Unknown Rash, Verified 11/12/23 13:29 itching, lips swollen, tingling, head like basketball Penicillins Allergy Unknown Rash, Verified 11/12/23 13:29 itching sulfamethoxazole Allergy Unknown Rash/Itchin Verified 11/12/23 13:29 [From Bactrim] g tolterodine [From Detrol] Allergy Unknown itching/nelly Verified 11/12/23 13:29 h tramadol [From Ultram] Allergy Unknown Rash, Verified 11/12/23 13:29 itching, lips swollen trimethoprim [From Bactrim] Allergy Unknown Rash/Itchin Verified 11/12/23 13:29 g acetaminophen [From Vicodin] Allergy Swelling, Verified 11/12/23 13:29 rash/hives, head felt like a basketball hydrocodone [From Vicodin] Allergy Swelling, Verified 11/12/23 13:29 rash/hives, head felt like a basketball nickel Allergy Rash/Hives Verified 11/12/23 13:29 hydromorphone [From Dilaudid] AdvReac Unknown reaction Verified 11/12/23 13:29 in higher doses, rash, itching gel adhesive pad Allergy Severe ekg pads Uncoded 11/12/23 13:29 and adhesive- chemical burn, itching rash Physical Examination Osteopathic Statement: *. No significant issues noted on an osteopathic structural exam other than those noted in the History and Physical/Consult.
[2023-11-12] MEDS ORDERED: LIDOCAINE 1% INJ 10MG/ML (20 ML MDV) ONE (15:17)
[2023-11-12] MEDS ORDERED: fentaNYL (PF) 50 MCG/ML 2 ML AMP ONE (15:17)
[2023-11-12] MEDS ORDERED: PHENYLEPHRINE-0.9% NACL SYG 1,000 MCG/10 ML SYRINGE ONE (15:17)
[2023-11-12] MEDS ORDERED: TRANEXAMIC 1,000 MG/100ML-NACL PREMIX BAG ONE (15:17)
[2023-11-12] MEDS ORDERED: KETAMINE HCL IN 0.9 % NACL 50 MG/5 ML SYRINGE ONE (15:17)
[2023-11-12] MEDS ORDERED: MIDAZOLAM 2 MG/2 ML VIAL ONE (15:17)
[2023-11-12] MEDS ORDERED: ePHEDrine 50 MG/ML 1 ML VIAL ONE (15:17)
[2023-11-12] MEDS ORDERED: PROPOFOL 10 MG/ML 20 ML VIAL IV ONE (15:17)
[2023-11-12] MEDS ORDERED: SUCCINYLCHOLINE CHLORIDE 200 MG/10 ML VIAL IV ONE (15:17)
[2023-11-12] MEDS: BUPIVACAINE (PF) 0.5% 30 ML VIAL SQ ONE (16:40)
[2023-11-12] MEDS: LIDOCAINE 2%-EPI 1:100,000 20 ML VIAL SQ ONE (16:40)
[2023-11-12 17:46] VITALS: RESP 16; TEMP 97.5
[2023-11-12 17:50] LABS: Glucose,Whole Blood 101 mg/dL (70-110)
--- NOTE | 2023-11-12 17:59 | P.OP ---
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, sacral and sacrococcygeal region M53.3 Sacrococcygeal disorders, not elsewhere classified Postoperative Diagnosis: M43.28 Fusion of spine, sacral and sacrococcygeal region M46.1 Sacroiliitis, not elsewhere classified M47.818 Spondylosis without myelopathy or radiculopathy, sacral and s acrococcygeal region M53.3 Sacrococcygeal disorders, not elsewhere classified Procedure(s) Performed: RIGHT SACROILIAC JOINT FUSION, MINIMALLY INVASIVE SACROPELVIC STABILIZATION INSTRUMENTATION SACROPELVIC JOINT USE OF IONM Implants: SIROS SI FUSION SCREWS 9.5MM X3 Anesthesia: GETA Surgeon: Matthew Pittman Overnight Babysitter #1: Edgar Blanco (WAS PRESENT AND ASSISTED WITH ALL ASPECTS OF THE CASE FROM POSITION TO DRESSING PLACEMENT) Estimated Blood Loss (ml): 25 IV fluids (ml): 900 Urine output (ml): 0 Pathology: none sent Condition: stable Disposition: PACU Indications for Procedure: Spine Surgery Clinical and Risk Review Asha Gonzalez is a 73 yo female presenting for evaluation of [chief complaint]. It was my pleasure to have seen and examined Asha Gonzalez . In our visit today we have had a chance to go over subjective complaints, physical examination findings and treatments including the natural course history without intervention and various interventional options. 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 On a physical exam, Asha Gonzalez demonstrates Pain with palpation of the right and Left SIJ. There is + Shimon's, FABER4, Compression, distraction as well as hip and thigh thrust on the right. I have explained to the patient that as their condition progresses it will cause further neurological deficits and eventual paralysis. Based on the patients imaging, physical exam, and the rapid progression and disabling nature of their symptoms, at this time I recommend surgery in the form of a: RIGHT SACROILIAC JOINT FUSION. I discussed the risk and benefits of this procedure at length with Asha Gonzalez The patient [significant other] agreed to consider pursuing the procedure above mentioned. Prior to surgery, she should follow up with her PCP (Cardio, ID, IM etc) for clearance. Questions were invited and answered, and the patient wishes to proceed as outlined below. Currently, I am recommendin. RIGHT SACROILIAC JOINT FUSION 2. Follow up with PCP for surgical clearance 3. Review of surgical risks and benefits as well as an educational packet on the proposed surgical procedure. Risks: All surgical procedures come with inherent risks, including those related to positioning, anesthesia, intraoperative findings, and postoperative complications. It is important to understand that surgery does not come with any guarantee of a successful outcome as complications and adverse events are always possible. The patient was given a handout in the office today discussing the surgical procedure and risks associated with the intervention, both of which were discussed with the patient. These risks include but are not limited to the following: Experiencing same, different or even worse symptoms in back, neck, arms, or legs compared to before surgery. Requiring further surgery or other forms of treatment presently or at some time in the future at same or other levels of the intended spine surgery. On an extreme but fortunately relatively rare basis severe complications such as blindness, stroke, heart attack, temporary and/or permanent nerve injury, paralysis, coma, or may occur, sometimes without known explanation. Surgical complications may include but are not limited to risk of infection, fluid accumulation in the surgical dissection site, including a seroma or hematoma, that requires additional surgery, wound drainage, bleeding, new numbness or weakness, vision changes/loss, spinal fluid leakage, non-healing and/or infected incision, headaches, difficulty or inability to swallow, hoarseness, hemopneumothorax, pneumothorax, impotence, retrograde ejaculation, vaginal dryness; injury to nerves, spinal cord, blood vessels, lymphatics or other vital organs (i.e., bowel injury, injury to the great vessels); heterotopic bone formation; complications related to the hardware such as screws, rods, cages including misplaced hardware, device failure, instrumentation at the wrong spine level, hardware fracture/breakage, or hardware loosening; vertebral failure of the spinal column above or below the newly placed hardware; retained surgical instrumentations or devices and the need for further surgery. Medical risks of the planned spine surgery include but are not limited to generalized Infections to the whole body or local areas outside of the surgical site (sepsis), heart attack, bleeding, anaphylaxis, meningitis, seizure, epilepsy, hearing loss, burn [place], laceration of the head or other areas of the body, bruising, hypersensitivity of the skin, bladder over distension; allergic reaction; shoulder injury related to positioning; fat, blood and air clots to other areas of the body like heart, lungs, brain; failure of internal organs such as lungs, kidneys, liver and excessive bleeding. If blood transfusions are necessary, note that transfusions may cause intolerance reactions such as anaphylaxis or other complex reactions. Despite best efforts, the results of spine surgery might not heal in terms of bone, soft tissues such as skin, fascia, ligaments, and joints. Additionally, in order to achieve best possible results, spine surgery may be carried out beyond the initially planned levels and involve decompression, fusion including insertion of hardware at levels other than the original intended area of surgical interest change some portions of the procedure in order to ensure the best possible outcomes. With spine surgery and spinal fusion, there are different off label uses of instrumentation (devices, implants and hardware) as well as biological substances (bone morphogenic proteins, demineralized bone matrix) as well as using extra bone from allograft sources (i.e. cadaver bone) or autograft (iliac crest bone, ribs, or the spine itself). The patient has been given information about these practices and their inherent risks and benefits. The patient has had a chance to review all the listed information, has been given print outs detailing this information, and has had all his/her questions answered to their satisfaction. It was my pleasure to have seen and examined Asha Gonzalez . In our visit today we have had a chance to go over my understanding of our patient's current condition, the natural course history without intervention and various interventional options. Questions were invited and answered, and the patient wishes to proceed as outlined above. I have seen and examined the patient for 25 minutes and we have spent more than 50% of the time in repeat and detailed counseling about the patient's condition, its natural course history without and as much as can be predicted with surgery and re-review of various surgical treatment options. In conclusion, Asha Gonzalez and requested we proceed with the above suggested surgery and are willing to accept risks and limitations of the suggested surgery as nature of the disease process and our best attempts at treatment for the condition. Thank you again for allowing us to be part of your patient's care. Please don't hesitate to contact me if you have any further questions. Signed and authenticated by: Matthew [place] [facility] [address] [place] [address] Description of Procedure: RIGHT SI fusion MIS The patient was seen and examined in the preoperative area. All preoperative protocols were followed. Informed consent was obtained, risks and benefits of the procedure were discussed at length. Risks including bleeding infection damage to the surrounding tissue and risk of reoperation were discussed with the patient. Risk of anesthesia up to and including was discussed with the patient. These are outlined in the risk review. They were willing to accept these risks and all of the risks of surgery. The patient was given a weight- based dose of antibiotics in the form of 2 g Ancef. The patient was seen and evaluated by the anesthesia team who deemed them fit for surgery. The site was marked, the patient was willing to proceed with the procedure. The patient was transferred to the operative suite by the Department of anesthesia. They were then drifted off to sleep by the department anesthesia and GETA was performed. The patient tolerated this well. Once confirmation of lines and ventilation the patient was transferred to a [prone José Miguel table very carefully]. All bony prominences including wrists, elbows, axilla, chest, hips, and thighs, and feet were padded very well. Special attention was paid to the genitalia and these were padded accordingly. SCDs were placed on bilateral lower extremities and were connected. Arms were well padded and placed [on arm boards up and out in the 90/90 position]. Once in position, again we confirmed good ventilation capabilities and that lines were running appropriately. The patient's lumbopelvic spine was then exposed. 1010s were placed outlining the incision site. Standard alcohol was used to clean the incision site and allowed to dry. C-arm was used to biomark the patient and confirm level for incision which was marked with a skin marker. Operative briefing was performed with all teams and everyone in agreement to proceed. The patient was then prepped and draped in a normal sterile fashion. Timeout was then performed and all parties were in agreement with the procedure to be performed. Skin incision was then made over the previously marked area over the RIGHT upper buttock region of the patient following the alar lines and mid sacral line. Blunt dissection was then taken down to the ilium. The first pin was then selected and placed optimally within the SI region superiorly. This was then measured and drilled and a screw placed. Then using the parallel guide a second screw was placed in the anterior inferior position in a similar fashion that was then repeated for the inferior posterior screw. All screws had excellent purchase and were confirmed to be in good position on AP lateral inlet and outlet views. Neuro monitoring was then used to test the superior screw for L5 and S1 and these tested above 25 mA. No neuro monitoring changes during surgery, no EMG. Final fluoroscopic images then confirmed good placement of hardware. We then thoroughly irrigated the wound. Deep fascia was closed with 0 Vicryl superficial closed with 2-0 Vicryl and skin closed with strata fix Monocryl. The wound was then cleaned and dressed with skin glue which was allowed to dry and then a Band-Aid. The patient was transferred back to their hospital bed atraumatically. Patient was then awakened and extubated by the department of anesthesia having tolerated the procedure very well with no complications. They were transferred to the postoperative care unit in stable condition.
[2023-11-12] MEDS: HYDROmorphone 0.5 MG/0.5 ML SYRINGE IVP PRN (18:05)
[2023-11-12 18:59] VITALS: BP 102/56; PULSE 76
== END 2023-11-12 19:07 | disposition home or self-care (01) | DRG 460 ==
LOC: 2ORMAIN 12:56
PROVIDERS: ADMIT Orthopaedic Surgery; ATTEND Orthopaedic Surgery
PROC: 0SP704Z Removal of Internal Fixation Device from Right Sacroiliac Joint, Open Approach (ICD-10-PCS; 2023-11-12)
PROC: 4A11X4G Monitoring of Peripheral Nervous Electrical Activity, Intraoperative, External Approach (ICD-10-PCS; 2023-11-12)
PROC: 0SG3071 Fusion of Lumbosacral Joint with Autologous Tissue Substitute, Posterior Approach, Posterior Column, Open Approach (ICD-10-PCS; principal; 2023-11-12 14:45)
DX: M96.0 Pseudarthrosis after fusion or arthrodesis (principal); M47.817 Spondylosis without myelopathy or radiculopathy, lumbosacral region; M46.1 Sacroiliitis, not elsewhere classified; I10 Essential (primary) hypertension; E11.9 Type 2 diabetes mellitus without complications; E78.5 Hyperlipidemia, unspecified; M71.38 Other bursal cyst, other site; G20.A1 Parkinson's disease without dyskinesia, without mention of fluctuations; M53.3 Sacrococcygeal disorders, not elsewhere classified; Z79.82 Long term (current) use of aspirin; Z79.83 Long term (current) use of bisphosphonates; Z79.84 Long term (current) use of oral hypoglycemic drugs; Z79.890 Hormone replacement therapy; Z80.3 Family history of malignant neoplasm of breast; Z79.899 Other long term (current) drug therapy; Z80.8 Family history of malignant neoplasm of other organs or systems; Z90.710 Acquired absence of both cervix and uterus; Z79.1 Long term (current) use of non-steroidal anti-inflammatories (NSAID); Z98.1 Arthrodesis status; Z88.5 Allergy status to narcotic agent; Z88.0 Allergy status to penicillin; Z88.2 Allergy status to sulfonamides
CPT/HCPCS: 72220

== ENCOUNTER → 2024-01-10 | Outpatient (CLI) | payer MEDICARE, OTHER ==
[2024-01-10 15:46] LABS: INR 0.99 sec (0.93-1.11); Prothrombin Time 10.7 sec (9.9-11.9)
[2024-01-10 16:34] LABS: ALT 9 U/L (8-44); AST 18 U/L (13-35); Albumin 4.7 g/dL (3.8-4.9); Albumin/Globulin Ratio 1.88 Ratio (1.60-3.17); Alkaline Phosphatase 91 U/L (41-126); Blood Urea Nitrogen 19.6 mg/dL (9.0-27.0); Calcium 10.4 mg/dL (8.7-10.3); Carbon Dioxide 24.1 mmol/L (21.6-31.8); Chloride 103 mmol/L (96-109); Globulin 2.5 g/dL (1.6-3.3); Glucose 141 mg/dL (70-110); Potassium 4.6 mmol/L (3.5-5.5); Sodium 142 mmol/L (135-145); Total Bilirubin 0.3 mg/dL (0.3-1.2); Total Protein 7.2 g/dL (6.2-8.2)
[2024-01-10 17:18] LABS: HCT 43.9 % (37.2-46.3); MCH 27.4 pg (27.0-32.0); MCHC 29.6 g/dL (32.0-37.0); MCV 92.4 FL (80.0-97.0); Mean Platelet Volume 10.4 FL (9.5-12.2); NRBC Per 100 WBC 0 X 10*3/uL (0.00-0.01); Platelet Count 340 X 10*3/uL (140-440); RBC 4.75 X 10*6/uL (4.10-5.20); RDW 13.9 % (11.5-14.5); WBC 6.23 X 10*3/uL (4.50-10.00)
== END | disposition home or self-care (01) ==
LOC: LABPAT 11:35
PROVIDERS: ATTEND Orthopaedic Surgery
CPT/HCPCS: 36415; 80053; 85027; 85610; 86850; 86900; 86901; 87070

== ENCOUNTER 2024-01-21 06:31 | Inpatient (IN) | payer MEDICARE, OTHER ==
[2024-01-18 11:04] VITALS: BMI 36.1
--- NOTE | 2024-01-20 19:12 | P.HPOR ---
History of Present Illness H&P Date: 01/12/24 Chief Complaint: SACROLILITIS Asha presents for pre op visit for her sacroiliac joint fusion. She recently around 6 weeks ago had her right SIJ fused with such success that she is ready for her other side to be done. She continues to have severe pain in her left SIJ that is refractory to injection, medications, PT, bracing, SI belt and more. She has had three positive injection results with > 80% relief of sx in her Left SIJ. She has had all imaging and work up as appropriate. She has positive provocative signs on the left including +Shimon's, FABER4, Galesens, Hip Thrust, Thigh Thrust and Compression tests on the left. She cannot single leg stand and has pain with going up and down staris, sitting in a chair for any amount of time feeling like she needs to shift off of this side as well as pain getting up from a seated position. She continues to progressively get worse and conservative management no longer helps her. She is ready to pursue surgical fixation of this SIJ. Review of Systems 16 point ROS completed and as stated in HPI. All other systems reviewed as negative. Past Medical History Past Medical History: CVA/TIA, Diabetes Mellitus, Eye Disorder, Hyperlipidemia, Hypertension, Osteoarthritis (OA), Renal Disease, Thyroid Disorder Additional Past Medical History / Comment(s): PARKINSON'S, POSSIBLE TIA, SEASONAL ALLERGIES, OSTEOPORISIS, INTERSTITIAL CYSTITIS, DRY EYES, MACULAR DEGENERATION, CHRONIC KIDNEY DISEASE STAGE 3, ANEMIA, IRON DEFICIENCY, B12 DEFICIENCY, BILATERAL LOWER EXTREMITY LYMPHEDEMA, URINARY INCONTINENCE. History of Any Multi-Drug Resistant Organisms: None Reported Past Surgical History: Adenoidectomy, Back Surgery, Bladder Surgery, Cholecystectomy, Heart Catheterization, Hysterectomy, Joint Replacement, Orthopedic Surgery, Tonsillectomy, Tubal Ligation Additional Past Surgical History / Comment(s): LEFT ROTATOR CUFF, RIGHT FROZEN SHOULDER, BILATERAL KNEES-TOTAL AND PARTIAL, OOPHERECTOMY, CYSTOSCOPIES, BLADDER SUSPENSION, BILATERAL CARPAL TUNNEL RELEASE, PAIN CLINIC PROCEDURES, EYE SURGERIES (CHILD), EYELID RESECTION AND EYEBROW LIFT, LAMINECTOMY, BACK SURGERY WITH HARDWARE (CAGE) BACK SURGERY X4, BILATERAL CATARACT SURGERY, BACK SURGERY TO REMOVE HARDWARE, RIGHT SACROILLIAC JOINT FUSION. Past Anesthesia/Blood Transfusion Reactions: Previous Problems w/ Anesthesia Additional Past Anesthesia/Blood Transfusion Reaction / Comment(s): STATES MEDICATION "CURARE" USED OVER 25 YEARS AGO, SHE FELT PARALYZED AND COULD NOT MOVE OR BREATHE. Smoking Status: Never smoker - Past Family History Mother Family Medical History: Cancer Additional Family Medical History / Comment(s): SKIN CANCER. Father Family Medical History: Cancer Additional Family Medical History / Comment(s): SKIN CANCER. Sister(s) Family Medical History: Cancer Additional Family Medical History / Comment(s): BREAST CANCER. Medications and Allergies Home Medications Medication Instructions Recorded Confirmed Type Fenofibrate [Lofibra] 160 mg PO DAILY 02/05/20 01/18/24 History Levothyroxine Sodium [Synthroid] 50 mcg PO HS 02/05/20 01/18/24 History Pioglitazone [Actos] 15 mg PO HS 02/05/20 01/18/24 History Magnesium Oxide 800 mg PO BID 07/20/20 01/18/24 History Aspirin [Adult Low Dose Aspirin EC] 81 mg PO DAILY 10/24/20 01/18/24 History Carbidopa-Levodopa 25-100 mg 2 tab PO QID 10/24/20 01/18/24 History [Sinemet 25-100 mg] Alendronate Sodium [Fosamax] 70 mg PO TEIXEIRA 01/09/22 01/18/24 History Empagliflozin [Jardiance] 10 mg PO DAILY 01/09/22 01/18/24 History Ferrous Sulfate [Iron (65 MG 325 mg PO BID 01/09/22 01/18/24 History Elemental)] Multivit with Calcium,Iron,Min 1 tab PO DAILY 01/09/22 01/18/24 History [Women's Multivitamin] Rosuvastatin Calcium [Crestor] 40 mg PO HS 01/09/22 01/18/24 History Vitamin C, D & Zinc 1 tab PO DAILY 01/09/22 01/18/24 History Calcium Carb/Vitamin D3/Vit K1 1 tab PO BID 08/03/22 01/18/24 History [Citracal-D3 500 mg Soft Chew] Fexofenadine HCl 180 mg PO HS PRN 08/03/22 01/18/24 History Krill/Om-3/Dha/Epa/Phospho/Ast 1 cap PO DAILY 08/03/22 01/18/24 History [Krill Oil 500 mg Softgel] Pramipexole [Mirapex] 0.5 mg PO TID 08/03/22 01/18/24 History lisinopriL [Zestril] 20 mg PO QAM 08/03/22 01/18/24 History Retaine Flax Imnaha 1 tab PO DAILY 02/16/23 01/18/24 History Retinavite 1 tab PO DAILY 02/16/23 01/18/24 History methocarbamoL [Robaxin-750] 750 mg PO TID PRN #40 tab 07/06/23 01/18/24 Rx Cyclobenzaprine [Flexeril] 10 mg PO TID PRN #40 tab 11/12/23 01/18/24 Rx Gabapentin 600 mg PO TID #90 tab 11/12/23 01/18/24 Rx Turmeric (Unknown Dose) 1 tab PO DAILY 01/18/24 01/18/24 History Allergies Allergy/AdvReac Type Severity Reaction Status Date / Time oxycodone Allergy Severe vomit bile Verified 01/18/24 10:32 erythromycin base Allergy Unknown Rash, Verified 01/18/24 10:32 itching, lips swollen, tingling, head like basketball Penicillins Allergy Unknown Rash, Verified 01/18/24 10:32 itching sulfamethoxazole Allergy Unknown Rash/Itchin Verified 01/18/24 10:32 [From Bactrim] g tolterodine [From Detrol] Allergy Unknown itching/nelly Verified 01/18/24 10:32 h tramadol [From Ultram] Allergy Unknown Rash, Verified 01/18/24 10:32 itching, lips swollen trimethoprim [From Bactrim] Allergy Unknown Rash/Itchin Verified 01/18/24 10:32 g acetaminophen [From Vicodin] Allergy Swelling, Verified 01/18/24 10:32 rash/hives, head felt like a basketball hydrocodone [From Vicodin] Allergy Swelling, Verified 01/18/24 10:32 rash/hives, head felt like a basketball nickel Allergy Rash/Hives Verified 01/18/24 10:32 hydromorphone [From Dilaudid] AdvReac Unknown reaction Verified 01/18/24 10:32 in higher doses, rash, itching gel adhesive pad Allergy Severe ekg pads Uncoded 01/18/24 10:32 and adhesive- chemical burn, itching rash Physical Examination Osteopathic Statement: *. No significant issues noted on an osteopathic structural exam other than those noted in the History and Physical/Consult. PHYSICAL EXAMINATION: General: Alert and oriented, in moderate distress due to pain Ambulatory with antalgic gait, favoring left side INSPECTION: - Normal spinal alignment - No visible deformity - Left pelvic tilt noted - Left shoulder slightly elevated PALPATION: - Marked tenderness over left SI joint - Left piriformis muscle tension - Left PSIS tender to palpation - No midline spinal tenderness - Paraspinal muscles tense left > right RANGE OF MOTION (Lumbar): - Forward flexion: Limited by pain - Extension: Limited with left SI pain - Left lateral bending: Limited with pain - Right lateral bending: Full - Rotation limited bilaterally, left > right SI JOINT PROVOCATIVE TESTING: - JOANN test: Positive left - FADIR: Positive left - Gaenslen's test: Positive left - SI compression test: Positive left - SI distraction test: Positive left - Shimon's finger test: Positive left (patient consistently points to left SI joint) - Thigh thrust: Positive left - Sacral thrust: Positive left NEUROLOGICAL: - Strength 5/5 throughout bilateral lower extremities - DTRs 2+ and symmetric - Sensation intact to light touch all dermatomes - Straight leg raise negative bilaterally - Negative tension signs GAIT AND FUNCTIONAL TESTING: - Antalgic gait favoring left side - Single leg stance limited on left due to pain - Trendelenburg test positive on left - Positive pelvic rock test left side SPECIAL TESTING: - Hip ROM full bilaterally - Negative hip impingement signs - Rojas's test reproduces SI pain left side - [place]'s test positive left side The examination findings are consistent with left sacroiliac joint dysfunction with multiple positive provocative maneuvers reproducing the patient's typical pain. Results IMAGING REVIEW: Mrs. Gonzalez has undergone comprehensive imaging of her lumbar spine and sacroiliac joints. LUMBAR MRI: Status post L3-5 decompression and fusion with intact hardware. Post-surgical ch anges noted without evidence of hardware loosening or failure. Adjacent segments show mild degenerative changes without significant stenosis. No evidence of pseudarthrosis or infection. LUMBAR CT: Demonstrates solid arthrodesis at L3-5 with intact hardware placement. No evidence of lucency around screws or signs of hardware failure. Adjacent segments show preserved height without significant collapse. SACROILIAC XR/CT: Right SI joint status post fusion (6 weeks) with appropriate hardware positioning and early signs of bony incorporation. No evidence of hardware loosening or migration. Left SI joint shows significant degenerative changes including joint space narrowing, subchondral sclerosis, and small erosions. Weight-bearing films demonstrate mechanical stress through the left SI joint. LEFT HIP XR: Mild to moderate degenerative changes of the left hip. No acute osseous abnormality. Joint space maintained. IMPRESSION: 1. Stable L3-5 fusion with appropriate hardware placement and position 2. Right SI fusion showing appropriate early healing without complications 3. Left SI joint degenerative changes consistent with symptomatic sacroiliitis Assessment and Plan Assessment: DIAGNOSES: 1. Left sacroiliitis, unspecified - M46.1 2. Left sacroiliac joint dysfunction - M53.3 3. 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 Status post right sacroiliac joint fusion - Z98.1 5. Status post lumbar fusion L3-L5 - M48.07, Z98.1 6. Post-laminectomy syndrome, lumbar region - M96.1 7. Sacroiliac joint pain, left side - M25.551 8. Chronic pain syndrome - G89.4 9. Degenerative disc disease, lumbar - M51.36 10. 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 Spinal stenosis, status post decompression - M48.07 12. Post-surgical pain, left SI joint region - G89.28 13. Mechanical low back pain - M54.5 14. Status post spinal fusion - Z98.1 Note: Codes are listed in order of relevance to current clinical presentation and planned intervention. Primary diagnosis supporting SI joint fusion is sacroiliitis (M46.1) with associated SI joint dysfunction (M53.3). Plan: SURGICAL PLAN: PROCEDURE: Left Sacroiliac Joint Fusion (Minimally Invasive) DATE: 01/21/24 [facility] PRE-OPERATIVE STATUS: Patient has completed pre-operative medical clearance with PCP [Name] on [Date] and has been deemed appropriate for outpatient surgery. Pre-operative labs, EKG, and chest X-ray are within normal limits. Patient has been provided with and understands pre-operative instructions. PRE-OPERATIVE CHECKLIST: ? Medical clearance obtained ? Pre-operative labs completed and reviewed ? Current medications reviewed ? Post-operative medications prescribed ? Pre-operative shower instructions provided ? NPO after midnight instructions given ? Arrival time and facility information provided ? Post-operative equipment arranged (walker) ? Post-operative physical therapy scheduled ? Family support/transportation arranged SURGICAL DISCUSSION: Discussed the following with patient in detail: Benefits: - Pain relief - Improved mobility - Enhanced stability of SI joint - Potential return to activities - Reduced medication dependency Risks reviewed in detail, including but not limited to: - Infection - Bleeding - Nerve injury - Hardware failure/malposition - Non-union - Need for revision surgery - DVT/PE - Anesthesia risks - Persistent pain - Adjacent segment issues - Screw loosening/breakage - Wound healing problems SPECIFIC EXPECTATIONS DISCUSSED: - Expected hospital course - Limited weight bearing 6 weeks post-op - Walker assistance initially - Gradual return to activities - Physical therapy protocol - Follow-up schedule - Post-operative medication management - Return to work timeline POST-OPERATIVE CARE PLAN: 1. First post-op visit at 2 weeks for wound check 2. Second visit at 6 weeks with X-rays 3. Progressive weight bearing as tolerated after 6 weeks 4. Physical therapy to begin at 6 weeks post-op 5. Activity restrictions reviewed Patient verbalizes understanding of all aspects of surgical plan, risks, benefits, and alternatives. All questions answered. Patient wishes to proceed with surgery as planned. MEDICATIONS: - Current medications reviewed and approved - Post-operative pain management discussed - Perioperative antibiotic prophylaxis planned The patient demonstrates capacity for medical decision making and has signed informed consent. She understands the post-operative protocol and agrees to comply with all post-operative instructions.
[~2024-01-21 06:31] MED LIST changes: +GABAPENTIN 300 MG CAP PO PRN
[2024-01-21] MEDS: IV FLUID CONTINUATION 1,000 ML IV ONE (06:53)
[2024-01-21] MEDS ORDERED: MIDAZOLAM 2 MG/2 ML VIAL IV PRN (07:00)
[2024-01-21 07:22] LABS: Glucose,Whole Blood 173 mg/dL (70-110)
[2024-01-21] MEDS: ACETAMINOPHEN TAB 500 MG TAB PO PRN (07:22)
[2024-01-21] MEDS: LACTATED RINGERS 1,000 ML IV SCH (07:22)
[2024-01-21] MEDS: ONDANSETRON 4 MG/2 ML VIAL IVP PRN (07:23)
[2024-01-21] MEDS ORDERED: LIDOCAINE 1% INJ 10MG/ML (20 ML MDV) ONE (07:30)
[2024-01-21] MEDS ORDERED: SUCCINYLCHOLINE CHLORIDE 200 MG/10 ML VIAL IV ONE (07:30)
[2024-01-21] MEDS ORDERED: LIDOCAINE 4% LTA KIT (4 ML) TOPICAL ONE (07:30)
[2024-01-21] MEDS ORDERED: fentaNYL (PF) 50 MCG/ML 2 ML AMP ONE (07:30)
[2024-01-21] MEDS ORDERED: PROPOFOL 10 MG/ML 20 ML VIAL IV ONE (07:30)
[2024-01-21] MEDS ORDERED: PHENYLEPHRINE 10 MG/ML VIAL ONE (07:30)
[2024-01-21] MEDS: BUPIVACAINE (PF) 0.5% 30 ML VIAL SQ ONE ×2 (08:31)
[2024-01-21] MEDS: LIDOCAINE 2%-EPI 1:100,000 20 ML VIAL SQ ONE ×2 (08:32)
--- NOTE | 2024-01-21 09:26 | FL ---
EXAMINATION TYPE: FL guidance operating room DATE OF EXAM: 01/21/2024 HISTORY: Fluoroscopy time Total dose area product (DAP) in uGy*m?, mGy*cm? (or similar): Not provided IMPRESSION: 1. Fluoroscopy time. [facility], , 01/21/2024 9:24 AM
--- NOTE | 2024-01-21 09:27 | P.OP ---
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, sacral and sacrococcygeal region M53.3 Sacrococcygeal disorders, not elsewhere classified Postoperative Diagnosis: M43.28 Fusion of spine, sacral and sacrococcygeal region M46.1 Sacroiliitis, not elsewhere classified M47.818 Spondylosis without myelopathy or radiculopathy, sacral and sa crococcygeal region M53.3 Sacrococcygeal disorders, not elsewhere classified Procedure(s) Performed: LEFT SACROILIAC JOINT FUSION, MINIMALLY INVASIVE SACROPELVIC STABILIZATION INSTRUMENTATION SACROPELVIC JOINT USE OF VALOREM NAVIGATION FOR SCREW PLACEMENT USE OF Angry Citizen Implants: SIROS 9.5 MM SCREWS X3 50, 50, 40MM SCREWS Anesthesia: GETA Surgeon: Matthew Pittman Estimated Blood Loss (ml): 25 IV fluids (ml): 1,000 Urine output (ml): 0 Pathology: none sent Condition: stable Disposition: PACU Indications for Procedure: Asha Gonzalez is a 73 yo female presenting for evaluation of LEFT SIJ PAIN S/P FUSION AND S/O RIGHT SIJ FUSION. It was my pleasure to have seen and examined Asha Gonzalez . In our visit today we have had a chance to go over subjective complaints, physical examination findings and treatments including the natural course history without intervention and various interventional options. 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 On a physical exam, Asha Gonzalez demonstrates Pain with palpation of the LEFT and Left SIJ. There is + Shimon's, FABER4, Compression, distraction as well as hip and thigh thrust on the right. I have explained to the patient that as their condition progresses it will cause further neurological deficits and eventual paralysis. Based on the patients imaging, physical exam, and the rapid progression and disabling nature of their symptoms, at this time I recommend surgery in the form of a: LEFT SACROILIAC JOINT FUSION. I discussed the risk and benefits of this procedure at length with Asha Gonzalez The patient [significant other] agreed to consider pursuing the procedure above mentioned. Prior to surgery, she should follow up with her PCP (Cardio, ID, IM etc) for clearance. Questions were invited and answered, and the patient wishes to proceed as outlined below. Currently, I am recommendin. LEFT SACROILIAC JOINT FUSION Description of Procedure: LEFT SI fusion MIS The patient was seen and examined in the preoperative area. All preoperative protocols were followed. Informed consent was obtained, risks and benefits of the procedure were discussed at length. Risks including bleeding infection damage to the surrounding tissue and risk of reoperation were discussed with the patient. Risk of anesthesia up to and including was discussed with the patient. These are outlined in the risk review. They were willing to accept these risks and all of the risks of surgery. The patient was given a weight- based dose of antibiotics in the form of 2 g Ancef. The patient was seen and evaluated by the anesthesia team who deemed them fit for surgery. The site was marked, the patient was willing to proceed with the procedure. The patient was transferred to the operative suite by the Department of anesthesia. They were then drifted off to sleep by the department anesthesia and GETA was performed. The patient tolerated this well. Once confirmation of lines and ventilation the patient was transferred to a [prone José Miguel table very carefully]. All bony prominences including wrists, elbows, axilla, chest, hips, and thighs, and feet were padded very well. Special attention was paid to the genitalia and these were padded accordingly. SCDs were placed on bilateral lower extremities and were connected. Arms were well padded and placed [on arm boards up and out in the 90/90 position]. Once in position, again we confirmed good ventilation capabilities and that lines were running appropriately. The patient's lumbopelvic spine was then exposed. 1010s were placed outlining the incision site. Standard alcohol was used to clean the incision site and allowed to dry. C-arm was used to biomark the patient and confirm level for incision which was marked with a skin marker. Operative briefing was performed with all teams and everyone in agreement to proceed. The patient was then prepped and draped in a normal sterile fashion. Timeout was then performed and all parties were in agreement with the procedure to be performed. Skin nicks were made over the PSIS on the right side for tracker pins and tracker was attached for [employer] navigation. 3D spine obtained and confirmed to be accurate. Royce was then used to evelia and plan skin incision on left. Skin incision was then made over the previously marked area over the LEFT upper buttock region of the patient following the alar lines and mid sacral line. Blunt dissection was then taken down to the ilium. Navigated Jamshidi was then used to plan and place wires for the screws. The first pin was then selected and placed optimally within the SI region superiorly. This was then measured and drilled and a screw placed. Then using the parallel guide a second screw was placed in the anterior inferior position in a similar fashion that was then repeated for the inferior posterior screw. All screws had excellent purchase and were confirmed to be in good position on AP lateral inlet and outlet views. Neuro monitoring was then used to test the superior screw for L5 and S1 and these tested above 25 mA. No neuro monitoring changes during surgery, no EMG. Final fluoroscopic images then confirmed good placement of hardware. We then thoroughly irrigated the wound. Deep fascia was closed with 0 Vicryl superficial closed with 2-0 Vicryl and skin closed with strata fix Monocryl. The wound was then cleaned and dressed with skin glue which was allowed to dry and then a Band-Aid. The patient was transferred back to their hospital bed atraumatically. Patient was then awakened and extubated by the department of anesthesia having tolerated the procedure very well with no complications. They were transferred to the postoperative care unit in stable condition.
[2024-01-21 09:33] VITALS: TEMP 97.9
[2024-01-21 09:39] LABS: Glucose,Whole Blood 152 mg/dL (70-110)
[2024-01-21] MEDS: fentaNYL (PF) 50 MCG/ML 2 ML AMP IV PRN (09:53)
[2024-01-21 11:55] VITALS: BP 126/72; PULSE 77; RESP 18
== END 2024-01-31 12:27 | disposition home or self-care (01) | DRG 451 ==
LOC: OR 06:31 → 4SSUR 06:32 → OR 12:27
PROVIDERS: ADMIT Orthopaedic Surgery; ATTEND Orthopaedic Surgery
PROC: 4A1104G Monitoring of Peripheral Nervous Electrical Activity, Intraoperative, Open Approach (ICD-10-PCS; principal; 2024-01-21 07:30)
PROC: 0SG804Z Fusion of Left Sacroiliac Joint with Internal Fixation Device, Open Approach (ICD-10-PCS; principal; 2024-01-21 07:30)
DX: M46.1 Sacroiliitis, not elsewhere classified (principal); G20.A1 Parkinson's disease without dyskinesia, without mention of fluctuations; E07.9 Disorder of thyroid, unspecified; I12.9 Hypertensive chronic kidney disease with stage 1 through stage 4 chronic kidney disease, or unspecified chronic kidney disease; N18.30 Chronic kidney disease, stage 3 unspecified; E11.22 Type 2 diabetes mellitus with diabetic chronic kidney disease; M47.818 Spondylosis without myelopathy or radiculopathy, sacral and sacrococcygeal region; M53.3 Sacrococcygeal disorders, not elsewhere classified; M47.819 Spondylosis without myelopathy or radiculopathy, site unspecified; M51.369 Other intervertebral disc degeneration, lumbar region without mention of lumbar back pain or lower extremity pain; M51.360 Other intervertebral disc degeneration, lumbar region with discogenic back pain only; M96.1 Postlaminectomy syndrome, not elsewhere classified; M48.00 Spinal stenosis, site unspecified; E78.5 Hyperlipidemia, unspecified; M19.90 Unspecified osteoarthritis, unspecified site; H35.30 Unspecified macular degeneration; Z79.83 Long term (current) use of bisphosphonates; Z79.82 Long term (current) use of aspirin; Z79.84 Long term (current) use of oral hypoglycemic drugs; Z79.890 Hormone replacement therapy; Z79.899 Other long term (current) drug therapy; Z88.0 Allergy status to penicillin; Z98.1 Arthrodesis status; Z88.2 Allergy status to sulfonamides; Z88.5 Allergy status to narcotic agent
CPT/HCPCS: 72100